=== PATIENT | male | born 1935 | race Caucasian/White ===

== ENCOUNTER → 2018-03-01 | Outpatient (CLI) | payer MEDICARE, BC ==
--- NOTE | 2018-03-01 18:02 | US ---
Exam: LOWER EXTREMITY VENOUS INSUFFICIENCY DATE: 03/01/2018. Technique: SIDE PERFORMED: Bilateral FINDINGS: 1) Color flow is present and patency is documented in the following vessels. No DVT or SVT is noted . EIV Common Femoral Vein Deep Femoral Vein Femoral Vein Popliteal Vein Proximal Calf Veins, not seen due to swelling Greater Saph Vein Upper Small Saph Vein 2) There is venous reflux noted at the following venous levels: Right: EIV,CFV, FV mid, Left: EIV, CFV, GSV IMPRESSION: 1. No evidence for DVT within the bilateral lower extremities imaged from the groin to the knees. The upper calves are not adequately visualized due to soft tissue swelling. 2. Bilateral venous reflux as outlined above.
== END | disposition home or self-care (01) ==
LOC: RADUSWWP 13:37
PROVIDERS: ATTEND Family Medicine
DX: M79.89 Other specified soft tissue disorders (principal); I87.2 Venous insufficiency (chronic) (peripheral)
CPT/HCPCS: 93970

== ENCOUNTER → 2018-07-31 | Outpatient (CLI) | payer MEDICARE, BC ==
--- NOTE | 2018-07-31 14:46 | US ---
EXAMINATION TYPE: US carotid duplex BILAT DATE OF EXAM: 07/31/2018 COMPARISON: NONE CLINICAL HISTORY: I65.29 OCCLUSION AND STENOSIS CAROTID ARTERY. Stenosis EXAM MEASUREMENTS: RIGHT: Peak Systolic Velocity (PSV) cm/sec ----- Right CCA: 124.4 ----- Right ICA: 210.7 ----- Right ECA: 417.1 ICA/CCA ratio: 1.7 RIGHT: End Diastole cm/sec ----- Right CCA: 14.0 ----- Right ICA: 21.2 ----- Right ECA: 23.8 LEFT: Peak Systolic Velocity (PSV) cm/sec ----- Left CCA: 205.2 ----- Left ICA: 253.1 ----- Left ECA: 425.9 ICA/CCA ratio: 1.2 LEFT: End Diastole cm/sec ----- Left CCA: 17.0 ----- Left ICA: 33.3 ----- Left ECA: 27.4 VERTEBRALS (direction of flow): Right Vertebral: Antegrade Left Vertebral: Antegrade Rhythm: Normal Grayscale images show moderate to severe diffuse plaque throughout carotid arteries bilaterally most prominent right carotid bulb level. Increased peak systolic velocity bilateral internal carotid arter ies is present. Increased peak systolic velocity bilateral common carotid arteries is noted. IMPRESSION: Severe atherosclerotic change bilaterally, cannot exclude hemodynamically significant st enosis . Advise CTA of the neck follow-up. Criteria for Assigning % of Stenosis / Diameter reduction (Estimation based on the indirect measurements of the internal carotid artery velocities (ICA PSV). 1. Normal (no stenosis)=ICA PSV < 125 cm/s: ratio < 2.0: ICA EDV<40 cm/s. 2. Less than 50% stenosis=ICA PSV < 125 cm/s: ratio < 2.0: ICA EDV<40 cm/s. 3. 50 to 69% stenosis=ICA PSV of 125 to 230 cm/s: ration 2.0 ? 4.0: ICA EDV 40-100 cm/s. 4. Greater than 70% stenosis to near occlusion= ICA PSV > 230 cm/s: ratio > 4.0: ICA EDV > 100 cm/s. 5. Near occlusion= ICA PSV velocities may be low or undetectable: variable ratio and ICA EDV. 6. Total occlusion=unable to detect flow.
== END | disposition home or self-care (01) ==
LOC: RADUSWWP 13:38
PROVIDERS: ATTEND Family Medicine
DX: I65.23 Occlusion and stenosis of bilateral carotid arteries (principal)
CPT/HCPCS: 93880

== ENCOUNTER 2019-03-01 19:16 | Inpatient (IN) | payer MEDICARE, BC ==
--- NOTE | 2019-03-01 20:07 | XR ---
EXAMINATION TYPE: XR chest 2V DATE OF EXAM: 03/01/2019 COMPARISON: 01/30/2015 HISTORY: Pneumonia. Chest pain TECHNIQUE: Frontal and lateral views of the chest are obtained. FINDINGS: There is no heart failure nor confluent pneumonic infiltrate. There are sternal wires. The re is stent in the ascending aorta. Costophrenic angles are clear. There is slight coarsening of inte rstitial markings. Bony thorax appears intact. IMPRESSION: No active cardiopulmonary disease. No change.
[2019-03-01 20:18] LABS: Basophils % (A) 1 %; Eosinophils # (A) 0.2 k/uL (0-0.7); Eosinophils % (A) 2 %; HCT 37.1 % (39.0-53.0); HGB 12.5 gm/dL (13.0-17.5); Lymphocytes # (A) 1.6 k/uL (1.0-4.8); Lymphocytes % (A) 22 %; MCH 30.2 pg (25.0-35.0); MCHC 33.7 g/dL (31.0-37.0); MCV 89.7 fL (80.0-100.0); Mean Platelet Volume 7.3; Monocytes # (A) 0.5 k/uL (0-1.0); Monocytes % (A) 8 %; Neutrophils # (A) 4.5 k/uL (1.3-7.7); Neutrophils % (A) 64 %; Platelet Count 130 k/uL (150-450); RBC 4.14 m/uL (4.30-5.90)
[2019-03-01 20:21] LABS: Partial Thromboplastin Time 23.5 sec (22.0-30.0); Prothrombin Time 10.9 sec (9.0-12.0)
[2019-03-01 20:26] LABS: Albumin 3.6 g/dL (3.5-5.0); Calcium 8.8 mg/dL (8.4-10.2); Magnesium 2.3 mg/dL (1.6-2.3); Potassium 4.5 mmol/L (3.5-5.1); Total Bilirubin 0.3 mg/dL (0.2-1.3); Total Protein 6.3 g/dL (6.3-8.2)
[2019-03-01] MEDS ORDERED: NALOXONE 0.4 MG/ML 1 ML VIAL IV PRN (21:25)
[2019-03-01] MEDS ORDERED: HEPARIN SODIUM,PORCINE 5,000 UNIT/ML 1 ML VIAL IV PRN (21:25)
[2019-03-01] MEDS ORDERED: HEPARIN SODIUM,PORCINE 5,000 UNIT/ML 1 ML VIAL IV ONE (21:25)
--- NOTE | 2019-03-01 21:33 | ED ---
Chest Pain HPI - General Chief Complaint: Chest Pain Stated Complaint: Chest pain Source: patient Mode of arrival: wheelchair Limitations: no limitations - History of Present Illness Initial Comments: The patient is an 83-year-old male with past medical history coronary artery disease who presents emergency Department with reported chest pain. He states it's been intermittent and associated with exertion which has been present for the past 3 days. States it is coming more frequent. States today he took his normal daily 30 minute walk. He was able to walk 2 blocks before he had a left- sided chest pressure. Denies any radiation of the pain. No ripping or tearing sensation to his back. He does have nitro at home to take for his angina. States he did take the medication with some improvement in his symptoms. He is concerned as the symptoms have become more frequent and therefore called his nephew to bring him into the emergency department for evaluation. The patient arrives and is currently states that he is pain-free. States that his last stress test was probably 3 years ago. He does normally see Dr. Malloy in office. He does admit to shortness of breath. He denies any diaphoresis, nausea or vomiting. No pain in his lower extremity. No back or flank pain. The patient denies a history of DVT or PE. He is not on any anticoagulation. No recent kenney rgeries or prolonged immobility. Does have chronic lower extremity edema which she states is at his baseline. Denies cough, fevers or chills. There are no other alleviating, precipitating or modifying factors - Related Data Home Medications Medication Instructions Recorded Confirmed ALPRAZolam [Xanax] 0.25 mg PO TID PRN 01/08/14 03/01/19 Nitroglycerin Sl Tabs [Nitrostat] 0.4 mg SL Q5M PRN 01/08/14 03/01/19 Lovastatin [Mevacor] 80 mg PO HS 12/03/14 03/01/19 Zolpidem [Ambien] 5 mg PO HS PRN 12/04/14 03/01/19 Acetaminophen Tab [Tylenol] 650 mg PO HS PRN 02/21/15 03/01/19 Allopurinol [Zyloprim] 100 mg PO BID 02/21/15 03/01/19 Carvedilol [Coreg] 6.25 mg PO AC-BID 02/21/15 03/01/19 Docusate [Colace] 100 mg PO BID PRN 02/21/15 03/01/19 Pantoprazole Sodium 40 mg PO QAM 02/21/15 03/01/19 Aspirin 81 mg PO QAM 06/16/15 03/01/19 HYDROcodone/APAP 5-325MG [[place] 1 tab PO DAILY PRN 06/16/15 03/01/19 5-325] Magnesium Citrate [Citrate of 60 ml PO DAILY PRN 06/16/15 03/01/19 Magnesia] Cholecalciferol (Vitamin D3) 2,000 unit PO QAM 03/01/19 03/01/19 [Vitamin D3] Furosemide [Lasix] 20 mg PO QAM 03/01/19 03/01/19 amLODIPine [Norvasc] 10 mg PO DAILY 03/01/19 03/01/19 cloNIDine HCL [Catapres] 0.2 mg PO BID 03/01/19 03/01/19 Previous Rx's Medication Instructions Recorded Isosorbide Mononitrate ER [Imdur] 60 mg PO DAILY #30 tab.er.24h 06/18/15 hydrALAZINE HCL [Apresoline] 75 mg PO TID #90 tab 06/18/15 Allergies Allergy/AdvReac Type Severity Reaction Status Date / Time No Known Allergies Allergy Verified 03/01/19 19:44 Review of Systems ROS Statement: Those systems with pertinent positive or pertinent negative responses have been documented in the HPI. ROS Other: All systems not noted in ROS Statement are negative. EKG Findings - EKG Comments: EKG Findings:: EKG demonstrates a sinus tachycardia with a ventricular rate of 55. MD interval 178. QRS 106. QTC of 419. No acute ST segment elevations or depressions concerning for ischemic changes. No high degree block. Past Medical History Past Medical History: Coronary Artery Disease (CAD), Heart Failure, Diabetes Mellitus, Eye Disorder, Hyperlipidemia, Hypertension, Memory Impairment, Osteoarthritis (OA) Additional Past Medical History / Comment(s): 02-21-15 ADMITTED WITH GI BLEED. OTHER HX LEGALLY BLIND. EDEMA LEGS. AORTIC STENOSIS. 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 Past Anesthesia/Blood Transfusion Reactions: No Reported Reaction Past Psychological History: Anxiety Smoking Status: Former smoker Past Alcohol Use History: None Reported Past Drug Use History: None Reported - Past Family History Mother Family Medical History: Cancer, Coronary Artery Disease (CAD), Diabetes Mellitus Father Family Medical History: Diabetes Mellitus General Exam Limitations: no limitations General appearance: alert, in no apparent distress Head exam: Present: atraumatic, normocephalic, normal inspection Eye exam: Present: normal appearance, PERRL, EOMI. Absent: scleral icterus, conjunctival injection, periorbital swelling ENT exam: Present: normal exam, mucous membranes moist Neck exam: Present: normal inspection. Absent: tenderness, meningismus, lymphadenopathy Respiratory exam: Present: normal lung sounds bilaterally. Absent: respiratory distress, wheezes, rales, rhonchi, stridor Cardiovascular Exam: Present: regular rate, normal rhythm, normal heart sounds. Absent: systolic murmur, diastolic murmur, rubs, gallop, clicks GI/Abdominal exam: Present: soft, normal bowel sounds. Absent: distended, tenderness, guarding, rebound, rigid Extremities exam: Present: normal inspection, full ROM, normal capillary refill. Absent: tenderness, pedal edema, joint swelling, calf tenderness Back exam: Present: normal inspection Neurological exam: Present: alert, oriented X3, CN II-XII intact Psychiatric exam: Present: normal affect, normal mood Skin exam: Present: warm, dry, intact, normal color. Absent: rash Course Vital Signs 03/01/19 03/01/19 03/01/19 19:16 19:32 20:00 Temperature 97.9 F Pulse Rate 55 L 55 L Pulse Rate [ Code Number Stamper ] Respiratory 18 14 Rate Blood Pressure 191/71 173/65 Blood Pressure [Right Arm] O2 Sat by Pulse 95 Oximetry 03/01/19 03/01/19 03/01/19 20:28 20:30 21:00 Temperature Pulse Rate 56 L 58 L 56 L Pulse Rate [ Code Number Stamper ] Respiratory 18 16 9 L Rate Blood Pressure 175/61 177/63 177/63 Blood Pressure [Right Arm] O2 Sat by Pulse 93 L 95 97 Oximetry 03/01/19 03/01/19 03/01/19 21:30 22:00 23:00 Temperature Pulse Rate 16 L 60 63 Pulse Rate [ Code Number Stamper ] Respiratory 59 H 9 L 29 H Rate Blood Pressure 184/65 184/65 178/60 Blood Pressure [Right Arm] O2 Sat by Pulse 95 97 98 Oximetry 03/02/19 03/02/19 03/02/19 00:00 00:01 01:00 Temperature 97.6 F 97.6 F Pulse Rate 55 L 55 L Pulse Rate [ 58 L 58 L Code Number Stamper ] Respiratory 19 18 14 Rate Blood Pressure 190/66 180/60 Blood Pressure 178/65 178/66 [Right Arm] O2 Sat by Pulse 93 L 97 96 Oximetry 03/02/19 03/02/19 03/02/19 02:00 03:00 03:10 Temperature Pulse Rate 52 L 49 L 55 L Pulse Rate [ Code Number Stamper ] Respiratory 19 14 181 H Rate Blood Pressure 183/59 180/60 181/83 Blood Pressure [Right Arm] O2 Sat by Pulse 98 88 L 97 Oximetry 03/02/19 03/02/19 03/02/19 04:00 05:01 06:00 Temperature 97.8 F Pulse Rate 50 L 48 L 49 L Pulse Rate [ 55 L Code Number Stamper ] Respiratory 17 16 17 Rate Blood Pressure 187/68 183/56 203/71 Blood Pressure 176/64 [Right Arm] O2 Sat by Pulse 97 Oximetry 03/02/19 03/02/19 03/02/19 07:00 08:00 08:49 Temperature 98.2 F Pulse Rate 48 L 53 L Pulse Rate [ 48 L 48 L Code Number Stamper ] Respiratory 12 22 18 Rate Blood Pressure 179/64 185/64 Blood Pressure 181/65 [Right Arm] O2 Sat by Pulse 98 Oximetry 03/02/19 03/02/19 03/02/19 09:00 10:00 11:00 Temperature Pulse Rate 50 L 44 L 44 L Pulse Rate [ Code Number Stamper ] Respiratory 12 15 6 L Rate Blood Pressure 181/65 154/55 152/57 Blood Pressure [Right Arm] O2 Sat by Pulse 87 L 97 Oximetry 03/02/19 03/02/19 03/02/19 11:41 11:42 12:00 Temperature 97.2 F L Pulse Rate 45 L Pulse Rate [ 42 L 42 L Code Number Stamper ] Respiratory 18 18 6 L Rate Blood Pressure 163/57 Blood Pressure 165/60 [Right Arm] O2 Sat by Pulse 92 L 97 Oximetry 03/02/19 03/02/19 03/02/19 13:00 14:00 14:59 Temperature 98.2 F Pulse Rate 48 L 44 L Pulse Rate [ 49 L Code Number Stamper ] Respiratory 16 16 20 Rate Blood Pressure 177/63 157/56 Blood Pressure 185/70 [Right Arm] O2 Sat by Pulse 97 91 L 92 L Oximetry 03/02/19 15:00 Temperature Pulse Rate 50 L Pulse Rate [ Code Number Stamper ] Respiratory 14 Rate Blood Pressure 185/70 Blood Pressure [Right Arm] O2 Sat by Pulse 93 L Oximetry Procedures - [facility]va Protocol (Time Out) Nurse: Jasmin Reddy Chest Pain MDM - MDM Upon arrival the patient was placed into room 24. He is hooked up to continuous pulse ox and cardiac monitoring. A 12-lead EKG is performed which demonstrates sinus bradycardia. No acute ST segment elevations or depressions. IV is e stablished. The patient is pain-free at this time. He is given 324 mg of chewable aspirin. Laboratory studies were conducted. The patient does have an elevated troponin which returned at 0.071. Patient's creatinine is at his baseline of 1.3. Because of patient's elevated troponin I did recommend heparinizing the patient. He denies any contraindications. The patient will be admitted to the hospital. He is admitted to Dr. Dorman with cardio consult. The patient was reevaluated upon multiple occasions remained pain-free. A chest x-ray was performed which demonstrated no acute findings. The patient is currently awaiting a bed on the floor. Disposition Clinical Impression: Chest pain, NSTEMI (non-ST elevated myocardial infarction) Disposition: ADMITTED IP TO THIS [facility] Condition: Serious Is patient prescribed a controlled substance at d/c from ED?: No Decision to Admit Reason: Admit from EC Decision Date: 03/01/19 Decision Time: 21:33
[2019-03-01] MEDS: HEPARIN SOD,PORK IN 0.45% NACL 25,000 UNIT in 0.45% NACL 1 250ML.BAG IV SCH (21:52)
[2019-03-01] MEDS ORDERED: ASPIRIN 81 MG PO STA (22:56)
[2019-03-01] MEDS: hydrALAZINE HCL 25 MG TAB PO SCH (23:04)
[2019-03-02] MEDS ORDERED: METOPROLOL TARTRATE 50 MG TAB PO STA (01:21)
[2019-03-02] MEDS: ALPRAZolam 0.25 MG TAB PO PRN ×2 (01:47→20:22)
[2019-03-02 03:39] LABS: Basophils # (A) 0.1 k/uL (0-0.2); Basophils % (A) 1 %; Eosinophils # (A) 0.2 k/uL (0-0.7); Eosinophils % (A) 2 %; HGB 13.4 gm/dL (13.0-17.5); Lymphocytes # (A) 2.1 k/uL (1.0-4.8); Lymphocytes % (A) 27 %; MCH 29.2 pg (25.0-35.0); MCHC 32.6 g/dL (31.0-37.0); MCV 89.7 fL (80.0-100.0); Mean Platelet Volume 7.3; Monocytes # (A) 0.5 k/uL (0-1.0); Monocytes % (A) 6 %; Neutrophils # (A) 4.8 k/uL (1.3-7.7); Neutrophils % (A) 61 %; Platelet Count 140 k/uL (150-450); RBC 4.57 m/uL (4.30-5.90); RDW 13.9 % (11.5-15.5); WBC 7.8 k/uL (3.8-10.6)
[2019-03-02] MEDS: NITROGLYCERIN SL TABS 0.4 MG TAB SUBLINGUAL PRN ×3 (03:41→03:56)
[2019-03-02] MEDS ORDERED: amLODIPine 5 MG TAB PO STA (03:45)
[2019-03-02] MEDS ORDERED: NITROGLYCERIN 0.1MG/HR PATCH TRANSDERM SCH (04:00)
[2019-03-02 04:13] LABS: Calcium 9.7 mg/dL (8.4-10.2); Potassium 4.1 mmol/L (3.5-5.1)
[2019-03-02] MEDS: CARVEDILOL 6.25 MG TAB PO SCH ×2 (05:26→16:46)
[2019-03-02] MEDS ORDERED: NITROGLYCERIN-D5W PMX 50 MG in DEXTROSE/WATER 1 250ML.BAG IV SCH (06:00)
[2019-03-02] MEDS: cloNIDine HCL 0.2 MG TAB PO SCH ×2 (08:59→20:22)
[2019-03-02] MEDS: hydrALAZINE HCL 25 MG TAB PO SCH ×3 (08:59→22:33)
[2019-03-02] MEDS: ASPIRIN 81 MG PO SCH (08:59)
[2019-03-02] MEDS: amLODIPine 10 MG TAB PO SCH (08:59)
[2019-03-02] MEDS: PANTOPRAZOLE 40 MG TABLET PO SCH (09:00)
[2019-03-02] MEDS ORDERED: METOPROLOL TARTRATE 50 MG TAB PO SCH ×2 (09:00)
[2019-03-02 10:12] LABS: INR 1.1 (<1.2); Prothrombin Time 11.2 sec (9.0-12.0)
[2019-03-02] MEDS: ISOSORBIDE MONONITRATE ER 60 MG TAB.ER.24H PO SCH (10:41)
--- NOTE | 2019-03-02 12:17 | ECHOF ---
Referral Reason:lv fxn MEASUREMENTS -------- HEIGHT: 167.6 cm WEIGHT: 98.9 kg BP: IVSd: 1.3 cm (0.6 - 1.1) LVIDd: 4.0 cm (3.9 - 5.3) LVPWd: 1.5 cm (0.6 - 1.1) IVSs: 1.5 cm LVIDs: 2.2 cm LVPWs: 1.6 cm Ao Diam: 3.4 cm (2.0 - 3.7) AV Cusp: 1.7 cm (1.5 - 2.6) LA Diam: 4.4 cm (2.7 - 3.8) MV EXCURSION: 27.202 mm (> 18.000) MV EF SLOPE: 129 mm/s (70 - 150) EPSS: 2.6 cm MV E Johnny: 1.03 m/s MV DecT: 228 ms MV A Johnny: 0.65 m/s MV E/A Ratio: 1.58 AV maxP.65 mmHg AV meanP.73 mmHg RAP: 5.00 mmHg RVSP: 19.39 mmHg FINDINGS -------- Resting bradycardia (HR<60bpm). This was a technically difficult study with suboptimal views. The left ventricular size is normal. There is mild concentric left ventricular hypertrophy. Overa ll left ventricular systolic function is normal with, an EF between 55 - 60 %. The right ventricle is normal in size. The left atrial size is normal. The right atrial size is normal. 5.0mg of Lumason was utilized for enhancement of images The aortic valve was not well visualized. Peak/mean gradient across the Aortic Valve is 23.65mmHg / 10.73mmHg. The mitral valve is normal. The mitral valve leaflets are mildly thickened. Mild mitral regurgita tion is present. The tricuspid valve appears structurally normal. Mild tricuspid regurgitation present. Right vent ricular systolic pressure is normal at < 35 mmHg. There is no pulmonic regurgitation present. The aortic root size is normal. IVC Not well visulized. There is no pericardial effusion. CONCLUSIONS -------- 1. Resting bradycardia (HR<60bpm). 2. This was a technically difficult study with suboptimal views. 3. The left ventricular size is normal. 4. There is mild concentric left ventricular hypertrophy. 5. Overall left ventricular systolic function is normal with, an EF between 55 - 60 %. 6. The right ventricle is normal in size. 7. The left atrial size is normal. 8. The right atrial size is normal. 9. 5.0mg of Lumason was utilized for enhancement of images 10. The aortic valve was not well visualized. 11. Peak/mean gradient across the Aortic Valve is 23.65mmHg / 10.73mmHg. 12. The mitral valve is normal. 13. The mitral valve leaflets are mildly thickened. 14. Mild mitral regurgitation is present. 15. The tricuspid valve appears structurally normal. 16. Mild tricuspid regurgitation present. 17. Right ventricular systolic pressure is normal at < 35 mmHg. 18. There is no pulmonic regurgitation present. 19. The aortic root size is normal. 20. IVC Not well visulized. 21. There is no pericardial effusion. CLAIMS REPRESENTATIVE: Melyssa Blackwood RDCS
[2019-03-02 12:26] LABS: Glucose,Whole Blood 98 mg/dL (75-99)
[2019-03-02 15:49] LABS: Glucose,Whole Blood 120 mg/dL (75-99)
[2019-03-02] MEDS: NITROGLYCERIN-D5W PMX 50 MG in DEXTROSE/WATER 1 250ML.BAG IV SCH (16:20)
[2019-03-02] MEDS: HEPARIN SOD,PORK IN 0.45% NACL 25,000 UNIT in 0.45% NACL 1 250ML.BAG IV SCH (20:10)
[2019-03-02] MEDS: ATORVASTATIN 20 MG TAB PO SCH (20:10)
--- NOTE | 2019-03-02 21:57 | P.HPIM ---
History of Present Illness H&P Date: 03/02/19 Chief Complaint: Chest pain History of presenting complaint: This is a very pleasant 83-year-old patient of Dr. magallanes. Followed by reed dipper Dr. Deep Malloy. Chronic stable medical conditions include congestive heart failure, diabetes, hypertension, hyperlipidemia, currently impairment. Patient is. Also had aortic valve replacement with a TAVR. Patient normally goes for a 7-8 block walk everyday. For last 2 days has noticed that his been getting more tired. Yesterday when he is walking after 3 blocks he started having some chest discomfort and pain and started getting worse as he walked. Decided to come home slowly. There is no shortness of breath perspiration dizziness or lightheadedness. Told to treat tired and rundown. Presented to the ER eventually. Patient had a bump in troponins. Was put on IV heparin. Has blood pressures running high. Also put on nitroglycerin drip. Admitted to the ICU. Review of systems: GEN.: Tired EYES: Giggly blind HEENT: Decreased hearing NECK: None RESPIRATORY: None CARDIOVASCULAR: As above GASTROINTESTINAL: None GENITOURINARY: None MUSCULOSKELETAL: Pain in joints LYMPHATICS: None HEMATOLOGICAL: None PSYCHIATRY: Forgetful NEUROLOGICAL: Uses a cane Social history: Does smoke in the past. No alcohol. Lives by himself. Retired. Does use a cane. Physical examination: VITAL SIGNS: 97.2, 42, 18, 1 65 x 60, 92% on 2 L GENERAL: Average built, laying in bed, tired appearing. EYES: Pupils equal. Conjunctiva normal. HEENT: External appearance of nose and ears normal, oral cavity grossly normal, decreased hearing. NECK: JVD not raised; masses not palpable. HEART: First and second heart sounds are normal; no edema. LUNGS: Respiratory rate normal; decreased breath sounds. ABDOMEN: Soft, nontender, liver spleen not palpable, no masses palpable. PSYCH: Alert and oriented x3; mood and affect normal. NEUROLOGICAL: Cranial nerves grossly intact; no facial asymmetry, power and sensation grossly intact. LYMPHATICS: No lymph nodes palpable in the axilla and neck MUSCULOSKELETAL: Evidence of OA in the hands INVESTIGATIONS, reviewed in the clinical context: White count 7.8 hemoglobin 13.4 platelets 140 potassium 4.1 124 creatinine 1.19 Troponin I 0.071, 0.080, 0.051 EKG tracing personally reviewed by me-sinus rhythm with bradycardia Chest x-ray film-personally reviewed by me shows possibly some chronic changes 2-D echocardiogram-EF 55-60% Assessment: -Possible acute non-Q-wave myocardial infarction in a person with known coronary artery disease -Chronic congestive heart failure from diastolic dysfunction EF 55-60% -Diabetes mellitus type 2 -Essential hypertension with urgency -Hyperlipidemia -History of aortic valve replacement withTAVR -Mild cognitive impairment Plan: Patient admitted to ICU. On IV heparin. IV nitroglycerin drip. Cardiology was consulted. The plan to do a cardiac catheterization tomorrow. He was discussed with the patient. Prognosis guarded. Past Medical History Past Medical History: Coronary Artery Disease (CAD), Heart Failure, Diabetes Mellitus, Eye Disorder, Hyperlipidemia, Hypertension, Memory Impairment, Osteoarthritis (OA) Additional Past Medical History / Comment(s): 02-21-15 ADMITTED WITH GI BLEED. OTHER HX LEGALLY BLIND. EDEMA LEGS. AORTIC STENOSIS. History of Any Multi-Drug Resistant Organisms: None Reported Past Surgical History: Cholecystectomy, Coronary Bypass/CABG, Heart Catheterization Additional Past Surgical History / Comment(s): 01/20 AVReplacement TAVR Core Valve, 01/26 coronary stent SVG to Cx, arthroscopic knee surgey bilat. Past Anesthesia/Blood Transfusion Reactions: No Reported Reaction Past Psychological History: Anxiety Additional Psychological History / Comment(s): PT STATES LIVES ALONE IN HIS HOME.USES A CANE TO GET AROUND AND DENIES EVER HAVING ANY FALLS. PT'S NEPHEW JESSE HELPS HIM WITH THINGS. Smoking Status: Former smoker Past Alcohol Use History: None Reported Past Drug Use History: None Reported - Past Family History Mother Family Medical History: Cancer, Coronary Artery Disease (CAD), Diabetes Mellitus Father Family Medical History: Diabetes Mellitus Medications and Allergies Home Medications Medication Instructions Recorded Confirmed Type ALPRAZolam [Xanax] 0.25 mg PO TID PRN 01/08/14 03/01/19 History Nitroglycerin Sl Tabs [Nitrostat] 0.4 mg SL Q5M PRN 01/08/14 03/01/19 History Lovastatin [Mevacor] 80 mg PO HS 12/03/14 03/01/19 History Zolpidem [Ambien] 5 mg PO HS PRN 12/04/14 03/01/19 History Acetaminophen Tab [Tylenol] 650 mg PO HS PRN 02/21/15 03/01/19 History Allopurinol [Zyloprim] 100 mg PO BID 02/21/15 03/01/19 History Carvedilol [Coreg] 6.25 mg PO AC-BID 02/21/15 03/01/19 History Docusate [Colace] 100 mg PO BID PRN 02/21/15 03/01/19 History Pantoprazole Sodium 40 mg PO QAM 02/21/15 03/01/19 History Aspirin 81 mg PO QAM 06/16/15 03/01/19 History HYDROcodone/APAP 5-325MG [[place] 1 tab PO DAILY PRN 06/16/15 03/01/19 History 5-325] Magnesium Citrate [Citrate of 60 ml PO DAILY PRN 06/16/15 03/01/19 History Magnesia] Isosorbide Mononitrate ER [Imdur] 60 mg PO DAILY #30 tab.er.24h 06/18/15 03/01/19 Rx hydrALAZINE HCL [Apresoline] 75 mg PO TID #90 tab 06/18/15 03/01/19 Rx Cholecalciferol (Vitamin D3) 2,000 unit PO QAM 03/01/19 03/01/19 History [Vitamin D3] Furosemide [Lasix] 20 mg PO QAM 03/01/19 03/01/19 History amLODIPine [Norvasc] 10 mg PO DAILY 03/01/19 03/01/19 History cloNIDine HCL [Catapres] 0.2 mg PO BID 03/01/19 03/01/19 History Allergies Allergy/AdvReac Type Severity Reaction Status Date / Time No Known Allergies Allergy Verified 03/01/19 19:44 Physical Exam Vitals: Vital Signs Temp Pulse Pulse Resp BP BP Pulse Ox 03/02/19 16:00 97.6 F 45 L 18 199/72 94 L 03/02/19 14:59 98.2 F 49 L 20 185/70 92 L 03/02/19 11:42 42 L 18 03/02/19 11:41 97.2 F L 42 L 18 165/60 92 L 03/02/19 08:49 98.2 F 48 L 18 181/65 98 03/02/19 08:00 48 L 18 03/02/19 04:00 97.8 F 55 L 18 176/64 97 03/02/19 03:10 55 L 181 H 181/83 97 03/02/19 00:01 97.6 F 58 L 18 178/66 97 03/02/19 00:00 97.6 F 58 L 18 178/65 97 03/01/19 21:30 16 L 59 H 184/65 95 03/01/19 20:30 58 L 16 177/63 95 03/01/19 20:28 56 L 18 175/61 93 L Intake and Output 03/02/19 03/02/19 03/02/19 06:59 14:59 22:59 Intake Total 62.667 581.051 118.174 Output Total 2900 1000 Balance -2837.333 -418.949 118.174 Intake: Intake, IV Titration 62.667 81.051 118.174 Amount Heparin Sod,Pork in 0.45% 62.667 81.051 95.824 NaCl 25,000 unit In 0.45 % NaCl 1 250ml.bag @ 10. 113 UNITS/KG/HR 10 mls/hr IV .Q24H JUST[facility] Rx#: [id number] Nitroglycerin-D5w Pmx 50 22.35 mg In Dextrose/Water 1 250ml.bag @ 10 MCG/MIN 3 mls/hr IV .Q24H [facility] Rx#: [id number] Oral 500 Output: Urine 2900 1000 Other: Voiding Method Urinal Urinal Urinal Diaper Diaper # Voids 2 3 Results CBC & Chem 7: 03/02/19 03:20 03/02/19 03:20 Labs: Abnormal Lab Results - Last 24 Hours (Table) 03/01/19 03/01/19 03/01/19 Range/Units 19:40 19:40 19:40 RBC 4.14 L (4.30-5.90) m/uL Hgb 12.5 L (13.0-17.5) gm/dL Hct 37.1 L (39.0-53.0) % Plt Count 130 L (150-450) k/uL APTT (22.0-30.0) sec Sodium 134 L (137-145) mmol/L Chloride 96 L (98-107) mmol/L BUN 26 H (9-20) mg/dL Creatinine 1.38 H (0.66-1.25) mg/dL Glucose 103 H (74-99) mg/dL POC Glucose (mg/dL) (75-99) mg/dL ALT 15 L (21-72) U/L Troponin I 0.071 H* (0.000-0.034) ng/mL 03/02/19 03/02/19 03/02/19 Range/Units 03:20 03:20 03:20 RBC (4.30-5.90) m/uL Hgb (13.0-17.5) gm/dL Hct (39.0-53.0) % Plt Count 140 L (150-450) k/uL APTT 43.8 H (22.0-30.0) sec Sodium (137-145) mmol/L Chloride (98-107) mmol/L BUN (9-20) mg/dL Creatinine (0.66-1.25) mg/dL Glucose (74-99) mg/dL POC Glucose (mg/dL) (75-99) mg/dL ALT (21-72) U/L Troponin I 0.080 H* (0.000-0.034) ng/mL 03/02/19 03/02/19 03/02/19 Range/Units 03:20 09:27 09:27 RBC (4.30-5.90) m/uL Hgb (13.0-17.5) gm/dL Hct (39.0-53.0) % Plt Count (150-450) k/uL APTT 40.6 H (22.0-30.0) sec Sodium (137-145) mmol/L Chloride (98-107) mmol/L BUN 24 H (9-20) mg/dL Creatinine (0.66-1.25) mg/dL Glucose 114 H (74-99) mg/dL POC Glucose (mg/dL) (75-99) mg/dL ALT (21-72) U/L Troponin I 0.051 H* (0.000-0.034) ng/mL 03/02/19 03/02/19 Range/Units 15:37 16:39 RBC (4.30-5.90) m/uL Hgb (13.0-17.5) gm/dL Hct (39.0-53.0) % Plt Count (150-450) k/uL APTT 80.3 H (22.0-30.0) sec Sodium (137-145) mmol/L Chloride (98-107) mmol/L BUN (9-20) mg/dL Creatinine (0.66-1.25) mg/dL Glucose (74-99) mg/dL POC Glucose (mg/dL) 120 H (75-99) mg/dL ALT (21-72) U/L Troponin I (0.000-0.034) ng/mL Thrombosis Risk Factor Assmnt - Choose All That Apply Any of the Below Risk Factors Present?: Yes Each Factor Represents 1 point: Obesity (BMI >25), Swollen legs (current) Other Risk Factors: Yes Each Risk Factor Represents 3 Points: Age 75 years or older Other congenital or acquired thrombophilia - If yes, enter type in comment: No Thrombosis Risk Factor Assessment Total Risk Factor Score: 5 Thrombosis Risk Factor Assessment Level: High Risk
[2019-03-02] MEDS: ALLOPURINOL 100 MG TAB PO SCH (22:33)
--- NOTE | 2019-03-03 01:33 | CONS ---
CONSULTATION Mr. Monterroso is an 83-year-old gentleman who is seen for cardiac evaluation. This patient has a known history of coronary artery disease with a prior history of coronary artery bypass surgery and percutaneous aortic valve replacement. The patient had been doing fairly well. He lives alone. His only relative is a nephew and he is unmarried. The patient usually is able to walk 30 minutes about 2-3 blocks. However, last 2 to 3 days he has been having chest pain intermittent and he had a chest pain with activities. He denies any orthopnea or PND. The pain was in the substernal area. Patient tried some nitroglycerin without any significant relief. The patient was brought to the emergency room and his troponins are mildly elevated. At present, patient is pain free. The patient has a history of hypertension and his blood pressure at remains uncontrolled. HOME MEDICATIONS: Include Xanax, Mevacor 80 mg daily, Tylenol, Coreg 6.25 mg b.i.d., pantoprazole 40 mg daily, baby aspirin once a day, Lasix 20 mg daily, amlodipine 10 mg daily, Catapres 0.2 mg b.i.d., hydralazine 75 mg daily, isosorbide 60 mg daily. PAST MEDICAL HISTORY: Includes history of coronary artery bypass surgery, history of percutaneous aortic valve replacement, history of a prior history of a stent SVG to the circumflex, arthroscopic bilateral knee surgery and cholecystectomy, prior history of a GI bleed in 2015. Patient is legally blind. PHYSICAL EXAMINATION: At present reveals an 83-year-old obesely built gentleman who does not appear to be in any acute distress at present. The patient's systolic blood pressure remains in the range of 170-180 systolic. Heart rate is 50 per minute. The respiratory rate is 18 oxygen saturation is 94%. HEENT examination is negative. Neck is supple. There is no increase in jugular venous pressure. Both the carotid pulses are felt. There is no bruit. Chest is symmetrical. Heart: The PMI is not felt. First and second heart sounds are heard. There is a grade 2/6 ejection systolic murmur noted. Lungs are clear to auscultation and percussion. Abdomen is negative. Extremities: Peripheral pulses are not felt. Both femoral pulses are felt. Electrolytes are normal. Creatinine was 1.38, repeat creatinine is 1.19. Patient initial troponin was 0.071. Repeat troponin is 0.080 and 0.051. EKG shows normal sinus rhythm with sinus bradycardia. No acute ischemic changes are noted. Patient's echocardiogram shows normal left ventricular systolic functions. Aortic valve was not very well visualized. FINAL IMPRESSION: 1. This patient is having a recurrent chest pain for last 2 to 3 days with elevated troponin suggestive of non ST-segment elevation myocardial infarction. Rule out any significant progression in the coronary artery disease, particularly vein graft involving the obtuse marginal branch. 2. Status post percutaneous the aortic valve replacement. 3. Status post coronary artery bypass surgery. 4. Uncontrolled blood pressure. RECOMMENDATIONS: The patient is currently on nitroglycerin drip. We will titrate the nitroglycerin drip to keep the blood pressure below 150 systolic. Continue the rest of the medications. We will hold off the diuretics at present and subsequently patient will be started on the diuretic after the procedure. The patient is advised further evaluation with a cardiac catheterization. I discussed with Dr. Srivastava. He is going to review the films and decide about the catheterization tomorrow. MMODL / IJN: [id number] /
[2019-03-03 04:51] LABS: Basophils # (A) 0.1 k/uL (0-0.2); Basophils % (A) 1 %; Eosinophils # (A) 0.2 k/uL (0-0.7); Eosinophils % (A) 3 %; HCT 35.8 % (39.0-53.0); HGB 12.1 gm/dL (13.0-17.5); Lymphocytes # (A) 1.6 k/uL (1.0-4.8); Lymphocytes % (A) 21 %; MCH 30.5 pg (25.0-35.0); MCHC 33.9 g/dL (31.0-37.0); MCV 89.9 fL (80.0-100.0); Mean Platelet Volume 7.3; Monocytes # (A) 0.5 k/uL (0-1.0); Monocytes % (A) 7 %; Neutrophils # (A) 4.9 k/uL (1.3-7.7); Neutrophils % (A) 66 %; Platelet Count 143 k/uL (150-450); RBC 3.99 m/uL (4.30-5.90); RDW 15.2 % (11.5-15.5); WBC 7.5 k/uL (3.8-10.6)
[2019-03-03 04:59] LABS: INR 1.1 (<1.2); Prothrombin Time 11.5 sec (9.0-12.0)
[2019-03-03] MEDS: CARVEDILOL 6.25 MG TAB PO SCH (08:23)
[2019-03-03] MEDS: ALLOPURINOL 100 MG TAB PO SCH ×2 (08:23→21:49)
[2019-03-03] MEDS: ASPIRIN 81 MG PO SCH (08:24)
[2019-03-03] MEDS: cloNIDine HCL 0.2 MG TAB PO SCH ×2 (08:24→21:48)
[2019-03-03] MEDS: amLODIPine 10 MG TAB PO SCH (08:24)
[2019-03-03] MEDS: hydrALAZINE HCL 50 MG TAB PO SCH ×3 (08:24→21:49)
[2019-03-03] MEDS: PANTOPRAZOLE 40 MG TABLET PO SCH (08:25)
[2019-03-03] MEDS: ISOSORBIDE MONONITRATE ER 60 MG TAB.ER.24H PO SCH (08:25)
[2019-03-03] MEDS ORDERED: ALPRAZolam 0.5 MG TAB PO PRN (11:36)
[2019-03-03] MEDS: NITROGLYCERIN-D5W PMX 50 MG in DEXTROSE/WATER 1 250ML.BAG IV SCH (12:25)
[2019-03-03] MEDS: HEPARIN SOD,PORK IN 0.45% NACL 25,000 UNIT in 0.45% NACL 1 250ML.BAG IV SCH (12:27)
[2019-03-03 12:51] LABS: Potassium 4.1 mmol/L (3.5-5.1)
--- NOTE | 2019-03-03 13:24 | PN ---
PROGRESS NOTE This patient was admitted with recent onset of persistent chest pain and unstable angina and non-Q-wave myocardial infarction. He is comfortable. Feeling better. Patient is still on nitroglycerin drip, but his blood pressure is much better as compared to yesterday. It is 150/53 mmHg. Heart rate is 50 per minute. First and second heart sounds are normal. Lungs are clear to auscultation and percussion. Patient's echocardiogram reveals overall normal left ventricular systolic function. The patient is going to be have a cardiac catheterization done tomorrow by Dr. Sugar Srivastava. MMODL / IJN: [id number] /
--- NOTE | 2019-03-03 14:49 | P.PN ---
Progress Note - Text Progress Note Date: 03/03/19 Chief Complaint: Chest pain Interval history: This is a very pleasant 83-year-old patient of Dr. magallanes. Followed by laundry presser Dr. Deep Malloy. Chronic stable medical conditions include congestive heart failure, diabetes, hypertension, hyperlipidemia, currently impairment. Patient is. Also had aortic valve replacement with a TAVR. Patient normally goes for a 7-8 block walk everyday. For last 2 days has noticed that his been getting more tired. Yesterday when he is walking after 3 blocks he started having some chest discomfort and pain and started getting worse as he walked. Decided to come home slowly. There is no shortness of breath perspiration dizzi ness or lightheadedness. Told to treat tired and rundown. Presented to the ER eventually. Patient had a bump in troponins. Was put on IV heparin. Has blood pressures running high. Also put on nitroglycerin drip. Admitted to the ICU. Patient was admitted with acute non-Q-wave [place] and accelerated hypertension. Today-. Remains in the ICU. Blood pressure remains on the higher side. Remains on IV heparin and IV nitroglycerin drip artery. Pending cardiac catheterization per cardiology. States has some chest pain earlier. A bit tired appearing. Review of systems: Was done for constitutional, cardiovascular, GI, pulmonary. relevant finding as above Active Medications Hydrocodone Bitart/Acetaminophen ([place] 5-325) 1 each PO DAILY PRN PRN Reason: Pain Allopurinol (Zyloprim) 100 mg PO BID [facility] Last Admin: 03/03/19 08:23 Dose: 100 mg Documented by: Alprazolam (Xanax) 0.25 mg PO Q6HR PRN PRN Reason: Mild Anxiety Alprazolam (Xanax) 0.5 mg PO Q6HR PRN PRN Reason: Moderate Anxiety Amlodipine Besylate (Norvasc) 10 mg PO DAILY [facility] Last Admin: 03/03/19 08:24 Dose: 10 mg Documented by: Aspirin (Aspirin) 81 mg PO QAM [facility] Last Admin: 03/03/19 08:24 Dose: 81 mg Documented by: Atorvastatin Calcium (Lipitor) 20 mg PO HS [facility] Last Admin: 03/02/19 20:10 Dose: 20 mg Documented by: Carvedilol (Coreg) 3.125 mg PO BID-W/MEALS [facility] Clonidine (Catapres) 0.2 mg PO BID [facility] Last Admin: 03/03/19 08:24 Dose: 0.2 mg Documented by: Docusate Sodium (Colace) 100 mg PO BID [facility] Heparin Sodium (Porcine) (Heparin) 0 unit IV PER PROTOCOL PRN; Protocol PRN Reason: Low PTT Last Admin: 03/02/19 10:55 Dose: 2,472.5 unit Documented by: Hydralazine HCl (Apresoline) 100 mg PO TID [facility] Last Admin: 03/03/19 08:24 Dose: 100 mg Documented by: Heparin Sodium/Sodium Chloride (25,000 unit/ Sodium Chloride) 250 mls @ 10 mls/hr IV .Q24H [facility]; Protocol Last Admin: 03/03/19 12:27 Dose: 12.113 units/kg/hr, 11.978 mls/hr Documented by: Nitroglycerin/Dextrose 50 mg/ (IV Solution) 250 mls @ 3 mls/hr IV .Q24H [facility]; Protocol Last Admin: 03/03/19 12:25 Dose: 50 mcg/min, 15 mls/hr Documented by: Isosorbide Mononitrate (Imdur) 60 mg PO DAILY [facility] Last Admin: 03/03/19 08:25 Dose: 60 mg Documented by: Naloxone HCl (Narcan) 0.2 mg IV Q2M PRN PRN Reason: Opioid Reversal Nitroglycerin (Nitrostat) 0.4 mg SUBLINGUAL Q5M PRN PRN Reason: Chest Pain Last Admin: 03/02/19 03:56 Dose: 0.4 mg Documented by: Pantoprazole Sodium (Protonix) 40 mg PO QAM [facility] Last Admin: 03/03/19 08:25 Dose: 40 mg Documented by: Zolpidem Tartrate (Ambien) 5 mg PO HS PRN PRN Reason: Insomnia Physical examination: VITAL SIGNS: 97.5, 51, 70, 1 53 x 68, 92% on 2 L GENERAL: laying in bed, tired appearing. EYES: Pupils equal. Conjunctiva normal. HEENT: External appearance of nose and ears normal, oral cavity grossly normal, decreased hearing. NECK: JVD not raised; masses not palpable. HEART: First and second heart sounds are normal; no edema. LUNGS: Respiratory rate normal; decreased breath sounds. ABDOMEN: Soft, nontender, liver spleen not palpable, no masses palpable. PSYCH: Alert and oriented x3; mood and affect normal. INVESTIGATIONS, reviewed in the clinical context: White count 7.5 hemoglobin 12.1 potassium 4.1 creatinine 1.2 to Previous testing: Troponin I 0.071, 0.080, 0.051 EKG tracing personally reviewed by me-sinus rhythm with bradycardia Chest x-ray film-personally reviewed by me shows possibly some chronic changes 2-D echocardiogram-EF 55-60% Assessment: -Possible acute non-Q-wave myocardial infarction in a person with known coronary artery disease -Chronic congestive heart failure from diastolic dysfunction EF 55-60% -Diabetes mellitus type 2 -Essential hypertension accelerated -Hyperlipidemia -History of aortic valve replacement withTAVR -Mild cognitive impairment -IV nitroglycerin and IV heparin drip Plan: Patient to continue on IV nitroglycerin and IV heparin drip. Other medications to continue. Care was discussed with the patient. Await cardiac catheterization per cardiology.
[2019-03-03] MEDS: CARVEDILOL 3.125 MG TAB PO SCH (17:48)
[2019-03-03] MEDS: DOCUSATE 100 MG CAP PO SCH (21:49)
[2019-03-03] MEDS: ATORVASTATIN 20 MG TAB PO SCH (21:53)
[2019-03-04 05:20] LABS: Basophils % (A) 0 %; Eosinophils # (A) 0.2 k/uL (0-0.7); Eosinophils % (A) 2 %; HCT 34.8 % (39.0-53.0); HGB 11.6 gm/dL (13.0-17.5); Lymphocytes # (A) 1.5 k/uL (1.0-4.8); Lymphocytes % (A) 24 %; MCHC 33.4 g/dL (31.0-37.0); MCV 89.7 fL (80.0-100.0); Monocytes # (A) 0.4 k/uL (0-1.0); Monocytes % (A) 7 %; Neutrophils # (A) 4.1 k/uL (1.3-7.7); Neutrophils % (A) 64 %; Platelet Count 117 k/uL (150-450); RBC 3.87 m/uL (4.30-5.90); RDW 14.2 % (11.5-15.5); WBC 6.3 k/uL (3.8-10.6)
[2019-03-04 05:34] LABS: Potassium 3.6 mmol/L (3.5-5.1)
[2019-03-04 05:47] LABS: INR 1.1 (<1.2); Prothrombin Time 11.5 sec (9.0-12.0)
[2019-03-04] MEDS: HYDROcodone/APAP 5-325MG 1 EACH TAB PO PRN ×2 (06:24→13:44)
[2019-03-04] MEDS: NITROGLYCERIN-D5W PMX 50 MG in DEXTROSE/WATER 1 250ML.BAG IV SCH (07:55)
[2019-03-04] MEDS ORDERED: POTASSIUM CHLORIDE ER 20 MEQ TAB.ER PO SCH (08:00)
[2019-03-04] MEDS: CARVEDILOL 3.125 MG TAB PO SCH ×2 (08:14→17:16)
[2019-03-04] MEDS: ALLOPURINOL 100 MG TAB PO SCH ×2 (08:15→21:14)
[2019-03-04] MEDS: hydrALAZINE HCL 50 MG TAB PO SCH ×3 (08:16→21:25)
[2019-03-04] MEDS: DOCUSATE 100 MG CAP PO SCH ×2 (08:16→21:14)
[2019-03-04] MEDS: ASPIRIN 81 MG PO SCH (08:16)
[2019-03-04] MEDS: ISOSORBIDE MONONITRATE ER 60 MG TAB.ER.24H PO SCH ×2 (08:16→21:26)
[2019-03-04] MEDS: PANTOPRAZOLE 40 MG TABLET PO SCH (08:17)
[2019-03-04] MEDS: amLODIPine 10 MG TAB PO SCH (08:17)
[2019-03-04] MEDS: cloNIDine HCL 0.2 MG TAB PO SCH ×2 (08:23→21:13)
[2019-03-04] MEDS ORDERED: IV FLUID CONTINUATION 400 ML IV ONE (11:03)
[2019-03-04] MEDS ORDERED: LIDOCAINE 1% INJ 10MG/ML (20 ML MDV) SQ ONE (11:13)
[2019-03-04] MEDS ORDERED: MIDAZOLAM (PF) 2 MG/2 ML VIAL IVP ONE (11:14)
[2019-03-04] MEDS ORDERED: HEPARIN SODIUM 1,000 UN/ML (10ML VL) IV ONE ×2 (11:44→12:03)
[2019-03-04] MEDS ORDERED: IOPAMIDOL-370 100ML BTL INJ ONE ×3 (11:52→12:45)
[2019-03-04] MEDS ORDERED: SODIUM CHLORIDE 0.9% 500 ML 500 ML IV ONE (11:52)
[2019-03-04] MEDS ORDERED: ASPIRIN 81 MG PO ONE (12:04)
[2019-03-04] MEDS ORDERED: NITROGLYCERIN 1000MCG/10ML SYRINGE INTRACORON ONE (12:13)
[2019-03-04] MEDS: niCARdipine Syringe (1,000 mcg/10 mL) INTRACORON ONE ×3 (12:14→12:43)
[2019-03-04] MEDS ORDERED: FUROSEMIDE 10 MG/ML 4 ML VIAL IV ONE (12:17)
[2019-03-04] MEDS ORDERED: HYDROmorphone 1 MG/ML 1 ML SYRINGE IVP ONE (12:28)
[2019-03-04] MEDS ORDERED: NITROGLYCERIN 1000MCG/10ML SYRINGE IV ONE (12:50)
[2019-03-04] MEDS ORDERED: CLOPIDOGREL 75 MG TAB PO ONE (12:51)
[2019-03-04] MEDS ORDERED: RX INFO: IV CONTRAST WAS GIVEN 1 EACH MISC MISCELLANE PRN (14:03)
[2019-03-04] MEDS: SODIUM CHLORIDE 0.9% 1,000 ML IV SCH (14:20)
--- NOTE | 2019-03-04 14:39 | CC ---
CARDIAC CATHETERIZATION REPORT DATE OF SERVICE: 03/04/2019. PROCEDURE PERFORMED: 1. Selective coronary angiography of alutiiq left coronary artery, vein graft to the obtuse marginal branch of circumflex and vein graft to the PDA branch of RCA. 2. PTCA and stenting of saphenous vein graft to the obtuse marginal branch of circumflex with 2 drug-eluting stents. 3. PTCA and stenting of the body of the vein graft to the PDA branch of circumflex coronary artery with a drug-eluting stent. ANESTHESIA: Moderate conscious sedation time was 1 hours and 35 minutes. The patient was administered Versed. He also received some Dilaudid. Oxygen saturation, hemodynamics and EKG were monitored closely. CLINICAL INFORMATION: Mr. Raúl Monterroso is an 83-year-old gentleman with a known history of CAD, aortocoronary bypass surgery more than 15 years ago. Sometime in 2013 he went on to have an aortic valve replacement from percutaneous approach probably [place] [facility] [place]. Dejesus. He had a CoreValve placed. In May 2015, I performed coronary angiography from the right femoral approach and noted that the OM graft was patent and the PDA graft was patent, but there was a PLV graft that was totally occluded. His WILBURN was opened. He was advised medical therapy. Did well but came into the hospital with chest pain and troponin elevation suggestive of non-ST elevation SD. After extensive discussion with the patient, his son and brother, I recommended coronary angiography. Dr. Silvia Goyal evaluated the patient and recommended coronary angiography and I came into see the patient, his brother and talked to his nephew at length and explained to them the rationale, risks, benefits, and options. The fact that this would be technically difficult and the risk would be higher was also explained. They understood all details and wished to proceed with the procedure. Apparently, there were some issues with the left axillary approach when TAVR was performed. Therefore I will proceed from the left femoral approach. PROCEDURE NOTE: Under local anesthesia and strict aseptic precautions, a 6-Citizen Of [place] introducer was placed in the left femoral artery. There was a lot of scar tissue. I had difficulty placing the sheath. I used a Beth catheter. With this, I tried to get into the WILBURN, but I had difficulty getting the WILBURN accessed because of extreme tortuosity and heavy calcification. I used an AR2 catheter. With this, I performed selective coronary angiography of the vein graft to the PDA, which was occluded. I used the same vessel, but I could not gain access to the graft to the obtuse marginal. I used a standard left Jason catheter for selective coronary angiography of the left coronary artery. Noted that the left main was occluded and the LAD was also occluded in the midportion with diffuse disease in circumflex. I used a left bypass diagnostic catheter. With this, I was able to cannulate the graft to the obtuse marginal and this graft had a 95% stenosis with thrombus. I proceeded to perform intervention. I had assumed that the vein graft to the PDA was occluded. However, when I started the PCI procedure, I used a left bypass guide catheter and with this guide catheter as I was attempting to cannulate the OM graft, I fell into a PDA graft which was found to have a 95% stenosis in the body of the graft in the midportion. I used the same guide catheter and with a run-through wire, I crossed the lesion. Without predilatation I performed stenting of the body of the vein graft to the PDA with a 4.0 caliber 8 mm Xience drug-eluting stent with excellent result. I then with great difficulty was able to cannulate the vein graft to the obtuse marginal. The same run-through wire was used to cross the lesion and I deployed a 23 mm long 4.0 caliber Xience stent at 14 atmospheres. Good result was achieved, but distal to the stent there was an area of haziness and patient continued to have some chest discomfort. I came out with a guide catheter, but then went back with the same guide catheter. With manipulation, I was able to get back into the vein graft to the obtuse marginal. Same run-through wire was used to cross the lesion and an additional 15 mm long Xience stent was telescoped distal to the previous stent. Excellent angiographic result was achieved with remarkably good flow. Patient received nicardipine intracoronary for both the grafts. Excellent angiographic result was achieved. LV pressures were not obtained. The sheath was taken out and I used an Angio-Seal device to secure hemostasis. I reviewed the previous angiograms in some detail. It appears that this patient had a total of 4 bypasses, 1 was a WILBURN to LAD. One was a vein graft to the obtuse marginal branch of circumflex. One was a vein graft to the PDA branch of circumflex and one was to the PLV branch of circumflex is a separate vein graft. However, over the years, it appears that the vein graft to the PLV branch of circumflex was totally occluded. Last time when I did the heart catheterization, I did not identify the vein graft to the PDA and I assumed it was closed, but interestingly this graft is open on this study. LEFT MAIN CORONARY ARTERY: I was able to cannulate the left main through the TAVR. There is diffuse disease in the left main. It bifurcates into LAD and circumflex both of which are also diffusely disease. RIGHT CORONARY ARTERY: This is totally occluded. Very limited antegrade flow is noted and this was also true on a previous angiogram. SAPHENOUS VEIN GRAFT TO THE PDA, PLV BRANCH OF CIRCUMFLEX: This graft is totally occluded, seen as a stump. SAPHENOUS VEIN GRAFT TO THE OBTUSE MARGINAL BRANCH OF CIRCUMFLEX: This graft is patent has about a 95% stenosis in the body of the graft proximally with haziness and thrombus. Flow, however, is somewhat sluggish. SAPHENOUS VEIN GRAFT TO THE PDA branch of RCA: This graft has a 99% stenosis within the body of the graft in the midportion. RECOMMENDATIONS: I recommended PCI of the vein graft to the PDA branch of RCA as well as a vein graft to the obtuse marginal branch of circumflex. The WILBURN was not injected and the PLV vein graft was totally occluded. PCI was performed and both vein grafts were stented. There are 2 stents in the obtuse marginal graft of 4.0 caliber, 23 mm long proximal and 15 mm long distal in the body of the vein graft to the obtuse marginal in the proximal portion. A single drug-eluting stent of 8 mm length and 4.0 caliber was deployed in the PDA graft. The patient tolerated procedure well. Sheath was taken out and he was sent to the room in a stable condition and by the time he went to the room, his chest pain was almost completely resolved. Results were discussed with the patient and family. [id number] / IJN: [id number] /
--- NOTE | 2019-03-04 16:03 | P.PN ---
Progress Note - Text Progress Note Date: 03/04/19 Chief Complaint: Chest pain Interval history: This is a very pleasant 83-year-old patient of Dr. magallanes. Followed by lehr attendant Dr. Deep Malloy. Chronic stable medical conditions include congestive heart failure, diabetes, hypertension, hyperlipidemia, currently impairment. Patient is. Also had aortic valve replacement with a TAVR. Patient normally goes for a 7-8 block walk everyday. For last 2 days has noticed that his been getting more tired. Yesterday when he is walking after 3 blocks he started having some chest discomfort and pain and started getting worse as he walked. Decided to come home slowly. There is no shortness of breath perspiration dizzi ness or lightheadedness. Told to treat tired and rundown. Presented to the ER eventually. Patient had a bump in troponins. Was put on IV heparin. Has blood pressures running high. Also put on nitroglycerin drip. Admitted to the ICU. Patient was admitted with acute non-Q-wave [place] and accelerated hypertension. Today-patient to the cardiac labor relations consultant. Coronary intervention with stent was done by Dr. JESSE Srivastava. Apparently it was a tough case. Postprocedure had some more pain. On a nitro drip. Tired laying in bed. Review of systems: Was done for constitutional, cardiovascular, GI, pulmonary. relevant finding as above Active Medications Hydrocodone Bitart/Acetaminophen (Omak 5-325) 1 each PO DAILY PRN PRN Reason: Pain Last Admin: 03/04/19 13:44 Dose: 1 each Documented by: Allopurinol (Zyloprim) 100 mg PO BID [facility] Last Admin: 03/04/19 08:15 Dose: 100 mg Documented by: Alprazolam (Xanax) 0.25 mg PO Q6HR PRN PRN Reason: Mild Anxiety Alprazolam (Xanax) 0.5 mg PO Q6HR PRN PRN Reason: Moderate Anxiety Last Admin: 03/04/19 04:06 Dose: 0.5 mg Documented by: Amlodipine Besylate (Norvasc) 10 mg PO DAILY [facility] Last Admin: 03/04/19 08:17 Dose: 10 mg Documented by: [facility]in ([facility]in) [facility] [place] Last Admin: 03/04/19 08:16 Dose: 81 mg Documented by: Atorvastatin Calcium (Lipitor) 40 mg PO [facility] Carvedilol (Coreg) 3.125 mg PO BID-W/MEALS [facility] Last Admin: 03/04/19 08:14 Dose: 3.125 mg Documented by: Clonidine (Catapres) 0.2 mg PO BID [facility] Last Admin: 03/04/19 08:23 Dose: 0.2 mg Documented by: Clopidogrel Bisulfate (Plavix) 75 mg PO DAILY [facility] Docusate Sodium (Colace) 100 mg PO BID [facility] Last Admin: 03/04/19 08:16 Dose: 100 mg Documented by: Heparin Sodium (Porcine) (Heparin) 0 unit IV PER PROTOCOL PRN; Protocol PRN Reason: Low PTT Last Admin: 03/02/19 10:55 Dose: 2,472.5 unit Documented by: Heparin Sodium (Porcine) (Heparin) 5,000 unit SQ Q8HR [facility] Hydralazine HCl (Apresoline) 100 mg PO TID [facility] Last Admin: 03/04/19 08:16 Dose: 100 mg Documented by: Heparin Sodium/Sodium Chloride (25,000 unit/ Sodium Chloride) 250 mls @ 10 mls/hr IV .Q24H [facility]; Protocol Last Titration: 03/04/19 08:30 Dose: 0 units/kg/hr, 0 mls/hr Documented by: Nitroglycerin/Dextrose 50 mg/ (IV Solution) 250 mls @ 3 mls/hr IV .Q24H [facility]; Protocol Last Titration: 03/04/19 15:18 Dose: 20 mcg/min, 6 mls/hr Documented by: Sodium Chloride (Saline 0.9%) 1,000 mls @ 100 mls/hr IV .Q10H [facility] Stop: 03/05/19 01:46 Last Admin: 03/04/19 14:20 Dose: 100 mls/hr Documented by: Sodium Chloride (Saline 0.9%) 1,000 mls @ 75 mls/hr IV .[id number] [facility] Stop: 03/05/19 14:01 Isosorbide Mononitrate (Imdur) 60 mg PO BID [facility] Miscellaneous Information (Rx Info: Iv Contrast Was Given) 1 each MISCELLANE DAILY PRN PRN Reason: Per Protocol Stop: 03/06/19 14:03 Naloxone HCl (Narcan) 0.2 mg IV Q2M PRN PRN Reason: Opioid Reversal Nitroglycerin (Nitrostat) 0.4 mg SUBLINGUAL Q5M PRN PRN Reason: Chest Pain Last Admin: 03/02/19 03:56 Dose: 0.4 mg Documented by: Pantoprazole Sodium (Protonix) 40 mg PO QAM [facility] Last Admin: 03/04/19 08:17 Dose: 40 mg Documented by: Zolpidem Tartrate (Ambien) 5 mg PO HS PRN PRN Reason: Insomnia Physical examination: VITAL SIGNS: Afebrile, 55, 15, 164/58, 95% on 4 L GENERAL: Laying in bed, rather tired EYES: Pupils equal. Conjunctiva normal. HEENT: External appearance of nose and ears normal, oral cavity grossly normal, decreased hearing. NECK: JVD not raised; masses not palpable. HEART: First and second heart sounds are normal; no edema. LUNGS: Respiratory rate normal; decreased breath sounds. ABDOMEN: Soft, nontender, liver spleen not palpable, no masses palpable. PSYCH: Tired INVESTIGATIONS, reviewed in the clinical context: White count 6.3 hemoglobin 11.6 potassium 3.6 creatinine 1.29 Previous testing: Troponin I 0.071, 0.080, 0.051 EKG tracing personally reviewed by me-sinus rhythm with bradycardia Chest x-ray film-personally reviewed by me shows possibly some chronic changes 2-D echocardiogram-EF 55-60% Assessment: -Possible acute non-Q-wave myocardial infarction in a person with known coronary artery disease -Angioplasty and stent of saphenous vein graft to the obtuse marginal branch of circumflex with 2 stents and angioplasty stent to the body of the vein graft to the PDA branch of the circumflex with a stent, done today -Chronic congestive heart failure from diastolic dysfunction EF 55-60% -Diabetes mellitus type 2 -Essential hypertension accelerated, slow to respond -Hyperlipidemia -History of aortic valve replacement withTAVR -Mild cognitive impairment -IV nitroglycerin and IV heparin drip Plan: Continue current medication due to plan. Because of high blood pressure and chest pain patient remains on nitroglycerin drip. Remains in the ICU. Rather tired. Care was discussed with the nurse. Prognosis guarded.
[2019-03-04] MEDS: HEPARIN SODIUM,PORCINE 5,000 UNIT/ML 1 ML VIAL SQ SCH (17:15)
[2019-03-04] MEDS: ATORVASTATIN 40 MG TAB PO SCH (21:14)
[2019-03-05] MEDS: SODIUM CHLORIDE 0.9% 1,000 ML IV SCH (00:49)
[2019-03-05] MEDS: HEPARIN SODIUM,PORCINE 5,000 UNIT/ML 1 ML VIAL SQ SCH ×3 (00:50→16:39)
[2019-03-05] MEDS: ALPRAZolam 0.25 MG TAB PO PRN (00:56)
[2019-03-05] MEDS ORDERED: SODIUM CHLORIDE 0.9% 1,000 ML IV SCH (02:00)
[2019-03-05] MEDS ORDERED: amLODIPine 5 MG TAB PO STA (02:16)
[2019-03-05] MEDS: hydrALAZINE HCL 20 MG/ML 1 ML VIAL IVP PRN (04:05)
[2019-03-05 04:35] LABS: Basophils % (A) 0 %; Eosinophils # (A) 0.2 k/uL (0-0.7); Eosinophils % (A) 2 %; HCT 34.1 % (39.0-53.0); HGB 11.4 gm/dL (13.0-17.5); Lymphocytes # (A) 1.1 k/uL (1.0-4.8); Lymphocytes % (A) 14 %; MCH 30.2 pg (25.0-35.0); MCHC 33.5 g/dL (31.0-37.0); MCV 90.1 fL (80.0-100.0); Mean Platelet Volume 7.8; Monocytes # (A) 0.6 k/uL (0-1.0); Monocytes % (A) 7 %; Neutrophils # (A) 5.9 k/uL (1.3-7.7); Neutrophils % (A) 74 %; Platelet Count 115 k/uL (150-450); RBC 3.78 m/uL (4.30-5.90); RDW 15.3 % (11.5-15.5)
[2019-03-05 04:56] LABS: Calcium 8.7 mg/dL (8.4-10.2)
[2019-03-05] MEDS: CARVEDILOL 3.125 MG TAB PO SCH ×2 (07:11→16:39)
[2019-03-05] MEDS: ALLOPURINOL 100 MG TAB PO SCH ×2 (08:07→19:59)
[2019-03-05] MEDS: amLODIPine 10 MG TAB PO SCH (08:07)
[2019-03-05] MEDS: CLOPIDOGREL 75 MG TAB PO SCH (08:08)
[2019-03-05] MEDS: hydrALAZINE HCL 50 MG TAB PO SCH ×3 (08:08→19:59)
[2019-03-05] MEDS: ASPIRIN 81 MG PO SCH (08:08)
[2019-03-05] MEDS: ISOSORBIDE MONONITRATE ER 60 MG TAB.ER.24H PO SCH ×2 (08:08→19:59)
[2019-03-05] MEDS: cloNIDine HCL 0.2 MG TAB PO SCH ×2 (08:08→19:59)
[2019-03-05] MEDS: PANTOPRAZOLE 40 MG TABLET PO SCH (08:08)
[2019-03-05] MEDS: DOCUSATE 100 MG CAP PO SCH ×2 (08:08→19:59)
[2019-03-05] MEDS: NITROGLYCERIN-D5W PMX 50 MG in DEXTROSE/WATER 1 250ML.BAG IV SCH (13:58)
[2019-03-05] MEDS: NITROGLYCERIN OINT 1 INCH/GM PACKET TOPICAL SCH (14:50)
--- NOTE | 2019-03-05 17:16 | P.PN ---
Progress Note - Text Progress Note Date: 03/05/19 Chief Complaint: Chest pain Interval history: This is a very pleasant 83-year-old patient of Dr. magallanes. Followed by high school business teacher Dr. Deep Malloy. Chronic stable medical conditions include congestive heart failure, diabetes, hypertension, hyperlipidemia, currently impairment. Patient is. Also had aortic valve replacement with a TAVR. Patient normally goes for a 7-8 block walk everyday. For last 2 days has noticed that his been getting more tired. Yesterday when he is walking after 3 blocks he started having some chest discomfort and pain and started getting worse as he walked. Decided to come home slowly. There is no shortness of breath perspiration dizzi ness or lightheadedness. Told to treat tired and rundown. Presented to the ER eventually. Patient had a bump in troponins. Was put on IV heparin. Has blood pressures running high. Also put on nitroglycerin drip. Admitted to the ICU. Patient was admitted with acute non-Q-wave [place] and accelerated hypertension. Was taken to the cardiac catholic priest on March 04 and coronary intervention with ang ioplasty stent was carried out. Today-resting in bed. Did tolerate some diet. No chest pain or shortness shortness of breath. A bit tired. Has been on nitroglycerin drip for blood pressure. Earlier Nitropaste was ordered by cardiology and drip is being taken off Review of systems: Was done for constitutional, cardiovascular, GI, pulmonary. relevant finding as above Active Medications Hydrocodone Bitart/Acetaminophen ([place] 5-325) 1 each PO DAILY PRN PRN Reason: Pain Last Admin: 03/04/19 13:44 Dose: 1 each Documented by: Allopurinol (Zyloprim) 100 mg PO BID [facility] Last Admin: 03/05/19 08:07 Dose: 100 mg Documented by: Alprazolam (Xanax) 0.25 mg PO Q6HR PRN PRN Reason: Mild Anxiety Last Admin: 03/05/19 00:56 Dose: 0.25 mg Documented by: Alprazolam (Xanax) 0.5 mg PO Q6HR PRN PRN Reason: Moderate Anxiety Last Admin: 03/04/19 04:06 Dose: 0.5 mg Documented by: Amlodipine Besylate (Norvasc) 10 mg PO DAILY [facility] Last Admin: 03/05/19 08:07 Dose: 10 mg Documented by: Aspirin (Aspirin) 81 mg PO QAM [facility] Last Admin: 03/05/19 08:08 Dose: 81 mg Documented by: Atorvastatin Calcium (Lipitor) 40 mg PO HS [facility] Last Admin: 03/04/19 21:14 Dose: 40 mg Documented by: Carvedilol (Coreg) 3.125 mg PO BID-W/MEALS [facility] Last Admin: 03/05/19 16:39 Dose: 3.125 mg Documented by: Clonidine (Catapres) 0.2 mg PO BID [facility] Last Admin: 03/05/19 08:08 Dose: 0.2 mg Documented by: Clopidogrel Bisulfate (Plavix) 75 mg PO DAILY [facility] Last Admin: 03/05/19 08:08 Dose: 75 mg Documented by: Docusate Sodium (Colace) 100 mg PO BID [facility] Last Admin: 03/05/19 08:08 Dose: 100 mg Documented by: Heparin Sodium (Porcine) (Heparin) 5,000 unit SQ Q8HR [facility] Last Admin: 03/05/19 16:39 Dose: 5,000 unit Documented by: Hydralazine HCl (Apresoline) 100 mg PO TID [facility] Last Admin: 03/05/19 16:39 Dose: 100 mg Documented by: Hydralazine HCl (Apresoline) 10 mg IVP Q4HR PRN PRN Reason: Blood Pressure - High Last Admin: 03/05/19 04:05 Dose: 10 mg Documented by: Isosorbide Mononitrate (Imdur) 60 mg PO BID [facility] Last Admin: 03/05/19 08:08 Dose: 60 mg Documented by: Miscellaneous Information (Rx Info: Iv Contrast Was Given) 1 each MISCELLANE DAILY PRN PRN Reason: Per Protocol Stop: 03/06/19 14:03 Naloxone HCl (Narcan) 0.2 mg IV Q2M PRN PRN Reason: Opioid Reversal Nitroglycerin (Nitrostat) 0.4 mg SUBLINGUAL Q5M PRN PRN Reason: Chest Pain Last Admin: 03/02/19 03:56 Dose: 0.4 mg Documented by: Nitroglycerin (Nitro-Bid Oint) 1 inch TOPICAL Q8HR [facility] Last Admin: 03/05/19 14:50 Dose: 1 inch Documented by: Pantoprazole Sodium (Protonix) 40 mg PO QAM [facility] Last Admin: 03/05/19 08:08 Dose: 40 mg Documented by: Zolpidem Tartrate (Ambien) 5 mg PO HS PRN PRN Reason: Insomnia Physical examination: VITAL SIGNS: 98.3, 56, 22, 149/49, 96% on 3 L GENERAL: Laying in bed, propped up will less tired today more awake EYES: Pupils equal. Conjunctiva normal. HEENT: External appearance of nose and ears normal, oral cavity grossly normal, decreased hearing. NECK: JVD not raised; masses not palpable. HEART: First and second heart sounds are normal; no edema. LUNGS: Respiratory rate normal; decreased breath sounds. ABDOMEN: Soft, nontender, liver spleen not palpable, no masses palpable. PSYCH: Answering questions. INVESTIGATIONS, reviewed in the clinical context: Hemoglobin 11.4 platelets 115 creatinine 1.1 Previous testing: Troponin I 0.071, 0.080, 0.051 EKG tracing personally reviewed by me-sinus rhythm with bradycardia Chest x-ray film-personally reviewed by me shows possibly some chronic changes 2-D echocardiogram-EF 55-60% Assessment: -Possible acute non-Q-wave myocardial infarction in a person with known coronary artery disease -Angioplasty and stent of saphenous vein graft to the obtuse marginal branch of circumflex with 2 stents and angioplasty stent to the body of the vein graft to the PDA branch of the circumflex with a stent, done today -Chronic congestive heart failure from diastolic dysfunction EF 55-60% -Diabetes mellitus type 2 -Essential hypertension accelerated, slow to respond -Hyperlipidemia -History of aortic valve replacement withTAVR -Mild cognitive impairment -IV nitroglycerin and IV heparin drip Plan: Hopefully patient can been tapered off the nitroglycerin drip. Antihypertensives to be adjusted. Patient should be able to be moved out of the ICU shortly
[2019-03-05] MEDS: ATORVASTATIN 40 MG TAB PO SCH (19:59)
--- NOTE | 2019-03-05 20:37 | PN ---
PROGRESS NOTE This patient underwent cardiac catheterization yesterday. Patient had 90% stenosis of the PDA branch as well as vein graft to the obtuse marginal branch. It was a difficult for the stent placement. The patient did undergo successful stent and the patient is feeling much better. He remains stable. Blood pressure is 132/50 mmHg. First and second heart sounds are normal. Lungs are clinically clear to auscultation and percussion. Patient's creatinine is 1.10. Hemoglobin is 11.4. We will try to wean him off of the nitroglycerin drip and continue the current medications. The patient will get hydralazine p.r.n. if the blood pressure goes up after stopping nitroglycerin. MMODL / IJN: [id number] /
[2019-03-06] MEDS: HEPARIN SODIUM,PORCINE 5,000 UNIT/ML 1 ML VIAL SQ SCH ×4 (00:04→23:33)
[2019-03-06] MEDS: NITROGLYCERIN OINT 1 INCH/GM PACKET TOPICAL SCH ×3 (00:04→15:14)
[2019-03-06] MEDS: hydrALAZINE HCL 20 MG/ML 1 ML VIAL IVP PRN (00:09)
[2019-03-06] MEDS: ZOLPIDEM 5 MG TAB PO PRN ×2 (01:05→23:32)
[2019-03-06] MEDS: ALPRAZolam 0.25 MG TAB PO PRN (01:05)
[2019-03-06 04:16] LABS: HCT 32.1 % (39.0-53.0); HGB 11.3 gm/dL (13.0-17.5); MCH 31.8 pg (25.0-35.0); MCHC 35.2 g/dL (31.0-37.0); MCV 90.3 fL (80.0-100.0); Mean Platelet Volume 7.3; RBC 3.56 m/uL (4.30-5.90); RDW 14.2 % (11.5-15.5); WBC 7.5 k/uL (3.8-10.6)
[2019-03-06 04:33] LABS: Calcium 8.8 mg/dL (8.4-10.2); Potassium 3.8 mmol/L (3.5-5.1)
[2019-03-06 05:48] LABS: Platelet Count 92 k/uL (150-450)
[2019-03-06] MEDS: CARVEDILOL 3.125 MG TAB PO SCH ×2 (06:37→17:07)
[2019-03-06] MEDS: DOCUSATE 100 MG CAP PO SCH ×2 (08:40→21:09)
[2019-03-06] MEDS: ALLOPURINOL 100 MG TAB PO SCH ×2 (08:40→21:09)
[2019-03-06] MEDS: amLODIPine 10 MG TAB PO SCH (08:40)
[2019-03-06] MEDS: hydrALAZINE HCL 50 MG TAB PO SCH ×3 (08:40→22:12)
[2019-03-06] MEDS: CLOPIDOGREL 75 MG TAB PO SCH (08:40)
[2019-03-06] MEDS: ASPIRIN 81 MG PO SCH (08:40)
[2019-03-06] MEDS: cloNIDine HCL 0.2 MG TAB PO SCH ×2 (08:41→21:10)
[2019-03-06] MEDS: ISOSORBIDE MONONITRATE ER 60 MG TAB.ER.24H PO SCH (08:41)
[2019-03-06] MEDS: PANTOPRAZOLE 40 MG TABLET PO SCH (08:41)
--- NOTE | 2019-03-06 16:45 | P.PN ---
Progress Note - Text Progress Note Date: 03/06/19 Interval history: This is a very pleasant 83-year-old patient of Dr. magallanes. Followed by cardio logist Dr. Deep Malloy. Chronic stable medical conditions include congestive heart failure, diabetes, hypertension, hyperlipidemia, currently impairment. Patient is. Also had aortic valve replacement with a TAVR. Patient normally goes for a 7-8 block walk everyday. For last 2 days has noticed that his been getting more tired. Yesterday when he is walking after 3 blocks he started having some chest discomfort and pain and started getting worse as he walked. Decided to come home slowly. There is no shortness of breath perspiration dizziness or lightheadedness. Told to treat tired and rundown. Presented to the ER eventually. Patient had a bump in troponins. Was put on IV heparin. Has blood pressures running high. Also put on nitroglycerin drip. Admitted to the ICU. Patient was admitted with acute non-Q-wave [place] and accelerated hypertension. Was taken to the cardiac dental laboratory manager on March 04 and coronary intervention with angioplasty stent was carried out. Was on nitroglycerin drip for blood pressure control. Today-in the ICU. Sitting upon a chair. Had some lunch. Nitroglycerin drip was taken off and blood pressure has been controlled. No chest pain no shortness of breath. A bit tired. 2 couple of stress to therapy. Review of systems: Was done for constitutional, cardiovascular, GI, pulmonary. relevant finding as above Active Medications Hydrocodone Bitart/Acetaminophen ([place] 5-325) 1 each PO DAILY PRN PRN Reason: Pain Last Admin: 03/04/19 13:44 Dose: 1 each Documented by: Allopurinol (Zyloprim) 100 mg PO BID [facility] Last Admin: 03/06/19 08:40 Dose: 100 mg Documented by: Alprazolam (Xanax) 0.25 mg PO Q6HR PRN PRN Reason: Mild Anxiety Last Admin: 03/06/19 01:05 Dose: 0.25 mg Documented by: Alprazolam (Xanax) 0.5 mg PO Q6HR PRN PRN Reason: Moderate Anxiety Last Admin: 03/04/19 04:06 Dose: 0.5 mg Documented by: Amlodipine Besylate (Norvasc) 10 mg PO DAILY [facility] Last Admin: 03/06/19 08:40 Dose: 10 mg Documented by: Aspirin (Aspirin) 81 mg PO QAM [facility] Last Admin: 03/06/19 08:40 Dose: 81 mg Documented by: Atorvastatin Calcium (Lipitor) 40 mg PO HS [facility] Last Admin: 03/05/19 19:59 Dose: 40 mg Documented by: Carvedilol (Coreg) 3.125 mg PO BID-W/MEALS [facility] Last Admin: 03/06/19 06:37 Dose: 3.125 mg Documented by: Clonidine (Catapres) 0.2 mg PO BID [facility] Last Admin: 03/06/19 08:41 Dose: 0.2 mg Documented by: Clopidogrel Bisulfate (Plavix) 75 mg PO DAILY [facility] Last Admin: 03/06/19 08:40 Dose: 75 mg Documented by: Docusate Sodium (Colace) 100 mg PO BID [facility] Last Admin: 03/06/19 08:40 Dose: 100 mg Documented by: Heparin Sodium (Porcine) (Heparin) 5,000 unit SQ Q8HR [facility] Last Admin: 03/06/19 15:14 Dose: 5,000 unit Documented by: Hydralazine HCl (Apresoline) 100 mg PO TID [facility] Last Admin: 03/06/19 15:14 Dose: 100 mg Documented by: Hydralazine HCl (Apresoline) 10 mg IVP Q4HR PRN PRN Reason: Blood Pressure - High Last Admin: 03/06/19 00:09 Dose: 10 mg Documented by: Isosorbide Mononitrate (Imdur) 60 mg PO BID [facility] Last Admin: 03/06/19 08:41 Dose: 60 mg Documented by: Naloxone HCl (Narcan) 0.2 mg IV Q2M PRN PRN Reason: Opioid Reversal Nitroglycerin (Nitrostat) 0.4 mg SUBLINGUAL Q5M PRN PRN Reason: Chest Pain Last Admin: 03/02/19 03:56 Dose: 0.4 mg Documented by: Nitroglycerin (Nitro-Bid Oint) 1 inch TOPICAL Q8HR [facility] Last Admin: 03/06/19 15:14 Dose: 1 inch Documented by: Pantoprazole Sodium (Protonix) 40 mg PO QAM [facility] Last Admin: 03/06/19 08:41 Dose: 40 mg Documented by: Zolpidem Tartrate (Ambien) 5 mg PO HS PRN PRN Reason: Insomnia Last Admin: 03/06/19 01:05 Dose: 5 mg Documented by: Physical examination: VITAL SIGNS: 97.9, 55, 18, 1 45 / 49, 93% on 3 L GENERAL: Sitting upon a chair, less tired appearing EYES: Pupils equal. Conjunctiva normal. HEENT: External appearance of nose and ears normal, oral cavity grossly normal, decreased hearing. NECK: JVD not raised; masses not palpable. HEART: First and second heart sounds are normal; no edema. LUNGS: Respiratory rate normal; decreased breath sounds. ABDOMEN: Soft, nontender, liver spleen not palpable, no masses palpable. PSYCH: Answering questions. INVESTIGATIONS, reviewed in the clinical context: White count 7.5 hemoglobin 11.3 potassium 3.8 crit and 1.27 Previous testing: Troponin I 0.071, 0.080, 0.051 EKG tracing personally reviewed by me-sinus rhythm with bradycardia Chest x-ray film-personally reviewed by me shows possibly some chronic changes 2-D echocardiogram-EF 55-60% Assessment: -acute non-Q-wave myocardial infarction in a person with known coronary artery disease -Angioplasty and stent of saphenous vein graft to the obtuse marginal branch of circumflex with 2 stents and angioplasty stent to the body of the vein graft to the PDA branch of the circumflex with a stent, done today -Chronic congestive heart failure from diastolic dysfunction EF 55-60% -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 Overall prognosis guarded. To speak to the nurse and technical planner. Should be able to go to the ECF tomorrow..
--- NOTE | 2019-03-06 21:07 | PN ---
PROGRESS NOTE This patient is status post stent to the RCA and SVG to the OM branch. The patient's condition remains stable. No arrhythmias are noted. Patient denies any chest pain or shortness of breath. Blood pressure is 148/53 mmHg, oxygen saturation is 94%. First and second heart sounds are normal. Lungs are clinically clear to auscultation and percussion. Patient's creatinine is 1.27, hemoglobin is 11.3. Patient will be ambulated and patient is going to go to the [facility] tomorrow. MMODL / IJN: [id number] /
[2019-03-06] MEDS: ISOSORBIDE MONONITRATE ER 30 MG TAB.ER.24H PO SCH (21:08)
[2019-03-06] MEDS: ATORVASTATIN 40 MG TAB PO SCH (21:08)
[2019-03-07] MEDS: ALPRAZolam 0.25 MG TAB PO PRN (03:39)
[2019-03-07 04:27] VITALS: TEMP 97.9
[2019-03-07] MEDS: hydrALAZINE HCL 50 MG TAB PO SCH (09:11)
[2019-03-07] MEDS: cloNIDine HCL 0.2 MG TAB PO SCH (09:11)
[2019-03-07] MEDS: ASPIRIN 81 MG PO SCH (09:12)
[2019-03-07] MEDS: amLODIPine 10 MG TAB PO SCH (09:12)
[2019-03-07] MEDS: DOCUSATE 100 MG CAP PO SCH (09:12)
[2019-03-07] MEDS: ISOSORBIDE MONONITRATE ER 30 MG TAB.ER.24H PO SCH (09:12)
[2019-03-07] MEDS: CLOPIDOGREL 75 MG TAB PO SCH (09:12)
[2019-03-07] MEDS: HEPARIN SODIUM,PORCINE 5,000 UNIT/ML 1 ML VIAL SQ SCH (09:12)
[2019-03-07] MEDS: CARVEDILOL 3.125 MG TAB PO SCH (09:12)
[2019-03-07] MEDS: ALLOPURINOL 100 MG TAB PO SCH (09:12)
[2019-03-07] MEDS: PANTOPRAZOLE 40 MG TABLET PO SCH (09:13)
[2019-03-07 11:43] VITALS: BMI 34.8
--- NOTE | 2019-03-07 11:50 | P.DS ---
Providers Date of admission: 03/01/19 21:25 Expected date of discharge: 03/07/19 Attending physician: Roly Dorman Consults: 03/01/19 21:27 Consult Physician Urgent Consulting Provider: [facility] Consult Reason/Comments: NSTEMI Do you want consulting provider notified?: Yes Primary care physician: [facility] Course: Hospital course: This is a very pleasant 83-year-old patient of Dr. constantino. Followed by oncology coordinator Dr. Deep Malloy. Chronic stable medical conditions include congestive heart failure, diabetes, hypertension, hyperlipidemia, . Also had aortic valve replacement with a TAVR. Patient normally goes for a 7-8 block walk everyday. For last 2 days has noticed that his been getting more tired. Yesterday when he is walking after 3 blocks he started having some chest discomfort and pain and started getting worse as he walked. Decided to come home slowly. There is no shortness of breath perspiration dizziness or lightheadedness. Getting tired and rundown. Presented to the ER eventually. Patient had a bump in troponins. Was put on IV heparin. Has blood pressures running high. Also put on nitroglycerin drip. Admitted to the ICU. Patient was admitted with acute non-Q-wave [place] and accelerated hypertension. Was taken to the cardiac minilab operator on March 04 and coronary intervention with angioplasty stent was carried out. Was on nitroglycerin drip for blood pressure control. Has done relatively better. No still tired. Tolerating his diet. No chest pain. Breathing stable. Spoke to Dr. VC Goyal today. Okay to [place] Consultants: Dr. VC Goyal from cardiology Dr. JESSE Srivastava from interventional cardiology Physical examination: VITAL SIGNS: 97.9, 63, 25, 159/55, 90% on nasal cannula GENERAL: Sitting upon a chair, a bit tired EYES: Pupils equal. Conjunctiva normal. HEENT: External appearance of nose and ears normal, oral cavity grossly normal, decreased hearing. NECK: JVD not raised; masses not palpable. HEART: First and second heart sounds are normal; no edema. LUNGS: Respiratory rate normal; decreased breath sounds. ABDOMEN: Soft, nontender, liver spleen not palpable, no masses palpable. PSYCH: Answering questions. INVESTIGATIONS, reviewed in the clinical context: White count 7.5 hemoglobin 11.3 potassium 3.8 crit and 1.27 Previous testing: Troponin I 0.071, 0.080, 0.051 EKG tracing personally reviewed by me-sinus rhythm with bradycardia Chest x-ray film-personally reviewed by me shows possibly some chronic changes 2-D echocardiogram-EF 55-60% Discharge diagnosis: -acute non-Q-wave myocardial infarction in a person with known coronary artery disease -Angioplasty and stent of saphenous vein graft to the obtuse marginal branch of circumflex with 2 stents and angioplasty stent to the body of the vein graft to the PDA branch of the circumflex with a stent, done today -Chronic congestive heart failure from diastolic dysfunction EF 55-60% -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 Patient Condition at Discharge: Stable Plan - Discharge Summary Discharge Rx Participant: No New Discharge Prescriptions: No Action ALPRAZolam [Xanax] 0.25 mg PO TID PRN PRN Reason: Anxiety Nitroglycerin Sl Tabs [Nitrostat] 0.4 mg SL Q5M PRN PRN Reason: Chest Pain Lovastatin [Mevacor] 80 mg PO HS Zolpidem [Ambien] 5 mg PO HS PRN PRN Reason: Insomnia Carvedilol [Coreg] 6.25 mg PO AC-BID Allopurinol [Zyloprim] 100 mg PO BID Acetaminophen Tab [Tylenol] 650 mg PO HS PRN PRN Reason: Pain Pantoprazole Sodium 40 mg PO QAM Docusate [Colace] 100 mg PO BID PRN PRN Reason: Constipation HYDROcodone/APAP 5-325MG [[place] 5-325] 1 tab PO DAILY PRN PRN Reason: Pain Magnesium Citrate [Citrate of Magnesia] 60 ml PO DAILY PRN PRN Reason: Constipation Aspirin 81 mg PO QAM Isosorbide Mononitrate ER [Imdur] 60 mg PO DAILY #30 tab.er.24h hydrALAZINE HCL [Apresoline] 75 mg PO TID #90 tab cloNIDine HCL [Catapres] 0.2 mg PO BID amLODIPine [Norvasc] 10 mg PO DAILY Furosemide [Lasix] 20 mg PO QAM Cholecalciferol (Vitamin D3) [Vitamin D3] 2,000 unit PO QAM Discharge Medication List ALPRAZolam [Xanax] 0.25 mg PO TID PRN 01/08/14 [History] Nitroglycerin Sl Tabs [Nitrostat] 0.4 mg SL Q5M PRN 01/08/14 [History] Lovastatin [Mevacor] 80 mg PO HS 12/03/14 [History] Zolpidem [Ambien] 5 mg PO HS PRN 12/04/14 [History] Acetaminophen Tab [Tylenol] 650 mg PO HS PRN 02/21/15 [History] Allopurinol [Zyloprim] 100 mg PO BID 02/21/15 [History] Carvedilol [Coreg] 6.25 mg PO AC-BID 02/21/15 [History] Docusate [Colace] 100 mg PO BID PRN 02/21/15 [History] Pantoprazole Sodium 40 mg PO QAM 02/21/15 [History] Aspirin 81 mg PO QAM 06/16/15 [History] HYDROcodone/APAP 5-325MG [[place] 5-325] 1 tab PO DAILY PRN 06/16/15 [History] Magnesium Citrate [Citrate of Magnesia] 60 ml PO DAILY PRN 06/16/15 [History] Isosorbide Mononitrate ER [Imdur] 60 mg PO DAILY #30 tab.er.24h 06/18/15 [Rx] hydrALAZINE HCL [Apresoline] 75 mg PO TID #90 tab 06/18/15 [Rx] Cholecalciferol (Vitamin D3) [Vitamin D3] 2,000 unit PO QAM 03/01/19 [History] Furosemide [Lasix] 20 mg PO QAM 03/01/19 [History] amLODIPine [Norvasc] 10 mg PO DAILY 03/01/19 [History] cloNIDine HCL [Catapres] 0.2 mg PO BID 03/01/19 [History] Follow up Appointment(s)/Referral(s): Kevyn Constantino DO [Primary Care Provider] - 1-2 days Discharge/Stand Alone Forms: Work/School Release
--- NOTE | 2019-03-07 12:19 | PN ---
PROGRESS NOTE This patient is status post stent to the PDA branch as well as saphenous vein graft to the circumflex artery. He is doing well, denies any chest pain, denies any shortness of breath. Patient is not having any arrhythmia. Blood pressure is 159/50 mmHg. Oxygen saturation is 90%. First and second heart sounds are normal. Lungs are clear to auscultation and percussion. Patient will be discharged home and followed with Dr. Malloy as an outpatient. MMODL / IJN: [id number] /
[2019-03-07 15:22] VITALS: BP 167/61; PULSE 61; RESP 22
== END 2019-03-07 16:56 | DRG 247 ==
LOC: EC 19:16 → 3SCARD 21:25 → 2SICU 03-02 12:02
PROVIDERS: ADMIT Hospitalist; ATTEND Hospitalist
PROC: 027136Z Dilation of Coronary Artery, Two Arteries with Three Drug-eluting Intraluminal Devices, Percutaneous Approach (ICD-10-PCS; principal; 2019-03-04 11:00)
PROC: B2111ZZ Fluoroscopy of Multiple Coronary Arteries using Low Osmolar Contrast (ICD-10-PCS; 2019-03-04 11:00)
PROC: B2131ZZ Fluoroscopy of Multiple Coronary Artery Bypass Grafts using Low Osmolar Contrast (ICD-10-PCS; 2019-03-04 11:00)
DX: I21.4 Non-ST elevation (NSTEMI) myocardial infarction (principal); I50.32 Chronic diastolic (congestive) heart failure; I13.0 Hypertensive heart and chronic kidney disease with heart failure and stage 1 through stage 4 chronic kidney disease, or unspecified chronic kidney disease; E11.22 Type 2 diabetes mellitus with diabetic chronic kidney disease; I25.82 Chronic total occlusion of coronary artery; I35.0 Nonrheumatic aortic (valve) stenosis; R00.1 Bradycardia, unspecified; I16.0 Hypertensive urgency; I25.110 Atherosclerotic heart disease of native coronary artery with unstable angina pectoris; I25.720 Atherosclerosis of autologous artery coronary artery bypass graft(s) with unstable angina pectoris; I25.710 Atherosclerosis of autologous vein coronary artery bypass graft(s) with unstable angina pectoris; E78.5 Hyperlipidemia, unspecified; G31.84 Mild cognitive impairment of uncertain or unknown etiology; F41.9 Anxiety disorder, unspecified; N18.2 Chronic kidney disease, stage 2 (mild); H54.8 Legal blindness, as defined in USA; M19.90 Unspecified osteoarthritis, unspecified site; Z79.82 Long term (current) use of aspirin; Z79.899 Other long term (current) drug therapy; Z90.49 Acquired absence of other specified parts of digestive tract; Z95.1 Presence of aortocoronary bypass graft; Z95.2 Presence of prosthetic heart valve; Z98.890 Other specified postprocedural states; Z87.891 Personal history of nicotine dependence; Z82.49 Family history of ischemic heart disease and other diseases of the circulatory system; Z83.3 Family history of diabetes mellitus; Z80.9 Family history of malignant neoplasm, unspecified; Z87.19 Personal history of other diseases of the digestive system
CPT/HCPCS: 36415; 71046; 80048; 80053; 83735; 83880; 84484; 85025; 85027; 85610; 85730; 93005; 93306; 93455; 96365; 96366; 96368; 96376; 99285; C1874

== ENCOUNTER 2019-06-15 07:03 | Observation (INO) | payer MEDICARE, BC ==
[2019-06-15] MEDS ORDERED: NITROGLYCERIN SL TABS 0.4 MG TAB SUBLINGUAL STA ×3 (07:18)
[2019-06-15] MEDS ORDERED: ASPIRIN 81 MG PO STA (07:18)
--- NOTE | 2019-06-15 07:22 | ED ---
General Adult HPI - General Stated complaint: Chest Pain Time Seen by Provider: 06/15/19 07:15 Source: patient, RN notes reviewed Limitations: no limitations - History of Present Illness Initial comments: Patient is a pleasant 84-year-old male presenting to the emergency Department with complaints of chest discomfort. Onset of symptoms was a couple of hours ago. Patient has discomfort in the lower chest without radiation. Patient has a difficult time describing discomfort. Discomfort is moderate. No associated dyspnea, nausea, or diaphoresis. Patient does have history of similar symptoms previously associated with history of heart problems. No leg pain or leg swelling. - Related Data Home Medications Medication Instructions Recorded Confirmed Nitroglycerin Sl Tabs [Nitrostat] 0.4 mg SL Q5M PRN 01/08/14 03/01/19 Lovastatin [Mevacor] 80 mg PO HS 12/03/14 03/01/19 Acetaminophen Tab [Tylenol] 650 mg PO HS PRN 02/21/15 03/01/19 Allopurinol [Zyloprim] 100 mg PO BID 02/21/15 03/01/19 Pantoprazole Sodium 40 mg PO QAM 02/21/15 03/01/19 Aspirin 81 mg PO QAM 06/16/15 03/01/19 Cholecalciferol (Vitamin D3) 2,000 unit PO QAM 03/01/19 03/01/19 [Vitamin D3] amLODIPine [Norvasc] 10 mg PO DAILY 03/01/19 03/01/19 cloNIDine HCL [Catapres] 0.2 mg PO BID 03/01/19 03/01/19 Previous Rx's Medication Instructions Recorded ALPRAZolam [Xanax] 0.25 mg PO TID PRN #9 tab 03/07/19 Carvedilol [Coreg] 3.125 mg PO BID-W/MEALS tab 03/07/19 Clopidogrel [Plavix] 75 mg PO DAILY tab 03/07/19 HYDROcodone/APAP 5-325MG [[place] 1 tab PO DAILY PRN #3 tab 03/07/19 5-325] Isosorbide Mononitrate ER [Imdur] 90 mg PO BID tab.er.24h 03/07/19 Melatonin 3 mg PO HS #1 tablet 03/07/19 Sennosides-Docusate Sodium 1 tab PO DAILY #1 tablet 09/11/19 [Senokot-S] hydrALAZINE HCL [Apresoline] 100 mg PO TID tab 03/07/19 Allergies Allergy/AdvReac Type Severity Reaction Status Date / Time No Known Allergies Allergy Verified 03/01/19 19:44 Review of Systems ROS Statement: Those systems with pertinent positive or pertinent negative responses have been documented in the HPI. ROS Other: All systems not noted in ROS Statement are negative. Constitutional: Denies: fever Eyes: Denies: eye pain ENT: Denies: ear pain Respiratory: Denies: cough Cardiovascular: Reports: chest pain Endocrine: Denies: fatigue Gastrointestinal: Denies: abdominal pain Genitourinary: Denies: dysuria Musculoskeletal: Denies: back pain Skin: Denies: rash Neurological: Denies: headache Past Medical History Past Medical History: Coronary Artery Disease (CAD), Heart Failure, Diabetes Mellitus, Eye Disorder, Hyperlipidemia, Hypertension, Memory Impairment, Osteoarthritis (OA) Additional Past Medical History / Comment(s): 02-21-15 ADMITTED WITH GI BLEED. OTHER HX LEGALLY BLIND. EDEMA LEGS. AORTIC STENOSIS. History of Any Multi-Drug Resistant Organisms: None Reported Past Surgical History: Cholecystectomy, Coronary Bypass/CABG, Heart Capri terization Additional Past Surgical History / Comment(s): 01/20 AVReplacement TAVR Core Valve, 01/26 coronary stent SVG to Cx, arthroscopic knee surgey bilat. Past Anesthesia/Blood Transfusion Reactions: No Reported Reaction Past Psychological History: Anxiety Smoking Status: Former smoker Past Alcohol Use History: None Reported Past Drug Use History: None Reported - Past Family History Mother Family Medical History: Cancer, Coronary Artery Disease (CAD), Diabetes Mellitus Father Family Medical History: Diabetes Mellitus General Exam Limitations: no limitations General appearance: alert, in no apparent distress Head exam: Present: normocephalic Eye exam: Present: normal appearance, PERRL ENT exam: Present: normal oropharynx Neck exam: Present: normal inspection Respiratory exam: Present: normal lung sounds bilaterally. Absent: chest wall tenderness Cardiovascular Exam: Present: irregular rhythm Expanded Peripheral pulses: 2+: Radial (R), Radial (L), Dorsalis Pedis (R), Dorsalis Pedis (L) GI/Abdominal exam: Present: soft. Absent: tenderness Extremities exam: Present: pedal edema (trace bilateral). Absent: calf tenderness Neurological exam: Present: alert Psychiatric exam: Present: normal affect, normal mood Skin exam: Present: normal color Course Vital Signs 06/15/19 06/15/19 06/15/19 07:17 07:35 08:17 Temperature 97.1 F L Pulse Rate 56 L 59 L 59 L Respiratory 18 18 18 Rate Blood Pressure 191/76 176/63 185/72 O2 Sat by Pulse 96 95 95 Oximetry EKG Findings - EKG Comments: EKG Findings:: A. fib with a rate of 54. QRS 106. QT 452. QTC 428. Normal axis. Normal QRS. No acute ST change. Medical Decision Making - Medical Decision Making patient reevaluated and updated. Dr. Dorman has been paged for admission covering for Dr. Constantino. Case discussed in detail with Dr. Dorman, who will admit. - Lab Data Result diagrams: 06/15/19 07:28 06/15/19 07:28 Lab Results 06/15/19 06/15/19 06/15/19 Range/Units 07:28 07:28 07:28 WBC 5.0 (3.8-10.6) k/uL RBC 4.09 L (4.30-5.90) m/uL Hgb 12.3 L (13.0-17.5) gm/dL Hct 37.0 L (39.0-53.0) % MCV 90.5 (80.0-100.0) fL MCH 30.1 (25.0-35.0) pg MCHC 33.2 (31.0-37.0) g/dL RDW 14.0 (11.5-15.5) % Plt Count 117 L (150-450) k/uL Neutrophils % 65 % Lymphocytes % 22 % Monocytes % 8 % Eosinophils % 3 % Basophils % 0 % Neutrophils # 3.3 (1.3-7.7) k/uL Lymphocytes # 1.1 (1.0-4.8) k/uL Monocytes # 0.4 (0-1.0) k/uL Eosinophils # 0.1 (0-0.7) k/uL Basophils # 0.0 (0-0.2) k/uL Sodium 137 (137-145) mmol/L Potassium 4.3 (3.5-5.1) mmol/L Chloride 101 (98-107) mmol/L Carbon Dioxide 27 (22-30) mmol/L Anion Gap 9 mmol/L BUN 28 H (9-20) mg/dL Creatinine 1.32 H (0.66-1.25) mg/dL Est GFR (CKD-EPI)AfAm 57 (>60 ml/min/1.73 sqM) Est GFR (CKD-EPI)NonAf 49 (>60 ml/min/1.73 sqM) Glucose 114 H (74-99) mg/dL Calcium 9.4 (8.4-10.2) mg/dL Magnesium 2.3 (1.6-2.3) mg/dL Total Bilirubin 0.6 (0.2-1.3) mg/dL AST 20 (17-59) U/L ALT 9 (4-49) U/L Alkaline Phosphatase 63 (38-126) U/L Troponin I 0.027 (0.000-0.034) ng/mL Total Protein 6.6 (6.3-8.2) g/dL Albumin 3.9 (3.5-5.0) g/dL Amylase 86 (30-110) U/L Lipase 188 (23-300) U/L - Radiology Data Radiology results: image reviewed (chest x-ray shows postoperative changes. Mild increased lung markings and cardiomegaly and prominent pulmonary vasculature.) Disposition Clinical Impression: Chest pain Disposition: ADMITTED IP TO THIS HOSP Is patient prescribed a controlled substance at d/c from ED?: No Referrals: Kevyn Constantino DO [Primary Care Provider] - 1-2 days Decision Time: 08:43
[2019-06-15 07:49] LABS: Basophils % (A) 0 %; Eosinophils # (A) 0.1 k/uL (0-0.7); Eosinophils % (A) 3 %; HGB 12.3 gm/dL (13.0-17.5); Lymphocytes # (A) 1.1 k/uL (1.0-4.8); Lymphocytes % (A) 22 %; MCH 30.1 pg (25.0-35.0); MCHC 33.2 g/dL (31.0-37.0); MCV 90.5 fL (80.0-100.0); Monocytes # (A) 0.4 k/uL (0-1.0); Monocytes % (A) 8 %; Neutrophils # (A) 3.3 k/uL (1.3-7.7); Neutrophils % (A) 65 %; Platelet Count 117 k/uL (150-450); RBC 4.09 m/uL (4.30-5.90)
[2019-06-15 08:03] LABS: Albumin 3.9 g/dL (3.5-5.0); Calcium 9.4 mg/dL (8.4-10.2); Magnesium 2.3 mg/dL (1.6-2.3); Potassium 4.3 mmol/L (3.5-5.1); Total Bilirubin 0.6 mg/dL (0.2-1.3); Total Protein 6.6 g/dL (6.3-8.2)
--- NOTE | 2019-06-15 08:11 | XR ---
EXAMINATION TYPE: XR chest 2V DATE OF EXAM: 06/15/2019 COMPARISON: 03/01/2019 INDICATION: Chest pain TECHNIQUE: Frontal and lateral views of the chest are obtained. FINDINGS: The heart size is mildly prominent. The pulmonary vasculature is prominent. There is mild diffuse increased lung markings greater in the central perihilar regions. Correlate for some mild pulmonary edema. Sternotomy wires are present from prior cardiac surgery.. IMPRESSION: 1. Mild increased lung markings, cardiomegaly and prominent pulmonary vascular markings. Correlate fo r mild congestive heart failure
[2019-06-15] MEDS ORDERED: NITROGLYCERIN SL TABS 0.4 MG TAB SUBLINGUAL PRN (08:15)
[2019-06-15] MEDS ORDERED: NITROGLYCERIN OINT 1 INCH/GM PACKET TOPICAL SCH (08:30)
[2019-06-15] MEDS ORDERED: CARVEDILOL 6.25 MG TAB PO SCH (11:00)
[2019-06-15] MEDS ORDERED: HYDROcodone/APAP 5-325MG 1 EACH TAB PO PRN (11:28)
[2019-06-15] MEDS ORDERED: ALPRAZolam 0.25 MG TAB PO PRN (11:28)
[2019-06-15] MEDS: hydrALAZINE HCL 50 MG TAB PO SCH ×3 (12:07→22:05)
[2019-06-15] MEDS: CLOPIDOGREL 75 MG TAB PO SCH (12:07)
[2019-06-15] MEDS: cloNIDine HCL 0.2 MG TAB PO SCH ×2 (12:07→22:05)
[2019-06-15] MEDS: amLODIPine 10 MG TAB PO SCH (12:07)
[2019-06-15] MEDS ORDERED: HEPARIN SODIUM,PORCINE 5,000 UNIT/ML 1 ML VIAL IV ONE (12:16)
[2019-06-15] MEDS ORDERED: HEPARIN SODIUM,PORCINE 5,000 UNIT/ML 1 ML VIAL IV PRN (12:16)
--- NOTE | 2019-06-15 12:21 | P.CRDCN ---
History of Present Illness History of present illness: HISTORY OF PRESENTING ILLNESS This is a pleasant 84-year-old male past medical history significant for coronary artery disease status post bypass grafting and subsequent stent placement in February 2019, hypertension, diabetes mellitus, chronic diastolic heart failure, valvular heart disease status post TAVR 2014 and recent NSTEMI. He follows in the office with Dr. Malloy. We have been asked to see in consultation for chest pain. He states he wakes up frequently through the night to urinate. He woke up to use the bathroom last night and felt acutely dizzy. He had to stop and sit down so he didn't fall. He sat in a chair for a few minutes and the dizziness subsided. He got up and walked back to bed. With ambulation he again became quite dizzy. He laid down in bed and called to his brother for assistance. Before his brother could come to his room he tried getting up and fell on the floor. He denies LOC. He had no associated chest pain, shortness of breath or palpitations. EKG on arrival revealed atrial fibrillation with heart rate 54. EKG was again repeated on arrival to observation revealing ongoing a- fib. He denies a prior history of a-fib. Hospital documentation and office documentation reviewed, no prior documented history of this. On arrival BP 191/76 with heart rate of 56. Orthostatic vital signs unremarkable. Chest x- ray revealed mild increased lung markings, cardiomegaly and prominent pulmonary vascular markings. Laboratory data reviewed, WBC 5, hemoglobin 12.3, platelets 117, sodium 137, potassium 4.3, creatinine 1.32 with a GFR 49, magnesium 2.3, cardiac enzymes negative 1, NT proBNP 1020. Current daily cardiac medications include aspirin 81 mg daily, amlodipine 10 mg daily, carvedilol 6.25 mg twice a day, clonidine 0.2 mg twice a day, hydralazine 75 mg 3 times a day, Lasix 40 mg daily, Imdur 60 mg daily and daily potassium supplementation. Most recent cardiac catheterization in the setting of elevated myocardial infarction 2018 revealed left main with diffuse disease, RCA totally occluded, SVG to PDA of the circumflex occluded, SVG to the OM patent with a 95% stenosis proximally, SVG to the PDA of the RCA with 90% mid lesion. He underwent successful PCI of the SVG to OM and SVG to PDA time. Echocardiogram obtained in February revealed preserved LV systolic function with ejection fraction 55- 60%., Mild aortic stenosis with a mean gradient 10 mmHg. In February the patient was discharged on dual antiplatelet therapy however per the patient and his nephew handles his medications he is currently not taking Plavix. REVIEW OF SYSTEMS At the time of my exam: CONSTITUTIONAL: Denies fever or chills. CARDIOVASCULAR: Denies chest pain, shortness of breath, orthopnea, PND or palpitations. RESPIRATORY: Denies cough. GASTROINTESTINAL: Denies abdominal pain, diarrhea, constipation, nausea or vomiting. MUSCULOSKELETAL: Denies myalgias. NEUROLOGIC: Denies numbness, tingling or weakness. ENDOCRINE: Denies fatigue, weight change, polydipsia or polyurina. GENITOURINARY: Denies burning, hematuria or urgency with micturation. HEMATOLOGIC: Denies history of anemia or bleeding. PHYSICAL EXAMINATION Blood pressure 177/61 heart rate 75 afebrile and maintaining oxygen saturation on nasal cannula. CONSTITUTIONAL: No apparent distress. HEENT: Head is normocephalic. Pupils are equal, round. Sclerae anicteric. Mucous membranes of the mouth are moist. No JVD. No carotid bruit. CHEST EXAMINATION: Lungs are clear to auscultation. No chest wall tenderness is noted on palpation or with deep breathing. HEART EXAMINATION: Irregular rate and rhythm. S1, S2 heard. Systolic ejection murmur at the base, no gallops or rub. ABDOMEN: Soft, nontender. Positive bowel sounds. EXTREMITIES: 2+ peripheral pulses, trace bilateral lower extremity non-pitting edema and no calf tenderness. NEUROLOGIC EXAMINATION: Patient is awake, alert and oriented x3. ASSESSMENT Dizziness, no LOC. Could be related to pauses noted on telemetry. New onest atrial fibrillation with controlled ventricular rate History of coronary artery disease status post bypass grafting and subsequent stent placement to 2 of his vein grafts in February 2019 Hypertension History of valvular heart disease s/p TAVR Diabetes mellitus Chronic diastolic heart failure, currently euvolemic Thrombocytopenia [facility] called and verified he has never been prescribed or filled a prescription for plavix. We will initiate today. Rates are running on the low side with frequent episodes of 2 second pauses. Hold Coreg. Initiate on heparin infusion. Continue heparin infusion along with ongoing telemetry monitoring. We will not initiate oral anticoagulation at this time until further evaluation and monitoring of pauses. Check d-dimer and TSH. Further recommendations to follow. Thank you kindly for this consultation. Nurse Practitioner note has been reviewed, I agree with a documented findings and plan of care. Patient was seen and examined. Past Medical History Past Medical History: Coronary Artery Disease (CAD), Heart Failure, Diabetes Mellitus, Eye Disorder, Hyperlipidemia, Hypertension, Memory Impairment, Osteoarthritis (OA) Additional Past Medical History / Comment(s): 02-21-15 ADMITTED WITH GI BLEED. OTHER HX LEGALLY BLIND. EDEMA LEGS. AORTIC STENOSIS. History of Any Multi-Drug Resistant Organisms: None Reported Past Surgical History: Cholecystectomy, Coronary Bypass/CABG, Heart Catheterization Additional Past Surgical History / Comment(s): 01/20 AVReplacement TAVR Core Valve, 01/26 coronary stent SVG to Cx, arthroscopic knee surgey bilat. Past Anesthesia/Blood Transfusion Reactions: No Reported Reaction Past Psychological History: Anxiety Smoking Status: Former smoker Past Alcohol Use History: None Reported Past Drug Use History: None Reported - Past Family History Mother Family Medical History: Cancer, Coronary Artery Disease (CAD), Diabetes Mellitus Father Family Medical History: Diabetes Mellitus Medications and Allergies Home Medications Medication Instructions Recorded Confirmed Type Nitroglycerin Sl Tabs [Nitrostat] 0.4 mg SL Q5M PRN 01/08/14 06/15/19 History Allopurinol [Zyloprim] 100 mg PO BID 02/21/15 06/15/19 History Pantoprazole Sodium 40 mg PO QAM 02/21/15 06/15/19 History Aspirin 81 mg PO QAM 06/16/15 06/15/19 History Cholecalciferol (Vitamin D3) 2,000 unit PO QAM 03/01/19 06/15/19 History [Vitamin D3] amLODIPine [Norvasc] 10 mg PO DAILY 03/01/19 06/15/19 History cloNIDine HCL [Catapres] 0.2 mg PO BID 03/01/19 06/15/19 History ALPRAZolam [Xanax] 0.25 mg PO TID PRN #9 tab 03/07/19 06/15/19 Rx HYDROcodone/APAP 5-325MG [[place] 1 tab PO DAILY PRN #3 tab 03/07/19 06/15/19 Rx 5-325] Carvedilol [Coreg] 6.25 mg PO BID 06/15/19 06/15/19 History Furosemide [Lasix] 40 mg PO DAILY 06/15/19 06/15/19 History Isosorbide Mononitrate ER [Imdur] 60 mg PO DAILY 06/15/19 06/15/19 History Potassium Chloride ER [K-Dur 20] 20 meq PO DAILY 06/15/19 06/15/19 History hydrALAZINE HCL [Apresoline] 25 mg PO TID 06/15/19 06/15/19 History hydrALAZINE HCL [Apresoline] 50 mg PO TID 06/15/19 06/15/19 History Allergies Allergy/AdvReac Type Severity Reaction Status Date / Time No Known Allergies Allergy Verified 06/15/19 08:45 Physical Exam Vitals: Vital Signs Temp Pulse Pulse Pulse Pulse Pulse Resp 06/15/19 11:01 97.4 F L 75 73 71 18 06/15/19 09:39 97.5 F L 67 18 06/15/19 09:07 68 18 06/15/19 09:01 65 18 06/15/19 08:17 59 L 18 06/15/19 07:35 59 L 18 06/15/19 07:17 97.1 F L 56 L 18 BP BP BP BP BP Pulse Ox 06/15/19 11:01 177/61 166/56 175/67 96 06/15/19 09:39 204/69 99 06/15/19 09:07 169/70 98 06/15/19 09:01 190/70 97 06/15/19 08:17 185/72 95 06/15/19 07:35 176/63 95 06/15/19 07:17 191/76 96 Intake and Output 06/14/19 06/15/19 06/15/19 22:59 06:59 14:59 Output Total 125 Balance -125 Output: Urine 125 Other: Voiding Method Urinal Weight 99.79 kg Results 06/15/19 07:28 06/15/19 07:28 Cardiac Enzymes 06/15/19 06/15/19 Range/Units 07:28 07:28 AST 20 (17-59) U/L Troponin I 0.027 (0.000-0.034) ng/mL Coagulation 06/15/19 Range/Units 08:13 PT 11.0 (9.0-12.0) sec APTT 20.0 L (22.0-30.0) sec CBC 06/15/19 Range/Units 07:28 WBC 5.0 (3.8-10.6) k/uL RBC 4.09 L (4.30-5.90) m/uL Hgb 12.3 L (13.0-17.5) gm/dL Hct 37.0 L (39.0-53.0) % Plt Count 117 L (150-450) k/uL Comprehensive Metabolic Panel 06/15/19 Range/Units 07:28 Sodium 137 (137-145) mmol/L Potassium 4.3 (3.5-5.1) mmol/L Chloride 101 (98-107) mmol/L Carbon Dioxide 27 (22-30) mmol/L BUN 28 H (9-20) mg/dL Creatinine 1.32 H (0.66-1.25) mg/dL Glucose 114 H (74-99) mg/dL Calcium 9.4 (8.4-10.2) mg/dL AST 20 (17-59) U/L ALT 9 (4-49) U/L Alkaline Phosphatase 63 (38-126) U/L Total Protein 6.6 (6.3-8.2) g/dL Albumin 3.9 (3.5-5.0) g/dL Current Medications Generic Name Dose Route Start Last Admin Trade Name Freq PRN Reason Stop Dose Admin Hydrocodone Bitart/Acetaminophen 1 each 06/15/19 11:28 [place] 5-325 PO DAILY PRN Pain Allopurinol 100 mg 06/15/19 11:45 Zyloprim PO BID [facility] Alprazolam 0.25 mg 06/15/19 11:28 Xanax PO TID PRN Anxiety Amlodipine Besylate 10 mg 06/15/19 11:00 Norvasc PO DAILY [facility] Aspirin 81 mg 06/16/19 09:00 Aspirin PO DAILY [facility] Carvedilol 6.25 mg 06/15/19 11:00 Coreg PO BID-W/MEALS [facility] Clonidine 0.2 mg 06/15/19 11:00 Catapres PO BID [facility] Clopidogrel Bisulfate 75 mg 06/15/19 11:00 Plavix PO DAILY [facility] Hydralazine HCl 50 mg 06/15/19 11:00 Apresoline PO TID [facility] Isosorbide Mononitrate 60 mg 06/15/19 11:45 Imdur PO DAILY [facility] Nitroglycerin 0.4 mg 06/15/19 08:15 06/15/19 08:58 Nitrostat SUBLINGUAL 0.4 mg Q5M PRN Administration Chest Pain Pantoprazole Sodium 40 mg 06/15/19 11:45 Protonix PO AC-BRKFST [facility] Sodium Chloride 10 ml 06/15/19 09:00 06/15/19 08:59 Saline Flush IV 10 ml BID JUSITN Administration Intake and Output 06/14/19 06/15/19 06/15/19 22:59 06:59 14:59 Output Total 125 Balance -125 Output: Urine 125 Other: Voiding Method Urinal Weight 99.79 kg Patient Weight 06/16/19 06:59 Weight 99.79 kg 06/15/19 07:28 06/15/19 07:28
[2019-06-15] MEDS ORDERED: HEPARIN SOD,PORK IN 0.45% NACL 25,000 UNIT in 0.45% NACL 1 250ML.BAG IV SCH (12:30)
[2019-06-15] MEDS: ISOSORBIDE MONONITRATE ER 60 MG TAB.ER.24H PO SCH (13:12)
[2019-06-15] MEDS: ALLOPURINOL 100 MG TAB PO SCH ×2 (13:12→22:05)
[2019-06-15] MEDS: PANTOPRAZOLE 40 MG TABLET PO SCH (13:13)
--- NOTE | 2019-06-15 21:56 | P.HPIM ---
History of Present Illness H&P Date: 06/15/19 Chief Complaint: Dizzy Hospital course: This is a very pleasant 84-year-old patient of Dr. magallanes. Followed by vocational counselor Dr. Deep Malloy. Chronic stable medical conditions include congestive heart failure, diabetes, hypertension, hyperlipidemia, . Patient is legally blind and decreased hearing. Also had aortic valve replacement with a TAVR. February 2019 had acute non-Q-wave CT with coronary intervention with angioplasty stent. Patient now presents when he became very dizzy this morning. And dizziness current to fall down. Was a short-lived chest discomfort. No radiation. No perspiration. No shortness of breath. Patient is found to be in atrial fibrillation and was having pauses on the telemetry. Cardiology was consulted. Patient is put on IV heparin. Review of systems: GEN.: Tired EYES: Legally blind HEENT: Decreased hearing NECK: None RESPIRATORY: None CARDIOVASCULAR: As above GASTROINTESTINAL: None GENITOURINARY: None MUSCULOSKELETAL: Pain in joints LYMPHATICS: None HEMATOLOGICAL: None PSYCHIATRY: Forgetful NEUROLOGICAL: Uses a cane, as above. No focal symptoms. No change in speech, no one-sided weakness, no seizure activity. Social history: Does smoke in the past. No alcohol. Lives with his brother. Retired. Does use a cane. Physical examination: VITAL SIGNS: 97.1, 56, 18, 176/63, 96% on room air GENERAL: Laying in bed, not in distress EYES: Pupils equal. Conjunctiva normal. HEENT: External appearance of nose and ears normal, oral cavity grossly normal, decreased hearing. NECK: JVD not raised; masses not palpable. HEART: Irregular heart sounds, no edema. LUNGS: Respiratory rate normal; decreased breath sounds. ABDOMEN: Soft, nontender, liver spleen not palpable, no masses palpable. PSYCH: AAO 3, mood and affect normal MUSCULOSKELETAL: Evidence of OA especially in the hands NEUROLOGICAL: Pupils equaland asymmetry, power and sensation grossly intact. Decreased hearing. Decreased vision. 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 Home medications resumed. Patient put on IV heparin. Care was discussed with the patient. Questions were answered. The patient's poor eyesight and decreased hearing anticoagulation has to be careful about. Follow with cardiology. Past Medical History Past Medical History: Coronary Artery Disease (CAD), Heart Failure, Diabetes Mellitus, Eye Disorder, Hyperlipidemia, Hypertension, Memory Impairment, Osteoarthritis (OA) Additional Past Medical History / Comment(s): 02-21-15 ADMITTED WITH GI BLEED. OTHER HX LEGALLY BLIND. EDEMA LEGS. AORTIC STENOSIS. History of Any Multi-Drug Resistant Organisms: None Reported Past Surgical History: Cholecystectomy, Coronary Bypass/CABG, Heart Catheterization Additional Past Surgical History / Comment(s): 01/20 AVReplacement TAVR Core Valve, 01/26 coronary stent SVG to Cx, arthroscopic knee surgey bilat. Past Anesthesia/Blood Transfusion Reactions: No Reported Reaction Past Psychological History: Anxiety Smoking Status: Former smoker Past Alcohol Use History: None Reported Past Drug Use History: None Reported - Past Family History Mother Family Medical History: Cancer, Coronary Artery Disease (CAD), Diabetes Mellitus Father Family Medical History: Diabetes Mellitus Medications and Allergies Home Medications Medication Instructions Recorded Confirmed Type Nitroglycerin Sl Tabs [Nitrostat] 0.4 mg SL Q5M PRN 01/08/14 06/15/19 History Allopurinol [Zyloprim] 100 mg PO BID 02/21/15 06/15/19 History Pantoprazole Sodium 40 mg PO QAM 02/21/15 06/15/19 History Aspirin 81 mg PO QAM 06/16/15 06/15/19 History Cholecalciferol (Vitamin D3) 2,000 unit PO QAM 03/01/19 06/15/19 History [Vitamin D3] amLODIPine [Norvasc] 10 mg PO DAILY 03/01/19 06/15/19 History cloNIDine HCL [Catapres] 0.2 mg PO BID 03/01/19 06/15/19 History ALPRAZolam [Xanax] 0.25 mg PO TID PRN #9 tab 03/07/19 06/15/19 Rx HYDROcodone/APAP 5-325MG [[place] 1 tab PO DAILY PRN #3 tab 03/07/19 06/15/19 Rx 5-325] Carvedilol [Coreg] 6.25 mg PO BID 06/15/19 06/15/19 History Furosemide [Lasix] 40 mg PO DAILY 06/15/19 06/15/19 History Isosorbide Mononitrate ER [Imdur] 60 mg PO DAILY 06/15/19 06/15/19 History Potassium Chloride ER [K-Dur 20] 20 meq PO DAILY 06/15/19 06/15/19 History hydrALAZINE HCL [Apresoline] 25 mg PO TID 06/15/19 06/15/19 History hydrALAZINE HCL [Apresoline] 50 mg PO TID 06/15/19 06/15/19 History Allergies Allergy/AdvReac Type Severity Reaction Status Date / Time No Known Allergies Allergy Verified 06/15/19 08:45 Physical Exam Vitals: Vital Signs Temp Pulse Pulse Pulse Pulse Pulse Resp 06/15/19 11:01 97.4 F L 75 73 71 18 06/15/19 09:39 97.5 F L 67 18 06/15/19 09:07 68 18 06/15/19 09:01 65 18 06/15/19 08:17 59 L 18 06/15/19 07:35 59 L 18 06/15/19 07:17 97.1 F L 56 L 18 BP BP BP BP BP Pulse Ox 06/15/19 11:01 177/61 166/56 175/67 96 06/15/19 09:39 204/69 99 06/15/19 09:07 169/70 98 06/15/19 09:01 190/70 97 06/15/19 08:17 185/72 95 06/15/19 07:35 176/63 95 06/15/19 07:17 191/76 96 Intake and Output 06/14/19 06/15/19 06/15/19 22:59 06:59 14:59 Output Total 125 Balance -125 Output: Urine 125 Other: Weight 99.79 kg Results CBC & Chem 7: 06/15/19 07:28 06/15/19 07:28 Labs: Abnormal Lab Results - Last 24 Hours (Table) 06/15/19 06/15/19 06/15/19 Range/Units 07:28 07:28 08:13 RBC 4.09 L (4.30-5.90) m/uL Hgb 12.3 L (13.0-17.5) gm/dL Hct 37.0 L (39.0-53.0) % Plt Count 117 L (150-450) k/uL APTT 20.0 L (22.0-30.0) sec BUN 28 H (9-20) mg/dL Creatinine 1.32 H (0.66-1.25) mg/dL Glucose 114 H (74-99) mg/dL
[2019-06-16 07:20] LABS: Basophils % (A) 0 %; Eosinophils # (A) 0.1 k/uL (0-0.7); Eosinophils % (A) 2 %; HCT 34.1 % (39.0-53.0); HGB 11.4 gm/dL (13.0-17.5); Lymphocytes # (A) 1.2 k/uL (1.0-4.8); Lymphocytes % (A) 22 %; MCH 30.6 pg (25.0-35.0); MCHC 33.5 g/dL (31.0-37.0); MCV 91.4 fL (80.0-100.0); Mean Platelet Volume 7.6; Monocytes # (A) 0.4 k/uL (0-1.0); Monocytes % (A) 6 %; Neutrophils # (A) 3.8 k/uL (1.3-7.7); Neutrophils % (A) 67 %; Platelet Count 130 k/uL (150-450); RBC 3.73 m/uL (4.30-5.90); RDW 14.1 % (11.5-15.5); WBC 5.7 k/uL (3.8-10.6)
[2019-06-16 07:30] LABS: Cholesterol 150 mg/dL (<200); HDL Cholesterol 41 mg/dL (40-60); LDL Cholesterol,Calculated 92 mg/dL (0-99); Triglycerides 85 mg/dL (<150)
[2019-06-16 08:09] VITALS: TEMP 97.7
[2019-06-16] MEDS ORDERED: ASPIRIN 81 MG PO SCH (09:00)
[2019-06-16] MEDS ORDERED: ASPIRIN 325 MG TAB PO SCH (09:00)
--- NOTE | 2019-06-16 11:11 | P.PN ---
Subjective Progress Note Date: 06/16/19 This is a pleasant 84-year-old male past medical history significant for coronary artery disease status post bypass grafting and subsequent stent placement in February 2019, hypertension, diabetes mellitus, chronic diastolic heart failure, valvular heart disease status post TAVR 2014 and recent NSTEMI. He follows in the office with Dr. Malloy. We have been asked to see in consultation for chest pain. He states he wakes up frequently through the night to urinate. He woke up to use the bathroom last night and felt acutely dizzy. He had to stop and sit down so he didn't fall. He sat in a chair for a few minutes and the dizziness subsided. He got up and walked back to bed. With ambulation he again became quite dizzy. He laid down in bed and called to his brother for assistance. Before his brother could come to his room he tried getting up and fell on the floor. He denies LOC. He had no associated chest pain, shortness of breath or palpitations. EKG on arrival revealed atrial fibrillation with heart rate 54. EKG was again repeated on arrival to observation revealing ongoing a- fib. He denies a prior history of a-fib. Hospital documentation and office documentation reviewed, no prior documented history of this. On arrival BP 191/76 with heart rate of 56. Orthostatic vital signs unremarkable. Chest x- ray revealed mild increased lung markings, cardiomegaly and prominent pulmonary vascular markings. Laboratory data reviewed, WBC 5, hemoglobin 12.3, platelets 117, sodium 137, potassium 4.3, creatinine 1.32 with a GFR 49, magnesium 2.3, cardiac enzymes negative 1, NT proBNP 1020. Current daily cardiac medications include aspirin 81 mg daily, amlodipine 10 mg daily, carvedilol 6.25 mg twice a day, clonidine 0.2 mg twice a day, hydralazine 75 mg 3 times a day, Lasix 40 mg daily, Imdur 60 mg daily and daily potassium supplementation. Most recent cardiac catheterization in the setting of Non ST elevated myocardial infarction February 2019 revealed left main with diffuse disease, RCA totally occluded, SVG to PDA of the circumflex occluded, SVG to the OM patent with a 95% stenosis proximally, SVG to the PDA of the RCA with 90% mid lesion. He underwent successful PCI of the SVG to OM and SVG to PDA time. Echocardiogram obtained in February revealed preserved LV systolic function with ejection fraction 55- 60%., Mild aortic stenosis with a mean gradient 10 mmHg. In February the patient was discharged on dual antiplatelet therapy however per the patient and his nephew handles his medications he was not taking Plavix. 06/16/2019 Patient was seen and examined resting comfortably in bed. Denies further complaints of dizziness or lightheadedness. Upon review with the nursing staff and looking back and clinical access no significant positive but noted. He continues on IV heparin and his beta darlene continues to be on hold. Heart rate remains low in the 50s. Pressures elevated at 150s over 60s. He is currently on amlodipine 10 mg by mouth daily, clonidine 0.2 mg by mouth twice a day, hydralazine 50 mg by mouth 3 times a day and Imdur 60 mg by mouth daily. Objective - Vital Signs Vital signs: Vital Signs Temp 97.7 F 06/16/19 08:00 Pulse 54 L 06/16/19 08:00 Resp 17 06/16/19 08:00 BP 156/61 06/16/19 08:00 Pulse Ox 94 L 06/16/19 08:00 Intake & Output 06/15/19 06/16/19 06/16/19 18:59 06:59 18:59 Intake Total 88.324 119.95 Output Total 125 Balance -125 88.324 119.95 Weight 99.79 kg Intake: Intake, IV Titration 88.324 119.95 Amount Heparin Sod,Pork in 0.45% 88.324 119.95 NaCl 25,000 unit In 0.45 % NaCl 1 250ml.bag @ 10. 02 UNITS/KG/HR 9.999 mls/ hr IV .Q24H [facility] Rx#: [id number] Output: Urine 125 Other: Voiding Method Urinal Urinal Urinal # Voids 1 - Exam PHYSICAL EXAMINATION: HEENT: Head is atraumatic, normocephalic. Pupils equal, round. Neck is supple. There is no elevated jugular venous pressure. HEART EXAMINATION: Heart sounds irregularly irregular, S1 and S2 with a systolic ejection murmur at the base. CHEST EXAMINATION: Lungs are clear to auscultation and precussion. No chest wall tenderness is noted on palpation or with deep breathing. ABDOMEN: Soft, nontender. Bowel sounds are heard. No organomegaly noted. EXTREMITIES: 2+ peripheral pulses with no evidence of peripheral edema and no calf tenderness noted. NEUROLOGIC patient is awake, alert and oriented x3. . - Labs CBC & Chem 7: 06/16/19 07:03 06/15/19 07:28 Labs: Abnormal Lab Results - Last 24 Hours (Table) 06/15/19 06/16/19 06/16/19 Range/Units 19:11 07:03 07:03 RBC 3.73 L (4.30-5.90) m/uL Hgb 11.4 L (13.0-17.5) gm/dL Hct 34.1 L (39.0-53.0) % Plt Count 130 L (150-450) k/uL APTT 46.9 H 86.4 H (22.0-30.0) sec Assessment and Plan Assessment: #1 symptoms of dizziness without loss of consciousness, could be related to bradycardia #2 new-onset atrial fibrillation with slow ventricular response #3 CAD with prior bypass grafting and subsequent stent placement to 2 pain grafts in February 2019, Plavix has been resumed #4 hypertension, poorly controlled #5 history of valvular heart disease, status post TAVR #6 diabetes mellitus #7 chronic diastolic heart failure, currently euvolemic #8 thrombocytopenia Plan: From cardiology's perspective, continue to hold on beta blockers. Increase activity. We will stop heparin and initiate oral anticoagulation. Patient will follow-up in the office with Dr. Malloy. [employer] note has been reviewed, I agree with a documented findings and plan of care. Patient was seen and examined.
[2019-06-16] MEDS: CLOPIDOGREL 75 MG TAB PO SCH (11:21)
[2019-06-16] MEDS: hydrALAZINE HCL 50 MG TAB PO SCH ×2 (11:21→16:39)
[2019-06-16] MEDS: PANTOPRAZOLE 40 MG TABLET PO SCH (11:22)
[2019-06-16] MEDS: ISOSORBIDE MONONITRATE ER 60 MG TAB.ER.24H PO SCH (11:22)
[2019-06-16] MEDS: ALLOPURINOL 100 MG TAB PO SCH (11:22)
[2019-06-16] MEDS: cloNIDine HCL 0.2 MG TAB PO SCH (11:22)
[2019-06-16] MEDS: amLODIPine 10 MG TAB PO SCH (11:22)
[2019-06-16] MEDS ORDERED: APIXABAN 2.5 MG TABLET PO SCH (11:45)
[2019-06-16 16:38] VITALS: PULSE 55; RESP 18
[2019-06-16 17:04] LABS: Glucose,Whole Blood 118 mg/dL (75-99)
[2019-06-16 17:44] VITALS: BP 160/66
--- NOTE | 2019-06-16 23:19 | P.DS ---
Providers Date of admission: 06/15/19 08:16 Expected date of discharge: 06/16/19 Attending physician: Roly Dorman Consults: 06/15/19 08:15 Consult Physician Urgent Consulting Provider: Evelio Burnett Consult Reason/Comments: cp Do you want consulting provider notified?: Yes Primary care physician: Kevyn [facility] [place] Hospital Course: Chief Complaint: Dizzy Hospital course: This is a very pleasant 84-year-old patient of Dr. constantino. Followed by transport medic Dr. Evens Malloy. Chronic stable medical conditions include congestive heart failure, diabetes, hypertension, hyperlipidemia, . Patient is legally blind and decreased hearing. Also had aortic valve replacement with a TAVR. February 2019 had acute non-Q-wave WI with coronary intervention with an gioplasty stent. Patient now presents when he became very dizzy this morning. And dizziness current to fall down. Was a short-lived chest discomfort. No radiation. No perspiration. No shortness of breath. Patient is found to be in atrial fibrillation and was having pauses on the telemetry. Cardiology was consulted. Patient is put on IV heparin.patient was put on eliquis. Coreg was discontinued. Doing much better clear - -cleared by cardiology to be discharged consultation: Dr. David from cardiogenic Physical examination: VITAL SIGNS: 97.7, 55, 18, 160/66,93% GENERAL: Laying in bed, comfortable EYES: Pupils equal. Conjunctiva normal. HEENT: External appearance of nose and ears normal, oral cavity grossly normal, decreased hearing. NECK: JVD not raised; masses not palpable. HEART: Irregular heart sounds, no edema. LUNGS: Respiratory rate normal; decreased breath sounds. ABDOMEN: Soft, nontender, liver spleen not palpable, no masses palpable. PSYCH: AAO 3, mood and affect normal MUSCULOSKELETAL: Evidence of OA especially in the hands INVESTIGATIONS, reviewed in the clinical context: White count 5.7 hemoglobin 11.4 LDL 92 Previous testing White count 5 hemoglobin 12.3 potassium 4.3 bun 28 crit 1.3 to Lab work from February 2019 showed a bun of 21 creatinine 1.47 EKG tracing personally reviewed by me-atrial fibrillation with a slow ventricular response with pauses noted on the telemetry Chest x-ray film personally reviewed by me-some pulmonary edema Assessment: -New onset of atrial fibrillation with slow ventricular response and episodes of pauses, improved after stopping beta darlene -Coronary artery disease with bypass r -Chronic congestive heart failure from diastolic dysfunction EF 55-60% -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 -Diabetes mellitus type 2 -Essential hypertension accelerated, -Hyperlipidemia -History of aortic valve replacement withTAVR -Mild cognitive impairment disposition: Home Patient Condition at Discharge: Stable Plan - Discharge Summary Discharge Rx Participant: No New Discharge Prescriptions: New Apixaban [Eliquis] 2.5 mg PO BID #60 tablet Continue Nitroglycerin Sl Tabs [Nitrostat] 0.4 mg SL Q5M PRN PRN Reason: Chest Pain Allopurinol [Zyloprim] 100 mg PO BID Pantoprazole Sodium 40 mg PO QAM Aspirin 81 mg PO QAM cloNIDine HCL [Catapres] 0.2 mg PO BID amLODIPine [Norvasc] 10 mg PO DAILY Cholecalciferol (Vitamin D3) [Vitamin D3] 2,000 unit PO QAM HYDROcodone/APAP 5-325MG [Stratton 5-325] 1 tab PO DAILY PRN #3 tab PRN Reason: Pain ALPRAZolam [Xanax] 0.25 mg PO TID PRN #9 tab PRN Reason: Anxiety Potassium Chloride ER [K-Dur 20] 20 meq PO DAILY Isosorbide Mononitrate ER [Imdur] 60 mg PO DAILY Furosemide [Lasix] 40 mg PO DAILY hydrALAZINE HCL [Apresoline] 25 mg PO TID hydrALAZINE HCL [Apresoline] 50 mg PO TID Discontinued Carvedilol [Coreg] 6.25 mg PO BID Discharge Medication List Nitroglycerin Sl Tabs [Nitrostat] 0.4 mg SL Q5M PRN 01/08/14 [History] Allopurinol [Zyloprim] 100 mg PO BID 02/21/15 [History] Pantoprazole Sodium 40 mg PO QAM 02/21/15 [History] Aspirin 81 mg PO QAM 06/16/15 [History] Cholecalciferol (Vitamin D3) [Vitamin D3] 2,000 unit PO QAM 03/01/19 [History] amLODIPine [Norvasc] 10 mg PO DAILY 03/01/19 [History] cloNIDine HCL [Catapres] 0.2 mg PO BID 03/01/19 [History] ALPRAZolam [Xanax] 0.25 mg PO TID PRN #9 tab 03/07/19 [Rx] HYDROcodone/APAP 5-325MG [Stratton 5-325] 1 tab PO DAILY PRN #3 tab 03/07/19 [Rx] Furosemide [Lasix] 40 mg PO DAILY 06/15/19 [History] Isosorbide Mononitrate ER [Imdur] 60 mg PO DAILY 06/15/19 [History] Potassium Chloride ER [K-Dur 20] 20 meq PO DAILY 06/15/19 [History] hydrALAZINE HCL [Apresoline] 25 mg PO TID 06/15/19 [History] hydrALAZINE HCL [Apresoline] 50 mg PO TID 06/15/19 [History] Apixaban [Eliquis] 2.5 mg PO BID #60 tablet 06/16/19 [Rx] Follow up Appointment(s)/Referral(s): Kevyn Constantino DO [Primary Care Provider] - 1-2 days Ezio Malloy MD [STAFF PHYSICIAN] - 1 Week Discharge Disposition: HOME SELF-CARE
== END 2019-06-16 18:00 | disposition home or self-care (01) ==
LOC: EC 07:03 → 1SOBS 08:16
PROVIDERS: ADMIT Hospitalist; ATTEND Hospitalist
DX: I48.91 Unspecified atrial fibrillation (principal); I25.10 Atherosclerotic heart disease of native coronary artery without angina pectoris; I13.0 Hypertensive heart and chronic kidney disease with heart failure and stage 1 through stage 4 chronic kidney disease, or unspecified chronic kidney disease; I50.32 Chronic diastolic (congestive) heart failure; N18.2 Chronic kidney disease, stage 2 (mild); E11.22 Type 2 diabetes mellitus with diabetic chronic kidney disease; E78.5 Hyperlipidemia, unspecified; G31.84 Mild cognitive impairment of uncertain or unknown etiology; D69.6 Thrombocytopenia, unspecified; H54.8 Legal blindness, as defined in USA; R60.0 Localized edema; F41.9 Anxiety disorder, unspecified; H91.90 Unspecified hearing loss, unspecified ear; M19.042 Primary osteoarthritis, left hand; M19.041 Primary osteoarthritis, right hand; I25.2 Old myocardial infarction; Z79.899 Other long term (current) drug therapy; Z79.82 Long term (current) use of aspirin; Z79.891 Long term (current) use of opiate analgesic; Z86.79 Personal history of other diseases of the circulatory system; Z87.19 Personal history of other diseases of the digestive system; Z90.49 Acquired absence of other specified parts of digestive tract; Z95.1 Presence of aortocoronary bypass graft; Z98.890 Other specified postprocedural states; Z95.5 Presence of coronary angioplasty implant and graft; Z95.2 Presence of prosthetic heart valve; Z87.891 Personal history of nicotine dependence; Z80.9 Family history of malignant neoplasm, unspecified; Z82.49 Family history of ischemic heart disease and other diseases of the circulatory system; Z83.3 Family history of diabetes mellitus
CPT/HCPCS: 93005 ×3; 96365; 96366 ×2; 96376; 99285; 36415; 94760; 85379; 83880; 80061; 80053; 84443; 82150; 83690; 83735; 84484; 85025 ×2; 85610; 85730 ×2; 71046; G0378 ×2; J1644 ×2

== ENCOUNTER 2019-10-12 07:06 | Inpatient (IN) | payer MEDICARE, BC ==
[2019-10-12] MEDS ORDERED: NITROGLYCERIN SL TABS 0.4 MG TAB SUBLINGUAL PRN (07:25)
[2019-10-12] MEDS ORDERED: ASPIRIN 325 MG TAB PO STA (07:25)
[2019-10-12] MEDS ORDERED: MORPHINE SULFATE 4 MG/ML SYRINGE IVP STA (07:25)
[2019-10-12] MEDS ORDERED: DILTIAZEM DRIP BOLUS FROM BAG 1 MG SOLN IV ONE ×3 (07:27→08:01)
[2019-10-12] MEDS ORDERED: DILTIAZEM 125 MG in SODIUM CHLORIDE 0.9% 100 ML IV SCH (07:30)
--- NOTE | 2019-10-12 07:35 | ED ---
General Adult HPI - General Chief complaint: Chest Pain Stated complaint: Chest Pain Time Seen by Provider: 10/12/19 07:17 Source: patient, family, RN notes reviewed, old records reviewed Mode of arrival: ambulatory Limitations: no limitations - History of Present Illness Initial comments: 84-year-old male history of atrial fibrillation, valvular heart disease, CAD status post coronary bypass presenting with sudden onset chest pain. History is very difficult secondary to patient being hard of hearing and being in extreme pain at the time of presentation. In addition to pain is in respiratory distress with oxygen saturation in the 70s. His main complaint is chest pain which is central chest and severe in nature. He denies any preceding symptoms prior to the onset of this pain. No cough or fever. Patient is currently on Eliquis with history of A. fib. - Related Data Home Medications Medication Instructions Recorded Confirmed Nitroglycerin Sl Tabs [Nitrostat] 0.4 mg SL Q5M PRN 01/08/14 06/15/19 Allopurinol [Zyloprim] 100 mg PO BID 02/21/15 06/15/19 Pantoprazole Sodium 40 mg PO QAM 02/21/15 06/15/19 Aspirin 81 mg PO QAM 06/16/15 06/15/19 Cholecalciferol (Vitamin D3) 2,000 unit PO QAM 03/01/19 06/15/19 [Vitamin D3] amLODIPine [Norvasc] 10 mg PO DAILY 03/01/19 06/15/19 cloNIDine HCL [Catapres] 0.2 mg PO BID 03/01/19 06/15/19 Furosemide [Lasix] 40 mg PO DAILY 06/15/19 06/15/19 Isosorbide Mononitrate ER [Imdur] 60 mg PO DAILY 06/15/19 06/15/19 Potassium Chloride ER [K-Dur 20] 20 meq PO DAILY 06/15/19 06/15/19 hydrALAZINE HCL [Apresoline] 25 mg PO TID 06/15/19 06/15/19 hydrALAZINE HCL [Apresoline] 50 mg PO TID 06/15/19 06/15/19 Previous Rx's Medication Instructions Recorded ALPRAZolam [Xanax] 0.25 mg PO TID PRN #9 tab 03/07/19 HYDROcodone/APAP 5-325MG [Cyclone 1 tab PO DAILY PRN #3 tab 03/07/19 5-325] Apixaban [Eliquis] 2.5 mg PO BID #60 tablet 06/16/19 Allergies Allergy/AdvReac Type Severity Reaction Status Date / Time No Known Allergies Allergy Verified 10/12/19 07:14 Review of Systems ROS Statement: Those systems with pertinent positive or pertinent negative responses have been documented in the HPI. ROS Other: All systems not noted in ROS Statement are negative. Past Medical History Past Medical History: Coronary Artery Disease (CAD), Heart Failure, Diabetes Mellitus, Eye Disorder, Hyperlipidemia, Hypertension, Memory Impairment, Osteoarthritis (OA) Additional Past Medical History / Comment(s): 02-21-15 ADMITTED WITH GI BLEED. OTHER HX LEGALLY BLIND. EDEMA LEGS. AORTIC STENOSIS. Last Myocardial Infarction Date:: 03/01/19 History of Any Multi-Drug Resistant Organisms: None Reported Past Surgical History: Cholecystectomy, Coronary Bypass/CABG, Heart Catheter ization Additional Past Surgical History / Comment(s): 01/20 AVReplacement TAVR Core Valve, 01/26 coronary stent SVG to Cx, arthroscopic knee surgey bilat. Past Anesthesia/Blood Transfusion Reactions: No Reported Reaction Date of Last Stent Placement:: 03/04/19 Past Psychological History: Anxiety Smoking Status: Former smoker Past Alcohol Use History: None Reported Past Drug Use History: None Reported - Past Family History Mother Family Medical History: Cancer, Coronary Artery Disease (CAD), Diabetes Mellitus Father Family Medical History: Diabetes Mellitus General Exam Limitations: no limitations General appearance: alert, in distress Head exam: Present: atraumatic, normocephalic Eye exam: Present: normal appearance, PERRL ENT exam: Present: mucous membranes dry Respiratory exam: Present: respiratory distress, rales, rhonchi, accessory muscle use, decreased breath sounds Cardiovascular Exam: Present: tachycardia, irregular rhythm GI/Abdominal exam: Present: soft. Absent: distended, tenderness, guarding Extremities exam: Present: pedal edema. Absent: calf tenderness Neurological exam: Present: alert Psychiatric exam: Present: anxious Skin exam: Present: warm, intact, cyanosis, diaphoretic, pallor Course Vital Signs 10/12/19 10/12/19 10/12/19 07:13 07:50 08:04 Temperature 98.3 F Pulse Rate 127 H 133 H 124 H Respiratory 20 42 H 42 H Rate Blood Pressure 173/63 195/100 166/89 O2 Sat by Pulse 91 L 97 97 Oximetry EKG Findings - EKG Comments: EKG Findings:: EKG atrial fibrillation with RVR, very poor baseline secondary to tremor artifact. There is ST segment depression throughout the precordial leads. No ST segment elevation. Rate of 125, QRS duration 96, QTC 427. Medical Decision Making - Medical Decision Making 84-year-old male presenting in severe respiratory distress with hypoxia in the 70s, A. fib with RVR. Hypertensive. Patient is immediately placed on BiPAP for respiratory support. X-ray confirming a right sided lobar pneumonia. Patient has leukocytosis 16.3. Hemoglobin is 13 which is improved for this patient. Creatinine is 1.34 which is baseline . He has a lactic acid of 3.5 which I suspect is predominantly due to hypoxia as this patient does appear fluid overloaded on exam. He is anticoagulated with history of A. fib. He has a mild troponin elevation 0.071. I suspect his troponin elevation is related to demand secondary to A. fib with RVR. We will trend these enzymes. Given the complexity of his presentation he will be admitted to the ICU. I discussed case with Dr. Galvan who will accept the patient. He will be admitted to Dr. Dorman, who is aware of this patient. COVID test pending. Diagnosis: A. fib with RVR, troponin elevation, NSTEMI, community acquired pn eumonia - Lab Data Result diagrams: 10/12/19 07:35 10/12/19 07:35 Lab Results 10/12/19 10/12/19 10/12/19 Range/Units 07:35 07:35 07:35 WBC 16.3 H (3.8-10.6) k/uL RBC 4.71 (4.30-5.90) m/uL Hgb 13.0 (13.0-17.5) gm/dL Hct 40.9 (39.0-53.0) % MCV 86.8 (80.0-100.0) fL MCH 27.6 (25.0-35.0) pg MCHC 31.8 (31.0-37.0) g/dL RDW 15.1 (11.5-15.5) % Plt Count 176 (150-450) k/uL Neutrophils % 78 % Lymphocytes % 16 % Monocytes % 3 % Eosinophils % 1 % Basophils % 0 % Neutrophils # 12.8 H (1.3-7.7) k/uL Lymphocytes # 2.7 (1.0-4.8) k/uL Monocytes # 0.5 (0-1.0) k/uL Eosinophils # 0.1 (0-0.7) k/uL Basophils # 0.0 (0-0.2) k/uL PT 10.7 (9.0-12.0) sec INR 1.0 (<1.2) APTT 22.4 (22.0-30.0) sec Sodium 138 (137-145) mmol/L Potassium 3.6 (3.5-5.1) mmol/L Chloride 102 (98-107) mmol/L Carbon Dioxide 22 (22-30) mmol/L Anion Gap 14 mmol/L BUN 26 H (9-20) mg/dL Creatinine 1.34 H (0.66-1.25) mg/dL Est GFR (CKD-EPI)AfAm 56 (>60 ml/min/1.73 sqM) Est GFR (CKD-EPI)NonAf 48 (>60 ml/min/1.73 sqM) Glucose 161 H (74-99) mg/dL Plasma Lactic Acid Momo (0.7-2.0) mmol/L Calcium 9.1 (8.4-10.2) mg/dL Magnesium 2.0 (1.6-2.3) mg/dL Total Bilirubin 0.3 (0.2-1.3) mg/dL AST 26 (17-59) U/L ALT 13 (4-49) U/L Alkaline Phosphatase 87 (38-126) U/L Troponin I (0.000-0.034) ng/mL Total Protein 7.4 (6.3-8.2) g/dL Albumin 4.3 (3.5-5.0) g/dL 10/12/19 10/12/19 Range/Units 07:35 07:35 WBC (3.8-10.6) k/uL RBC (4.30-5.90) m/uL Hgb (13.0-17.5) gm/dL Hct (39.0-53.0) % MCV (80.0-100.0) fL MCH (25.0-35.0) pg MCHC (31.0-37.0) g/dL RDW (11.5-15.5) % Plt Count (150-450) k/uL Neutrophils % % Lymphocytes % % Monocytes % % Eosinophils % % Basophils % % Neutrophils # (1.3-7.7) k/uL Lymphocytes # (1.0-4.8) k/uL Monocytes # (0-1.0) k/uL Eosinophils # (0-0.7) k/uL Basophils # (0-0.2) k/uL PT (9.0-12.0) sec INR (<1.2) APTT (22.0-30.0) sec Sodium (137-145) mmol/L Potassium (3.5-5.1) mmol/L Chloride (98-107) mmol/L Carbon Dioxide (22-30) mmol/L Anion Gap mmol/L BUN (9-20) mg/dL Creatinine (0.66-1.25) mg/dL Est GFR (CKD-EPI)AfAm (>60 ml/min/1.73 sqM) Est GFR (CKD-EPI)NonAf (>60 ml/min/1.73 sqM) Glucose (74-99) mg/dL Plasma Lactic Acid Momo 3.5 H* (0.7-2.0) mmol/L Calcium (8.4-10.2) mg/dL Magnesium (1.6-2.3) mg/dL Total Bilirubin (0.2-1.3) mg/dL AST (17-59) U/L ALT (4-49) U/L Alkaline Phosphatase (38-126) U/L Troponin I 0.071 H* (0.000-0.034) ng/mL Total Protein (6.3-8.2) g/dL Albumin (3.5-5.0) g/dL Critical Care Time Critical Care Time: Yes Total Critical Care Time: 35 Disposition Clinical Impression: NSTEMI (non-ST elevated myocardial infarction), Hx of CABG, Atrial fibrillation with RVR, CHF exacerbation, Hypoxemia, Pneumonia Disposition: ADMITTED IP TO THIS HOSP Condition: Serious Is patient prescribed a controlled substance at d/c from ED?: No Referrals: Kevyn Constantino DO [Primary Care Provider] - 1-2 days Decision to Admit Reason: Admit from EC Decision Date: 10/12/19 Decision Time: 09:01
[2019-10-12 07:59] LABS: Basophils % (A) 0 %; Eosinophils # (A) 0.1 k/uL (0-0.7); Eosinophils % (A) 1 %; HCT 40.9 % (39.0-53.0); Lymphocytes # (A) 2.7 k/uL (1.0-4.8); Lymphocytes % (A) 16 %; MCH 27.6 pg (25.0-35.0); MCHC 31.8 g/dL (31.0-37.0); MCV 86.8 fL (80.0-100.0); Mean Platelet Volume 7.8; Monocytes # (A) 0.5 k/uL (0-1.0); Monocytes % (A) 3 %; Neutrophils # (A) 12.8 k/uL (1.3-7.7); Neutrophils % (A) 78 %; Platelet Count 176 k/uL (150-450); RBC 4.71 m/uL (4.30-5.90); RDW 15.1 % (11.5-15.5); WBC 16.3 k/uL (3.8-10.6)
[2019-10-12 08:07] LABS: Partial Thromboplastin Time 22.4 sec (22.0-30.0); Prothrombin Time 10.7 sec (9.0-12.0)
[2019-10-12] MEDS ORDERED: AZITHROMYCIN 500 MG in SODIUM CHLORIDE 0.9% 250 ML IVPB STA (08:07)
[2019-10-12] MEDS ORDERED: cefTRIAXone IN SWFI 1,000 MG/10 ML SYRINGE IVP STA (08:07)
[2019-10-12 08:11] LABS: Albumin 4.3 g/dL (3.5-5.0); Calcium 9.1 mg/dL (8.4-10.2); Potassium 3.6 mmol/L (3.5-5.1); Total Bilirubin 0.3 mg/dL (0.2-1.3); Total Protein 7.4 g/dL (6.3-8.2)
--- NOTE | 2019-10-12 08:15 | XR ---
EXAMINATION TYPE: XR chest 1V portable DATE OF EXAM: 10/12/2019 COMPARISON: Prior chest x-ray 06/15/2019 HISTORY: Chest pain and shortness of breath TECHNIQUE: Single frontal view of the chest is obtained. FINDINGS: Large area of increased density is noted in the right lung. No evident pneumothorax or ple ural effusion. Heart is enlarged. Patient is post median sternotomy. Aorta is dense. There are overly ing cardiac leads. Prominence of pulmonary arteries may be indicative of underlying pulmonary artery hypertension. IMPRESSION: Correlate for pneumonia, follow-up recommended to resolution to exclude underlying mass. Additional findings above.
[2019-10-12] MEDS ORDERED: MORPHINE SULFATE 4 MG/ML SYRINGE IV PRN (08:40)
[2019-10-12] MEDS ORDERED: NALOXONE 0.4 MG/ML 1 ML VIAL IV PRN (08:40)
[2019-10-12 09:59] LABS: Glucose,Whole Blood 105 mg/dL (75-99)
[2019-10-12] MEDS ORDERED: FUROSEMIDE 10 MG/ML 4 ML VIAL IV SCH (10:45)
[2019-10-12 11:03] LABS: Appearance,Urine Clear (Clear); Bacteria,Urine Rare /hpf; Bilirubin,Urine Negative (Negative); Blood,Urine Trace (Negative); Color,Urine Yellow; Glucose,Urine (UA) Negative (Negative); Ketones,Urine Negative (Negative); Leukocyte Esterase,Urine Negative (Negative); Mucus,Urine Rare /hpf; Nitrite,Urine Negative (Negative); Protein,Urine 3+ (Negative); RBC,Urine 1 /hpf (0-5); Specific Gravity,Urine 1.017 (1.001-1.035); Squamous Epithelial Cell,Urine <1 /hpf (0-4); Urobilinogen,Urine <2.0 mg/dL (<2.0); WBC,Urine 2 /hpf (0-5)
[2019-10-12] MEDS ORDERED: FUROSEMIDE 10 MG/ML 4 ML VIAL IV STA (11:07)
--- NOTE | 2019-10-12 11:43 | P.CRDCN ---
History of Present Illness History of present illness: HISTORY OF PRESENTING ILLNESS This is a pleasant 84-year-old male past medical history significant for coronary artery disease status post bypass grafting with subsequent PCI to the vein grafts in the setting of a NSTEMI 02/2019, persistent atrial fibrillation, valvular heart disease status post TAVR 2014, diabetes mellitus, chronic diastolic heart failure, hypertension and dyslipidemia. He follows in the office with Dr. Malloy. We have been asked to see in consultation for atrial fibrillation with rapid ventricular rate and troponin elevation. He presented to the hospital with an acute onset of sharp chest pain and shortness of breath. On arrival to ED his oxygen saturation was in the 70's. He was placed on Bipap and his saturation improved as well as his dyspnea and chest pain. His EKG revealed atrial fibrillation with rapid ventricular rates and ST abnormalities in the inferior and lateral leads. Chest x-ray reveals a large density in the right lung suggestive of pneumonia. He has been started on antibiotics per the pulmonary care team. Cardizem infusion initiated in the emergency department. His rates have come down since admission. Laboratory data reviewed, WBC 16.3, hemoglobin 13, platelets 176, sodium 138, potassium 3.6, creatinine 1.34 with a GFR 48, lactic acid on admission 3.5, troponin 0.071, NT proBNP 1120. Daily home cardiac medications include Eliquis 2.5 mg twice a day, aspirin 81 mg daily, amlodipine 10 mg daily, clonidine 0.2 mg 3 times a day, hydralazine 75 mg 3 times a day, Lasix 40 mg daily, Imdur 60 mg daily and lovastatin 80 mg at bedtime. Most recent stress test performed in the office May 2019 with a Lexiscan stress test that was negative for reversible cardiac ischemia. Most recent echocardiogram obtained February 2019 reveals preserved LV systolic function with ejection fraction 55-60%, mean gradient across aortic valve is 10 mmHg, mild MR and mild TR noted. REVIEW OF SYSTEMS At the time of my exam: CONSTITUTIONAL: Denies fever or chills. CARDIOVASCULAR: Complains of shortness of breath. Denies chest pain, orthopnea, PND or palpitations. RESPIRATORY: Denies cough. GASTROINTESTINAL: Denies abdominal pain, diarrhea, constipation, nausea or vomiting. MUSCULOSKELETAL: Denies myalgias. NEUROLOGIC: Denies numbness, tingling or weakness. ENDOCRINE: Denies fatigue, weight change, polydipsia or polyurina. GENITOURINARY: Denies burning, hematuria or urgency with micturation. HEMATOLOGIC: Denies history of anemia or bleeding. PHYSICAL EXAMINATION Blood pressure 171/85 heart rate 85 100.6F and maintaining oxygen saturation on BiPAP CONSTITUTIONAL: No apparent distress. HEENT: Head is normocephalic. Pupils are equal, round. Sclerae anicteric. Mucous membranes of the mouth are moist. No JVD. No carotid bruit. CHEST EXAMINATION: Bibasilar rales, scattered rhonchi, no wheezes. No chest wall tenderness is noted on palpation or with deep breathing. HEART EXAMINATION: Irregular rate and rhythm. S1, S2 heard. Systolic ejection murmur at the base, no gallops or rub. ABDOMEN: Soft, nontender. Positive bowel sounds. EXTREMITIES: 2+ peripheral pulses, 2+ bilateral lower extremity pitting edema and no calf tenderness. NEUROLOGIC EXAMINATION: Patient is awake, alert and oriented x3. ASSESSMENT Atrial fibrillation with rapid ventricular response Acute on chronic diastolic heart failure Febrile illness Lactic acidosis Leukocytosis Troponin elevation secondary oxygen supply demand mismatch with hypoxia present on admission. Type II event. Acute on chronic renal failure Coronary artery disease s/p PCI of the vein grafts 02/2019 Valvular heart disease s/p TAVR 2014 Diabetes mellitus Hypertension Dyslipidemia PLAN Given his PCI less than 12 months ago he should be on plavix along with eliquis. Discontinue aspirin. Give one dose of IV lasix 40 mg now and start 20 IV BID from tonight. Follow electrolytes and renal function in the morning. Obtain 2D echocardiogram and doppler study to assess cardiac structure and function. Continue to trend troponins. Further recommendations to follow based on clinical course. Thank you kindly for this consultation. Nurse Practitioner note has been reviewed, I agree with a documented findings and plan of care. Patient was seen and examined. Past Medical History Past Medical History: Coronary Artery Disease (CAD), Heart Failure, Diabetes Mellitus, Eye Disorder, Hyperlipidemia, Hypertension, Memory Impairment, Osteoarthritis (OA) Additional Past Medical History / Comment(s): 02-21-15 ADMITTED WITH GI BLEED. OTHER HX LEGALLY BLIND. EDEMA LEGS. AORTIC STENOSIS. Last Myocardial Infarction Date:: 03/01/19 History of Any Multi-Drug Resistant Organisms: None Reported Past Surgical History: Cholecystectomy, Coronary Bypass/CABG, Heart Catheterization Additional Past Surgical History / Comment(s): 01/20 AVReplacement TAVR Core Valve, 01/26 coronary stent SVG to Cx, arthroscopic knee surgey bilat. Past Anesthesia/Blood Transfusion Reactions: No Reported Reaction Date of Last Stent Placement:: 03/04/19 Past Psychological History: Anxiety Smoking Status: Former smoker Past Alcohol Use History: None Reported Past Drug Use History: None Reported - Past Family History Mother Family Medical History: Cancer, Coronary Artery Disease (CAD), Diabetes Mellitus Father Family Medical History: Diabetes Mellitus Medications and Allergies Home Medications Medication Instructions Recorded Confirmed Type Nitroglycerin Sl Tabs [Nitrostat] 0.4 mg SL Q5M PRN 01/08/14 06/15/19 History Allopurinol [Zyloprim] 100 mg PO BID 02/21/15 06/15/19 History Pantoprazole Sodium 40 mg PO QAM 02/21/15 06/15/19 History Aspirin 81 mg PO QAM 06/16/15 06/15/19 History Cholecalciferol (Vitamin D3) 2,000 unit PO QAM 03/01/19 06/15/19 History [Vitamin D3] amLODIPine [Norvasc] 10 mg PO DAILY 03/01/19 06/15/19 History cloNIDine HCL [Catapres] 0.2 mg PO BID 03/01/19 06/15/19 History ALPRAZolam [Xanax] 0.25 mg PO TID PRN #9 tab 03/07/19 06/15/19 Rx HYDROcodone/APAP 5-325MG [Buford 1 tab PO DAILY PRN #3 tab 03/07/19 06/15/19 Rx 5-325] Furosemide [Lasix] 40 mg PO DAILY 06/15/19 06/15/19 History Isosorbide Mononitrate ER [Imdur] 60 mg PO DAILY 06/15/19 06/15/19 History Potassium Chloride ER [K-Dur 20] 20 meq PO DAILY 06/15/19 06/15/19 History hydrALAZINE HCL [Apresoline] 25 mg PO TID 06/15/19 06/15/19 History hydrALAZINE HCL [Apresoline] 50 mg PO TID 06/15/19 06/15/19 History Apixaban [Eliquis] 2.5 mg PO BID #60 tablet 06/16/19 Rx Allergies Allergy/AdvReac Type Severity Reaction Status Date / Time No Known Allergies Allergy Verified 10/12/19 07:14 Physical Exam Vitals: Vital Signs Temp Pulse Resp BP Pulse Ox 10/12/19 10:30 100.6 F H 85 22 171/85 93 L 10/12/19 09:00 97.5 F L 94 24 161/78 10/12/19 08:04 124 H 42 H 166/89 97 10/12/19 07:50 133 H 42 H 195/100 97 10/12/19 07:13 98.3 F 127 H 20 173/63 91 L Intake and Output 10/11/19 10/12/19 10/12/19 22:59 06:59 14:59 Other: Weight 104.326 kg Results 10/12/19 07:35 10/12/19 07:35 Cardiac Enzymes 10/12/19 10/12/19 Range/Units 07:35 07:35 AST 26 (17-59) U/L Troponin I 0.071 H* (0.000-0.034) ng/mL Coagulation 10/12/19 Range/Units 07:35 PT 10.7 (9.0-12.0) sec APTT 22.4 (22.0-30.0) sec CBC 10/12/19 Range/Units 07:35 WBC 16.3 H (3.8-10.6) k/uL RBC 4.71 (4.30-5.90) m/uL Hgb 13.0 (13.0-17.5) gm/dL Hct 40.9 (39.0-53.0) % Plt Count 176 (150-450) k/uL Comprehensive Metabolic Panel 10/12/19 Range/Units 07:35 Sodium 138 (137-145) mmol/L Potassium 3.6 (3.5-5.1) mmol/L Chloride 102 (98-107) mmol/L Carbon Dioxide 22 (22-30) mmol/L BUN 26 H (9-20) mg/dL Creatinine 1.34 H (0.66-1.25) mg/dL Glucose 161 H (74-99) mg/dL Calcium 9.1 (8.4-10.2) mg/dL AST 26 (17-59) U/L ALT 13 (4-49) U/L Alkaline Phosphatase 87 (38-126) U/L Total Protein 7.4 (6.3-8.2) g/dL Albumin 4.3 (3.5-5.0) g/dL Current Medications Generic Name Dose Route Start Last Admin Trade Name Freq PRN Reason Stop Dose Admin Apixaban 2.5 mg 10/12/19 10:45 Eliquis PO BID [facility] Clopidogrel Bisulfate 75 mg 10/12/19 11:15 Plavix PO DAILY [facility] Diltiazem HCl 125 mg/ Sodium 125 mls @ 5 mls/hr 10/12/19 07:30 10/12/19 07:44 Chloride IV 5 mg/hr .Q24H JUSTIN 5 mls/hr Administration 5 MG/HR Sodium Chloride 1,000 mls @ 50 mls/hr 10/12/19 09:00 Saline 0.9% IV .Q20H JUSTIN Azithromycin 500 mg/ Sodium 250 mls @ 250 mls/hr 10/13/19 09:00 Chloride IVPB DAILY [facility] Ceftriaxone Sodium 1 gm/ 50 mls @ 100 mls/hr 10/13/19 09:00 Sodium Chloride IVPB Q24HR [facility] Morphine Sulfate 4 mg 10/12/19 08:40 Morphine Sulfate (Inj) IV Q4HR PRN Severe Pain Naloxone HCl 0.2 mg 10/12/19 08:40 Narcan IV Q2M PRN Opioid Reversal Nitroglycerin 0.4 mg 10/12/19 07:25 10/12/19 07:46 Nitrostat SUBLINGUAL 0.4 mg Q5M PRN Administration Chest Pain Pantoprazole Sodium 40 mg 10/12/19 11:00 Protonix IV DAILY JUSTIN Intake and Output 10/11/19 10/12/19 10/12/19 22:59 06:59 14:59 Other: Weight 104.326 kg Patient Weight 10/13/19 06:59 Weight 104.326 kg 10/12/19 07:35 10/12/19 07:35
--- NOTE | 2019-10-12 11:45 | CONS ---
CONSULTATION PULMONARY/CRITICAL CARE CONSULTATION: DATE OF SERVICE: 10/12/2019 I was called by the emergency room physician about this patient. He is an 84-year-old male who has a history of atrial fibrillation, valvular heart disease, CAD with previous bypass grafting, who presents to the emergency department with complaints of increasing shortness of breath and chest pain. He was found to have atrial fibrillation with RVR. He was very short of breath. He was placed on BiPAP. The patient was to be transferred to the third floor. I thought it was more appropriate that he come to the ICU. Saturations were only in the 70s. Again, his major complaint was that of chest pain and shortness of breath. No fever or chills. Not coughing up any phlegm. Anyway, after talking to the ER physician, we decided to move him to the ICU. He is currently on BiPAP at 70% with IPAP of 12 and EPAP of 5. He is also on Cardizem at 5 mg an hour and saline at 50 mL an hour. We are going to implement the ICU admission orders. He is also on Zithromax and Rocephin IV. He himself cannot give much history because of the BiPAP mask in place, but apparently he had high fevers and chills last night. He did test negative for Covid-19 infection. His chest x-ray shows primarily a right-sided pneumonic process. HOME MEDICATIONS: Include nitroglycerin, allopurinol, Protonix, aspirin, vitamin D3, amlodipine, Catapres, Lasix, Imdur, K-Dur, Apresoline, Xanax, Anthony, and Eliquis. ALLERGIES: Denied. PAST MEDICAL HISTORY: Positive for CAD, heart failure, diabetes mellitus, hyperlipidemia, hypertension, memory impairment, and DJD. He has a previous admission to the hospital in 2015 with GI bleed. The patient is apparently legally blind. He also has a history of aortic stenosis. SURGICAL HISTORY: Includes cholecystectomy, bypass grafting, heart catheterization, aortic valve replacement via TAVR, and bilateral arthroscopic knee surgery. SOCIAL HISTORY: Positive for previous tobacco use. Denies illicit drug use or alcohol use. FAMILY HISTORY: Positive for mother with diabetes, CAD and cancer and a father with diabetes. REVIEW OF SYSTEMS: CONSTITUTIONAL: Negative. NEUROLOGIC: Negative. HEENT: Negative. CARDIOVASCULAR: Chest pain. PULMONARY: Shortness of breath. GI: Negative. : Negative. RHEUMATOLOGIC: Negative. IMMUNOLOGIC: Negative. ENDOCRINOLOGIC: Negative. DERMATOLOGIC: Negative. PHYSICAL EXAMINATION: VITAL SIGNS: Current vital signs include a temperature of 100.6, heart rate 85, respiratory rate 22, blood pressure 171/85 and saturations are 93% on BiPAP at 60% now. He has been turned down by 10. He appears tachypneic and dyspneic. He does have some conversational dyspnea. No audible wheezing. No use of accessory muscles. HEENT: Examination is grossly unremarkable. BiPAP mask in place. NECK: Supple. Full range of motion. No adenopathy. Neck veins are flat. CARDIOVASCULAR: Examination reveals irregular rhythm and rate. Heart rate about 110 beats per minute. He is in atrial fibrillation. S1, S2 normal. No distinct murmur. LUNGS: Reveal coarse inspiratory rhonchi and wheezes. There is some crackles at the bases, right greater than left. Breath sounds equal bilaterally. ABDOMEN: Soft, bowel sounds are heard. EXTREMITIES: Intact. Only minimal edema. SKIN: Without rash. NEUROLOGIC: Examination is brief but nonfocal. Microbiology is pending. LABS: Include a white count 16.3, hemoglobin 13, hematocrit 40.9, platelet count 176,000. PT, INR, PTT is normal. Sodium, potassium, chloride, CO2 all normal. BUN and creatinine were 26 and 1.34. Lactic acid 3.5. Troponin 0.071. N terminal proBNP 1120. Urine is essentially negative. COVID-19 by PCR was negative. Chest x-ray shows pneumonic changes, particularly in the right lung. No pneumothorax. No cardiomegaly. Median sternotomy is noted. Medications are reviewed. The patient is currently on Eliquis, Azithromycin, Cardizem at 5 mg an hour, ceftriaxone, Plavix, morphine, Narcan, sublingual nitroglycerin, Protonix, and saline at 50 mL an hour. ASSESSMENT: 1. Pneumonia, right lower lobe. 2. COVID-19 negative. 3. Atrial fibrillation with RVR. 4. History of coronary artery disease with previous bypass grafting. 5. History of aortic stenosis, status post transcatheter aortic valve replacement (TAVR). 6. History of congestive heart failure. 7. History of diabetes mellitus. 8. Legal blindness. 9. Hyperlipidemia. 10.Hypertension. 11.Memory impairment. 12.Degenerative joint disease. 13.Prior history of gastrointestinal bleed in 2015. PLAN: Currently, the patient is on appropriate medications. I think it was the right decision to move him to the ICU. He was quite tachypneic and hypoxemic. He will remain on the BiPAP for now. The FiO2 was dropped from 70%-60%. Will keep him n.p.o. just in case he goes the wrong way. He is on Cardizem for his atrial fibrillation. He is on Rocephin and Zithromax for his community-acquired pneumonia. Additional recommendations and suggestions are forthcoming. Prognosis is guarded. MMODL / IJN: [id number] /
[2019-10-12 12:16] LABS: Glucose,Whole Blood 91 mg/dL (75-99)
[2019-10-12] MEDS: SODIUM CHLORIDE 0.9% 1,000 ML IV SCH (12:50)
[2019-10-12] MEDS: cloNIDine HCL 0.2 MG TAB PO SCH ×3 (12:52→21:35)
[2019-10-12] MEDS: hydrALAZINE HCL 25 MG TAB PO SCH ×3 (13:34→21:35)
[2019-10-12] MEDS: CLOPIDOGREL 75 MG TAB PO SCH (13:34)
[2019-10-12] MEDS: APIXABAN 2.5 MG TABLET PO SCH ×2 (13:34→21:40)
[2019-10-12] MEDS: PANTOPRAZOLE 40 MG/10 ML VIAL IV SCH (13:35)
--- NOTE | 2019-10-12 15:17 | ECHOF ---
Referral Reason:AFIB MEASUREMENTS -------- HEIGHT: 167.6 cm WEIGHT: 100.2 kg BP: IVSd: 1.4 cm (0.6 - 1.1) LVIDd: 5.6 cm (3.9 - 5.3) LVPWd: 1.6 cm (0.6 - 1.1) IVSs: 1.8 cm LVIDs: 4.3 cm LVPWs: 1.3 cm Ao Diam: 3.0 cm (2.0 - 3.7) AV Cusp: 1.8 cm (1.5 - 2.6) LA Diam: 3.4 cm (2.7 - 3.8) AV maxP.74 mmHg AV meanP.76 mmHg RAP: 5.00 mmHg RVSP: 17.98 mmHg FINDINGS -------- Atrial fibrillation. This was a technically difficult study with suboptimal views. The left ventricular size is normal. There is moderate concentric left ventricular hypertrophy. O verall left ventricular systolic function is moderately impaired with, an EF between 35 - 40 %. Mid anterior LV wall motion is akinetic. Mid anteroseptal LV wall motion is akinetic. Apical anter ior LV wall motion is akinetic. Apical septum LV wall motion is akinetic. Septal Hypokinesis The RV was not well visualized. The left atrial size is normal. The right atrial size is normal. Lumason used The maximum pressure gradient across the aortic valve is 11.74mmHg. TAVR procedure done Moderate mitral annular calcification present. Mild mitral regurgitation is present. The tricuspid valve appears structurally normal. Mild tricuspid regurgitation present. Right vent ricular systolic pressure is normal at < 35 mmHg. The pulmonic valve was not well visualized. There is no pulmonic regurgitation present. The aortic root size is normal. IVC Not well visulized. There is no pericardial effusion. CONCLUSIONS -------- 1. There is moderate concentric left ventricular hypertrophy. 2. Overall left ventricular systolic function is moderately impaired with, an EF between 35 - 40 %. 3. Mid anterior LV wall motion is akinetic. 4. Mid anteroseptal LV wall motion is akinetic. 5. Apical anterior LV wall motion is akinetic. 6. Apical septum LV wall motion is akinetic. 7. Mid Septal Hypokinesis 8. The RV was not well visualized. 9. The left atrial size is normal. 10. Lumason used 11. The maximum pressure gradient across the aortic valve is 11.74mmHg. 12. TAVR procedure done 13. Moderate mitral annular calcification present. 14. Mild mitral regurgitation is present. 15. Mild tricuspid regurgitation present. 16. Right ventricular systolic pressure is normal at < 35 mmHg. CYTOGENETIC TECHNICIAN: Melyssa Blackwood RDCS
[2019-10-12] MEDS ORDERED: ALPRAZolam 0.25 MG TAB PO PRN (16:12)
[2019-10-12] MEDS ORDERED: ZOLPIDEM 5 MG TAB PO PRN (16:12)
[2019-10-12] MEDS ORDERED: HYDROcodone/APAP 5-325MG 1 EACH TAB PO PRN (16:12)
--- NOTE | 2019-10-12 16:16 | P.HPIM ---
History of Present Illness H&P Date: 10/12/19 Chief Complaint: Chest pain, shortness of breath Hospital course: This is a very pleasant 84-year-old patient of Dr. magallanes. 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 Chronic stable medical conditions include congestive heart failure EF 55-60%, diabetes, hypertension, hyperlipidemia, CK disease stage 2, history of aortic valve replacement with TAVR, mild cognitive impairment.egally blind and decreased hearing.. 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 Also admitted in May 2019 with paroxysmal atrial fibrillation. Started on eliquis. Patient now presents to the ER what is described as significant chest pain sharp shortness of breath. Patient is on a BiPAP currently in the ICU. Because of respiratory distress. COVID-19 was negative. Slight cough. Had a fever documented here for 100.6. Patient's history is limited because of shortness of breath. Unable to qualify the chest pain further. Found to be in atrial fibr illation with a rapid ventricular rate Review of systems: GEN.: Tired EYES: Legally blind HEENT: Decreased hearing NECK: None RESPIRATORY: As above CARDIOVASCULAR: As above GASTROINTESTINAL: None GENITOURINARY: None MUSCULOSKELETAL: Pain in joints LYMPHATICS: None HEMATOLOGICAL: None PSYCHIATRY: Forgetful NEUROLOGICAL: Uses a cane, Social history: Does smoke in the past. No alcohol. Lives with his brother. Retired. Does use a cane. Physical examination: VITAL SIGNS: 100.6, 127, 30, 158/64, 93% on BiPAP GENERAL: Laying in bed, short of breath with BiPAP EYES: Pupils equal. Conjunctiva normal. HEENT: External appearance of nose and ears normal, oral cavity grossly normal, decreased hearing. NECK: JVD unable to assess, masses not palpable. HEART: Irregular heart sounds, no edema. LUNGS: Respiratory rate increased, accessory muscles are working, unable to speak in full sentences decreased breath sounds. ABDOMEN: Soft, nontender, liver spleen not palpable, no masses palpable. PSYCH: Difficult to assess due to patient being on BiPAP MUSCULOSKELETAL: Evidence of OA especially in the hands NEUROLOGICAL: Pupils equaland asymmetry, power and sensation grossly intact. Decreased hearing. Decreased vision. INVESTIGATIONS, reviewed in the clinical context: White count 16.3 hemoglobin 13 platelets 176 percussion 3.6 bun 26 creatinine 1.34 Troponin I 0.071 Coronavirus PCR-not detected EKG tracing personally reviewed by me-atrial fibrillation rapid ventricular rate with some ST segment depression Chest x-ray film personally reviewed by me-this infiltrates on the right side Assessment: -Multilobar pneumonia suspected gram-negative organism causing sepsis, POA -Acute hypoxic respiratory failure requiring BiPAP -Persistent atrial fibrillation with rapid ventricular response, likely precipitated by sepsis -Coronary artery disease with bypass -Chronic congestive heart failure from diastolic dysfunction EF 55-60% -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 Currently on a BiPAP. Anticoagulation to continue. Patient is on IV Zithromax and ceftriaxone. Other medications are to continue. Doubt acute congestive heart failure. Keep a close eye on renal function. Prognosis guarded. Past Medical History Past Medical History: Coronary Artery Disease (CAD), Heart Failure, Diabetes Mellitus, Eye Disorder, Hyperlipidemia, Hypertension, Memory Impairment, Osteoarthritis (OA) Additional Past Medical History / Comment(s): 02-21-15 ADMITTED WITH GI BLEED. OTHER HX LEGALLY BLIND. EDEMA LEGS. AORTIC STENOSIS. Last Myocardial Infarction Date:: 03/01/19 History of Any Multi-Drug Resistant Organisms: None Reported Past Surgical History: Cholecystectomy, Coronary Bypass/CABG, Heart Catheterization Additional Past Surgical History / Comment(s): 01/20 AVReplacement TAVR Core Valve, 01/26 coronary stent SVG to Cx, arthroscopic knee surgey bilat. Past Anesthesia/Blood Transfusion Reactions: No Reported Reaction Date of Last Stent Placement:: 03/04/19 Past Psychological History: Anxiety Smoking Status: Former smoker Past Alcohol Use History: None Reported Past Drug Use History: None Reported - Past Family History Mother Family Medical History: Cancer, Coronary Artery Disease (CAD), Diabetes Mellitus Father Family Medical History: Diabetes Mellitus Medications and Allergies Home Medications Medication Instructions Recorded Confirmed Type Nitroglycerin Sl Tabs [Nitrostat] 0.4 mg SL Q5M PRN 01/08/14 10/12/19 History Allopurinol [Zyloprim] 100 mg PO BID 02/21/15 10/12/19 History Pantoprazole Sodium 40 mg PO DAILY 02/21/15 10/12/19 History Cholecalciferol (Vitamin D3) 2,000 unit PO DAILY 03/01/19 10/12/19 History [Vitamin D3] amLODIPine [Norvasc] 10 mg PO DAILY 03/01/19 10/12/19 History cloNIDine HCL [Catapres] 0.2 mg PO TID 03/01/19 10/12/19 History ALPRAZolam [Xanax] 0.25 mg PO TID PRN #9 tab 03/07/19 10/12/19 Rx Furosemide [Lasix] 40 mg PO DAILY 06/15/19 10/12/19 History Isosorbide Mononitrate ER [Imdur] 60 mg PO DAILY 06/15/19 10/12/19 History hydrALAZINE HCL [Apresoline] 25 mg PO TID 06/15/19 10/12/19 History hydrALAZINE HCL [Apresoline] 50 mg PO TID 06/15/19 10/12/19 History Apixaban [Eliquis] 2.5 mg PO BID #60 tablet 06/16/19 10/12/19 Rx Acetaminophen [Tylenol 8 Hour] 650 mg PO BID 10/12/19 10/12/19 History Clopidogrel [Plavix] 75 mg PO DAILY #90 tab 10/12/19 Rx Docusate Sodium [Dok] 100 mg PO BID PRN 10/12/19 10/12/19 History HYDROcodone/APAP 5-325MG [[place] 1 tab PO Q6HR PRN 10/12/19 10/12/19 History 5-325] Lovastatin [Mevacor] 80 mg PO HS 10/12/19 10/12/19 History Meclizine [Antivert] 25 mg PO BID PRN 10/12/19 10/12/19 History Potassium Chloride ER [K-Dur 10] 10 meq PO DAILY 10/12/19 10/12/19 History Zolpidem Tartrate [Ambien] 5 mg PO HS PRN 10/12/19 10/12/19 History Allergies Allergy/AdvReac Type Severity Reaction Status Date / Time No Known Allergies Allergy Verified 10/12/19 11:23 Physical Exam Vitals: Vital Signs Temp Pulse Resp BP Pulse Ox 10/12/19 09:00 97.5 F L 94 24 161/78 10/12/19 08:04 124 H 42 H 166/89 97 10/12/19 07:50 133 H 42 H 195/100 97 10/12/19 07:13 98.3 F 127 H 20 173/63 91 L Intake and Output 10/11/19 10/12/19 10/12/19 22:59 06:59 14:59 Other: Weight 104.326 kg Results CBC & Chem 7: 10/12/19 07:35 10/12/19 07:35 Labs: Abnormal Lab Results - Last 24 Hours (Table) 10/12/19 10/12/19 10/12/19 Range/Units 07:35 07:35 07:35 WBC 16.3 H (3.8-10.6) k/uL Neutrophils # 12.8 H (1.3-7.7) k/uL BUN 26 H (9-20) mg/dL Creatinine 1.34 H (0.66-1.25) mg/dL Glucose 161 H (74-99) mg/dL POC Glucose (mg/dL) (75-99) mg/dL Plasma Lactic Acid [place] (0.7-2.0) mmol/L Troponin I 0.071 H* (0.000-0.034) ng/mL 10/12/19 10/12/19 Range/Units 07:35 09:58 WBC (3.8-10.6) k/uL Neutrophils # (1.3-7.7) k/uL BUN (9-20) mg/dL Creatinine (0.66-1.25) mg/dL Glucose (74-99) mg/dL POC Glucose (mg/dL) 105 H (75-99) mg/dL Plasma Lactic Acid [place] 3.5 H* (0.7-2.0) mmol/L Troponin I (0.000-0.034) ng/mL
[2019-10-12] MEDS: ISOSORBIDE MONONITRATE ER 60 MG TAB.ER.24H PO SCH (17:07)
[2019-10-12] MEDS: amLODIPine 10 MG TAB PO SCH (17:10)
[2019-10-12 17:25] LABS: Glucose,Whole Blood 120 mg/dL (75-99)
[2019-10-12] MEDS ORDERED: INSULIN ASPART (NovoLOG) 100 UNIT/ML VIAL SQ SCH (20:00)
[2019-10-12] MEDS ORDERED: ISOSORBIDE MONONITRATE ER 30 MG TAB.ER.24H PO SCH (21:00)
[2019-10-12] MEDS: ATORVASTATIN 20 MG TAB PO SCH (21:35)
[2019-10-12] MEDS: ALLOPURINOL 100 MG TAB PO SCH (21:35)
[2019-10-13 00:08] LABS: Glucose,Whole Blood 112 mg/dL (75-99)
[2019-10-13] MEDS: INSULIN ASPART (NovoLOG) 100 UNIT/ML VIAL SQ SCH ×4 (00:56→18:12)
[2019-10-13 04:24] LABS: Basophils % (A) 0 %; Eosinophils % (A) 0 %; HCT 34.6 % (39.0-53.0); HGB 10.8 gm/dL (13.0-17.5); Lymphocytes # (A) 1.3 k/uL (1.0-4.8); Lymphocytes % (A) 9 %; MCH 26.9 pg (25.0-35.0); MCHC 31.2 g/dL (31.0-37.0); MCV 86.4 fL (80.0-100.0); Mean Platelet Volume 8.5; Monocytes # (A) 0.5 k/uL (0-1.0); Monocytes % (A) 4 %; Neutrophils # (A) 12.5 k/uL (1.3-7.7); Neutrophils % (A) 86 %; Platelet Count 131 k/uL (150-450); RDW 15.2 % (11.5-15.5); WBC 14.5 k/uL (3.8-10.6)
[2019-10-13 04:32] LABS: Calcium 8.3 mg/dL (8.4-10.2); Potassium 4.1 mmol/L (3.5-5.1)
[2019-10-13] MEDS: SODIUM CHLORIDE 0.9% 1,000 ML IV SCH ×2 (05:00→17:32)
[2019-10-13 06:21] LABS: Glucose,Whole Blood 104 mg/dL (75-99)
--- NOTE | 2019-10-13 07:07 | XR ---
EXAMINATION TYPE: XR chest 1V DATE OF EXAM: 10/13/2019 HISTORY: Pneumonia. REFERENCE: Previous study dated 10/12/2019. FINDINGS: There has been a midline sternotomy. The heart is enlarged. There is dense consolidation in the periphery of the right lung. The left lung is relatively clear. Right CP angle is blunted. I could not exclude a small right effusion. The hear t is enlarged. IMPRESSION: CONTINUING DENSE CONSOLIDATION IN THE PERIPHERY OF THE RIGHT LUNG WITH A SMALL ASSOCIATED EFFUSION.
[2019-10-13] MEDS: ALLOPURINOL 100 MG TAB PO SCH ×2 (08:59→21:00)
[2019-10-13] MEDS: AZITHROMYCIN 500 MG in SODIUM CHLORIDE 0.9% 250 ML IVPB SCH (09:00)
[2019-10-13] MEDS: APIXABAN 2.5 MG TABLET PO SCH ×2 (09:00→17:18)
[2019-10-13] MEDS ORDERED: ASPIRIN 81 MG PO SCH (09:00)
[2019-10-13] MEDS: amLODIPine 10 MG TAB PO SCH (09:00)
[2019-10-13] MEDS: hydrALAZINE HCL 25 MG TAB PO SCH ×3 (09:00→21:00)
[2019-10-13] MEDS: ISOSORBIDE MONONITRATE ER 60 MG TAB.ER.24H PO SCH (09:01)
[2019-10-13] MEDS: METOPROLOL TARTRATE 25 MG TAB PO SCH ×2 (09:01→21:01)
[2019-10-13] MEDS: cloNIDine HCL 0.2 MG TAB PO SCH ×3 (09:01→21:00)
[2019-10-13] MEDS: CLOPIDOGREL 75 MG TAB PO SCH (09:01)
[2019-10-13] MEDS: PANTOPRAZOLE 40 MG/10 ML VIAL IV SCH (09:02)
--- NOTE | 2019-10-13 09:35 | PN ---
PROGRESS NOTE Mr. Monterroso came in with what seems to be pneumonia and respiratory failure with hypercapnia requiring BiPAP. He has history of CAD, stenting of a vein graft of the obtuse marginal branch as well as the PDA branch of circumflex performed in February of last year. He came in with atrial fibrillation, RVR, pneumonia, respiratory failure, but the rate has decreased. His heart rate is in the 70s. He is in atrial fibrillation. I am recommending that we discontinue Cardizem, continue the combination of Plavix and Eliquis 2.5 mg b[address]i.d. I will place him on oral Lopressor 25 mg b.i.d. to hold if the heart rate is less than 60. The patient is still on a BiPAP, but compared to yesterday he seems to be somewhat better. He is not on any nitroglycerin drip at this time. Blood pressure is under fairly decent control. Yesterday his was hypertensive. I would recommend that we continue current medications including beta darlene and based on clinical course, will make further recommendations. His main issue appears to be pneumonia and hypercapnic respiratory failure. Blood pressure is 140/80, pulse rate is 70 per minute, irregular. JVD 1 cm, no carotid bruit. S1, S2, a short systolic murmur is audible. Lungs reveal bilateral scattered rhonchi and rales. Abdomen is soft, lower extremities reveal diminished pulses. Central nervous system is grossly no focal deficits. Prognosis remains guarded. MMODL / IJN: [id number] /
--- NOTE | 2019-10-13 12:11 | PN ---
PROGRESS NOTE PULMONARY/CRITICAL CARE PROGRESS NOTE: DATE OF SERVICE: 10/13/2019 This is an 84-year-old male with a history of atrial fibrillation, valvular heart disease, CAD with previous bypass grafting, who presented to the emergency department with complaints of increasing shortness of breath and chest pain. He was found to have atrial fibrillation with RVR. He was placed on BiPAP. A chest x-ray revealed evidence of a right-sided pneumonia. He did have chest pain and shortness of breath. There was no fever or chills. Currently, the patient remains on BiPAP, at 12 for an IPAP setting and 5 for an EPAP setting. His FiO2 is 50%. The patient has a saline IV at 50 mL an hour. The patient appears to be quite short of breath. I did ask for an arterial blood gas. ICU admission orders were entered. I put him on Zithromax and Rocephin. The patient was also on Cardizem at 5 mg an hour. Current vital signs include a temperature of 98.6, heart rate 60, respiratory rate 22, blood pressure 157/68 mean 97, saturations are 94% on BiPAP at 12 and 5 with 50% FiO2. He is quite tachypneic and dyspneic. HEENT: Examination is grossly unremarkable. BiPAP mask in place. He has a hard time verbalizing any history. NECK: Supple, full range of motion. No adenopathy, thyromegaly or neck vein distention. CARDIOVASCULAR: Examination reveals regular rhythm and rate. Heart rate 66 beats per minute. S1, S2 normal. Heart sounds are distant. No distinct murmur. LUNGS: Bilateral coarse crackles. Breath sounds equal. No wheezes. ABDOMEN: Obese. bowel sounds are heard. EXTREMITIES: Intact. Mild edema noted. SKIN: Without rash. NEUROLOGIC: Examination is difficult to assess but he does arouse and he does answer questions, although he has a hard time speaking with a BiPAP mask in place. All 4 extremities are moved easily. LABS: Reviewed. White count 14.5, hemoglobin 10.8, hematocrit 34.6, platelet count 131,000. Sodium 132, potassium 4.1, chloride 98, CO2 is 26, anion gap is 8. BUN and creatinine were 27 and 1.32. Troponins were elevated at 11.7 and 9.4. Microbiology is currently pending or negative. A repeat chest x-ray shows dense consolidation in the periphery of the right lung, with a small effusion. The x-ray is essentially unchanged. MEDICATIONS: Reviewed. The patient is on Zyloprim, Xanax, Norvasc, Eliquis, Lipitor, Zithromax, Rocephin, Catapres, Plavix, hydralazine, [place], insulin, Imdur, metoprolol, morphine, nitroglycerin tablets, Protonix, Ambien and saline at 50 mL an hour. ASSESSMENT: 1. Community-acquired pneumonia, right lower lobe. 2. COVID-19 status, negative. 3. Atrial fibrillation with RVR, controlled. 4. History of coronary artery disease with previous bypass grafting. 5. History of aortic stenosis, status post transcatheter aortic valve replacement. 6. History of congestive heart failure. 7. History of diabetes mellitus. 8. Legal blindness. 9. Hyperlipidemia. 10.Hypertension. 11.Memory impairment. 12.Degenerative joint disease. 13.Prior history of gastrointestinal bleed in 2015. 14.Rule out non ST-segment elevation myocardial infarction. PLAN: The patient's medications are again reviewed. Will DC unnecessary medications, especially medications which may cause a decline in his respiratory status. Additional recommendations and suggestions are forthcoming. The patient may end up requiring intubation and mechanical ventilation. Will see if we can avoid that. Labs, x- rays and medications are reviewed. Additional recommendations will be forthcoming. Critical care time more than 30 minutes. KHLOEL / JOSE F: [id number] / MTDD
[2019-10-13 13:22] LABS: Glucose,Whole Blood 98 mg/dL (75-99)
--- NOTE | 2019-10-13 16:58 | P.PN ---
Progress Note - Text Progress Note Date: 10/13/19 Chief Complaint: Chest pain, shortness of breath Hospital course: This is a very pleasant 84-year-old patient of Dr. magallanes. 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 Chronic stable medical conditions include congestive heart failure EF 55-60%, diabetes, hypertension, hyperlipidemia, CK disease stage 2, history of aortic valve replacement with TAVR, mild cognitive impairment.egally blind and decreased hearing.. February 2019 had acute non-Q-wave RI with coronary intervention with angioplasty stent. Also admitted in May 2019 with paroxysmal atrial fibrillation. Started on eliquis. Patient now presents to the ER what is described as significant chest pain sharp shortness of breath. Patient is on a BiPAP currently in the ICU. Because of respiratory distress. COVID-19 was negative. Slight cough. Had a fever documented here for 100.6. Patient's history is limited because of shortness of breath. Unable to qualify the chest pain further. Found to be in atrial fibrillation with a rapid ventricular rate Admitted with-multilobar pneumonia, acute hypoxic respiratory failure, atrial fibrillation uncontrolled. Admitted to ICU. Today-ICU: Remains on a BiPAP. More awake. Unable to take off the BiPAP to feed himself. Heart rate better controlled. Progress review of systems difficult to obtain as patient is on a BiPAP Active Medications Allopurinol (Zyloprim) 100 mg PO BID [facility] Last Admin: 10/13/19 08:59 Dose: 100 mg Documented by: Amlodipine Besylate (Norvasc) 10 mg PO DAILY [facility] Last Admin: 10/13/19 09:00 Dose: 10 mg Documented by: Apixaban (Eliquis) 2.5 mg PO BID [facility] Last Admin: 10/13/19 09:00 Dose: 2.5 mg Documented by: Atorvastatin Calcium (Lipitor) 20 mg PO HS [facility] Last Admin: 10/12/19 21:35 Dose: 20 mg Documented by: Clonidine (Catapres) 0.2 mg PO TID [facility] Last Admin: 10/13/19 09:01 Dose: 0.2 mg Documented by: Clopidogrel Bisulfate (Plavix) 75 mg PO DAILY [facility] Last Admin: 10/13/19 09:01 Dose: 75 mg Documented by: Hydralazine HCl (Apresoline) 75 mg PO TID [facility] Last Admin: 10/13/19 09:00 Dose: 75 mg Documented by: Sodium Chloride (Saline 0.9%) 1,000 mls @ 50 mls/hr IV .Q20H [facility] Last Admin: 10/13/19 05:00 Dose: 50 mls/hr Documented by: Azithromycin 500 mg/ Sodium (Chloride) 250 mls @ 250 mls/hr IVPB DAILY [facility] Last Admin: 10/13/19 09:00 Dose: 250 mls/hr Documented by: Ceftriaxone Sodium 1 gm/ (Sodium Chloride) 50 mls @ 100 mls/hr IVPB Q24HR [facility] Last Admin: 10/13/19 09:00 Dose: 100 mls/hr Documented by: Insulin Aspart (Novolog) 0 unit SQ Q6H [facility]; Protocol Last Admin: 10/13/19 13:37 Dose: Not Given Documented by: Isosorbide Mononitrate (Imdur) 60 mg PO DAILY [facility] Last Admin: 10/13/19 09:01 Dose: 60 mg Documented by: Metoprolol Tartrate (Lopressor) 25 mg PO BID [facility] Last Admin: 10/13/19 09:01 Dose: 25 mg Documented by: Naloxone HCl (Narcan) 0.2 mg IV Q2M PRN PRN Reason: Opioid Reversal Pantoprazole Sodium (Protonix) 40 mg IV DAILY [facility] Last Admin: 10/13/19 09:02 Dose: 40 mg Documented by: Physical examination: VITAL SIGNS: 99.8, 48, 25, 122/54, 77% on BiPAP GENERAL: Sitting up in bed, a bit more awake short of breath with BiPAP EYES: Pupils equal. Conjunctiva normal. HEENT: External appearance of nose and ears normal, oral cavity grossly normal, decreased hearing. NECK: JVD unable to assess, masses not palpable. HEART: Irregular heart sounds, no edema. LUNGS: Respiratory rate increased, accessory muscles are working, unable to speak in full sentences decreased breath sounds. ABDOMEN: Soft, nontender, liver spleen not palpable, no masses palpable. PSYCH: Difficult to assess due to patient being on BiPAP MUSCULOSKELETAL: Evidence of OA especially in the hands NEUROLOGICAL: Following commands INVESTIGATIONS, reviewed in the clinical context: White count 14.5 hemoglobin 10.8 platelets 131 percussion 4.1 bun 27 creatinine 1.3 to Chest x-ray film-dense consolidation of the right side Previous testing White count 16.3 hemoglobin 13 platelets 176 percussion 3.6 bun 26 creatinine 1.34 Troponin I 0.071, 6.5, 11.7 Coronavirus PCR-not detected EKG tracing personally reviewed by me-atrial fibrillation rapid ventricular rate with some ST segment depression Chest x-ray film personally reviewed by me-this infiltrates on the right side Assessment: -Multilobar pneumonia suspected gram-negative organism causing sepsis, POA -Acute hypoxic respiratory failure requiring BiPAP, slow to respond -Persistent atrial fibrillation with rapid ventricular response, likely precipitated by sepsis-better controlled today -Acute non-Q-wave myocardial infarction, POA -Coronary artery disease with bypass -Chronic congestive heart failure from diastolic dysfunction EF 55-60% -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 Medications include azithromycin, ceftriaxone, patient is on Plavix Lopressor some saline. We will increase the Lipitor to 40 mg daily. Keep a close eye on the blood pressure. Spoke to the nurse to try to give patient ensure with the straw
[2019-10-13 17:25] LABS: Glucose,Whole Blood 99 mg/dL (75-99)
[2019-10-13] MEDS: ATORVASTATIN 20 MG TAB PO SCH (21:00)
[2019-10-14 00:06] LABS: Glucose,Whole Blood 107 mg/dL (75-99)
[2019-10-14] MEDS: INSULIN ASPART (NovoLOG) 100 UNIT/ML VIAL SQ SCH ×4 (00:32→17:52)
[2019-10-14 04:55] LABS: Basophils % (A) 0 %; Eosinophils % (A) 0 %; HGB 9.7 gm/dL (13.0-17.5); Lymphocytes # (A) 0.9 k/uL (1.0-4.8); Lymphocytes % (A) 10 %; MCH 27.3 pg (25.0-35.0); MCHC 31.4 g/dL (31.0-37.0); MCV 87.1 fL (80.0-100.0); Mean Platelet Volume 8.6; Monocytes # (A) 0.5 k/uL (0-1.0); Monocytes % (A) 5 %; Neutrophils # (A) 7.8 k/uL (1.3-7.7); Neutrophils % (A) 83 %; Platelet Count 107 k/uL (150-450); RBC 3.56 m/uL (4.30-5.90); RDW 15.1 % (11.5-15.5); WBC 9.5 k/uL (3.8-10.6)
[2019-10-14 05:21] LABS: Calcium 8.4 mg/dL (8.4-10.2); Potassium 4.2 mmol/L (3.5-5.1)
[2019-10-14 06:02] LABS: Glucose,Whole Blood 104 mg/dL (75-99)
--- NOTE | 2019-10-14 06:33 | XR ---
EXAMINATION TYPE: XR chest 1V portable DATE OF EXAM: 10/14/2019 HISTORY: Pneumonia. REFERENCE: Previous study dated 10/13/2019. FINDINGS: There is been a midline sternotomy. The heart is mildly enlarged. There is slight improved aeration in the right lung. There is new atelectasis or infiltrate at the left lung base. There is bl unting of the right CP angle. I could not exclude a small effusion. IMPRESSION: 1. IMPROVED AERATION RIGHT LUNG. 2. WORSENING ATELECTASIS OR INFILTRATE, LEFT LUNG BASE.
--- NOTE | 2019-10-14 08:54 | PN ---
PROGRESS NOTE Mr. Monterroso is here with a large pneumonia hypoxia on BiPAP. He also had elevated troponin suggestive of a type [address] elevation [place]. Troponin has come down from 11.0. He has history of bypass surgery, previous stenting done as recently as in February. I am recommending that we decrease his amlodipine, increase the hydralazine to 100 mg t.i.d., and the Lopressor is being reduced to 12.5 mg t.i.d. His blood pressure is slightly higher. He does not have any chest pain, has a shortness of breath but BiPAP seems to help him. S1-S2 heard normally but distantly short systolic murmur noted. Lungs reveal improved entry. Abdomen and lower exam unchanged. Prognosis remains guarded. This patient has pneumonia, ischemic heart disease with previous bypass surgery and PCI and type [address] elevation myocardial infarction because of hypoxia and hypertension. He has chronic atrial fibrillation, rate is controlled. His creatinine is better. We will increase the Eliquis to 5 mg b.i.d. and continue Plavix at 75 mg daily. MMODL / IJN: [id number] /
[2019-10-14] MEDS ORDERED: amLODIPine 5 MG TAB PO SCH (09:00)
[2019-10-14] MEDS: AZITHROMYCIN 500 MG in SODIUM CHLORIDE 0.9% 250 ML IVPB SCH (09:02)
[2019-10-14] MEDS: SODIUM CHLORIDE 0.9% 1,000 ML IV SCH (09:02)
[2019-10-14] MEDS: PANTOPRAZOLE 40 MG/10 ML VIAL IV SCH (09:03)
[2019-10-14] MEDS: METOPROLOL TARTRATE 12.5 MG TAB PO SCH ×2 (09:03→21:39)
[2019-10-14] MEDS: ISOSORBIDE MONONITRATE ER 60 MG TAB.ER.24H PO SCH (09:04)
[2019-10-14] MEDS: APIXABAN 5 MG TAB PO SCH ×2 (09:04→21:39)
[2019-10-14] MEDS: hydrALAZINE HCL 50 MG TAB PO SCH ×3 (09:04→21:39)
[2019-10-14] MEDS: cloNIDine HCL 0.2 MG TAB PO SCH ×3 (09:04→23:11)
[2019-10-14] MEDS: ALLOPURINOL 100 MG TAB PO SCH ×2 (09:04→21:39)
[2019-10-14] MEDS: CLOPIDOGREL 75 MG TAB PO SCH (09:04)
[2019-10-14 11:25] LABS: Glucose,Whole Blood 94 mg/dL (75-99)
--- NOTE | 2019-10-14 11:30 | PN ---
PROGRESS NOTE DATE OF SERVICE: October 14, 2019 Critical care time greater than 30 minutes. An 84-year-old male with a history of chronic atrial fibrillation, valvular heart disease, CAD with previous bypass grafting, who presented to the emergency department on October 11 complaining of shortness of breath and chest pain. He was found to have atrial fibrillation with RVR and was placed on BiPAP. In addition, chest x-ray showed a dense consolidation in the right lung. I decided to bring the patient up to the ICU for closer monitoring and observation. The patient is currently still on BiPAP at 12, 5 and 50%. Getting saline IV at 50 mL an hour. The patient's respiratory status seems to be reasonably stable and I think he could trial some time off the BiPAP. Anyway, the patient was placed on Zithromax and Rocephin for community-acquired pneumonia. The patient was previously on Cardizem but that has been weaned off. The patient appears to be feeling a bit better. Difficult to get history from him while he is on the BiPAP. PHYSICAL EXAMINATION: VITAL SIGNS: Current vital signs are reviewed. His temperature is 98.9, heart rate 70, respiratory rate 18, blood pressure 163/74. Mean 135 and saturations 94-95 percent. GENERAL: Appears in no acute distress. The patient has some very mild tachypnea and dyspnea. Some mild conversational dyspnea. HEENT: Examination is grossly unremarkable. Nasal cannula is now in place. BiPAP mask is removed. NECK: Supple full range of motion. No adenopathy or thyromegaly. Neck veins are flat. CARDIOVASCULAR: Examination reveals a regular rhythm and rate. Heart rate down to 66. S1, S2 normal. No S3, S4, or clear-cut murmur. Heart sounds are distant. LUNGS: Reveal coarse bilateral rhonchi. Breath sounds are more significantly abnormal on the right side. Some crackles are appreciated on the right side. No wheezes. Breath sounds are equal. ABDOMEN: Soft. Bowel sounds are not noted. EXTREMITIES are intact. No edema. SKIN: Without rash. NEUROLOGIC: Examination is brief but nonfocal. LABS: Reviewed. White count 9.5, hemoglobin 9.7, hematocrit 31.0, platelet count 107,000. Sodium 130, potassium 4.2, chloride 99, CO2 24, anion gap is 7. BUN and creatinine were 32 and 1.34. Costello virus PCR was negative. Chest x-ray shows improved aeration in the right lung and slightly worse aeration on the left side. Microbiology is negative. CURRENT MEDICATIONS: Reviewed. She is on Zyloprim, amlodipine, Eliquis, Lipitor, Zithromax, ceftriaxone, clonidine, Plavix, hydralazine, insulin, Imdur, metoprolol, Narcan, Protonix, and saline at 50 mL an hour. ASSESSMENT: 1. Community-acquired pneumonia, right lower lobe, slightly improved radiographically. 2. Covid-19 status, currently negative. 3. Atrial fibrillation with RVR, controlled. 4. History of coronary artery disease with previous bypass grafting. 5. History of aortic stenosis, status post transcatheter aortic valve replacement. 6. History of congestive heart failure. 7. History of diabetes mellitus. 8. Legal blindness. 9. Hyperlipidemia. 10.Benign essential hypertension. 11.Memory impairment. 12.Degenerative joint disease. 13.Prior history of gastrointestinal bleed 2014. 14.Rule out non ST-segment elevation myocardial infarction versus supply/demand mismatch. PLAN: The patient's unnecessary medications were discontinued yesterday. His overall clinical status I believe has improved. We will trial him off bypass and just on some nasal prongs. The patient will have additional x-rays done. We will continue with the antibiotics. No additional recommendations are made. We will continue to follow. Prognosis is guarded. The patient should stay up in the ICU for at least another full day. Critical care time greater than 30 minutes. ASHANTI / JOSE F: [id number] /
--- NOTE | 2019-10-14 15:55 | P.PN ---
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 Chronic stable medical conditions include congestive heart failure EF 55-60%, diabetes, hypertension, hyperlipidemia, CK disease stage 2, history of aortic valve replacement with TAVR, mild cognitive impairment.egally blind and decreased hearing.. February 2019 had acute non-Q-wave [place] with coronary intervention with angioplasty stent. Also admitted in May 2019 with paroxysmal atrial fibrillation. Started on eliquis. Patient now presents to the ER what is described as significant chest pain sharp shortness of breath. Patient is on a BiPAP currently in the ICU. Because of respiratory distress. COVID-19 was negative. Slight cough. Had a fever documented here for 100.6. Patient's history is limited because of shortness of breath. Unable to qualify the chest pain further. Found to be in atrial fibrillation with a rapid ventricular rate Admitted with-multilobar pneumonia, acute hypoxic respiratory failure, atrial fibrillation uncontrolled. Admitted to ICU. Today-ICU: Came off the BiPAP this morning. 4 L of oxygen. For more communicative. Answering simple questions. A. fib-Controlled Review of systems: Attempted for constitutional, cardiovascular, GI, pulmonary. relevant finding as above Active Medications Allopurinol (Zyloprim) 100 mg PO BID [facility] Last Admin: 10/14/19 09:04 Dose: 100 mg Documented by: Amlodipine Besylate (Norvasc) 5 mg PO DAILY [facility] Last Admin: 10/14/19 09:04 Dose: 5 mg Documented by: Apixaban (Eliquis) 5 mg PO BID [facility] Last Admin: 10/14/19 09:04 Dose: 5 mg Documented by: Atorvastatin Calcium (Lipitor) 20 mg PO HS [facility] Last Admin: 10/13/19 21:00 Dose: 20 mg Documented by: Clonidine (Catapres) 0.2 mg PO TID [facility] Last Admin: 10/14/19 14:58 Dose: 0.2 mg Documented by: Clopidogrel Bisulfate (Plavix) 75 mg PO DAILY [facility] Last Admin: 10/14/19 09:04 Dose: 75 mg Documented by: Hydralazine HCl (Apresoline) 100 mg PO TID [facility] Last Admin: 10/14/19 14:58 Dose: 100 mg Documented by: Sodium Chloride (Saline 0.9%) 1,000 mls @ 50 mls/hr IV .Q20H [facility] Last Admin: 10/14/19 09:02 Dose: 50 mls/hr Documented by: Azithromycin 500 mg/ Sodium (Chloride) 250 mls @ 250 mls/hr IVPB DAILY [facility] Last Admin: 10/14/19 09:02 Dose: 250 mls/hr Documented by: Ceftriaxone Sodium 1 gm/ (Sodium Chloride) 50 mls @ 100 mls/hr IVPB Q24HR [facility] Last Admin: 10/14/19 09:02 Dose: 100 mls/hr Documented by: Insulin Aspart (Novolog) 0 unit SQ Q6H [facility]; Protocol Last Admin: 10/14/19 14:48 Dose: Not Given Documented by: Isosorbide Mononitrate (Imdur) 60 mg PO DAILY [facility] Last Admin: 10/14/19 09:04 Dose: 60 mg Documented by: Metoprolol Tartrate (Lopressor) 12.5 mg PO BID [facility] Last Admin: 10/14/19 09:03 Dose: 12.5 mg Documented by: Naloxone HCl (Narcan) 0.2 mg IV Q2M PRN PRN Reason: Opioid Reversal Nitroglycerin (Nitrostat) 0.4 mg SUBLINGUAL Q5M PRN PRN Reason: Chest Pain Pantoprazole Sodium (Protonix) 40 mg PO AC-BRKFST [facility] Physical examination: VITAL SIGNS: 99.4, 64, 19, 152/53, 95% on 4 L GENERAL: Sitting up in bed, more awake, on nasal cannula EYES: Pupils equal. Conjunctiva normal. HEENT: External appearance of nose and ears normal, oral cavity grossly normal, decreased hearing. NECK: JVD unable to assess, masses not palpable. HEART: Irregular heart sounds, no edema. LUNGS: Respiratory rate increased, accessory muscles are working, unable to speak in full sentences decreased breath sounds. ABDOMEN: Soft, nontender, liver spleen not palpable, no masses palpable. PSYCH: Difficult to assess due to patient being on BiPAP MUSCULOSKELETAL: Evidence of OA especially in the hands NEUROLOGICAL: Following commands INVESTIGATIONS, reviewed in the clinical context: White count 9.5 hemoglobin 9.7 platelets 107 progression 4.2 bun 32 creatinine 1.34 Chest x-ray film-dense consolidation of the right side Previous testing White count 16.3 hemoglobin 13 platelets 176 percussion 3.6 bun 26 creatinine 1.34 Troponin I 0.071, 6.5, 11.7 Coronavirus PCR-not detected EKG tracing personally reviewed by me-atrial fibrillation rapid ventricular rate with some ST segment depression Chest x-ray film personally reviewed by me-this infiltrates on the right side Assessment: -Multilobar pneumonia suspected gram-negative organism causing sepsis, POA -Acute hypoxic respiratory failure requiring BiPAP,-no nasal cannula 4 L -Persistent atrial fibrillation with rapid ventricular response, likely precipitated by sepsis-better controlled -Acute non-Q-wave myocardial infarction, POA -Coronary artery disease with bypass -Chronic congestive heart failure from diastolic dysfunction EF 55-60% -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 Remains on 4 L nasal cannula. Patient be moved out of the ICU. Switched to by mouth PPI. Other medications to continue. Continue with antibiotics.
[2019-10-14 17:35] LABS: Glucose,Whole Blood 99 mg/dL (75-99)
[2019-10-14] MEDS: ATORVASTATIN 20 MG TAB PO SCH (21:39)
[2019-10-14 23:33] LABS: Glucose,Whole Blood 135 mg/dL (75-99)
[2019-10-15 04:48] LABS: Basophils % (A) 0 %; Eosinophils # (A) 0.1 k/uL (0-0.7); Eosinophils % (A) 1 %; HCT 34.8 % (39.0-53.0); Lymphocytes % (A) 10 %; MCH 27.1 pg (25.0-35.0); MCHC 31.5 g/dL (31.0-37.0); MCV 86.1 fL (80.0-100.0); Mean Platelet Volume 8.5; Monocytes # (A) 0.4 k/uL (0-1.0); Monocytes % (A) 4 %; Neutrophils # (A) 7.7 k/uL (1.3-7.7); Neutrophils % (A) 83 %; Platelet Count 123 k/uL (150-450); RBC 4.05 m/uL (4.30-5.90); RDW 14.8 % (11.5-15.5); WBC 9.3 k/uL (3.8-10.6)
[2019-10-15 04:57] LABS: Calcium 8.6 mg/dL (8.4-10.2); Potassium 3.7 mmol/L (3.5-5.1)
--- NOTE | 2019-10-15 07:52 | PN ---
PROGRESS NOTE Mr. Monterroso is an 84-year-old male who presented with symptoms of progressive dyspnea and evidence of consolidation in the right lung. He has a history of coronary artery disease, status post coronary artery bypass grafting and subsequently PCI of the saphenous vein graft to circumflex, history of TAVR, history of atrial fibrillation who is followed by Dr. Malloy on a regular basis. He is off the BiPAP, on nasal cannula. His main complaint at this time is his generalized pain. He has been in the past on pain medication that has been held because of change in mental status. He underwent an echocardiogram that showed an ejection fraction of 35% to 40% with mild mitral and tricuspid regurgitation and normal appearance of his TAVR. He continues to be on amlodipine 5 mg daily, Eliquis 5 mg twice a day, Lipitor 20 mg daily, clonidine 0.2 mg 3 times a day, Plavix 75 mg daily, hydralazine 100 mg 3 times a day, isosorbide mononitrate 60 mg daily, metoprolol tartrate 12.5 mg twice a day. PHYSICAL EXAMINATION: Blood pressure running in the 170 and 180 with the heart rate in the 80s. LUNGS: With few crackles bilaterally. HEART: Irregular, irregular S1, S2, no S3 with systolic murmur ejection type heard at the base. No diastolic murmur. No rub. ABDOMEN: Soft, nontender. EXTREMITIES +1 edema noted. LAB DATA: Chest x-ray revealed a consolidation of the right lung. His BUN and creatinine of 27 and 1.08, potassium 3.7, hemoglobin of 11. IMPRESSION: 1. Pneumonia with severe dyspnea requiring BiPAP earlier. 2. Chronic pain. 3. Atrial fibrillation with controlled ventricular response at this time. 4. Status post coronary artery bypass grafting. 5. Ischemic cardiomyopathy. 6. Status post TAVR. 7. History of diabetes. 8. Hyperlipidemia. 9. Hypertension. RECOMMENDATION: From the cardiac standpoint, I will adjust his antihypertensive regimen. I will increase the dose of his beta darlene and the amlodipine. The issue of his pain medication will be addressed by the electrical instrument maker. We will continue to increase his activity gradually and depending on his progress, further recommendation will be made. MMODL / IJN: [id number] /
--- NOTE | 2019-10-15 07:53 | XR ---
EXAMINATION TYPE: XR chest 1V portable DATE OF EXAM: 10/15/2019 HISTORY: Shortness of breath. COMPARISON: 10/14/2019 TECHNIQUE: Single view of the chest is submitted. FINDINGS: Demonstrated are scattered senescent parenchymal change. Airspace consolidation throughout the right lung persists and has progressed. Left perihilar and left lower lobe infiltrate also noted. The heart is stable. Hilar and mediastinal structures are within normal limits. Degenerative changes are seen of the dorsal spine. IMPRESSION: 1. Progressive airspace disease.
[2019-10-15] MEDS ORDERED: Potassium Replacement Protocol 1 EACH MISC MISCELLANE PRN (07:54)
[2019-10-15] MEDS ORDERED: HYDROcodone/APAP 5-325MG 1 EACH TAB PO PRN (07:54)
[2019-10-15] MEDS ORDERED: ENALAPRILAT 1.25 MG/ML 1 ML VIAL IVP STA (07:58)
[2019-10-15] MEDS ORDERED: POTASSIUM CHLORIDE ER 20 MEQ TAB.ER PO SCH (08:00)
[2019-10-15] MEDS: hydrALAZINE HCL 50 MG TAB PO SCH ×3 (09:59→21:36)
[2019-10-15] MEDS: amLODIPine 10 MG TAB PO SCH ×2 (09:59→10:04)
[2019-10-15] MEDS: ALPRAZolam 0.25 MG TAB PO PRN ×2 (09:59→21:05)
[2019-10-15] MEDS: cloNIDine HCL 0.2 MG TAB PO SCH ×3 (09:59→21:40)
[2019-10-15] MEDS: ISOSORBIDE MONONITRATE ER 60 MG TAB.ER.24H PO SCH (10:00)
[2019-10-15] MEDS: PANTOPRAZOLE 40 MG TABLET PO SCH (10:00)
[2019-10-15] MEDS: APIXABAN 5 MG TAB PO SCH ×2 (10:00→21:05)
[2019-10-15] MEDS: HYDROCHLOROTHIAZIDE 25 MG TAB PO SCH (10:00)
[2019-10-15] MEDS: ALLOPURINOL 100 MG TAB PO SCH ×2 (10:01→21:04)
[2019-10-15] MEDS: METOPROLOL TARTRATE 25 MG TAB PO SCH ×2 (10:01→21:04)
[2019-10-15] MEDS: CLOPIDOGREL 75 MG TAB PO SCH (10:01)
[2019-10-15] MEDS: AZITHROMYCIN 500 MG in SODIUM CHLORIDE 0.9% 250 ML IVPB SCH (10:16)
[2019-10-15 10:21] LABS: Glucose,Whole Blood 168 mg/dL (75-99)
[2019-10-15] MEDS: INSULIN ASPART (NovoLOG) 100 UNIT/ML VIAL SQ SCH ×4 (10:21→21:36)
--- NOTE | 2019-10-15 10:44 | P.PN ---
Subjective Progress Note Date: 10/15/19 This is a 84-year-old male patient with history of coronary artery disease with previous bypass surgery, chronic atrial fibrillation and valvular heart disease who initially presented to the ED on 10/12/2019 with worsening shortness of breath and chest pain. The patient was found to be in A. fib RVR and he was also found to have a dense consolidation of the right lower lobe consistent with pneumonia. He was placed on BiPAP at a pressure of 12/5 cm of water and FiO2 of 50%. He was given IV fluids. He was started on a combination of Rocephin and Zithromax. He was placed on Cardizem drip for rate control and following that he was brought into the intensive care units. The patient tested negative for cough with 19 infection. Over the past 24 hours his atrial fibrillation is under better control. He is known to have aortic stenosis with TaVR procedure done. He is diabetic and has hyperlipidemia and hypertension and memory impairment and he is legally blind. His chest x-ray from yesterday showed improvement in the right lower lobe consolidation on the aeration of the right lung. There was some atelectatic changes in the left lung base. The patient was subsequently taken off the BiPAP. Currently is on 5 L of oxygen by nasal cannula with a pulse ox of 94%. Cultures have been negative thus far including the blood culture. The white cell count has been improving knowing that his initial white cell count is at 16. He remains on Eliquis for long-term anticoagulation. He is on metoprolol for rate control at a dose of 12.5 mg by mouth twice a day. He remains on IV Rocephin and Zithromax. On today's evaluation of 10/15/2019, the chest x-ray still showing extensive right lung consolidation. The patient has developed an acute non-ST segment elevation myocardial infarction. Troponin peaked at 11. History of any chest pain. He is complaining of diffuse body aches and the patient will be started back on his [place]. His blood pressure was noted to be elevated and appropriate changes will be done on the blood pressure medication. He is currently on metoprolol 25 mg by mouth twice a day. He is Norvasc was increased up to 10 mg an hour. He was started on clonidine 0.2 mg 3 times a day. He'll be kept on a combination of Eliquis and Plavix for now. IV fluids with normal state rate of 50 mL an hour and the patient is currently on oxygen at 5 L per minute nasal cannula. The dose being titrated to maintain a saturation above 90%. He remains on a combination of Rocephin and Zithromax for now. The echocardiogram showed a drop in the patient's ejection fraction which is down to 35-40%. There is segmental wall motion abnormalities. The patient has moderate concentric LVH. The patient also has a TAB are procedure done with moderate mitral annular calcifica tion and a maximum gradient across the aortic valve of 11 mmHg without signs of any pulmonary hypertension. He has hypertensive heart disease with concentric LVH. Objective - Vital Signs Vital signs: Vital Signs Temp 98 F 10/15/19 04:00 Pulse 77 10/15/19 06:00 Resp 26 H 10/15/19 06:00 BP 191/76 10/15/19 06:00 Pulse Ox 91 L 10/15/19 06:00 Intake & Output 10/14/19 10/14/19 10/15/19 06:59 18:59 06:59 Intake Total 550 1000 1000 Output Total 322 571 4270 Balance 130 215 -130 Weight 101.6 kg 106.3 kg Intake: IV 550 1000 550 Azithromycin 500 mg In 250 Sodium Chloride 0.9% 250 ml @ 250 mls/hr IVPB DAILY [facility] Rx#:[id number] Sodium Chloride 0.9% 1, 550 650 550 000 ml @ 50 mls/hr IV . Q20H [facility] Rx#:[id number] cefTRIAXone 1 gm In 100 Sodium Chloride 0.9% 50 ml @ 100 mls/hr IVPB Q24HR [facility] Rx#:[id number] Oral 450 Output: Urine 187 [id number] Other: Voiding Method Indwelling Catheter Indwelling Catheter - Exam CONSTITUTIONAL: No apparent distress. Head exam was generally normal. There was no scleral icterus or corneal arcus. Mucous membranes were moist. HEENT: Head is normocephalic. Pupils are equal, round. Sclerae anicteric. Mucous membranes of the mouth are moist. No JVD. No carotid bruit. CHEST EXAMINATION: Bibasilar rales, scattered rhonchi, no wheezes. No chest wall tenderness is noted on palpation or with deep breathing. HEART EXAMINATION: Irregular rate and rhythm. S1, S2 heard. Systolic ejection murmur at the base, no gallops or rub. ABDOMEN: Soft, nontender. Positive bowel sounds. EXTREMITIES: 2+ peripheral pulses, 2+ bilateral lower extremity pitting edema and no calf tenderness. Examination of the skin revealed no evidence of significant rashes, suspicious appearing nevi or other concerning lesions. NEUROLOGIC EXAMINATION: Patient is awake, alert and oriented x3. - Labs CBC & Chem 7: 10/15/19 04:07 10/15/19 04:07 Labs: Abnormal Lab Results - Last 24 Hours (Table) 10/14/19 10/15/19 10/15/19 Range/Units 23:32 04:07 04:07 RBC 4.05 L (4.30-5.90) m/uL Hgb 11.0 L (13.0-17.5) gm/dL Hct 34.8 L (39.0-53.0) % Plt Count 123 L (150-450) k/uL Sodium 133 L (137-145) mmol/L BUN 27 H (9-20) mg/dL Glucose 115 H (74-99) mg/dL POC Glucose (mg/dL) 135 H (75-99) mg/dL Microbiology - Last 24 Hours (Table) 10/12/19 08:25 Blood Culture - Preliminary Blood No Growth after 48 hours Assessment and Plan Plan: 1 Multilobar pneumonia with extensive right lung consolidation, likely bacterial with secondary sepsis and hypoxic respiratory failure requiring BiPAP at a time of admission. Chest x-ray is showing improvement in the right lung consolidation with broad-spectrum antibiotics including a combination of Marvin ephin and Zithromax. Cultures are essentially negative thus far. COVID 19 infection was ruled out. The patient remains on IV liters of oxygen by nasal cannula. Chest x-ray still showing extensive consolidation of the right lung. Cultures are still negative and the patient is being monitored closely in intensive care unit. 2 Acute hypoxic respiratory failure requiring BiPAP at a time of admission currently on 5 L of oxygen by nasal cannula 3 Persistent atrial fibrillation with rapid ventricular response, likely precipitated by sepsis, rate is controlled 4 Coronary artery disease with bypass, with an acute non-ST segment elevation myocardial infarction 5 Chronic congestive heart failure from diastolic dysfunction EF 55-60%, the patient suffered an acute non-STEMI and there has been further drop in a ejection fraction down to 35-40% along with segmental wall motion abnormalities involving the anterior septal apical goode. 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 Continue metoprolol Continue Plavix/Eliquis Cardiology is aware of the acute non-STEMI and the repeat echocardiac Sergio was noted Daily chest x-rays We'll continue to follow This is a critically care evaluation that was done and more than 30 minutes. Case was discussed with cardiology. Time with Patient: Greater than 30
[2019-10-15 12:36] LABS: Glucose,Whole Blood 151 mg/dL (75-99)
--- NOTE | 2019-10-15 16:14 | P.PN ---
Progress Note - Text Progress Note Date: 10/15/19 Chief Complaint: Chest pain, shortness of breath Hospital course: This is a very pleasant 84-year-old patient of Dr. magallanes. 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 Chronic stable medical conditions include congestive heart failure EF 55-60%, diabetes, hypertension, hyperlipidemia, CK disease stage 2, history of aortic valve replacement with TAVR, mild cognitive impairment.egally blind and decreased hearing.. February 2019 had acute non-Q-wave [place] with coronary intervention with angioplasty stent. Also admitted in May 2019 with paroxysmal atrial fibrillation. Started on eliquis. Patient now presents to the ER what is described as significant chest pain sharp shortness of breath. Patient is on a BiPAP currently in the ICU. Because of respiratory distress. COVID-19 was negative. Slight cough. Had a fever documented here for 100.6. Patient's history is limited because of shortness of breath. Unable to qualify the chest pain further. Found to be in atrial fibrillation with a rapid ventricular rate Admitted with-multilobar pneumonia, acute hypoxic respiratory failure, atrial fibrillation uncontrolled. Admitted to ICU. Patient was on BiPAP. Today-ICU: Patient requiring high flow oxygen. About 11 L. Did tolerate some diet. Tired. Answering questions. Atrial fibrillation controlled. Review of systems: Attempted for constitutional, cardiovascular, GI, pulmonary. relevant finding as above Active Medications Allopurinol (Zyloprim) 100 mg PO BID [facility] Last Admin: 10/15/19 10:01 Dose: 100 mg Documented by: Alprazolam (Xanax) 0.25 mg PO TID PRN PRN Reason: Anxiety Last Admin: 10/15/19 09:59 Dose: 0.25 mg Documented by: Amlodipine Besylate (Norvasc) 10 mg PO DAILY [facility] Last Admin: 10/15/19 10:04 Dose: Not Given Documented by: Apixaban (Eliquis) 5 mg PO BID [facility] Last Admin: 10/15/19 10:00 Dose: 5 mg Documented by: Atorvastatin Calcium (Lipitor) 40 mg PO [facility] Clonidine (Catapres) 0.2 mg PO TID [facility] Last Admin: 10/15/19 09:59 Dose: 0.2 mg Documented by: Clopidogrel Bisulfate (Plavix) 75 mg PO DAILY [facility] Last Admin: 10/15/19 10:01 Dose: 75 mg Documented by: Hydralazine HCl (Apresoline) 100 mg PO TID [facility] Last Admin: 10/15/19 09:59 Dose: 100 mg Documented by: Hydrochlorothiazide (Hydrodiuril) 25 mg PO DAILY [facility] Last Admin: 10/15/19 10:00 Dose: 25 mg Documented by: Sodium Chloride (Saline 0.9%) 1,000 mls @ 50 mls/hr IV .Q20H [facility] Last Admin: 10/14/19 09:02 Dose: 50 mls/hr Documented by: Azithromycin 500 mg/ Sodium (Chloride) 250 mls @ 250 mls/hr IVPB DAILY [facility] Last Admin: 10/15/19 10:16 Dose: 250 mls/hr Documented by: Ceftriaxone Sodium 1 gm/ (Sodium Chloride) 50 mls @ 100 mls/hr IVPB Q24HR [facility] Last Admin: 10/15/19 10:02 Dose: 100 mls/hr Documented by: Insulin Aspart (Novolog) 0 unit SQ ACHS [facility]; Protocol Last Admin: 10/15/19 13:00 Dose: 2 unit Documented by: Isosorbide Mononitrate (Imdur) 60 mg PO DAILY [facility] Last Admin: 10/15/19 10:00 Dose: 60 mg Documented by: Metoprolol Tartrate (Lopressor) 25 mg PO BID [facility] Last Admin: 10/15/19 10:01 Dose: 25 mg Documented by: Miscellaneous Information (Potassium Per Protocol) 1 each MISCELLANE DAILY PRN; Protocol PRN Reason: Per Protocol Naloxone HCl (Narcan) 0.2 mg IV Q2M PRN PRN Reason: Opioid Reversal Nitroglycerin (Nitrostat) 0.4 mg SUBLINGUAL Q5M PRN PRN Reason: Chest Pain Pantoprazole Sodium (Protonix) 40 mg PO AC-BRKFST [facility] Last Admin: 10/15/19 10:00 Dose: 40 mg Documented by: Physical examination: VITAL SIGNS: 98.4, 53, 25, 162/65, 90% on 11 L GENERAL: Propped up in bed, short of breath while talking on nasal cannula EYES: Pupils equal. Conjunctiva normal. HEENT: External appearance of nose and ears normal, oral cavity grossly normal, decreased hearing. NECK: JVD unable to assess, masses not palpable. HEART: Irregular heart sounds, no edema. LUNGS: Respiratory rate increased, , decreased breath sounds. ABDOMEN: Soft, nontender, liver spleen not palpable, no masses palpable. 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 NEUROLOGICAL: Following commands INVESTIGATIONS, reviewed in the clinical context: White count 9.3 hemoglobin 11 platelets 123 potassium 3.7 creatinine 1.08 Chest x-ray film personally reviewed by me-dense consolidations patient's right side Previous testing White count 16.3 hemoglobin 13 platelets 176 percussion 3.6 bun 26 creatinine 1.34 Troponin I 0.071, 6.5, 11.7 Coronavirus PCR-not detected EKG tracing personally reviewed by me-atrial fibrillation rapid ventricular rate with some ST segment depression Chest x-ray film personally reviewed by me-this infiltrates on the right side Assessment: -Multilobar pneumonia suspected gram-negative organism causing sepsis, POA-slow to respond -Acute hypoxic respiratory failure requiring BiPAP,-on nasal cannula up to 11 L -Persistent atrial fibrillation with rapid ventricular response, likely precipitated by sepsis-better controlled -Acute non-Q-wave myocardial infarction, POA -Coronary artery disease with bypass -Chronic congestive heart failure from diastolic dysfunction EF 55-60% -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 Up to 11 L nasal cannula. Continue with ceftriaxone and Zithromax.
[2019-10-15 17:25] LABS: Glucose,Whole Blood 129 mg/dL (75-99)
[2019-10-15] MEDS: SODIUM CHLORIDE 0.9% 1,000 ML IV SCH (17:48)
[2019-10-15] MEDS: ATORVASTATIN 40 MG TAB PO SCH (21:04)
[2019-10-15 21:12] LABS: Glucose,Whole Blood 162 mg/dL (75-99)
[2019-10-16] MEDS ORDERED: HALOPERIDOL LACTATE 5 MG/ML 1 ML VIAL IVP PRN ×2 (01:38→01:41)
[2019-10-16] MEDS: HALOPERIDOL LACTATE 5 MG/ML 1 ML VIAL IVP PRN ×2 (01:56→23:25)
[2019-10-16 05:13] LABS: Calcium 8.5 mg/dL (8.4-10.2)
[2019-10-16 05:22] LABS: Potassium 4.1 mmol/L (3.5-5.1)
[2019-10-16] MEDS: SODIUM CHLORIDE 0.9% 1,000 ML IV SCH (05:25)
[2019-10-16 05:26] LABS: Basophils % (A) 0 %; Eosinophils % (A) 0 %; HCT 35.4 % (39.0-53.0); Hypochromasia Slight; Lymphocytes # (A) 0.4 k/uL (1.0-4.8); Lymphocytes % (A) 5 %; MCH 27.7 pg (25.0-35.0); MCHC 31.1 g/dL (31.0-37.0); MCV 89.1 fL (80.0-100.0); Mean Platelet Volume 8.6; Monocytes # (A) 0.6 k/uL (0-1.0); Monocytes % (A) 6 %; Neutrophils # (A) 8.6 k/uL (1.3-7.7); Neutrophils % (A) 87 %; Platelet Count 135 k/uL (150-450); RBC 3.97 m/uL (4.30-5.90); WBC 9.9 k/uL (3.8-10.6)
[2019-10-16 07:07] LABS: Glucose,Whole Blood 143 mg/dL (75-99)
[2019-10-16] MEDS: INSULIN ASPART (NovoLOG) 100 UNIT/ML VIAL SQ SCH ×4 (08:00→20:57)
--- NOTE | 2019-10-16 08:00 | XR ---
EXAMINATION TYPE: XR chest 1V portable DATE OF EXAM: 10/16/2019 COMPARISON: 10/15/2019 INDICATION: Labeled breathing TECHNIQUE: Single frontal view of the chest is obtained. FINDINGS: The heart size is normal. The pulmonary vasculature is upper limits for normal. Patchy infiltrates are present in the perihilar regions. These are improved from comparison. IMPRESSION: 1. Patchy perihilar infiltrates, improving from comparison
[2019-10-16] MEDS ORDERED: FUROSEMIDE 10 MG/ML 2 ML VIAL IV ONE (08:10)
[2019-10-16] MEDS: ACETAMINOPHEN TAB 325 MG TAB PO PRN ×2 (08:17→23:25)
[2019-10-16] MEDS: cloNIDine HCL 0.2 MG TAB PO SCH ×3 (08:17→21:03)
[2019-10-16] MEDS: AZITHROMYCIN 500 MG in SODIUM CHLORIDE 0.9% 250 ML IVPB SCH (08:18)
[2019-10-16] MEDS: HYDROCHLOROTHIAZIDE 25 MG TAB PO SCH (08:18)
[2019-10-16] MEDS: ALLOPURINOL 100 MG TAB PO SCH ×2 (08:18→21:07)
[2019-10-16] MEDS: CEFEPIME 2 GM in SODIUM CHLORIDE 0.9% 100 ML IVPB SCH ×2 (08:18→21:02)
[2019-10-16] MEDS: ISOSORBIDE MONONITRATE ER 60 MG TAB.ER.24H PO SCH (08:18)
[2019-10-16] MEDS: hydrALAZINE HCL 50 MG TAB PO SCH ×3 (08:18→21:04)
[2019-10-16] MEDS: CLOPIDOGREL 75 MG TAB PO SCH (08:18)
[2019-10-16] MEDS: METOPROLOL TARTRATE 25 MG TAB PO SCH ×3 (08:18→21:03)
[2019-10-16] MEDS: ALPRAZolam 0.25 MG TAB PO PRN ×2 (08:19→21:03)
[2019-10-16] MEDS: APIXABAN 5 MG TAB PO SCH ×2 (08:19→21:03)
[2019-10-16] MEDS: PANTOPRAZOLE 40 MG TABLET PO SCH (08:19)
[2019-10-16] MEDS: amLODIPine 10 MG TAB PO SCH (08:19)
--- NOTE | 2019-10-16 09:29 | PN ---
PROGRESS NOTE Mr. Monterroso is an 84-year-old male status post TAVR, history of coronary artery disease who presented with respiratory failure and evidence of pneumonia. Yesterday, he became more confused and more hypoxic requiring placement on BiPAP. Hemodynamically, his blood pressure is under control at this time. It was elevated when he was agitated. His heart rate is stable. He denies any chest pain, but he continues to be dyspneic. He continues to be on amlodipine 10 mg daily, Eliquis 5 mg twice a day, Lipitor 40 mg daily, clonidine 0.2 mg 3 times a day, Plavix 75 mg daily, hydralazine 100 mg 3 times a day, hydrochlorothiazide 25 mg daily, isosorbide mononitrate 60 mg daily, metoprolol tartrate 25 mg twice a day. PHYSICAL EXAMINATION: Blood pressure running in the 130s with a heart rate in the 70s. Temperature 101.4. LUNGS: A few crackles anteriorly. HEART: Irregular, regular, S1, S2. No S3. No rub. ABDOMEN: Soft, nontender. EXTREMITIES: +1 edema. LAB DATA: Revealed BUN and creatinine 24 and 1. Sodium of 129, white blood cell of 11. Chest x-ray revealed bilateral infiltrate. IMPRESSION: 1. Respiratory failure with evidence of pneumonia. 2. Status post catheter. 3. History of coronary artery disease with non ST-segment elevation myocardial infarction during this admission with impairment of systolic function. 4. Ischemic cardiomyopathy. 5. Diabetes mellitus. 6. Hyperlipidemia. 7. Hypertension. RECOMMENDATION: From the cardiac standpoint, I will increase the dose of his beta darlene, follow his blood pressure and if he is stable, I will cut down the dose of his clonidine. Will follow his blood pressure. His antibiotics will be adjusted by Dr. Esparza and depending on his progress, further recommendation will be made. MMODL / IJN: [id number] /
--- NOTE | 2019-10-16 12:08 | P.PN ---
Subjective Progress Note Date: 10/16/19 This is a 84-year-old male patient with history of coronary artery disease with previous bypass surgery, chronic atrial fibrillation and valvular heart disease who initially presented to the ED on 10/12/2019 with worsening shortness of breath and chest pain. The patient was found to be in A. fib RVR and he was also found to have a dense consolidation of the right lower lobe consistent with pneumonia. He was placed on BiPAP at a pressure of 12/5 cm of water and FiO2 of 50%. He was given IV fluids. He was started on a combination of Rocephin and Zithromax. He was placed on Cardizem drip for rate control and following that he was brought into the intensive care units. The patient tested negative for cough with 19 infection. Over the past 24 hours his atrial fibrillation is under better control. He is known to have aortic stenosis with TaVR procedure done. He is diabetic and has hyperlipidemia and hypertension and memory impairment and he is legally blind. His chest x-ray from yesterday showed improvement in the right lower lobe consolidation on the aeration of the right lung. There was some atelectatic changes in the left lung base. The patient was subsequently taken off the BiPAP. Currently is on 5 L of oxygen by nasal cannula with a pulse ox of 94%. Cultures have been negative thus far including the blood culture. The white cell count has been improving knowing that his initial white cell count is at 16. He remains on Eliquis for long-term anticoagulation. He is on metoprolol for rate control at a dose of 12.5 mg by mouth twice a day. He remains on IV Rocephin and Zithromax. On today's evaluation of 10/15/2019, the chest x-ray still showing extensive right lung consolidation. The patient has developed an acute non-ST segment elevation myocardial infarction. Troponin peaked at 11. History of any chest pain. He is complaining of diffuse body aches and the patient will be started back on his [place]. His blood pressure was noted to be elevated and appropriate changes will be done on the blood pressure medication. He is currently on metoprolol 25 mg by mouth twice a day. He is Norvasc was increased up to 10 mg an hour. He was started on clonidine 0.2 mg 3 times a day. He'll be kept on a combination of Eliquis and Plavix for now. IV fluids with normal state rate of 50 mL an hour and the patient is currently on oxygen at 5 L per minute nasal cannula. The dose being titrated to maintain a saturation above 90%. He remains on a combination of Rocephin and Zithromax for now. The echocardiogram showed a drop in the patient's ejection fraction which is down to 35-40%. There is segmental wall motion abnormalities. The patient has moderate concentric LVH. The patient also has a TAB are procedure done with moderate mitral annular calcifica tion and a maximum gradient across the aortic valve of 11 mmHg without signs of any pulmonary hypertension. He has hypertensive heart disease with concentric LVH. On today's evaluation of 10/16/2019, the patient is still struggling with a pneumonia and acute. Overnight the patient became a bit confused and I made recommendations to give him Haldol and acid basis for delirium and agitation. He ultimately had become more tachypneic and he was placed back on the BiPAP. This morning I took him off the BiPAP and put him on high flow oxygen 10 L per minute nasal cannula. His chest x-ray showing bilateral pulmonary infiltrates. The right sided consolidation is improving and there is worsening of the infiltrates on the left side. He was also having episodic fever and he had a temperature spike of 11.4 this morning. Based on that, I discontinue the Rocephin and switch this patient to a combination of IV cefepime, and Zithromax. Cultures still negative for now. Patient was also given a dose of Lasix 20 mg IV push. The white cell count is at 9.9. Sodium level is at 129. BUN is 24 w ith a creatinine of 1.0. No angina. No palpitations. He has impaired LV function as stated in his echocardiogram. Objective - Vital Signs Vital signs: Vital Signs Temp 99.1 F 10/16/19 09:00 Pulse 56 L 10/16/19 11:00 Resp 22 10/16/19 11:00 BP 133/62 10/16/19 11:00 Pulse Ox 94 L 10/16/19 11:00 Intake & Output 10/15/19 10/16/19 10/16/19 18:59 06:59 18:59 Intake Total 1400 1450 800 Output Total 950 1585 485 Balance 450 -135 315 Weight 106.3 kg 105.8 kg Intake: IV 900 600 500 Azithromycin 500 mg In 250 250 Sodium Chloride 0.9% 250 ml @ 250 mls/hr IVPB DAILY [facility] Rx#:[id number] Sodium Chloride 0.9% 1, 600 600 200 000 ml @ 50 mls/hr IV . Q20H [facility] Rx#:[id number] cefTRIAXone 1 gm In 50 50 Sodium Chloride 0.9% 50 ml @ 100 mls/hr IVPB Q24HR [facility] Rx#:[id number] Oral 500 850 300 Output: Urine 950 1585 485 Other: Voiding Method Indwelling Catheter Indwelling Catheter Indwelling Catheter - Exam CONSTITUTIONAL: And mild degree of respiratory distress currently on high flow oxygen between 10 and 12 L per minute nasal cannula. Head exam was generally normal. There was no scleral icterus or corneal arcus. Mucous membranes were moist. HEENT: Head is normocephalic. Pupils are equal, round. Sclerae anicteric. Mucous membranes of the mouth are moist. No JVD. No carotid bruit. CHEST EXAMINATION: Bibasilar rales, scattered rhonchi, no wheezes. No chest wall tenderness is noted on palpation or with deep breathing. HEART EXAMINATION: Irregular rate and rhythm. S1, S2 heard. Systolic ejection murmur at the base, no gallops or rub. ABDOMEN: Soft, nontender. Positive bowel sounds. EXTREMITIES: 2+ peripheral pulses, 2+ bilateral lower extremity pitting edema and no calf tenderness. Examination of the skin revealed no evidence of significant rashes, suspicious appearing nevi or other concerning lesions. NEUROLOGIC EXAMINATION: Patient is awake, alert and oriented x3. - Labs CBC & Chem 7: 10/16/19 03:57 10/16/19 03:57 Labs: Abnormal Lab Results - Last 24 Hours (Table) 10/15/19 10/15/19 10/15/19 Range/Units 12:25 17:24 21:09 RBC (4.30-5.90) m/uL Hgb (13.0-17.5) gm/dL Hct (39.0-53.0) % Plt Count (150-450) k/uL Neutrophils # (1.3-7.7) k/uL Lymphocytes # (1.0-4.8) k/uL Sodium (137-145) mmol/L Carbon Dioxide (22-30) mmol/L BUN (9-20) mg/dL Glucose (74-99) mg/dL POC Glucose (mg/dL) 151 H 129 H 162 H (75-99) mg/dL 10/16/19 10/16/19 10/16/19 Range/Units 03:57 03:57 07:05 RBC 3.97 L (4.30-5.90) m/uL Hgb 11.0 L (13.0-17.5) gm/dL Hct 35.4 L (39.0-53.0) % Plt Count 135 L (150-450) k/uL Neutrophils # 8.6 H (1.3-7.7) k/uL Lymphocytes # 0.4 L (1.0-4.8) k/uL Sodium 129 L (137-145) mmol/L Carbon Dioxide 19 L (22-30) mmol/L BUN 24 H (9-20) mg/dL Glucose 121 H (74-99) mg/dL POC Glucose (mg/dL) 143 H (75-99) mg/dL Microbiology - Last 24 Hours (Table) 10/12/19 08:25 Blood Culture - Preliminary Blood No Growth after 96 hours Assessment and Plan Plan: 1 Multilobar pneumonia with extensive right lung consolidation, likely bacterial with secondary sepsis and hypoxic respiratory failure requiring BiPAP at a time of admission. Chest x-ray is showing improvement in the right lung consolidation with broad-spectrum antibiotics including a combination of Rocephin and Zithromax. Cultures are essentially negative thus far. COVID 19 infection was ruled out. The patient remains on IV liters of oxygen by nasal cannula. Chest x-ray still showing extensive consolidation of the right lung. On 10/16/2019, the patient's continues to be hypoxic requiring BiPAP on and off especially at nighttime and currently on oxygen between 10 and 12 L per minute nasal cannula. A chest x-ray showing patchy perihilar infiltrates with some improvement in the right. He did have another spike of temperature. Antibiotics were modified. 2 Acute hypoxic respiratory failure requiring BiPAP at a time of admission currently on 10-12 L of oxygen by nasal cannula 3 Persistent atrial fibrillation with rapid ventricular response, likely precipitated by sepsis, rate is controlled 4 Coronary artery disease with bypass, with an acute non-ST segment elevation myocardial infarction 5 Chronic congestive heart failure from diastolic dysfunction EF 55-60%, the patient suffered an acute non-STEMI and there has been further drop in a eje ction fraction down to 35-40% along with segmental wall motion abnormalities involving the anterior septal apical goode. 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 7 Diabetes mellitus type 2 8 Essential hypertension 9 Hyperlipidemia 10 History of aortic valve replacement with TAVR, functioning valve 11 Mild cognitive impairment 12 delirium, currently using Haldol on a when necessary basis, no agitation Plan Continue Zithromax and switch this patient on Rocephin and cefepime and obtain blood cultures 2 Monitor fever pattern Keep the patient on high flow oxygen for now utilize BiPAP accordingly Give the patient 20 mg of IV Lasix Monitor cultures Titrate oxygen flow to maintain a saturation above 90% Continue blood pressure monitoring and increase the dose of Norvasc and add Catapres for tighter blood pressure control. Continue metoprolol Continue Plavix/Eliquis Cardiology is aware of the acute non-STEMI and the repeat echo results Monitor mental status and utilizes Haldol for delirium Daily chest x-rays We'll continue to follow This is a critically care evaluation that was done and more than 30 minutes. Case was discussed with cardiology. Time with Patient: Greater than 30
[2019-10-16 13:10] LABS: Glucose,Whole Blood 138 mg/dL (75-99)
[2019-10-16 17:11] LABS: Glucose,Whole Blood 161 mg/dL (75-99)
--- NOTE | 2019-10-16 17:49 | P.PN ---
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 Chronic stable medical conditions include congestive heart failure EF 55-60%, diabetes, hypertension, hyperlipidemia, CK disease stage 2, history of aortic valve replacement with TAVR, mild cognitive impairment.egally blind and decreased hearing.. February 2019 had acute non-Q-wave PR with coronary intervention with angioplasty stent. Also admitted in May 2019 with paroxysmal atrial fibrillation. Started on eliquis. Patient now presents to the ER what is described as significant chest pain sharp shortness of breath. Patient is on a BiPAP currently in the ICU. Because of respiratory distress. COVID-19 was negative. Slight cough. Had a fever documented here for 100.6. Patient's history is limited because of shortness of breath. Unable to qualify the chest pain further. Found to be in atrial fibrillation with a rapid ventricular rate Admitted with-multilobar pneumonia, acute hypoxic respiratory failure, acute non-Q-wave myocardial infarction, atrial fibrillation uncontrolled. Admitted to ICU. Patient was on BiPAP.-Then switched over to high flow oxygen Today-ICU: Still requiring about 12 L on nasal cannula oxygen. No trouble swallowing food no choking. Her weight. Answering simple questions. Atrial fibrillation controlled. Review of systems: Attempted for constitutional, cardiovascular, GI, pulmonary. relevant finding as above Active Medications Acetaminophen (Tylenol Tab) 650 mg PO Q6HR PRN PRN Reason: Fever and/ or Pain Last Admin: 10/16/19 08:17 Dose: 650 mg Documented by: Allopurinol (Zyloprim) 100 mg PO BID [facility] Last Admin: 10/16/19 08:18 Dose: 100 mg Documented by: Alprazolam (Xanax) 0.25 mg PO TID PRN PRN Reason: Anxiety Last Admin: 10/16/19 08:19 Dose: 0.25 mg Documented by: Amlodipine Besylate (Norvasc) 10 mg PO DAILY [facility] Last Admin: 10/16/19 08:19 Dose: 10 mg Documented by: Apixaban (Eliquis) 5 mg PO BID [facility] Last Admin: 10/16/19 08:19 Dose: 5 mg Documented by: Atorvastatin Calcium (Lipitor) 40 mg PO HS [facility] Last Admin: 10/15/19 21:04 Dose: 40 mg Documented by: Clonidine (Catapres) 0.2 mg PO TID [facility] Last Admin: 10/16/19 08:17 Dose: 0.2 mg Documented by: Clopidogrel Bisulfate (Plavix) 75 mg PO DAILY [facility] Last Admin: 10/16/19 08:18 Dose: 75 mg Documented by: Haloperidol Lactate (Haldol) 1 mg IVP Q2HR PRN PRN Reason: Agitation or Acute Psychosis Last Admin: 10/16/19 01:56 Dose: 1 mg Documented by: Haloperidol Lactate (Haldol) 1 mg IVP Q4HR PRN PRN Reason: Agitation or Acute Psychosis Haloperidol Lactate (Haldol) 2 mg IVP Q2HR PRN PRN Reason: Agitation or Acute Psychosis Haloperidol Lactate (Haldol) 2 mg IVP Q4HR PRN PRN Reason: Agitation or Acute Psychosis Hydralazine HCl (Apresoline) 100 mg PO TID [facility] Last Admin: 10/16/19 17:13 Dose: 100 mg Documented by: Hydrochlorothiazide (Hydrodiuril) 25 mg PO DAILY [facility] Last Admin: 10/16/19 08:18 Dose: 25 mg Documented by: Sodium Chloride (Saline 0.9%) 1,000 mls @ 50 mls/hr IV .Q20H [facility] Last Admin: 10/16/19 05:25 Dose: 50 mls/hr Documented by: Azithromycin 500 mg/ Sodium (Chloride) 250 mls @ 250 mls/hr IVPB DAILY [facility] Last Admin: 10/16/19 08:18 Dose: 250 mls/hr Documented by: Cefepime HCl 2 gm/ Sodium (Chloride) 100 mls @ 200 mls/hr IVPB Q12HR [facility] Last Admin: 10/16/19 08:18 Dose: 200 mls/hr Documented by: Insulin Aspart (Novolog) 0 unit SQ ACHS [facility]; Protocol Last Admin: 10/16/19 17:13 Dose: 2 unit Documented by: Isosorbide Mononitrate (Imdur) 60 mg PO DAILY [facility] Last Admin: 10/16/19 08:18 Dose: 60 mg Documented by: Metoprolol Tartrate (Lopressor) 25 mg PO TID [facility] Last Admin: 10/16/19 17:13 Dose: 25 mg Documented by: Miscellaneous Information (Potassium Per Protocol) 1 each MISCELLANE DAILY PRN; Protocol PRN Reason: Per Protocol Naloxone HCl (Narcan) 0.2 mg IV Q2M PRN PRN Reason: Opioid Reversal Nitroglycerin (Nitrostat) 0.4 mg SUBLINGUAL Q5M PRN PRN Reason: Chest Pain Pantoprazole Sodium (Protonix) 40 mg PO AC-BRKFST [facility] Last Admin: 10/16/19 08:19 Dose: 40 mg Documented by: Physical examination: VITAL SIGNS: 99.9, 58, 22, 120/43, 95% on 12 L high flow cannula GENERAL: Propped up in bed, short of breath while talking on nasal cannula EYES: Pupils equal. Conjunctiva normal. HEENT: External appearance of nose and ears normal, oral cavity grossly normal, decreased hearing. NECK: JVD unable to assess, masses not palpable. HEART: Irregular heart sounds, no edema. LUNGS: Respiratory rate increased, , decreased breath sounds. ABDOMEN: Soft, nontender, liver spleen not palpable, no masses palpable. 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 NEUROLOGICAL: Following commands INVESTIGATIONS, reviewed in the clinical context: White count 9.9 hemoglobin 11 sodium 129 potassium 4.1 creatinine 1 pro calcitonin 2.94 Previous testing White count 16.3 hemoglobin 13 platelets 176 percussion 3.6 bun 26 creatinine 1.34 Troponin I 0.071, 6.5, 11.7 Coronavirus PCR-not detected EKG tracing personally reviewed by me-atrial fibrillation rapid ventricular rate with some ST segment depression Chest x-ray film personally reviewed by me-this infiltrates on the right side Assessment: -Multilobar pneumonia suspected gram-negative organism causing sepsis, POA-slow to respond -Acute hypoxic respiratory failure requiring BiPAP,-now nasal cannula up to 12 L high. 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 Antibiotics were showed to cefepime and Zithromax. Was a bit concerned about silent aspiration. Did have speech therapy assessed the patient. She cleared the patient from a aspiration standpoint. Current diet to continue..
--- NOTE | 2019-10-16 20:07 | CDI ---
Documentation Clarification Form Date: 10/16/2019 08:03:28 PM From: Lani Gifford RN, CCDS Admit Date: 10/12/2019 08:40:00 AM Patient Name: Raúl Monterroso Visit Number: [id number] ATTENTION: The Clinical Documentation Specialists (CDI) and [facility] Coding Staff appreciate your assistance in clarifying documentation. Please respond to the clarification below the line at the bottom and electronically sign. The CDI & [facility] Coding staff will review the response and follow-up if needed. Please note: Queries are made part of the Legal Health Record. If you have any questions, please contact the author of this message via ITS. Dr. Roly Dorman Confusion is documented and requires further clarification. History/Risk Factors: CAD, HF, DM, HTN, CABG, TAVR Clinical Indicators: 10/15 Cardiology Progress note: "Yesterday, he became more confused and more hypoxic requiring placement on BiPAP". 10/15 Pulmonary Progress Note: "Overnight the patient became a bit confused and I made recommendations to give him Haldol and acid basis for delirium and agitation. " 10/15 Labs: Procalcitonin 2.94 10/14 2100 V/S: temp 100.7, HR 96, RR 27, shallow, B/P 170/75, Spo2 85% 11L high Flow nasal cannula 10/15 CXR: Patchy perihilar infiltrates, improving from comparison Treatment: BiPap 50% FIO2 [place] 1 tab PO Q 6 hrs PRN, Xanax 0.25 mg PO TID, Haldol 1-2 mg IVP Q 2 Hrs PRN agitation In your professional opinion, please clarify the etiology of the Altered Mental Status, if known. Metabolic Encephalopathy (specify Underlying Medical Illness) Delirium (specify cause): Other condition (please specify) Unable to determine (Last Revision: September 2017) Metabolic encephalopathy-multifactorial MTDD
[2019-10-16 20:19] LABS: Glucose,Whole Blood 126 mg/dL (75-99)
[2019-10-16] MEDS: ATORVASTATIN 40 MG TAB PO SCH (21:03)
[2019-10-17] MEDS: HYDROcodone/APAP 5-325MG 1 EACH TAB PO PRN ×2 (02:01→21:51)
[2019-10-17 03:43] LABS: Basophils % (A) 0 %; Eosinophils % (A) 0 %; HGB 10.6 gm/dL (13.0-17.5); Hypochromasia Slight; Lymphocytes # (A) 0.3 k/uL (1.0-4.8); Lymphocytes % (A) 3 %; MCH 26.9 pg (25.0-35.0); MCHC 31.2 g/dL (31.0-37.0); MCV 86.2 fL (80.0-100.0); Monocytes # (A) 0.6 k/uL (0-1.0); Monocytes % (A) 6 %; Neutrophils # (A) 8.7 k/uL (1.3-7.7); Neutrophils % (A) 89 %; Platelet Count 158 k/uL (150-450); RBC 3.95 m/uL (4.30-5.90); RDW 14.7 % (11.5-15.5); WBC 9.8 k/uL (3.8-10.6)
[2019-10-17 03:54] LABS: Calcium 8.7 mg/dL (8.4-10.2); Potassium 3.9 mmol/L (3.5-5.1)
[2019-10-17 06:40] LABS: Glucose,Whole Blood 211 mg/dL (75-99)
[2019-10-17] MEDS: INSULIN ASPART (NovoLOG) 100 UNIT/ML VIAL SQ SCH ×4 (07:05→20:09)
[2019-10-17] MEDS ORDERED: POTASSIUM CHLORIDE ER 20 MEQ TAB.ER PO SCH (08:00)
[2019-10-17] MEDS ORDERED: FUROSEMIDE 10 MG/ML 4 ML VIAL IV STA (08:22)
--- NOTE | 2019-10-17 08:39 | XR ---
EXAMINATION TYPE: XR chest 1V portable DATE OF EXAM: 10/17/2019 COMPARISON: 10/16/2019 HISTORY: Labored breathing. TECHNIQUE: Single frontal view of the chest is obtained. FINDINGS: Worsening alveolar opacities are seen bilaterally in the midlungs. Post CABG changes are s een of the chest with cardiac stent graft. Cardiomediastinal silhouette is upper limits of normal siz e. No sizable pneumothorax or convincing pleural effusion. No acute osseous process. IMPRESSION: With complaining bilateral alveolar opacities that are currently worse than on the prior exam but noted to be improved from 10/15/2019.
--- NOTE | 2019-10-17 09:04 | PN ---
PROGRESS NOTE Mr. Monterroso is an 84-year-old male who presented with progressive dyspnea, was found to have evidence of pneumonia, has atrial fibrillation and initially rapid ventricular response as well episode of hypertension, yesterday he fell. He has a known history of TAVR and coronary artery disease and cardiomyopathy. He had evidence of non ST-segment elevation myocardial infarction during this admission. Hemodynamically, he is stable. His blood pressure is stable. He has no chest discomfort. No dizziness. No palpitation. He is on nasal cannula. He continues to be on amlodipine 10 mg daily, Eliquis 5 mg twice a day, Lipitor 40 mg daily, clonidine 0.2 mg 3 times a day, Plavix 75 mg daily, and hydralazine 100 mg 3 times a day, hydrochlorothiazide 25 mg daily, isosorbide mononitrate 60 mg daily, metoprolol tartrate 25 mg 3 times a day. PHYSICAL EXAMINATION: Blood pressure running in the 130s with a heart rate in the 60s. LUNGS: With scattered rhonchi. HEART: Irregular regular, S1, S2. No S3 with systolic murmur, no diastolic murmur. ABDOMEN: Soft, nontender. EXTREMITIES: Trace to 1+ edema. LAB DATA: Revealed BUN and creatinine 26 and 0.98, potassium 3.9. Chest x-ray revealed bilateral infiltrate consistent with his pneumonia. IMPRESSION: 1. Respiratory failure secondary to bilateral pneumonia. Oxygenation is better at this point. He is not using the BiPAP. 2. Atrial fibrillation, rate controlled. 3. Status post history of coronary artery disease with coronary bypass grafting, non ST-segment elevation myocardial infarction. 4. Ischemic cardiomyopathy. 5. Status post TAVR. 6. Diabetes. 7. Hypertension. 8. Hyperlipidemia. 9. Generalized weakness. RECOMMENDATION: I will increase the dose of his metoprolol tartrate to 50 mg twice a day, decrease the dose of his clonidine. Follow his blood pressure and depending on his progress, further recommendation will be made. MMODL / IJN: [id number] /
[2019-10-17] MEDS: AZITHROMYCIN 500 MG in SODIUM CHLORIDE 0.9% 250 ML IVPB SCH (09:31)
[2019-10-17] MEDS: CEFEPIME 2 GM in SODIUM CHLORIDE 0.9% 100 ML IVPB SCH ×2 (09:31→20:15)
[2019-10-17] MEDS: hydrALAZINE HCL 50 MG TAB PO SCH ×3 (09:32→20:14)
[2019-10-17] MEDS: ISOSORBIDE MONONITRATE ER 60 MG TAB.ER.24H PO SCH (09:32)
[2019-10-17] MEDS: APIXABAN 5 MG TAB PO SCH ×2 (09:32→20:14)
[2019-10-17] MEDS: PANTOPRAZOLE 40 MG TABLET PO SCH (09:32)
[2019-10-17] MEDS: cloNIDine HCL 0.1 MG TAB PO SCH ×3 (09:32→20:14)
[2019-10-17] MEDS: ALLOPURINOL 100 MG TAB PO SCH ×2 (09:32→20:15)
[2019-10-17] MEDS: CLOPIDOGREL 75 MG TAB PO SCH (09:33)
[2019-10-17] MEDS: METOPROLOL TARTRATE 50 MG TAB PO SCH ×2 (09:33→20:14)
[2019-10-17] MEDS: HYDROCHLOROTHIAZIDE 25 MG TAB PO SCH (09:33)
[2019-10-17] MEDS: amLODIPine 10 MG TAB PO SCH (09:33)
--- NOTE | 2019-10-17 11:54 | P.PN ---
Subjective This is a very pleasant 84-year-old patient of Dr. magallanes. 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 Chronic stable medical conditions include congestive heart failure EF 55-60%, diabetes, hypertension, hyperlipidemia, CK disease stage 2, history of aortic valve replacement with TAVR, mild cognitive impairment.egally blind and decreased hearing.. February 2019 had acute non-Q-wave NC with coronary intervention with angioplasty stent. Also admitted in May 2019 with paroxysmal atrial fibrillation. Started on eliquis. Patient now presents to the ER what is described as significant chest pain sharp shortness of breath. Patient is on a BiPAP currently in the ICU. Because of respiratory distress. COVID-19 was negative. Slight cough. Had a fever documented here for 100.6. Patient's history is limited because of shortness of breath. Unable to qualify the chest pain further. Found to be in atrial fibrillation with a rapid ventricular rate Admitted with-multilobar pneumonia, acute hypoxic respiratory failure, acute non-Q-wave myocardial infarction, atrial fibrillation uncontrolled. Admitted to ICU. Patient was on BiPAP.-Then switched over to high flow oxygen Today-ICU: Still requiring about 12 L on nasal cannula oxygen. No trouble swallowing food no choking. Her weight. Answering simple questions. Atrial fibrillation controlled. On-call hospitalist covering Dr. Dorman for first day today 10/17/2019 This is a pleasant 84 years old male who was admitted on 10/11 for dyspnea found to have A. fib with RVR and he was started on Cardizem drip and IV fluid Because of his dyspnea he was placed on BiPAP and sent to the ICU from the [facility] unit. Chest x-ray showing right-sided consolidation suspicious for pneumonia with mass cannot be excluded Patient was started on antibiotics and currently he is on Zithromax and cefepime . Patient is off BiPAP currently and he is on 12 L oxygen via high flow cannula Last night he was seen sitting on the floor suspicious for a fall. Today patient is very lethargic but arousable. He got one time of Lasix today, also patient noted to be an Eliquis We'll check CT of the brain given his fall and lethargy Review of system: N/a Active Medications Generic Name Dose Route Start Last Admin Trade Name Freq PRN Reason Stop Dose Admin Acetaminophen 650 mg 10/16/19 06:50 10/16/19 23:25 Tylenol Tab PO 650 mg Q6HR PRN Administration Fever and/ or Pain Hydrocodone Bitart/Acetaminophen 1 each 10/17/19 01:30 10/17/19 02:01 Murray 5-325 PO 1 each Q6HR PRN Administration Pain Allopurinol 100 mg 10/12/19 21:00 10/17/19 09:32 Zyloprim PO 100 mg BID [facility] Administration Alprazolam 0.25 mg 10/15/19 09:38 10/16/19 21:03 Xanax PO 0.25 mg TID PRN Administration Anxiety Amlodipine Besylate 10 mg 10/15/19 08:00 10/17/19 09:33 Norvasc PO 10 mg DAILY [facility] Administration Apixaban 5 mg 10/14/19 09:00 10/17/19 09:32 Eliquis PO 5 mg BID [facility] Administration Atorvastatin Calcium 40 mg 10/15/19 21:00 10/16/19 21:03 Lipitor PO 40 mg HS JUST[facility] Administration Clonidine 0.1 mg 10/17/19 09:00 10/17/19 09:32 Catapres PO 0.1 mg TID [facility] Administration Clopidogrel Bisulfate 75 mg 10/12/19 11:15 10/17/19 09:33 Plavix PO 75 mg DAILY [facility] Administration Haloperidol Lactate 1 mg 10/16/19 01:38 10/16/19 01:56 Haldol IVP 1 mg Q2HR PRN Administration Agitation or Acute Psychosis Haloperidol Lactate 1 mg 10/16/19 01:38 Haldol IVP Q4HR PRN Agitation or Acute Psychosis Haloperidol Lactate 2 mg 10/16/19 01:41 10/16/19 23:25 Haldol IVP 2 mg Q2HR PRN Administration Agitation or Acute Psychosis Haloperidol Lactate 2 mg 10/16/19 01:41 Haldol IVP Q4HR PRN Agitation or Acute Psychosis Hydralazine HCl 100 mg 10/14/19 09:00 10/17/19 09:32 Apresoline PO 100 mg TID [facility] Administration Hydrochlorothiazide 25 mg 10/15/19 09:00 10/17/19 09:33 Hydrodiuril PO 25 mg DAILY [facility] Administration Sodium Chloride 1,000 mls @ 50 mls/hr 10/12/19 09:00 10/16/19 05:25 Saline 0.9% IV 50 mls/hr .Q20H [facility] Administration Azithromycin 500 mg/ Sodium 250 mls @ 250 mls/hr 10/13/19 09:00 10/17/19 09:31 Chloride IVPB 250 mls/hr DAILY [facility] Administration Cefepime HCl 2 gm/ Sodium 100 mls @ 200 mls/hr 10/16/19 09:00 10/17/19 09:31 Chloride IVPB 200 mls/hr Q12HR [facility] Administration Insulin Aspart 0 unit 10/15/19 07:30 10/17/19 07:05 Novolog SQ 4 unit ACHS JUST[facility] Administration Protocol Isosorbide Mononitrate 60 mg 10/12/19 16:15 10/17/19 09:32 Imdur PO 60 mg DAILY [facility] Administration Metoprolol Tartrate 50 mg 10/17/19 09:00 10/17/19 09:33 Lopressor PO 50 mg BID [facility] Administration Miscellaneous Information 1 each 10/15/19 07:54 Potassium Per Protocol MISCELLANE DAILY PRN Per Protocol Protocol Naloxone HCl 0.2 mg 10/12/19 08:40 Narcan IV Q2M PRN Opioid Reversal Nitroglycerin 0.4 mg 10/14/19 15:48 Nitrostat SUBLINGUAL Q5M PRN Chest Pain Pantoprazole Sodium 40 mg 10/15/19 07:30 10/17/19 09:32 Protonix PO 40 mg [id number]-[id number] JUSTIN Administration Objective - Vital Signs Vital signs: Vital Signs Temp 97.5 F L 10/17/19 08:00 Pulse 62 10/17/19 10:00 Resp 19 10/17/19 10:00 BP 137/59 10/17/19 10:00 Pulse Ox 92 L 10/17/19 10:00 Intake & Output 10/16/19 10/17/19 10/17/19 18:59 06:59 18:59 Intake Total 1200 800 550 Output Total 1150 2700 315 Balance 50 -1900 235 Weight 102.2 kg Intake: IV 900 650 550 Azithromycin 500 mg In 250 250 Sodium Chloride 0.9% 250 ml @ 250 mls/hr IVPB DAILY [facility] Rx#:[id number] Cefepime 2 gm In Sodium 100 Chloride 0.9% 100 ml @ 200 mls/hr IVPB Q12HR [facility] Rx#:[id number] Sodium Chloride 0.9% 1, 600 550 200 000 ml @ 50 mls/hr IV . Q20H [facility] Rx#:[id number] cefTRIAXone 1 gm In 50 100 Sodium Chloride 0.9% 50 ml @ 100 mls/hr IVPB Q24HR [facility] Rx#:[id number] Oral 300 150 Output: Urine 1150 2700 315 Other: Voiding Method Indwelling Catheter Indwelling Catheter - Exam GENERAL: The patient is alert and oriented , but he is very weak and lethargic HEENT: Pupils are round and equally reacting to light. EOMI. No scleral icterus. No conjunctival pallor. Normocephalic, atraumatic. No pharyngeal erythema. No thyromegaly. CARDIOVASCULAR: S1 and S2 present. No murmurs, rubs, or gallops. -PULMONARY: Chest is clear to auscultation, no wheezing or crackles. Decreased breath sounds especially on the right side with some crepitation ABDOMEN: Soft, nontender, nondistended, normoactive bowel sounds. No palpable organomegaly. MUSCULOSKELETAL: No joint swelling or deformity. EXTREMITIES: No cyanosis, clubbing, or pedal edema. NEUROLOGICAL: Gross neurological examination did not reveal any focal deficits. SKIN: No rashes. no petechiae. - Labs CBC & Chem 7: 10/17/19 03:26 10/17/19 03:26 Labs: Abnormal Lab Results - Last 24 Hours (Table) 10/16/19 10/16/19 10/16/19 Range/Units 07:12 13:09 17:09 RBC (4.30-5.90) m/uL Hgb (13.0-17.5) gm/dL Hct (39.0-53.0) % Neutrophils # (1.3-7.7) k/uL Lymphocytes # (1.0-4.8) k/uL Sodium (137-145) mmol/L BUN (9-20) mg/dL Glucose (74-99) mg/dL POC Glucose (mg/dL) 138 H 161 H (75-99) mg/dL Procalcitonin 2.94 H (0.02-0.09) ng/mL 10/16/19 10/17/19 10/17/19 Range/Units 20:17 03:26 03:26 RBC 3.95 L (4.30-5.90) m/uL Hgb 10.6 L (13.0-17.5) gm/dL Hct 34.0 L (39.0-53.0) % Neutrophils # 8.7 H (1.3-7.7) k/uL Lymphocytes # 0.3 L (1.0-4.8) k/uL Sodium 132 L (137-145) mmol/L BUN 26 H (9-20) mg/dL Glucose 175 H (74-99) mg/dL POC Glucose (mg/dL) 126 H (75-99) mg/dL Procalcitonin (0.02-0.09) ng/mL 10/17/19 Range/Units 06:38 RBC (4.30-5.90) m/uL Hgb (13.0-17.5) gm/dL Hct (39.0-53.0) % Neutrophils # (1.3-7.7) k/uL Lymphocytes # (1.0-4.8) k/uL Sodium (137-145) mmol/L BUN (9-20) mg/dL Glucose (74-99) mg/dL POC Glucose (mg/dL) 211 H (75-99) mg/dL Procalcitonin (0.02-0.09) ng/mL Microbiology - Last 24 Hours (Table) 10/12/19 08:25 Blood Culture - Preliminary Blood No Growth after 120 hours 10/16/19 07:12 Blood Culture - Preliminary Blood No Growth after 24 hours 10/16/19 07:12 Blood Culture - Preliminary Blood No Growth after 24 hours Assessment and Plan Assessment: -Multilobar pneumonia suspected gram-negative organism causing sepsis, POA-slow to respond -Acute hypoxic respiratory failure requiring BiPAP,-now nasal cannula up to 12 L high. She responded -Persistent atrial fibrillation with rapid ventricular response, likely precipitated by sepsis- controlled -Acute non-Q-wave myocardial infarction, POA -Fall -Generalized weakness and lethargy, multifactorial due to his infection and hypoxia and possible medication. 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 Continue with antibiotic. Patient is followed closely by pulmonary/critical care team. Cardiology also on the case. Remains on 12 L nasal cannula. Monitor the patient closely. Patient is on Plavix and Eliquis and statin. Also continue with gentle hydration Labs and medication were reviewed.. Continue same treatment. Continue with symptomatic treatment. Resume home medication. Monitor lytes and vitals. DVT and GI prophylaxis. Further recommendations of the clinical course of the patient DVT prophylaxis: Eliquis GI Prophylaxis: Ppi Prognosis is guarded
[2019-10-17 12:19] LABS: Glucose,Whole Blood 224 mg/dL (75-99)
[2019-10-17] MEDS: SODIUM CHLORIDE 0.9% 1,000 ML IV SCH (12:27)
--- NOTE | 2019-10-17 14:08 | P.PN ---
Subjective Progress Note Date: 10/17/19 This is a 84-year-old male patient with history of coronary artery disease with previous bypass surgery, chronic atrial fibrillation and valvular heart disease who initially presented to the ED on 10/12/2019 with worsening shortness of breath and chest pain. The patient was found to be in A. fib RVR and he was also found to have a dense consolidation of the right lower lobe consistent with pneumonia. He was placed on BiPAP at a pressure of 12/5 cm of water and FiO2 of 50%. He was given IV fluids. He was started on a combination of Rocephin and Zithromax. He was placed on Cardizem drip for rate control and following that he was brought into the intensive care units. The patient tested negative for cough with 19 infection. Over the past 24 hours his atrial fibrillation is under better control. He is known to have aortic stenosis with TaVR procedure done. He is diabetic and has hyperlipidemia and hypertension and memory impairment and he is legally blind. His chest x-ray from yesterday showed improvement in the right lower lobe consolidation on the aeration of the right lung. There was some atelectatic changes in the left lung base. The patient was subsequently taken off the BiPAP. Currently is on 5 L of oxygen by nasal cannula with a pulse ox of 94%. Cultures have been negative thus far including the blood culture. The white cell count has been improving knowing that his initial white cell count is at 16. He remains on Eliquis for long-term anticoagulation. He is on metoprolol for rate control at a dose of 12.5 mg by mouth twice a day. He remains on IV Rocephin and Zithromax. On today's evaluation of 10/15/2019, the chest x-ray still showing extensive right lung consolidation. The patient has developed an acute non-ST segment elevation myocardial infarction. Troponin peaked at 11. History of any chest pain. He is complaining of diffuse body aches and the patient will be started back on his [place]. His blood pressure was noted to be elevated and appropriate changes will be done on the blood pressure medication. He is currently on metoprolol 25 mg by mouth twice a day. He is Norvasc was increased up to 10 mg an hour. He was started on clonidine 0.2 mg 3 times a day. He'll be kept on a combination of Eliquis and Plavix for now. IV fluids with normal state rate of 50 mL an hour and the patient is currently on oxygen at 5 L per minute nasal cannula. The dose being titrated to maintain a saturation above 90%. He remains on a combination of Rocephin and Zithromax for now. The echocardiogram showed a drop in the patient's ejection fraction which is down to 35-40%. There is segmental wall motion abnormalities. The patient has moderate concentric LVH. The patient also has a TAB are procedure done with moderate mitral annular calcifica tion and a maximum gradient across the aortic valve of 11 mmHg without signs of any pulmonary hypertension. He has hypertensive heart disease with concentric LVH. On today's evaluation of 10/16/2019, the patient is still struggling with a pneumonia and acute. Overnight the patient became a bit confused and I made recommendations to give him Haldol and acid basis for delirium and agitation. He ultimately had become more tachypneic and he was placed back on the BiPAP. This morning I took him off the BiPAP and put him on high flow oxygen 10 L per minute nasal cannula. His chest x-ray showing bilateral pulmonary infiltrates. The right sided consolidation is improving and there is worsening of the infiltrates on the left side. He was also having episodic fever and he had a temperature spike of 11.4 this morning. Based on that, I discontinue the Rocephin and switch this patient to a combination of IV cefepime, and Zithromax. Cultures still negative for now. Patient was also given a dose of Lasix 20 mg IV push. The white cell count is at 9.9. Sodium level is at 129. BUN is 24 w ith a creatinine of 1.0. No angina. No palpitations. He has impaired LV function as stated in his echocardiogram. On 10/17/2019, the patient is still struggling with a bilateral pneumonia. The chest x-ray from today shows extensive pulmonary infiltrates and there has been interval worsening and left-sided pulmonary infiltrates. The right-sided consolidations improved. Note that the patient was covered with a combination of cefepime and Zithromax and antibiotics which was done yesterday. He is going to be given a dose of Lasix today 40 mg IV push and his clinical response is to be monitored. Earlier today, the patient was seen in the intensive care unit. He was in atrial fibrillation. He was on high flow oxygen at 15 L per minute nasal cannula with a pulse ox of 92%. He was sleeping. I was told that he did not sleep throughout the night. He was a bit confused and this morning his sleep breathing very comfortably. No significant leukocytosis. White cell count at 9.8. Function is stable. The blood cultures of been negative for now. Note that the chest x-ray showed bilateral alveolar opacities/infiltrates slightly worse compared to yesterday chest x-ray. He is post coronary artery bypass surgery. He denies having any chest pain. His his pro-calcitonin level was at 2.9 from yesterday. Objective - Vital Signs Vital signs: Vital Signs Temp 98.8 F 10/17/19 12:00 Pulse 70 10/17/19 13:00 Resp 23 10/17/19 13:00 BP 142/62 10/17/19 13:00 Pulse Ox 98 10/17/19 13:00 Intake & Output 10/16/19 10/17/19 10/17/19 18:59 06:59 18:59 Intake Total 1200 800 650 Output Total 1150 2700 715 Balance 50 -1900 -65 Weight 102.2 kg Intake: IV 900 650 650 Azithromycin 500 mg In 250 250 Sodium Chloride 0.9% 250 ml @ 250 mls/hr IVPB DAILY [facility] Rx#:[id number] Cefepime 2 gm In Sodium 100 Chloride 0.9% 100 ml @ 200 mls/hr IVPB Q12HR [facility] Rx#:[id number] Sodium Chloride 0.9% 1, 600 550 300 000 ml @ 50 mls/hr IV . Q20H [facility] Rx#:[id number] cefTRIAXone 1 gm In 50 100 Sodium Chloride 0.9% 50 ml @ 100 mls/hr IVPB Q24HR [facility] Rx#:[id number] Oral 300 150 Output: Urine 1150 2700 715 Other: Voiding Method Indwelling Catheter Indwelling Catheter Indwelling Catheter - Exam CONSTITUTIONAL: And mild degree of respiratory distress currently on high flow oxygen between 15L per minute nasal cannula. Head exam was generally normal. There was no scleral icterus or corneal arcus. Mucous membranes were moist. generally normal. There was no scleral icterus or corneal arcus. Mucous membranes were moist. HEENT: Head is normocephalic. Pupils are equal, round. Sclerae anicteric. Mucous membranes of the mouth are moist. No JVD. No carotid bruit. CHEST EXAMINATION: Bibasilar rales, scattered rhonchi, no wheezes. No chest wall tenderness is noted on palpation or with deep breathing. HEART EXAMINATION: Irregular rate and rhythm. S1, S2 heard. Systolic ejection murmur at the base, no gallops or rub. ABDOMEN: Soft, nontender. Positive bowel sounds. EXTREMITIES: 2+ peripheral pulses, 2+ bilateral lower extremity pitting edema and no calf tenderness. Examination of the skin revealed no evidence of significant rashes, suspicious appearing nevi or other concerning lesions. NEUROLOGIC EXAMINATION: Patient is awake, alert and oriented x3. - Labs CBC & Chem 7: 10/17/19 03:26 10/17/19 03:26 Labs: Abnormal Lab Results - Last 24 Hours (Table) 10/16/19 10/16/19 10/16/19 Range/Units 07:12 17:09 20:17 RBC (4.30-5.90) m/uL Hgb (13.0-17.5) gm/dL Hct (39.0-53.0) % Neutrophils # (1.3-7.7) k/uL Lymphocytes # (1.0-4.8) k/uL Sodium (137-145) mmol/L BUN (9-20) mg/dL Glucose (74-99) mg/dL POC Glucose (mg/dL) 161 H 126 H (75-99) mg/dL Procalcitonin 2.94 H (0.02-0.09) ng/mL 10/17/19 10/17/19 10/17/19 Range/Units 03:26 03:26 06:38 RBC 3.95 L (4.30-5.90) m/uL Hgb 10.6 L (13.0-17.5) gm/dL Hct 34.0 L (39.0-53.0) % Neutrophils # 8.7 H (1.3-7.7) k/uL Lymphocytes # 0.3 L (1.0-4.8) k/uL Sodium 132 L (137-145) mmol/L BUN 26 H (9-20) mg/dL Glucose 175 H (74-99) mg/dL POC Glucose (mg/dL) 211 H (75-99) mg/dL Procalcitonin (0.02-0.09) ng/mL 10/17/19 Range/Units 12:17 RBC (4.30-5.90) m/uL Hgb (13.0-17.5) gm/dL Hct (39.0-53.0) % Neutrophils # (1.3-7.7) k/uL Lymphocytes # (1.0-4.8) k/uL Sodium (137-145) mmol/L BUN (9-20) mg/dL Glucose (74-99) mg/dL POC Glucose (mg/dL) 224 H (75-99) mg/dL Procalcitonin (0.02-0.09) ng/mL Microbiology - Last 24 Hours (Table) 10/12/19 08:25 Blood Culture - Preliminary Blood No Growth after 120 hours 10/16/19 07:12 Blood Culture - Preliminary Blood No Growth after 24 hours 10/16/19 07:12 Blood Culture - Preliminary Blood No Growth after 24 hours Assessment and Plan Plan: 1 Multilobar pneumonia with extensive right lung consolidation, likely bacterial with secondary sepsis and hypoxic respiratory failure requiring BiPAP at a time of admission. Chest x-ray is showing improvement in the right lung consolidation with broad-spectrum antibiotics including a combination of Rocephin and Zithromax. Cultures are essentially negative thus far. COVID 19 infection was ruled out. The patient remains on IV liters of oxygen by nasal cannula. Chest x-ray still showing extensive consolidation of the right lung. On 10/16/2018, the patient's oxygenation remains borderline at 15 L per minute nasal cannula. Chest x-ray still showing by troponin infiltrates with interval worsening. His current antibiotic coverage includes accommodation cefepime and Zithromax. Noted the patient had an elevated progesterone level of 2.9. The patient has negative blood cultures. White cell count has dropped down to 9.8. The patient is currently on 15 L per nasal cannula and he patient is utilizing BiPAP on and off during the day. 2 Acute hypoxic respiratory failure requiring BiPAP at a time of admission c urrently on 15 L of oxygen by nasal cannula 3 Persistent atrial fibrillation with rapid ventricular response, likely precipitated by sepsis, rate is controlled 4 Coronary artery disease with bypass, with an acute non-ST segment elevation myocardial infarction 5 Chronic congestive heart failure from diastolic dysfunction EF 55-60%, the patient suffered an acute non-STEMI and there has been further drop in a ejection fraction down to 35-40% along with segmental wall motion abnormalities involving the anterior septal apical goode. 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 7 Diabetes mellitus type 2 8 Essential hypertension 9 Hyperlipidemia 10 History of aortic valve replacement with TAVR, functioning valve 11 Mild cognitive impairment 12 delirium, currently using Haldol on a when necessary basis, no agitation Plan Continue Zithromax and cefepime and follow-up blood cultures are negative Monitor fever pattern Keep the patient on high flow oxygen for now utilize BiPAP accordingly Give the patient 40 mg of IV Lasix, 1 Monitor cultures Titrate oxygen flow to maintain a saturation above 90% Continue blood pressure monitoring and increase the dose of Norvasc and add Catapres for tighter blood pressure control. Continue metoprolol Continue Plavix/Eliquis Cardiology is aware of the acute non-STEMI and the repeat echo results Monitor mental status Daily chest x-rays We'll continue to follow This is a critically care evaluation that was done and more than 30 minutes. Case was discussed with cardiology. Time with Patient: Greater than 30
--- NOTE | 2019-10-17 14:56 | CT ---
EXAMINATION TYPE: CT brain wo con DATE OF EXAM: 10/17/2019 HISTORY: Fall on blood thinners. Lethargic. CT DLP: 1070.4 mGycm. Automated Exposure Control for Dose Reduction was Utilized. TECHNIQUE: CT scan of the head is performed without contrast. COMPARISON: None. FINDINGS: There is no acute intracranial hemorrhage or midline shift identified. There is diffuse v entricular and sulcal prominence consistent with diffuse age-related cerebral atrophy. There is low- attenuation in the periventricular white matter consistent with chronic small vessel ischemic change. Scleral calcification bilateral globes. Visualized paranasal sinuses grossly clear. The calvarium is intact. Vascular calcification distal internal carotid and vertebral arteries bilaterally. IMPRESSION: No acute intracranial hemorrhage or midline shift. There is mild to moderate diffuse ce rebral atrophy and chronic small vessel ischemic change noted.
[2019-10-17 17:43] LABS: Glucose,Whole Blood 100 mg/dL (75-99)
[2019-10-17] MEDS: ATORVASTATIN 40 MG TAB PO SCH (20:14)
[2019-10-17] MEDS: ALPRAZolam 0.25 MG TAB PO PRN (20:14)
[2019-10-17 20:17] LABS: Glucose,Whole Blood 107 mg/dL (75-99)
[2019-10-17] MEDS: ACETAMINOPHEN TAB 325 MG TAB PO PRN (21:59)
[2019-10-17] MEDS ORDERED: NITROGLYCERIN-D5W PMX 50 MG in DEXTROSE/WATER 1 250ML.BAG IV SCH (22:45)
[2019-10-17] MEDS ORDERED: LISINOPRIL 10 MG TAB PO STA (23:19)
[2019-10-17] MEDS ORDERED: cloNIDine HCL 0.2 MG TAB PO STA (23:21)
[2019-10-18] MEDS: SODIUM CHLORIDE 0.9% 1,000 ML IV SCH (03:59)
[2019-10-18] MEDS: ALPRAZolam 0.25 MG TAB PO PRN ×2 (04:18→20:52)
[2019-10-18] MEDS: ACETAMINOPHEN TAB 325 MG TAB PO PRN (04:18)
[2019-10-18 05:39] LABS: Basophils % (A) 0 %; Eosinophils % (A) 0 %; HCT 29.3 % (39.0-53.0); HGB 9.3 gm/dL (13.0-17.5); Hypochromasia Slight; Lymphocytes # (A) 0.6 k/uL (1.0-4.8); Lymphocytes % (A) 7 %; MCH 27.5 pg (25.0-35.0); MCHC 31.9 g/dL (31.0-37.0); MCV 86.3 fL (80.0-100.0); Mean Platelet Volume 8.5; Monocytes # (A) 0.6 k/uL (0-1.0); Monocytes % (A) 6 %; Neutrophils # (A) 8.4 k/uL (1.3-7.7); Neutrophils % (A) 85 %; Platelet Count 170 k/uL (150-450); RDW 14.8 % (11.5-15.5); WBC 9.9 k/uL (3.8-10.6)
[2019-10-18 05:48] LABS: Calcium 8.8 mg/dL (8.4-10.2); Potassium 3.6 mmol/L (3.5-5.1)
[2019-10-18 06:35] LABS: Glucose,Whole Blood 170 mg/dL (75-99)
[2019-10-18] MEDS: INSULIN ASPART (NovoLOG) 100 UNIT/ML VIAL SQ SCH ×4 (06:44→21:21)
[2019-10-18] MEDS: PANTOPRAZOLE 40 MG TABLET PO SCH (06:44)
--- NOTE | 2019-10-18 06:56 | XR ---
EXAMINATION TYPE: XR chest 1V portable DATE OF EXAM: 10/18/2019 CLINICAL HISTORY: Difficulty breathing progress study. TECHNIQUE: Single AP portable upright view of the chest is obtained. COMPARISON: Chest x-ray from one day earlier and older studies. FINDINGS: Persistent bilateral multifocal opacities greatest left midlung level. Overlying sternal w ires and mediastinal clips redemonstrated. Cardiac silhouette size stable and mildly enlarged with ao rtic root stent graft and atherosclerotic thoracic aorta. Osseous structures are intact. Current stud y is suboptimal as left lung base not completely imaged. IMPRESSION: Persistent multifocal infiltrates greatest in the mid to lower lungs with most dense cons olidation left hilar region. No significant change from one day earlier.
[2019-10-18] MEDS ORDERED: POTASSIUM CHLORIDE ER 20 MEQ TAB.ER PO SCH (07:00)
[2019-10-18] MEDS: LISINOPRIL 10 MG TAB PO SCH (08:40)
[2019-10-18] MEDS: ALLOPURINOL 100 MG TAB PO SCH ×2 (08:40→20:53)
[2019-10-18] MEDS: HYDROCHLOROTHIAZIDE 25 MG TAB PO SCH (08:40)
[2019-10-18] MEDS: CEFEPIME 2 GM in SODIUM CHLORIDE 0.9% 100 ML IVPB SCH ×2 (08:40→20:53)
[2019-10-18] MEDS: CLOPIDOGREL 75 MG TAB PO SCH (08:40)
[2019-10-18] MEDS: cloNIDine HCL 0.1 MG TAB PO SCH ×3 (08:41→20:53)
[2019-10-18] MEDS: amLODIPine 10 MG TAB PO SCH (08:41)
[2019-10-18] MEDS: APIXABAN 5 MG TAB PO SCH ×2 (08:41→20:53)
[2019-10-18] MEDS: hydrALAZINE HCL 50 MG TAB PO SCH ×3 (08:41→20:52)
[2019-10-18] MEDS: METOPROLOL TARTRATE 50 MG TAB PO SCH ×2 (08:41→20:53)
[2019-10-18] MEDS ORDERED: VANCOMYCIN IV PER PHARMACY 1 EACH MISC MISCELLANE PRN (09:00)
[2019-10-18] MEDS ORDERED: amLODIPine 10 MG TAB PO SCH (09:00)
[2019-10-18] MEDS ORDERED: ISOSORBIDE MONONITRATE ER 60 MG TAB.ER.24H PO SCH (09:00)
[2019-10-18] MEDS: AZITHROMYCIN 500 MG in SODIUM CHLORIDE 0.9% 250 ML IVPB SCH (09:52)
--- NOTE | 2019-10-18 10:03 | PN ---
PROGRESS NOTE Mrs. Monterroso is an 84-year-old male with a history of coronary artery disease, history of TAVR who presented with pneumonia and respiratory failure. He had evidence of non STEMI and ischemic cardiomyopathy. He has atrial fibrillation yesterday. He has been complaining of chest discomfort and he had hypertension. At that time, he was started on IV nitroglycerin. He is feeling better today. He continues to be quite weak. He denies any symptoms of chest discomfort this morning. His blood pressure is under better control. He denies any dizziness. He continues to be on IV nitroglycerin this morning. He continues, in addition to that to be on amlodipine 10 mg daily, Eliquis 5 mg twice a day, Lipitor, clonidine 0.2 mg 3 times a day, Plavix 75 mg daily, hydralazine 100 mg 3 times a day, hydrochlorothiazide 25 mg daily, Zestril 10 mg daily, isosorbide mononitrate 60 mg daily. PHYSICAL EXAMINATION: Blood pressure 143/59 with a heart rate in 60s. Temperature 100.5. LUNGS: With crackles at the bases, no wheezes. HEART: Irregular regular, S1, S2. No S3 with systolic ejection murmur, no diastolic murmur, no rub. ABDOMEN: Soft, nontender. EXTREMITIES: No significant edema. LAB DATA: Revealed BUN and creatinine 32 and 1.17, potassium 3.6, hemoglobin 9.3. Troponin 1.080 on the down slope. Chest x-ray revealed bilateral infiltrate with increasing infiltrate on the left side. A brain CT revealed mild to moderate diffuse stable atrophy. IMPRESSION: 1. Respiratory failure with pneumonia, bilateral. 2. Ischemic cardiomyopathy, status post non-STEMI. 3. Atrial fibrillation. 4. Status post coronary artery bypass grafting. 5. Status post TAVR. 6. Diabetes. 7. Hypertension. 8. Hyperlipidemia. RECOMMENDATION: I will stop his IV nitroglycerin, switch him to oral nitrate. Continue the rest of his medical regimen and depending on his progress, further recommendation will be made. MMODL / IJN: [id number] /
[2019-10-18] MEDS: VANCOMYCIN 1,750 MG in SODIUM CHLORIDE 0.9% 500 ML 500 ML IVPB SCH (10:47)
[2019-10-18 11:47] LABS: Glucose,Whole Blood 182 mg/dL (75-99)
--- NOTE | 2019-10-18 14:36 | P.PN ---
Subjective Progress Note Date: 10/18/19 This is a 84-year-old male patient with history of coronary artery disease with previous bypass surgery, chronic atrial fibrillation and valvular heart disease who initially presented to the ED on 10/12/2019 with worsening shortness of breath and chest pain. The patient was found to be in A. fib RVR and he was also found to have a dense consolidation of the right lower lobe consistent with pneumonia. He was placed on BiPAP at a pressure of 12/5 cm of water and FiO2 of 50%. He was given IV fluids. He was started on a combination of Rocephin and Zithromax. He was placed on Cardizem drip for rate control and following that he was brought into the intensive care units. The patient tested negative for cough with 19 infection. Over the past 24 hours his atrial fibrillation is under better control. He is known to have aortic stenosis with TaVR procedure done. He is diabetic and has hyperlipidemia and hypertension and memory impairment and he is legally blind. His chest x-ray from yesterday showed improvement in the right lower lobe consolidation on the aeration of the right lung. There was some atelectatic changes in the left lung base. The patient was subsequently taken off the BiPAP. Currently is on 5 L of oxygen by nasal cannula with a pulse ox of 94%. Cultures have been negative thus far including the blood culture. The white cell count has been improving knowing that his initial white cell count is at 16. He remains on Eliquis for long-term anticoagulation. He is on metoprolol for rate control at a dose of 12.5 mg by mouth twice a day. He remains on IV Rocephin and Zithromax. On today's evaluation of 10/15/2019, the chest x-ray still showing extensive right lung consolidation. The patient has developed an acute non-ST segment elevation myocardial infarction. Troponin peaked at 11. History of any chest pain. He is complaining of diffuse body aches and the patient will be started back on his [place]. His blood pressure was noted to be elevated and appropriate changes will be done on the blood pressure medication. He is currently on metoprolol 25 mg by mouth twice a day. He is Norvasc was increased up to 10 mg an hour. He was started on clonidine 0.2 mg 3 times a day. He'll be kept on a combination of Eliquis and Plavix for now. IV fluids with normal state rate of 50 mL an hour and the patient is currently on oxygen at 5 L per minute nasal cannula. The dose being titrated to maintain a saturation above 90%. He remains on a combination of Rocephin and Zithromax for now. The echocardiogram showed a drop in the patient's ejection fraction which is down to 35-40%. There is segmental wall motion abnormalities. The patient has moderate concentric LVH. The patient also has a TAB are procedure done with moderate mitral annular calcifica tion and a maximum gradient across the aortic valve of 11 mmHg without signs of any pulmonary hypertension. He has hypertensive heart disease with concentric LVH. On today's evaluation of 10/16/2019, the patient is still struggling with a pneumonia and acute. Overnight the patient became a bit confused and I made recommendations to give him Haldol and acid basis for delirium and agitation. He ultimately had become more tachypneic and he was placed back on the BiPAP. This morning I took him off the BiPAP and put him on high flow oxygen 10 L per minute nasal cannula. His chest x-ray showing bilateral pulmonary infiltrates. The right sided consolidation is improving and there is worsening of the infiltrates on the left side. He was also having episodic fever and he had a temperature spike of 11.4 this morning. Based on that, I discontinue the Rocephin and switch this patient to a combination of IV cefepime, and Zithromax. Cultures still negative for now. Patient was also given a dose of Lasix 20 mg IV push. The white cell count is at 9.9. Sodium level is at 129. BUN is 24 w ith a creatinine of 1.0. No angina. No palpitations. He has impaired LV function as stated in his echocardiogram. On 10/17/2019, the patient is still struggling with a bilateral pneumonia. The chest x-ray from today shows extensive pulmonary infiltrates and there has been interval worsening and left-sided pulmonary infiltrates. The right-sided consolidations improved. Note that the patient was covered with a combination of cefepime and Zithromax and antibiotics which was done yesterday. He is going to be given a dose of Lasix today 40 mg IV push and his clinical response is to be monitored. Earlier today, the patient was seen in the intensive care unit. He was in atrial fibrillation. He was on high flow oxygen at 15 L per minute nasal cannula with a pulse ox of 92%. He was sleeping. I was told that he did not sleep throughout the night. He was a bit confused and this morning his sleep breathing very comfortably. No significant leukocytosis. White cell count at 9.8. Function is stable. The blood cultures of been negative for now. Note that the chest x-ray showed bilateral alveolar opacities/infiltrates slightly worse compared to yesterday chest x-ray. He is post coronary artery bypass surgery. He denies having any chest pain. His his pro-calcitonin level was at 2.9 from yesterday. On 10/18/2019, the patient's condition essentially the same compared to . There is still extensive infiltration of the lungs on today's chest x- ray with worsening on the left. Noted the patient's initial pneumonia was in the right and the patient subsequently developed infiltration of the left. He was initially on examination Rocephin and Zithromax. Rocephin was stopped and the patient was started on cefepime. Zithromax was continued. On today's evaluation going to add vancomycin. The patient had a pro-calcitonin level of 1.8 from yesterday. The patient's renal function is stable revealed a 33 creatinine of 1.1. He was given a dose of Lasix yesterday the patient remains in a negative fluid balance. The patient is on 10 L of oxygen by nasal cannula and his pulse ox is around 94%. On and off he has some limited confusion. Overnight the patient had an acute hypersensitivity reaction any also developed some chest pain. Based on that, I ordered nitroglycerin drip. This morning his blood pressure is under better control of the chest and has subsided. The patient was seen by cardiology again. He was taken off the nitroglycerin drip and he was started in November. He was also placed on an increased dose of Catapres 0.2 mg 3 times a day. The patient is also on lisinopril and metoprolol dose was also adjusted by cardiology. He is afebrile for now. Is a bit lethargic. He is arousable and follows commands and answers questions appropriately. No focal neurological deficits. No nausea. No vomiting. No emesis. He is free of any chest pain as stated for now. Objective - Vital Signs Vital signs: Vital Signs Temp 97.8 F 10/18/19 08:00 Pulse 61 10/18/19 14:00 Resp 22 10/18/19 14:00 BP 136/53 10/18/19 14:00 Pulse Ox 90 L 10/18/19 14:00 Intake & Output 10/17/19 10/18/19 10/18/19 18:59 06:59 18:59 Intake Total 950 728.9 1910 Output Total 1575 1140 405 Balance -625 -411.1 1505 Weight 106.8 kg Intake: IV 950 700 550 Azithromycin 500 mg In 250 250 Sodium Chloride 0.9% 250 ml @ 250 mls/hr IVPB DAILY [facility] Rx#:[id number] Cefepime 2 gm In Sodium 100 100 100 Chloride 0.9% 100 ml @ 200 mls/hr IVPB Q12HR [facility] Rx#:[id number] Sodium Chloride 0.9% 1, 600 600 200 000 ml @ 50 mls/hr IV . Q20H [facility] Rx#:[id number] Intake, IV Titration 28.9 1000 Amount Nitroglycerin-D5w Pmx 50 28.9 mg In Dextrose/Water 1 250ml.bag @ Titrate IV . Q0M [facility] Rx#:[id number] Vancomycin 1,750 mg In 1000 Sodium Chloride 0.9% 500 ml 500 ml @ 167 mls/hr IVPB Q24H [facility] Rx#: [id number] Oral 360 Output: Urine 1575 1140 405 Other: Voiding Method Indwelling Catheter Indwelling Catheter Indwelling Catheter - Exam CONSTITUTIONAL: And mild degree of respiratory distress currently on high flow oxygen between 10L per minute nasal cannula. Head exam was generally normal. There was no scleral icterus or corneal arcus. Mucous membranes were moist. generally normal. There was no scleral icterus or corneal arcus. Mucous membranes were moist. HEENT: Head is normocephalic. Pupils are equal, round. Sclerae anicteric. Mucous membranes of the mouth are moist. No JVD. No carotid bruit. CHEST EXAMINATION: Bibasilar rales, scattered rhonchi, no wheezes. No chest wall tenderness is noted on palpation or with deep breathing. HEART EXAMINATION: Irregular rate and rhythm. S1, S2 heard. Systolic ejection murmur at the base, no gallops or rub. ABDOMEN: Soft, nontender. Positive bowel sounds. EXTREMITIES: 2+ peripheral pulses, 2+ bilateral lower extremity pitting edema and no calf tenderness. Examination of the skin revealed no evidence of significant rashes, suspicious appearing nevi or other concerning lesions. NEUROLOGIC EXAMINATION: Patient is awake, alert and oriented x3. - Labs CBC & Chem 7: 10/18/19 05:04 10/18/19 05:04 Labs: Abnormal Lab Results - Last 24 Hours (Table) 10/17/19 10/17/19 10/18/19 Range/Units 17:41 20:06 05:04 RBC (4.30-5.90) m/uL Hgb (13.0-17.5) gm/dL Hct (39.0-53.0) % Neutrophils # (1.3-7.7) k/uL Lymphocytes # (1.0-4.8) k/uL Sodium (137-145) mmol/L Chloride (98-107) mmol/L BUN (9-20) mg/dL Glucose (74-99) mg/dL POC Glucose (mg/dL) 100 H 107 H (75-99) mg/dL Troponin I (0.000-0.034) ng/mL Procalcitonin 1.87 H (0.02-0.09) ng/mL 10/18/19 10/18/19 10/18/19 Range/Units 05:04 05:04 05:04 RBC 3.40 L (4.30-5.90) m/uL Hgb 9.3 L (13.0-17.5) gm/dL Hct 29.3 L (39.0-53.0) % Neutrophils # 8.4 H (1.3-7.7) k/uL Lymphocytes # 0.6 L (1.0-4.8) k/uL Sodium 130 L (137-145) mmol/L Chloride 94 L (98-107) mmol/L BUN 32 H (9-20) mg/dL Glucose 153 H (74-99) mg/dL POC Glucose (mg/dL) (75-99) mg/dL Troponin I 1.080 H* (0.000-0.034) ng/mL Procalcitonin (0.02-0.09) ng/mL 10/18/19 10/18/19 Range/Units 06:34 11:46 RBC (4.30-5.90) m/uL Hgb (13.0-17.5) gm/dL Hct (39.0-53.0) % Neutrophils # (1.3-7.7) k/uL Lymphocytes # (1.0-4.8) k/uL Sodium (137-145) mmol/L Chloride (98-107) mmol/L BUN (9-20) mg/dL Glucose (74-99) mg/dL POC Glucose (mg/dL) 170 H 182 H (75-99) mg/dL Troponin I (0.000-0.034) ng/mL Procalcitonin (0.02-0.09) ng/mL Microbiology - Last 24 Hours (Table) 10/12/19 08:25 Blood Culture - Final Blood No Growth after 144 hours 10/16/19 07:12 Blood Culture - Preliminary Blood No Growth after 48 hours 10/16/19 07:12 Blood Culture - Preliminary Blood No Growth after 48 hours Assessment and Plan Plan: 1 Multilobar pneumonia with extensive right lung consolidation, likely bacterial with secondary sepsis and hypoxic respiratory failure requiring BiPAP at a time of admission. Chest x-ray is showing improvement in the right lung consolidation with broad-spectrum antibiotics including a combination of Rocephin and Zithromax. Cultures are essentially negative thus far. COVID 19 infection was ruled out. The patient remains on IV liters of oxygen by nasal cannula. Chest x-ray still showing extensive consolidation of the right lung. On 10/14/2018, the patient is still having active infiltration of the lungs based on today's chest x-ray and there is interval worsening of the left lung pneumonia. As stated, the urge antibiotic coverage with Rocephin and Zithromax. Rocephin was switched to cefepime and today vancomycin will be added. A follow-up chest x-ray will be ordered for tomorrow. Chest x-ray findings are noted. White cell count is still stable at 9.9. A patient is afebrile. The cultures were all negative. The patient is currently off the BiPAP. 2 Acute hypoxic respiratory failure requiring BiPAP at a time of admission currently on 10 L of oxygen by nasal cannula 3 Persistent atrial fibrillation with rapid ventricular response, likely precipitated by sepsis, rate is controlled 4 Coronary artery disease with bypass, with an acute non-ST segment elevation myocardial infarction 5 Chronic congestive heart failure from diastolic dysfunction EF 55-60%, the patient suffered an acute non-STEMI and there has been further drop in a ejection fraction down to 35-40% along with segmental wall motion abnormalities involving the anterior septal apical goode. 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, and the creatinine is improved and normalized 7 Diabetes mellitus type 2 8 Essential hypertension 9 Hyperlipidemia 10 History of aortic valve replacement with TAVR, functioning valve 11 Mild cognitive impairment 12 delirium, currently using Haldol on a when necessary basis, no agitation Plan Continue Zithromax and cefepime and add vancomycin as an empiric antibiotic coverage Monitor fever pattern Keep the patient on high flow oxygen and the patient is currently on 10 L of oxygen by nasal cannula Titrate oxygen flow to maintain a saturation above 90% Discontinue nitroglycerin drip and put the patient oral nitroglycerin in the form of imdur Adjust the antihypertensive medication dose including Catapres, and metoprolol and the patient is also on Norvasc Continue Plavix/Eliquis Cardiology is aware of the acute non-STEMI and the repeat echo results Monitor mental status Daily chest x-rays We'll continue to follow This is a critically care evaluation that was done and more than 30 minutes. Case was discussed with cardiology. Time with Patient: Greater than 30
[2019-10-18 17:57] LABS: Glucose,Whole Blood 133 mg/dL (75-99)
[2019-10-18] MEDS: ATORVASTATIN 40 MG TAB PO SCH (20:53)
--- NOTE | 2019-10-18 20:54 | P.PN ---
Subjective This is a very pleasant 84-year-old patient of Dr. 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 Chronic stable medical conditions include congestive heart failure EF 55-60%, diabetes, hypertension, hyperlipidemia, CK disease stage 2, history of aortic valve replacement with TAVR, mild cognitive impairment.egally blind and decreased hearing.. February 2019 had acute non-Q-wave IL with coronary intervention with angioplasty stent. Also admitted in May 2019 with paroxysmal atrial fibrillation. Started on eliquis. Patient now presents to the ER what is described as significant chest pain sharp shortness of breath. Patient is on a BiPAP currently in the ICU. Because of respiratory distress. COVID-19 was negative. Slight cough. Had a fever documented here for 100.6. Patient's history is limited because of shortness of breath. Unable to qualify the chest pain further. Found to be in atrial fibrillation with a rapid ventricular rate Admitted with-multilobar pneumonia, acute hypoxic respiratory failure, acute non-Q-wave myocardial infarction, atrial fibrillation uncontrolled. Admitted to ICU. Patient was on BiPAP.-Then switched over to high flow oxygen Today-ICU: Still requiring about 12 L on nasal cannula oxygen. No trouble swallowing food no choking. Her weight. Answering simple questions. Atrial fibrillation controlled. On-call hospitalist covering Dr. Dorman for first day today 10/17/2019 This is a pleasant 84 years old male who was admitted on 10/11 for dyspnea found to have A. fib with RVR and he was started on Cardizem drip and IV fluid Because of his dyspnea he was placed on BiPAP and sent to the ICU from the [facility] unit. Chest x-ray showing right-sided consolidation suspicious for pneumonia with mass cannot be excluded Patient was started on antibiotics and currently he is on Zithromax and cefepime . Patient is off BiPAP currently and he is on 12 L oxygen via high flow cannula Last night he was seen sitting on the floor suspicious for a fall. Today patient is very lethargic but arousable. He got one time of Lasix today, also patient noted to be an Eliquis We'll check CT of the brain given his fall and lethargy 10/18/2019 Patient remains lethargic however he is awake and follow commands. Brain CT of the head from yesterday is negative. Today his chest x-ray was showing worsening especially on the left side and antibiotic was adjusted with Rocephin has been discontinued and patient was started on cefepime and IV vancomycin. Patient is saturating in the 90s while he is on telemetry to oxygen via nasal cannula. Her calcitonin is elevated as well at 1.8 Clonidine, Imdur and lisinopril 10 mg daily was added for better blood pressure control, cardiology R following the case closely. We will monitor his renal function Labs are reviewed, sodium 130, slightly dropped from yesterday. Rest of labs are stable Review of system: N/a Active Medications Generic Name Dose Route Start Last Admin Trade Name Freq PRN Reason Stop Dose Admin Acetaminophen 650 mg 10/16/19 06:50 10/18/19 04:18 Tylenol Tab PO 650 mg Q6HR PRN Administration Fever and/ or Pain Hydrocodone Bitart/Acetaminophen 1 each 10/17/19 01:30 10/17/19 21:51 [place] 5-325 PO 1 each Q6HR PRN Administration Pain Allopurinol 100 mg 10/12/19 21:00 10/18/19 08:40 Zyloprim PO 100 mg BID [facility] Administration Alprazolam 0.25 mg 10/15/19 09:38 10/18/19 04:18 Xanax PO 0.25 mg TID PRN Administration Anxiety Amlodipine Besylate 10 mg 10/15/19 08:00 10/18/19 08:41 Norvasc PO 10 mg DAILY [facility] Administration Apixaban 5 mg 10/14/19 09:00 10/18/19 08:41 Eliquis PO 5 mg BID [facility] Administration Atorvastatin Calcium 40 mg 10/15/19 21:00 10/17/19 20:14 Lipitor PO 40 mg HS [facility] Administration Clonidine 0.2 mg 10/18/19 09:00 10/18/19 15:54 Catapres PO 0.2 mg TID [facility] Administration Clopidogrel Bisulfate 75 mg 10/12/19 11:15 10/18/19 08:40 Plavix PO 75 mg DAILY [facility] Administration Haloperidol Lactate 1 mg 10/16/19 01:38 10/16/19 01:56 Haldol IVP 1 mg Q2HR PRN Administration Agitation or Acute Psychosis Haloperidol Lactate 1 mg 10/16/19 01:38 Haldol IVP Q4HR PRN Agitation or Acute Psychosis Haloperidol Lactate 2 mg 10/16/19 01:41 10/16/19 23:25 Haldol IVP 2 mg Q2HR PRN Administration Agitation or Acute Psychosis Haloperidol Lactate 2 mg 10/16/19 01:41 Haldol IVP Q4HR PRN Agitation or Acute Psychosis Hydralazine HCl 100 mg 10/14/19 09:00 10/18/19 15:54 Apresoline PO 100 mg TID [facility] Administration Hydrochlorothiazide 25 mg 10/15/19 09:00 10/18/19 08:40 Hydrodiuril PO 25 mg DAILY [facility] Administration Sodium Chloride 1,000 mls @ 50 mls/hr 10/12/19 09:00 10/18/19 03:59 Saline 0.9% IV 50 mls/hr .Q20H [facility] Administration Azithromycin 500 mg/ Sodium 250 mls @ 250 mls/hr 10/13/19 09:00 10/18/19 09:52 Chloride IVPB 250 mls/hr DAILY [facility] Administration Cefepime HCl 2 gm/ Sodium 100 mls @ 200 mls/hr 10/16/19 09:00 10/18/19 08:40 Chloride IVPB 200 mls/hr Q12HR [facility] Administration Vancomycin HCl 1,750 mg/ 500 mls @ 167 mls/hr 10/18/19 10:00 10/18/19 10:47 Sodium Chloride IVPB 167 mls/hr Q24H [facility] Administration Insulin Aspart 0 unit 10/15/19 07:30 10/18/19 17:59 Novolog SQ Not Given ACHS [facility] Protocol Isosorbide Mononitrate 120 mg 10/18/19 09:00 10/18/19 08:41 Imdur PO 120 mg DAILY [facility] Administration Lisinopril 10 mg 10/18/19 09:00 10/18/19 08:40 Zestril PO 10 mg DAILY [facility] Administration Metoprolol Tartrate 50 mg 10/17/19 09:00 10/18/19 08:41 Lopressor PO 50 mg BID [facility] Administration Miscellaneous Information 1 each 10/15/19 07:54 Potassium Per Protocol MISCELLANE DAILY PRN Per Protocol Protocol Naloxone HCl 0.2 mg 10/12/19 08:40 Narcan IV Q2M PRN Opioid Reversal Nitroglycerin 0.4 mg 10/14/19 15:48 Nitrostat SUBLINGUAL Q5M PRN Chest Pain Pantoprazole Sodium 40 mg 10/15/19 07:30 10/18/19 06:44 Protonix PO 40 mg AC-BRKFST [facility] Administration Objective - Vital Signs Vital signs: Vital Signs Temp 97.8 F 10/18/19 08:00 Pulse 53 L 10/18/19 15:00 Resp 20 10/18/19 15:00 BP 122/61 10/18/19 15:00 Pulse Ox 90 L 10/18/19 15:00 Intake & Output 10/17/19 10/18/19 10/18/19 18:59 06:59 18:59 Intake Total 950 728.9 1960 Output Total 1575 1140 455 Balance -625 -411.1 1505 Weight 106.8 kg Intake: IV 950 700 600 Azithromycin 500 mg In 250 250 Sodium Chloride 0.9% 250 ml @ 250 mls/hr IVPB DAILY [facility] Rx#:[id number] Cefepime 2 gm In Sodium 100 100 100 Chloride 0.9% 100 ml @ 200 mls/hr IVPB Q12HR [facility] Rx#:[id number] Sodium Chloride 0.9% 1, 600 600 250 000 ml @ 50 mls/hr IV . Q20H [facility] Rx#:[id number] Intake, IV Titration 28.9 1000 Amount Nitroglycerin-D5w Pmx 50 28.9 mg In Dextrose/Water 1 250ml.bag @ Titrate IV . Q0M [facility] Rx#:[id number] Vancomycin 1,750 mg In 1000 Sodium Chloride 0.9% 500 ml 500 ml @ 167 mls/hr IVPB Q24H [facility] Rx#: [id number] Oral 360 Output: Urine 1575 1140 455 Other: Voiding Method Indwelling Catheter Indwelling Catheter Indwelling Catheter - Exam -GENERAL: The patient is alert and oriented , but he is very weak and lethargic HEENT: Pupils are round and equally reacting to light. EOMI. No scleral icterus. No conjunctival pallor. Normocephalic, atraumatic. No pharyngeal erythema. No thyromegaly. CARDIOVASCULAR: S1 and S2 present. No murmurs, rubs, or gallops. -PULMONARY: Chest is clear to auscultation, no wheezing or crackles. Decreased breath sounds on both sides especially basal ABDOMEN: Soft, nontender, nondistended, normoactive bowel sounds. No palpable organomegaly. MUSCULOSKELETAL: No joint swelling or deformity. EXTREMITIES: No cyanosis, clubbing, or pedal edema. NEUROLOGICAL: Gross neurological examination did not reveal any focal deficits. SKIN: No rashes. no petechiae. - Labs CBC & Chem 7: 10/18/19 05:04 10/18/19 05:04 Labs: Abnormal Lab Results - Last 24 Hours (Table) 10/17/19 10/17/19 10/18/19 Range/Units 17:41 20:06 05:04 RBC (4.30-5.90) m/uL Hgb (13.0-17.5) gm/dL Hct (39.0-53.0) % Neutrophils # (1.3-7.7) k/uL Lymphocytes # (1.0-4.8) k/uL Sodium (137-145) mmol/L Chloride (98-107) mmol/L BUN (9-20) mg/dL Glucose (74-99) mg/dL POC Glucose (mg/dL) 100 H 107 H (75-99) mg/dL Troponin I (0.000-0.034) ng/mL Procalcitonin 1.87 H (0.02-0.09) ng/mL 10/18/19 10/18/19 10/18/19 Range/Units 05:04 05:04 05:04 RBC 3.40 L (4.30-5.90) m/uL Hgb 9.3 L (13.0-17.5) gm/dL Hct 29.3 L (39.0-53.0) % Neutrophils # 8.4 H (1.3-7.7) k/uL Lymphocytes # 0.6 L (1.0-4.8) k/uL Sodium 130 L (137-145) mmol/L Chloride 94 L (98-107) mmol/L BUN 32 H (9-20) mg/dL Glucose 153 H (74-99) mg/dL POC Glucose (mg/dL) (75-99) mg/dL Troponin I 1.080 H* (0.000-0.034) ng/mL Procalcitonin (0.02-0.09) ng/mL 10/18/19 10/18/19 Range/Units 06:34 11:46 RBC (4.30-5.90) m/uL Hgb (13.0-17.5) gm/dL Hct (39.0-53.0) % Neutrophils # (1.3-7.7) k/uL Lymphocytes # (1.0-4.8) k/uL Sodium (137-145) mmol/L Chloride (98-107) mmol/L BUN (9-20) mg/dL Glucose (74-99) mg/dL POC Glucose (mg/dL) 170 H 182 H (75-99) mg/dL Troponin I (0.000-0.034) ng/mL Procalcitonin (0.02-0.09) ng/mL Microbiology - Last 24 Hours (Table) 10/12/19 08:25 Blood Culture - Final Blood No Growth after 144 hours 10/16/19 07:12 Blood Culture - Preliminary Blood No Growth after 48 hours 10/16/19 07:12 Blood Culture - Preliminary Blood No Growth after 48 hours Assessment and Plan Assessment: -Bilateral pneumonia -Acute hypoxic respiratory failure requiring BiPAP -Persistent atrial fibrillation with rapid ventricular response, likely precipitated by sepsis -Significantly elevated troponin up to 11. Acute non-Q-wave myocardial infarction, POA -Fall -Generalized weakness and lethargy, multifactorial due to his infection and h ypoxia and possible medication. 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 Continue with Protonix antibiotic. Follow-up chest x-ray. Patient is followed closely by pulmonary/critical care team. Cardiology also on the case. Monitor blood pressure. Remains on 12 L nasal cannula. Monitor the patient closely. Patient is on Plavix and Eliquis and statin. Also continue with gentle hydration Labs and medication were reviewed.. Continue same treatment. Continue with symptomatic treatment. Resume home medication. Monitor lytes and vitals. DVT and GI prophylaxis. Further recommendations of the clinical course of the patient DVT prophylaxis: Eliquis GI Prophylaxis: Ppi Prognosis is guarded
[2019-10-18 21:06] LABS: Glucose,Whole Blood 122 mg/dL (75-99)
[2019-10-19] MEDS: ALPRAZolam 0.25 MG TAB PO PRN ×2 (05:49→21:36)
[2019-10-19] MEDS: SODIUM CHLORIDE 0.9% 1,000 ML IV SCH ×2 (05:49→21:30)
[2019-10-19 06:22] LABS: Glucose,Whole Blood 122 mg/dL (75-99)
[2019-10-19] MEDS: INSULIN ASPART (NovoLOG) 100 UNIT/ML VIAL SQ SCH ×4 (06:29→21:20)
[2019-10-19] MEDS: PANTOPRAZOLE 40 MG TABLET PO SCH (06:34)
[2019-10-19] MEDS ORDERED: FUROSEMIDE 10 MG/ML 4 ML VIAL ONE (07:00)
--- NOTE | 2019-10-19 07:24 | XR ---
EXAMINATION TYPE: XR chest 1V portable DATE OF EXAM: 10/19/2019 Comparison: 10/18/2019 Clinical History: 84-year-old male difficulty breathing chest pain Findings: Median sternotomy wires with postsurgical clips in the mediastinum. Heart borderline enlarged. Patchy and confluent bilateral airspace opacities are relatively similar. No sizable effusion. Impression: Patchy and confluent bilateral airspace disease relatively unchanged.
[2019-10-19 08:46] LABS: Calcium 9.3 mg/dL (8.4-10.2); Potassium 3.6 mmol/L (3.5-5.1)
[2019-10-19] MEDS: NITROGLYCERIN-D5W PMX 50 MG in DEXTROSE/WATER 1 250ML.BAG IV SCH (09:09)
[2019-10-19] MEDS: ALLOPURINOL 100 MG TAB PO SCH ×2 (09:10→21:29)
[2019-10-19] MEDS: HYDROCHLOROTHIAZIDE 25 MG TAB PO SCH (09:10)
[2019-10-19] MEDS: amLODIPine 10 MG TAB PO SCH (09:10)
[2019-10-19] MEDS: CLOPIDOGREL 75 MG TAB PO SCH (09:11)
[2019-10-19] MEDS: cloNIDine HCL 0.1 MG TAB PO SCH ×3 (09:11→21:30)
[2019-10-19] MEDS: APIXABAN 5 MG TAB PO SCH ×2 (09:11→21:29)
[2019-10-19] MEDS: hydrALAZINE HCL 50 MG TAB PO SCH ×3 (09:11→21:28)
[2019-10-19] MEDS: LISINOPRIL 10 MG TAB PO SCH (09:11)
[2019-10-19] MEDS: METOPROLOL TARTRATE 50 MG TAB PO SCH ×2 (09:11→21:29)
[2019-10-19] MEDS: CEFEPIME 2 GM in SODIUM CHLORIDE 0.9% 100 ML IVPB SCH (09:11)
--- NOTE | 2019-10-19 10:31 | P.PN ---
Subjective Progress Note Date: 10/19/19 This is a pleasant 84-year-old male past medical history significant for coronary artery disease status post bypass grafting with subsequent PCI to the vein grafts in the setting of a NSTEMI 02/2019, persistent atrial fibrillation, valvular heart disease status post TAVR 2014, diabetes mellitus, chronic diastolic heart failure, hypertension and dyslipidemia. He follows in the office with Dr. Malloy. We were following the patient because of atrial fibrillation with a rapid ventricular response, patient also incurred a non- STEMI. He has been receiving treatment for multilobular pneumonia. This morning patient had an episode of severe chest pain, he was also quite hypoxic with an O2 saturation less than 80. Patient was given some IV diuretics as well as a breathing treatment. At the time of my examination he had already diuresed 800 to the thousand cc of urine. His creatinine today is 1.5 and at the time of my examination he is currently chest pain-free. Blood pressure 160/80 with a heart rate in the 80s, he is 91% on BiPAP currently. Sodium 134, potassium 3.6, BUN 43, creatinine 1.4. Objective - Vital Signs Vital signs: Vital Signs Temp 98.2 F 10/19/19 04:00 Pulse 94 10/19/19 07:20 Resp 32 H 10/19/19 06:55 BP 164/80 10/19/19 06:55 Pulse Ox 95 10/19/19 07:20 Intake & Output 10/18/19 10/19/19 10/19/19 18:59 06:59 18:59 Intake Total 2170 270 Output Total 545 465 Balance 1625 -195 Weight 107.5 kg Intake: IV 750 150 Azithromycin 500 mg In 250 Sodium Chloride 0.9% 250 ml @ 250 mls/hr IVPB DAILY [facility] Rx#:[id number] Cefepime 2 gm In Sodium 100 Chloride 0.9% 100 ml @ 200 mls/hr IVPB Q12HR [facility] Rx#:[id number] Sodium Chloride 0.9% 1, 400 150 000 ml @ 50 mls/hr IV . Q20H [facility] Rx#:[id number] Intake, IV Titration 1000 Amount Vancomycin 1,750 mg In 1000 Sodium Chloride 0.9% 500 ml 500 ml @ 167 mls/hr IVPB Q24H [facility] Rx#: [id number] Oral 420 120 Output: Urine 545 465 Other: Voiding Method Indwelling Catheter Indwelling Catheter - Exam CONSTITUTIONAL: 84-year-old gentleman in no acute distress at the time of my examination, he is currently on BiPAP Head exam was generally normal. There was no scleral icterus or corneal arcus. Mucous membranes were moist. generally normal. There was no scleral icterus or corneal arcus. Mucous membranes were moist. HEENT: Head is normocephalic. Pupils are equal, round. Sclerae anicteric. Mucous membranes of the mouth are moist. No JVD. No carotid bruit. CHEST EXAMINATION: Bibasilar rales, scattered rhonchi, no wheezes. No chest wall tenderness is noted on palpation or with deep breathing. HEART EXAMINATION: Irregular rate and rhythm. S1, S2 heard. Systolic ejection murmur at the base, no gallops or rub. ABDOMEN: Soft, nontender. Positive bowel sounds. EXTREMITIES: 2+ peripheral pulses, 2+ bilateral lower extremity pitting edema and no calf tenderness. Examination of the skin revealed no evidence of significant rashes, suspicious appearing nevi or other concerning lesions. NEUROLOGIC EXAMINATION: Patient is awake, alert and oriented x3. - Labs CBC & Chem 7: 10/18/19 05:04 10/19/19 07:29 Labs: Abnormal Lab Results - Last 24 Hours (Table) 10/18/19 10/18/19 10/18/19 Range/Units 05:04 11:46 17:56 Sodium (137-145) mmol/L BUN (9-20) mg/dL Creatinine (0.66-1.25) mg/dL Glucose (74-99) mg/dL POC Glucose (mg/dL) 182 H 133 H (75-99) mg/dL Procalcitonin 1.87 H (0.02-0.09) ng/mL 10/18/19 10/19/19 10/19/19 Range/Units 21:03 06:20 07:29 Sodium 134 L (137-145) mmol/L BUN 43 H (9-20) mg/dL Creatinine 1.48 H (0.66-1.25) mg/dL Glucose 119 H (74-99) mg/dL POC Glucose (mg/dL) 122 H 122 H (75-99) mg/dL Procalcitonin (0.02-0.09) ng/mL Microbiology - Last 24 Hours (Table) 10/16/19 07:12 Blood Culture - Preliminary Blood No Growth after 72 hours 10/16/19 07:12 Blood Culture - Preliminary Blood No Growth after 72 hours 10/12/19 08:25 Blood Culture - Final Blood No Growth after 144 hours Assessment and Plan Plan: Assessment and Plan: #1 Multilobar pneumonia with extensive right lung consolidation, likely derrell terial with secondary sepsis and hypoxic respiratory failure requiring BiPAP #2 Acute hypoxic respiratory failure requiring BiPAP #3 Persistent atrial fibrillation with rapid ventricular response, rate is controlled #4 Coronary artery disease with bypass, with an acute non-ST segment elevation myocardial infarction #5 acute on Chronic congestive heart failure from diastolic dysfunction EF 55- 60%, #6 Chronic kidney disease stage II #7 Diabetes mellitus type 2 #8 Essential hypertension #9 Hyperlipidemia #10 History of aortic valve replacement with TAVR #11 Mild cognitive impairment Plan Patient was given IV Lasix earlier this morning and is diuresing well from that. We will continue the Imdur he is on as well as the rest of his medications. DNP note has been reviewed, I agree with a documented findings and plan of care. Patient was seen and examined.
[2019-10-19] MEDS ORDERED: VANCOMYCIN IV PER PHARMACY 1 EACH MISC MISCELLANE PRN (11:17)
--- NOTE | 2019-10-19 11:21 | P.PN ---
Subjective This is a very pleasant 84-year-old patient of Dr. magallanes. 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 Chronic stable medical conditions include congestive heart failure EF 55-60%, diabetes, hypertension, hyperlipidemia, CK disease stage 2, history of aortic valve replacement with TAVR, mild cognitive impairment.egally blind and decreased hearing.. February 2019 had acute non-Q-wave TX with coronary intervention with angioplasty stent. Also admitted in May 2019 with paroxysmal atrial fibrillation. Started on eliquis. Patient now presents to the ER what is described as significant chest pain sharp shortness of breath. Patient is on a BiPAP currently in the ICU. Because of respiratory distress. COVID-19 was negative. Slight cough. Had a fever documented here for 100.6. Patient's history is limited because of shortness of breath. Unable to qualify the chest pain further. Found to be in atrial fibrillation with a rapid ventricular rate Admitted with-multilobar pneumonia, acute hypoxic respiratory failure, acute non-Q-wave myocardial infarction, atrial fibrillation uncontrolled. Admitted to ICU. Patient was on BiPAP.-Then switched over to high flow oxygen Today-ICU: Still requiring about 12 L on nasal cannula oxygen. No trouble swallowing food no choking. Her weight. Answering simple questions. Atrial fibrillation controlled. On-call hospitalist covering Dr. Dormna for first day today 10/17/2019 This is a pleasant 84 years old male who was admitted on 10/11 for dyspnea found to have A. fib with RVR and he was started on Cardizem drip and IV fluid Because of his dyspnea he was placed on BiPAP and sent to the ICU from the select unit. Chest x-ray showing right-sided consolidation suspicious for pneumonia with mass cannot be excluded Patient was started on antibiotics and currently he is on Zithromax and cefepime . Patient is off BiPAP currently and he is on 12 L oxygen via high flow cannula Last night he was seen sitting on the floor suspicious for a fall. Today patient is very lethargic but arousable. He got one time of Lasix today, also patient noted to be an Eliquis We'll check CT of the brain given his fall and lethargy 10/18/2019 Patient remains lethargic however he is awake and follow commands. Brain CT of the head from yesterday is negative. Today his chest x-ray was showing worsening especially on the left side and antibiotic was adjusted with Rocephin has been discontinued and patient was started on cefepime and IV vancomycin. Patient is saturating in the 90s while he is on telemetry to oxygen via nasal cannula. Her calcitonin is elevated as well at 1.8 Clonidine, Imdur and lisinopril 10 mg daily was added for better blood pressure control, cardiology R following the case closely. We will monitor his renal function Labs are reviewed, sodium 130, slightly dropped from yesterday. Rest of labs are stable 10/19/2019 Patient seen and select unit. He looks more awake and alert however he still lethargic. He was on BiPAP machine and could not provide much information. Either during the day he was saturating 86-93 on 50 L oxygen via nasal cannula. Is slightly tachypneic high 20s to low 30s. Creatinine is slightly worse at 1.4. However his baseline and it looks like around 1-1.38, sodium is improving to 134, Chest x-ray showing unchanged bilateral infiltrates Patient got 1 dose of Lasix 40 mg a morning which was held now. He remains on normal saline at 50 mL per hour. There is also an Eliquis 5 mg, is on several antibiotics and Zithromax, cefepime and vancomycin , pharmacy dosing is ordered Patient is followed closely by cardiology and pulmonary service. We'll keep monitoring the patient including his creatinine. Review of system: N/a Active Medications Generic Name Dose Route Start Last Admin Trade Name Freq PRN Reason Stop Dose Admin Acetaminophen 650 mg 10/16/19 06:50 10/18/19 04:18 Tylenol Tab PO 650 mg Q6HR PRN Administration Fever and/ or Pain Hydrocodone Bitart/Acetaminophen 1 each 10/17/19 01:30 10/17/19 21:51 [place] 5-325 PO 1 each Q6HR PRN Administration Pain Allopurinol 100 mg 10/12/19 21:00 10/19/19 09:10 Zyloprim PO 100 mg BID JUSTIN Administration Alprazolam 0.25 mg 10/15/19 09:38 10/19/19 05:49 Xanax PO 0.25 mg TID PRN Administration Anxiety Amlodipine Besylate 10 mg 10/15/19 08:00 10/19/19 09:10 Norvasc PO 10 mg DAILY JUSTIN Administration Apixaban 5 mg 10/14/19 09:00 10/19/19 09:11 Eliquis PO 5 mg BID JUSTIN Administration Atorvastatin Calcium 40 mg 10/15/19 21:00 10/18/19 20:53 Lipitor PO 40 mg HS JUSTIN Administration Clonidine 0.2 mg 10/18/19 09:00 10/19/19 09:11 Catapres PO 0.2 mg TID JUSTIN Administration Clopidogrel Bisulfate 75 mg 10/12/19 11:15 10/19/19 09:11 Plavix PO 75 mg DAILY JUSTIN Administration Haloperidol Lactate 1 mg 10/16/19 01:38 10/16/19 01:56 Haldol IVP 1 mg Q2HR PRN Administration Agitation or Acute Psychosis Haloperidol Lactate 1 mg 10/16/19 01:38 Haldol IVP Q4HR PRN Agitation or Acute Psychosis Haloperidol Lactate 2 mg 10/16/19 01:41 10/16/19 23:25 Haldol IVP 2 mg Q2HR PRN Administration Agitation or Acute Psychosis Haloperidol Lactate 2 mg 10/16/19 01:41 Haldol IVP Q4HR PRN Agitation or Acute Psychosis Hydralazine HCl 100 mg 10/14/19 09:00 10/19/19 09:11 Apresoline PO 100 mg TID JUSTIN Administration Hydrochlorothiazide 25 mg 10/15/19 09:00 10/19/19 09:10 Hydrodiuril PO 25 mg DAILY JUSTIN Administration Sodium Chloride 1,000 mls @ 50 mls/hr 10/12/19 09:00 10/19/19 05:49 Saline 0.9% IV 50 mls/hr .Q20H JUSTIN Administration Azithromycin 500 mg/ Sodium 250 mls @ 250 mls/hr 10/13/19 09:00 10/18/19 09:52 Chloride IVPB 250 mls/hr DAILY JUSTIN Administration Cefepime HCl 2 gm/ Sodium 100 mls @ 200 mls/hr 10/16/19 09:00 10/19/19 09:11 Chloride IVPB 200 mls/hr Q12HR JUSTIN Administration Vancomycin HCl 1,750 mg/ 500 mls @ 167 mls/hr 10/18/19 10:00 10/18/19 10:47 Sodium Chloride IVPB 167 mls/hr Q24H JUSTIN Administration Nitroglycerin/Dextrose 50 mg/ 250 mls @ 1.5 mls/hr 10/19/19 08:00 10/19/19 09:09 IV Solution IV Not Given .Q24H [facility] Protocol 5 MCG/MIN Insulin Aspart 0 unit 10/15/19 07:30 10/19/19 06:29 Novolog SQ Not Given ACHS [facility] Protocol Lisinopril 10 mg 10/18/19 09:00 10/19/19 09:11 Zestril PO 10 mg DAILY JUSTIN Administration Metoprolol Tartrate 50 mg 10/17/19 09:00 10/19/19 09:11 Lopressor PO 50 mg BID JUSTIN Administration Miscellaneous Information 1 each 10/15/19 07:54 Potassium Per Protocol MISCELLANE DAILY PRN Per Protocol Protocol Naloxone HCl 0.2 mg 10/12/19 08:40 Narcan IV Q2M PRN Opioid Reversal Nitroglycerin 0.4 mg 10/14/19 15:48 Nitrostat SUBLINGUAL Q5M PRN Chest Pain Pantoprazole Sodium 40 mg 10/15/19 07:30 10/19/19 06:34 Protonix PO 40 mg [id number] JUSTIN Administration Objective - Vital Signs Vital signs: Vital Signs Temp 98.2 F 10/19/19 04:00 Pulse 94 10/19/19 07:20 Resp 32 H 10/19/19 06:55 BP 164/80 10/19/19 06:55 Pulse Ox 95 10/19/19 07:20 Intake & Output 10/18/19 10/19/19 10/19/19 18:59 06:59 18:59 Intake Total 2170 270 Output Total 545 465 Balance 1625 -195 Weight 107.5 kg Intake: IV 750 150 Azithromycin 500 mg In 250 Sodium Chloride 0.9% 250 ml @ 250 mls/hr IVPB DAILY [facility] Rx#:[id number] Cefepime 2 gm In Sodium 100 Chloride 0.9% 100 ml @ 200 mls/hr IVPB Q12HR [facility] Rx#:[id number] Sodium Chloride 0.9% 1, 400 150 000 ml @ 50 mls/hr IV . Q20H [facility] Rx#:[id number] Intake, IV Titration 1000 Amount Vancomycin 1,750 mg In 1000 Sodium Chloride 0.9% 500 ml 500 ml @ 167 mls/hr IVPB Q24H [facility] Rx#: [id number] Oral 420 120 Output: Urine 545 465 Other: Voiding Method Indwelling Catheter Indwelling Catheter - Exam -GENERAL: The patient is alert and oriented , but he is very weak and lethargic HEENT: Pupils are round and equally reacting to light. EOMI. No scleral icterus. No conjunctival pallor. Normocephalic, atraumatic. No pharyngeal erythema. No thyromegaly. CARDIOVASCULAR: S1 and S2 present. No murmurs, rubs, or gallops. -PULMONARY: Chest is clear to auscultation, no wheezing or crackles. Decreased breath sounds on both sides especially basal ABDOMEN: Soft, nontender, nondistended, normoactive bowel sounds. No palpable organomegaly. MUSCULOSKELETAL: No joint swelling or deformity. EXTREMITIES: No cyanosis, clubbing, or pedal edema. NEUROLOGICAL: Gross neurological examination did not reveal any focal deficits. SKIN: No rashes. no petechiae. - Labs CBC & Chem 7: 10/18/19 05:04 10/19/19 07:29 Labs: Abnormal Lab Results - Last 24 Hours (Table) 10/18/19 10/18/19 10/18/19 Range/Units 05:04 11:46 17:56 Sodium (137-145) mmol/L BUN (9-20) mg/dL Creatinine (0.66-1.25) mg/dL Glucose (74-99) mg/dL POC Glucose (mg/dL) 182 H 133 H (75-99) mg/dL Procalcitonin 1.87 H (0.02-0.09) ng/mL 10/18/19 10/19/19 10/19/19 Range/Units 21:03 06:20 07:29 Sodium 134 L (137-145) mmol/L BUN 43 H (9-20) mg/dL Creatinine 1.48 H (0.66-1.25) mg/dL Glucose 119 H (74-99) mg/dL POC Glucose (mg/dL) 122 H 122 H (75-99) mg/dL Procalcitonin (0.02-0.09) ng/mL Microbiology - Last 24 Hours (Table) 10/16/19 07:12 Blood Culture - Preliminary Blood No Growth after 72 hours 10/16/19 07:12 Blood Culture - Preliminary Blood No Growth after 72 hours 10/12/19 08:25 Blood Culture - Final Blood No Growth after 144 hours Assessment and Plan Assessment: -Bilateral pneumonia -Acute hypoxic respiratory failure requiring BiPAP -Persistent atrial fibrillation with rapid ventricular response, likely precipitated by sepsis -Significantly elevated troponin up to 11. Acute non-Q-wave myocardial infarction, POA -Fall -Generalized weakness and lethargy, multifactorial due to his infection and hypoxia and possible medication. 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 Continue with Protonix antibiotic. Follow-up chest x-ray. Patient is followed closely by pulmonary/critical care team. Cardiology also on the case. Monitor blood pressure. Remains on 12 L nasal cannula. Monitor the patient closely. Patient is on Plav ix and Eliquis and statin. Also continue with gentle hydration Labs and medication were reviewed.. Continue same treatment. Continue with symptomatic treatment. Resume home medication. Monitor lytes and vitals. DVT and GI prophylaxis. Further recommendations of the clinical course of the jassi ent DVT prophylaxis: Eliquis GI Prophylaxis: Ppi Prognosis is guarded
[2019-10-19 11:32] LABS: Glucose,Whole Blood 140 mg/dL (75-99)
[2019-10-19] MEDS: AZITHROMYCIN 500 MG in SODIUM CHLORIDE 0.9% 250 ML IVPB SCH (12:29)
[2019-10-19] MEDS: VANCOMYCIN 1,750 MG in SODIUM CHLORIDE 0.9% 500 ML 500 ML IVPB SCH (12:52)
--- NOTE | 2019-10-19 14:27 | P.PN ---
Subjective Progress Note Date: 10/19/19 This is a 84-year-old male patient with history of coronary artery disease with previous bypass surgery, chronic atrial fibrillation and valvular heart disease who initially presented to the ED on 10/12/2019 with worsening shortness of breath and chest pain. The patient was found to be in A. fib RVR and he was also found to have a dense consolidation of the right lower lobe consistent with pneumonia. He was placed on BiPAP at a pressure of 12/5 cm of water and FiO2 of 50%. He was given IV fluids. He was started on a combination of Rocephin and Zithromax. He was placed on Cardizem drip for rate control and following that he was brought into the intensive care units. The patient tested negative for cough with 19 infection. Over the past 24 hours his atrial fibrillation is under better control. He is known to have aortic stenosis with TaVR procedure done. He is diabetic and has hyperlipidemia and hypertension and memory impairment and he is legally blind. His chest x-ray from yesterday showed improvement in the right lower lobe consolidation on the aeration of the right lung. There was some atelectatic changes in the left lung base. The patient was subsequently taken off the BiPAP. Currently is on 5 L of oxygen by nasal cannula with a pulse ox of 94%. Cultures have been negative thus far including the blood culture. The white cell count has been improving knowing that his initial white cell count is at 16. He remains on Eliquis for long-term anticoagulation. He is on metoprolol for rate control at a dose of 12.5 mg by mouth twice a day. He remains on IV Rocephin and Zithromax. On today's evaluation of 10/15/2019, the chest x-ray still showing extensive right lung consolidation. The patient has developed an acute non-ST segment elevation myocardial infarction. Troponin peaked at 11. History of any chest pain. He is complaining of diffuse body aches and the patient will be started back on his [place]. His blood pressure was noted to be elevated and appropriate changes will be done on the blood pressure medication. He is currently on metoprolol 25 mg by mouth twice a day. He is Norvasc was increased up to 10 mg an hour. He was started on clonidine 0.2 mg 3 times a day. He'll be kept on a combination of Eliquis and Plavix for now. IV fluids with normal state rate of 50 mL an hour and the patient is currently on oxygen at 5 L per minute nasal cannula. The dose being titrated to maintain a saturation above 90%. He remains on a combination of Rocephin and Zithromax for now. The echocardiogram showed a drop in the patient's ejection fraction which is down to 35-40%. There is segmental wall motion abnormalities. The patient has moderate concentric LVH. The patient also has a TAB are procedure done with moderate mitral annular calcification and a maximum gradient across the aortic valve of 11 mmHg without signs of any pulmonary hypertension. He has hypertensive heart disease with concentric LVH. On today's evaluation of 10/16/2019, the patient is still struggling with a pneumonia and acute. Overnight the patient became a bit confused and I made recommendations to give him Haldol and acid basis for delirium and agitation. He ultimately had become more tachypneic and he was placed back on the BiPAP. This morning I took him off the BiPAP and put him on high flow oxygen 10 L per minute nasal cannula. His chest x-ray showing bilateral pulmonary infiltrates. The right sided consolidation is improving and there is worsening of the infiltrates on the left side. He was also having episodic fever and he had a temperature spike of 11.4 this morning. Based on that, I discontinue the Rocephin and switch this patient to a combination of IV cefepime, and Zithromax. Cultures still negative for now. Patient was also given a dose of Lasix 20 mg IV push. The white cell count is at 9.9. Sodium level is at 129. BUN is 24 wi th a creatinine of 1.0. No angina. No palpitations. He has impaired LV function as stated in his echocardiogram. On 10/17/2019, the patient is still struggling with a bilateral pneumonia. The chest x-ray from today shows extensive pulmonary infiltrates and there has been interval worsening and left-sided pulmonary infiltrates. The right-sided consolidations improved. Note that the patient was covered with a combination of cefepime and Zithromax and antibiotics which was done yesterday. He is going to be given a dose of Lasix today 40 mg IV push and his clinical response is to be monitored. Earlier today, the patient was seen in the intensive care unit. He was in atrial fibrillation. He was on high flow oxygen at 15 L per minute nasal cannula with a pulse ox of 92%. He was sleeping. I was told that he did not sleep throughout the night. He was a bit confused and this morning his sleep breathing very comfortably. No significant leukocytosis. White cell count at 9.8. Function is stable. The blood cultures of been negative for now. Note that the chest x-ray showed bilateral alveolar opacities/infiltrates slightly worse compared to yesterday chest x-ray. He is post coronary artery bypass surgery. He denies having any chest pain. His his pro-calcitonin level was at 2.9 from yesterday. On 10/18/2019, the patient's condition essentially the same compared to yes terday. There is still extensive infiltration of the lungs on today's chest x- ray with worsening on the left. Noted the patient's initial pneumonia was in the right and the patient subsequently developed infiltration of the left. He was initially on examination Rocephin and Zithromax. Rocephin was stopped and the patient was started on cefepime. Zithromax was continued. On today's evaluation going to add vancomycin. The patient had a pro-calcitonin level of 1.8 from yesterday. The patient's renal function is stable revealed a 33 creatinine of 1.1. He was given a dose of Lasix yesterday the patient remains in a negative fluid balance. The patient is on 10 L of oxygen by nasal cannula and his pulse ox is around 94%. On and off he has some limited confusion. Overnight the patient had an acute hypersensitivity reaction any also developed some chest pain. Based on that, I ordered nitroglycerin drip. This morning his blood pressure is under better control of the chest and has subsided. The patient was seen by cardiology again. He was taken off the nitroglycerin drip and he was started in November. He was also placed on an increased dose of Catapres 0.2 mg 3 times a day. The patient is also on lisinopril and metoprolol dose was also adjusted by cardiology. He is afebrile for now. Is a bit lethargic. He is arousable and follows commands and answers questions appropriately. No focal neurological deficits. No nausea. No vomiting. No emesis. He is free of any chest pain as stated for now. On 10/19/2019 patient seen in follow-up on selective care unit, patient was transferred out of the intensive care unit last night, and overnight he has developed difficulty breathing, and worsening hypoxemia, and chest pain, he was placed on BiPAP support. He was given a dose of IV Lasix, and he has diuresed about 800 mL of urine. His renal function is worsening on today's labs, with BUN of up to 43, creatinine is 1.48, serum sodium is 134, follow-up troponin yesterday is trending down, and is down to 1.080, pro calcitonin is improving and is down to 1.87 on yesterday's labs, patient remains on antibiotics for pneumonia, including cefepime and vancomycin. Not been able to produce a sputum specimen, blood cultures have been negative thus far. Objective - Vital Signs Vital signs: Vital Signs Temp 98.2 F 10/19/19 04:00 Pulse 94 10/19/19 07:20 Resp 32 H 10/19/19 06:55 BP 164/80 10/19/19 06:55 Pulse Ox 95 10/19/19 07:20 Intake & Output 10/18/19 10/19/19 10/19/19 18:59 06:59 18:59 Intake Total 2170 270 Output Total 545 465 Balance 1625 -195 Weight 107.5 kg 107.5 kg Intake: IV 750 150 Azithromycin 500 mg In 250 Sodium Chloride 0.9% 250 ml @ 250 mls/hr IVPB DAILY [facility] Rx#:[id number] Cefepime 2 gm In Sodium 100 Chloride 0.9% 100 ml @ 200 mls/hr IVPB Q12HR [facility] Rx#:[id number] Sodium Chloride 0.9% 1, 400 150 000 ml @ 50 mls/hr IV . Q20H [facility] Rx#:[id number] Intake, IV Titration 1000 Amount Vancomycin 1,750 mg In 1000 Sodium Chloride 0.9% 500 ml 500 ml @ 167 mls/hr IVPB Q24H [facility] Rx#: [id number] Oral 420 120 Output: Urine 545 465 Other: Voiding Method Indwelling Catheter Indwelling Catheter - Exam GENERAL EXAM: Lethargic but arousable, 84-year-old male, on BiPAP support, calm and comfortable, with a water safety teacher at the bedside comfortable in no apparent distress. HEAD: Normocephalic/atraumatic. EYES: Normal reaction of pupils, equal size. Conjunctiva pink, sclera white. NOSE: Clear with pink turbinates. THROAT: No erythema or exudates. NECK: No masses, no JVD, no thyroid enlargement, no adenopathy. CHEST: No chest wall deformity. Symmetrical expansion. LUNGS: Equal air entry with no crackles, wheeze, rhonchi or dullness. CVS: Regular rate and rhythm, normal S1 and S2, no gallops, no murmurs, no rubs ABDOMEN: Soft, nontender. No hepatosplenomegaly, normal bowel sounds, no guarding or rigidity. EXTREMITIES: No clubbing, no edema, no cyanosis, 2+ pulses and upper and lower extremities. MUSCULOSKELETAL: Muscle strength and tone normal. SPINE: No scoliosis or deformity SKIN: No rashes CENTRAL NERVOUS SYSTEM: Lethargic but arousable. No focal deficits, tone is normal in all 4 extremities. - Labs CBC & Chem 7: 10/18/19 05:04 10/19/19 07:29 Labs: Abnormal Lab Results - Last 24 Hours (Table) 10/18/19 10/18/19 10/19/19 Range/Units 17:56 21:03 06:20 Sodium (137-145) mmol/L BUN (9-20) mg/dL Creatinine (0.66-1.25) mg/dL Glucose (74-99) mg/dL POC Glucose (mg/dL) 133 H 122 H 122 H (75-99) mg/dL 10/19/19 10/19/19 Range/Units 07:29 11:30 Sodium 134 L (137-145) mmol/L BUN 43 H (9-20) mg/dL Creatinine 1.48 H (0.66-1.25) mg/dL Glucose 119 H (74-99) mg/dL POC Glucose (mg/dL) 140 H (75-99) mg/dL Microbiology - Last 24 Hours (Table) 10/16/19 07:12 Blood Culture - Preliminary Blood No Growth after 72 hours 10/16/19 07:12 Blood Culture - Preliminary Blood No Growth after 72 hours 10/12/19 08:25 Blood Culture - Final Blood No Growth after 144 hours Assessment and Plan Plan: 1 Multilobar pneumonia with extensive right lung consolidation, likely bacterial with secondary sepsis and hypoxic respiratory failure requiring BiPAP at a time of admission. Chest x-ray is showing improvement in the right lung consolidation with broad-spectrum antibiotics including a combination of Rocephin and Zithromax. Cultures are essentially negative thus far. COVID 19 infection was ruled out. The patient remains on IV liters of oxygen by nasal cannula. Chest x-ray still showing extensive consolidation of the right lung. On 10/14/2018, the patient is still having active infiltration of the lungs based on today's chest x-ray and there is interval worsening of the left lung pneumonia. As stated, the urge antibiotic coverage with Rocephin and Zithromax. Rocephin was switched to cefepime and today vancomycin will be added. A follow-up chest x-ray will be ordered for tomorrow. Chest x-ray findings are noted. White cell count is still stable at 9.9. A patient is afebrile. The cultures were all negative. The patient is currently off the BiPAP. On 10/19/2019 patient is seen in follow-up on selective care unit, overnight he was transferred out of the ICU, in the morning on 10/19/2019 rapid response team was called in regards to worsening hypoxemia, shortness of breath, and chest pain. Patient was given additional dose of IV Lasix, he is improved with diuresis 2 Acute hypoxic respiratory failure requiring BiPAP at a time of admission currently on 10 L of oxygen by nasal cannula 3 Persistent atrial fibrillation with rapid ventricular response, likely precipitated by sepsis, rate is controlled 4 Coronary artery disease with bypass, with an acute non-ST segment elevation myocardial infarction 5 Chronic congestive heart failure from diastolic dysfunction EF 55-60%, the patient suffered an acute non-STEMI and there has been further drop in a ejection fraction down to 35-40% along with segmental wall motion abnormalities involving the anterior septal apical goode. 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 We'll give him a break off the BiPAP support, place him on high flow oxygen, maintaining safety precautions, aspiration, water safety teacher is at the bedside, to prevent the patient from removing his oxygen and IV lines. Haldol for episodes of agitation and acute delirium. Weaning FiO2, continue same antibiotics, blood cultures are negative thus far, pro calcitonin is trending down, patient has been afebrile, follow-up chest x-ray in the morning I performed a history & physical examination of the patient and discussed their management with my nurse practitioner, Fernanda Hill. I reviewed the nurse practitioner's note and agree with the documented findings and plan of care. Lung sounds are positive for crackles The findings and the impression was discussed with the patient. I attest to the documentation by the nurse practitioner. Time with Patient: Less than 30
[2019-10-19 16:56] LABS: Glucose,Whole Blood 205 mg/dL (75-99)
[2019-10-19 20:28] LABS: Glucose,Whole Blood 126 mg/dL (75-99)
[2019-10-19] MEDS: ATORVASTATIN 40 MG TAB PO SCH (21:29)
[2019-10-20] MEDS: HYDROcodone/APAP 5-325MG 1 EACH TAB PO PRN ×4 (04:18→21:29)
[2019-10-20 06:22] LABS: Glucose,Whole Blood 120 mg/dL (75-99)
[2019-10-20] MEDS: INSULIN ASPART (NovoLOG) 100 UNIT/ML VIAL SQ SCH ×4 (06:32→21:30)
[2019-10-20] MEDS: PANTOPRAZOLE 40 MG TABLET PO SCH (06:43)
[2019-10-20 06:48] LABS: Calcium 9.1 mg/dL (8.4-10.2); Potassium 3.5 mmol/L (3.5-5.1)
--- NOTE | 2019-10-20 07:45 | XR ---
EXAMINATION TYPE: XR chest 1V portable DATE OF EXAM: 10/20/2019 HISTORY: shortness of breath. REFERENCE: Previous study dated 10/19/2019. FINDINGS: Airspace disease in the right is relatively stable. That on the left has worsened. The hear t is enlarged. I could not exclude a small, right effusion. Note is made of a midline sternotomy. IMPRESSION: STABLE RIGHT AND WORSENING LEFT-SIDED INFILTRATE.
[2019-10-20] MEDS: NITROGLYCERIN-D5W PMX 50 MG in DEXTROSE/WATER 1 250ML.BAG IV SCH (08:33)
[2019-10-20] MEDS: ALLOPURINOL 100 MG TAB PO SCH ×2 (08:34→21:29)
[2019-10-20] MEDS: APIXABAN 5 MG TAB PO SCH ×2 (08:34→21:29)
[2019-10-20] MEDS: ALPRAZolam 0.25 MG TAB PO PRN ×3 (08:34→21:29)
[2019-10-20] MEDS: cloNIDine HCL 0.1 MG TAB PO SCH ×3 (08:34→21:29)
[2019-10-20] MEDS: amLODIPine 10 MG TAB PO SCH (08:34)
[2019-10-20] MEDS: hydrALAZINE HCL 50 MG TAB PO SCH ×3 (08:34→21:29)
[2019-10-20] MEDS: CLOPIDOGREL 75 MG TAB PO SCH (08:34)
[2019-10-20] MEDS: METOPROLOL TARTRATE 50 MG TAB PO SCH (08:34)
[2019-10-20] MEDS: HYDROCHLOROTHIAZIDE 25 MG TAB PO SCH (08:34)
[2019-10-20] MEDS: CEFEPIME 2 GM in SODIUM CHLORIDE 0.9% 100 ML IVPB SCH (08:35)
[2019-10-20] MEDS: AZITHROMYCIN 500 MG in SODIUM CHLORIDE 0.9% 250 ML IVPB SCH (08:35)
[2019-10-20] MEDS: VANCOMYCIN 1,750 MG in SODIUM CHLORIDE 0.9% 500 ML 500 ML IVPB SCH (08:37)
[2019-10-20] MEDS ORDERED: FUROSEMIDE 10 MG/ML 4 ML VIAL IV STA (09:00)
[2019-10-20 11:27] LABS: Glucose,Whole Blood 218 mg/dL (75-99)
[2019-10-20] MEDS: methylPREDNISolone SOD SUCCI 40 MG/ML 1 ML VIAL IV SCH ×3 (11:50→21:28)
--- NOTE | 2019-10-20 12:47 | P.PN ---
Subjective This is a very pleasant 84-year-old patient of Dr. magallanes. demurrage clerk Dr. Deep Malloy. Chronic stable medical conditions include congestive heart failure EF 55-60%, diabetes, hypertension, hyperlipidemia, CK disease stage 2, history of aortic valve replacement with TAVR, mild cognitive impairment.egally blind and decreased hearing.. February 2019 had acute non-Q-wave VT with coronary intervention with angioplasty stent. Also admitted in May 2019 with paroxysmal atrial fibrillation. Started on eliquis. Patient now presents to the ER what is described as significant chest pain sharp shortness of breath. Patient is on a BiPAP currently in the ICU. Because of respiratory distress. COVID-19 was negative. Slight cough. Had a fever documented here for 100.6. Patient's history is limited because of shortness of breath. Unable to qualify the chest pain further. Found to be in atrial fibrillation with a rapid ventricular rate Admitted with-multilobar pneumonia, acute hypoxic respiratory failure, acute non-Q-wave myocardial infarction, atrial fibrillation uncontrolled. Admitted to ICU. Patient was on BiPAP.-Then switched over to high flow oxygen Today-ICU: Still requiring about 12 L on nasal cannula oxygen. No trouble swallowing food no choking. Her weight. Answering simple questions. Atrial fibrillation controlled. On-call hospitalist covering Dr. Dorman for first day today 10/17/2019 This is a pleasant 84 years old male who was admitted on 10/11 for dyspnea found to have A. fib with RVR and he was started on Cardizem drip and IV fluid Because of his dyspnea he was placed on BiPAP and sent to the ICU from the select unit. Chest x-ray showing right-sided consolidation suspicious for pneumonia with mass cannot be excluded Patient was started on antibiotics and currently he is on Zithromax and cefepime . Patient is off BiPAP currently and he is on 12 L oxygen via high flow cannula Last night he was seen sitting on the floor suspicious for a fall. Today patient is very lethargic but arousable. He got one time of Lasix today, also patient noted to be an Eliquis We'll check CT of the brain given his fall and lethargy 10/18/2019 Patient remains lethargic however he is awake and follow commands. Brain CT of the head from yesterday is negative. Today his chest x-ray was showing worsening especially on the left side and antibiotic was adjusted with Rocephin has been discontinued and patient was started on cefepime and IV vancomycin. Patient is saturating in the 90s while he is on telemetry to oxygen via nasal cannula. Her calcitonin is elevated as well at 1.8 Clonidine, Imdur and lisinopril 10 mg daily was added for better blood pressure control, cardiology R following the case closely. We will monitor his renal function Labs are reviewed, sodium 130, slightly dropped from yesterday. Rest of labs are stable 10/19/2019 Patient seen and select unit. He looks more awake and alert however he still lethargic. He was on BiPAP machine and could not provide much information. Either during the day he was saturating 86-93 on 50 L oxygen via nasal cannula. Is slightly tachypneic high 20s to low 30s. Creatinine is slightly worse at 1.4. However his baseline and it looks like around 1-1.38, sodium is improving to 134, Chest x-ray showing unchanged bilateral infiltrates Patient got 1 dose of Lasix 40 mg a morning which was held now. He remains on normal saline at 50 mL per hour. There is also an Eliquis 5 mg, is on several antibiotics and Zithromax, cefepime and vancomycin , pharmacy dosing is ordered Patient is followed closely by cardiology and pulmonary service. We'll keep monitoring the patient including his creatinine. 10/20/2019 Patient still feel dyspneic and had difficulty breathingAnd difficulty talking due to his dyspnea. His chest x-ray showing some bilateral infiltrates with possible worsening from fluid and he got 1 dose of Lasix, also. His normoc ephalic and 50 mL/h, patient was placed on nitroglycerin drip by demurrage clerk team. He is still on 50 L oxygen via nasal cannula, high flow and the saturating 91-95%. There is some rectus looks stable and is afebrile For more than 48 hours His creatinine is stable at 1.4. Patient is followed closely by cardiology and pulmonary service. Humerus and Zithromax, cefepime and vancomycin. He remains on Eliquis Prognosis guarded Review of system: N/a, Because of dyspnea Active Medications Generic Name Dose Route Start Last Admin Trade Name Freq PRN Reason Stop Dose Admin Acetaminophen 650 mg 10/16/19 06:50 10/18/19 04:18 Tylenol Tab PO 650 mg Q6HR PRN Administration Fever and/ or Pain Hydrocodone Bitart/Acetaminophen 1 each 10/17/19 01:30 10/20/19 08:38 [place] 5-325 PO 1 each Q6HR PRN Administration Pain Allopurinol 100 mg 10/12/19 21:00 10/20/19 08:34 Zyloprim PO 100 mg BID UJSTIN Administration Alprazolam 0.25 mg 10/15/19 09:38 10/20/19 08:34 Xanax PO 0.25 mg TID PRN Administration Anxiety Amlodipine Besylate 10 mg 10/15/19 08:00 10/20/19 08:34 Norvasc PO 10 mg DAILY JUSTIN Administration Apixaban 5 mg 10/14/19 09:00 10/20/19 08:34 Eliquis PO 5 mg BID JUSTIN Administration Atorvastatin Calcium 40 mg 10/15/19 21:00 10/19/19 21:29 Lipitor PO 40 mg HS JUSTIN Administration Clonidine 0.2 mg 10/18/19 09:00 10/20/19 08:34 Catapres PO 0.2 mg TID JUSTIN Administration Clopidogrel Bisulfate 75 mg 10/12/19 11:15 10/20/19 08:34 Plavix PO 75 mg DAILY JUSTIN Administration Haloperidol Lactate 1 mg 10/16/19 01:38 10/16/19 01:56 Haldol IVP 1 mg Q2HR PRN Administration Agitation or Acute Psychosis Haloperidol Lactate 1 mg 10/16/19 01:38 Haldol IVP Q4HR PRN Agitation or Acute Psychosis Haloperidol Lactate 2 mg 10/16/19 01:41 10/16/19 23:25 Haldol IVP 2 mg Q2HR PRN Administration Agitation or Acute Psychosis Haloperidol Lactate 2 mg 10/16/19 01:41 Haldol IVP Q4HR PRN Agitation or Acute Psychosis Hydralazine HCl 100 mg 10/14/19 09:00 10/20/19 08:34 Apresoline PO 100 mg TID JUSTIN Administration Hydrochlorothiazide 25 mg 10/15/19 09:00 10/20/19 08:34 Hydrodiuril PO 25 mg DAILY JUSTIN Administration Vancomycin HCl 1,750 mg/ 500 mls @ 167 mls/hr 10/18/19 10:00 10/20/19 08:37 Sodium Chloride IVPB 167 mls/hr Q24H JUSTIN Administration Nitroglycerin/Dextrose 50 mg/ 250 mls @ 1.5 mls/hr 10/19/19 08:00 10/20/19 08:33 IV Solution IV Not Given .Q24H JUSTIN Protocol 5 MCG/MIN Cefepime HCl 2 gm/ Sodium 100 mls @ 200 mls/hr 10/20/19 09:00 10/20/19 08:35 Chloride IVPB 200 mls/hr Q24HR JUSTIN Administration Insulin Aspart 0 unit 10/15/19 07:30 10/20/19 11:49 Novolog SQ 4 unit ACHS JUSTIN Administration Protocol Methylprednisolone Sodium Succinate 40 mg 10/20/19 10:30 10/20/19 11:50 Solu-Medrol IV 40 mg Q8HR JUSTIN Administration Metoprolol Tartrate 50 mg 10/17/19 09:00 10/20/19 08:34 Lopressor PO 50 mg BID JUSTIN Administration Miscellaneous Information 1 each 10/15/19 07:54 Potassium Per Protocol MISCELLANE DAILY PRN Per Protocol Protocol Naloxone HCl 0.2 mg 10/12/19 08:40 Narcan IV Q2M PRN Opioid Reversal Nitroglycerin 0.4 mg 10/14/19 15:48 Nitrostat SUBLINGUAL Q5M PRN Chest Pain Pantoprazole Sodium 40 mg 10/15/19 07:30 10/20/19 06:43 Protonix PO 40 mg [id number] JUSTIN Administration Objective - Vital Signs Vital signs: Vital Signs Temp 98.1 F 10/20/19 11:57 Pulse 74 10/20/19 12:00 Resp 20 10/20/19 12:00 BP 164/75 10/20/19 11:57 Pulse Ox 91 L 10/20/19 11:57 Intake & Output 10/19/19 10/20/19 10/20/19 18:59 06:59 18:59 Intake Total 360 Output Total 1300 1025 Balance -1300 -665 Weight 107.5 kg 109 kg Intake: IV 120 Sodium Chloride 0.9% 1, 120 000 ml @ 50 mls/hr IV . Q20H JUSTIN Rx#:[id number] Oral 240 Output: Urine 1300 1025 Other: Voiding Method Indwelling Catheter Indwelling Catheter Indwelling Catheter - Exam -GENERAL: The patient is alert and oriented , but he is very weak and lethargic HEENT: Pupils are round and equally reacting to light. EOMI. No scleral icterus. No conjunctival pallor. Normocephalic, atraumatic. No pharyngeal erythema. No thyromegaly. CARDIOVASCULAR: S1 and S2 present. No murmurs, rubs, or gallops. -PULMONARY: Chest is clear to auscultation, no wheezing or crackles. Decreased breath sounds on both sides especially basal ABDOMEN: Soft, nontender, nondistended, normoactive bowel sounds. No palpable organomegaly. MUSCULOSKELETAL: No joint swelling or deformity. EXTREMITIES: No cyanosis, clubbing, or pedal edema. NEUROLOGICAL: Gross neurological examination did not reveal any focal deficits. SKIN: No rashes. no petechiae. - Labs CBC & Chem 7: 10/18/19 05:04 10/20/19 06:08 Labs: Abnormal Lab Results - Last 24 Hours (Table) 10/19/19 10/19/19 10/19/19 Range/Units 07:29 16:55 20:27 Sodium (137-145) mmol/L BUN (9-20) mg/dL Creatinine (0.66-1.25) mg/dL Glucose (74-99) mg/dL POC Glucose (mg/dL) 205 H 126 H (75-99) mg/dL Procalcitonin 1.74 H (0.02-0.09) ng/mL 10/20/19 10/20/19 10/20/19 Range/Units 06:08 06:20 11:26 Sodium 133 L (137-145) mmol/L BUN 43 H (9-20) mg/dL Creatinine 1.42 H (0.66-1.25) mg/dL Glucose 119 H (74-99) mg/dL POC Glucose (mg/dL) 120 H 218 H (75-99) mg/dL Procalcitonin (0.02-0.09) ng/mL Microbiology - Last 24 Hours (Table) 10/16/19 07:12 Blood Culture - Preliminary Blood No Growth after 96 hours 10/16/19 07:12 Blood Culture - Preliminary Blood No Growth after 96 hours Assessment and Plan Assessment: -Bilateral pneumonia -Acute hypoxic respiratory failure requiring BiPAP -Persistent atrial fibrillation with rapid ventricular response, likely p recipitated by sepsis -Significantly elevated troponin up to 11. Acute non-Q-wave myocardial infarc tion, POA -Fall -Generalized weakness and lethargy, multifactorial due to his infection and hypoxia and possible medication. 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 Continue with Protonix antibiotic. Follow-up chest x-ray. Patient is followed closely by pulmonary/critical care team. Cardiology also on the case. Monitor blood pressure. Remains on 12 L nasal cannula. Monitor the patient closely. Patient is on Plavix and Eliquis and statin. Also continue with gentle hydration Labs and medication were reviewed.. Continue same treatment. Continue with symptomatic treatment. Resume home medication. Monitor lytes and vitals. DVT and GI prophylaxis. Further recommendations of the clinical course of the patient DVT prophylaxis: Eliquis GI Prophylaxis: Ppi Prognosis is guarded
--- NOTE | 2019-10-20 13:01 | P.PN ---
Subjective Progress Note Date: 10/20/19 Principal diagnosis: Multilobar pneumonia with extensive right lung consolidation, CoVID 19 screening negative This is a 84-year-old male patient with history of coronary artery disease with previous bypass surgery, chronic atrial fibrillation and valvular heart disease who initially presented to the ED on 10/12/2019 with worsening shortness of breath and chest pain. The patient was found to be in A. fib RVR and he was also found to have a dense consolidation of the right lower lobe consistent with pneumonia. He was placed on BiPAP at a pressure of 12/5 cm of water and FiO2 of 50%. He was given IV fluids. He was started on a combination of Rocephin and Zithromax. He was placed on Cardizem drip for rate control and following that he was brought into the intensive care units. The patient tested negative for cough with 19 infection. Over the past 24 hours his atrial fibrillation is under better control. He is known to have aortic stenosis with TaVR procedure d one. He is diabetic and has hyperlipidemia and hypertension and memory impairment and he is legally blind. His chest x-ray from yesterday showed improvement in the right lower lobe consolidation on the aeration of the right lung. There was some atelectatic changes in the left lung base. The patient was subsequently taken off the BiPAP. Currently is on 5 L of oxygen by nasal cannula with a pulse ox of 94%. Cultures have been negative thus far including the blood culture. The white cell count has been improving knowing that his initial white cell count is at 16. He remains on Eliquis for long-term anticoagulation. He is on metoprolol for rate control at a dose of 12.5 mg by mouth twice a day. He remains on IV Rocephin and Zithromax. On today's evaluation of 10/15/2019, the chest x-ray still showing extensive right lung consolidation. The patient has developed an acute non-ST segment elevation myocardial infarction. Troponin peaked at 11. History of any chest pain. He is complaining of diffuse body aches and the patient will be started back on his [place]. His blood pressure was noted to be elevated and appropriate changes will be done on the blood pressure medication. He is currently on metoprolol 25 mg by mouth twice a day. He is Norvasc was increased up to 10 mg an hour. He was started on clonidine 0.2 mg 3 times a day. He'll be kept on a combination of Eliquis and Plavix for now. IV fluids with normal state rate of 50 mL an hour and the patient is currently on oxygen at 5 L per minute nasal cannula. The dose being titrated to maintain a saturation above 90%. He remains on a combination of Rocephin and Zithromax for now. The echocardiogram showed a drop in the patient's ejection fraction which is down to 35-40%. There is segmental wall motion abnormalities. The patient has moderate concentric LVH. The patient also has a TAB are procedure done with moderate mitral annular calcification and a maximum gradient across the aortic valve of 11 mmHg without signs of any pulmonary hypertension. He has hypertensive heart disease with concentric LVH. On today's evaluation of 10/16/2019, the patient is still struggling with a pneumonia and acute. Overnight the patient became a bit confused and I made recommendations to give him Haldol and acid basis for delirium and agitation. He ultimately had become more tachypneic and he was placed back on the BiPAP. This morning I took him off the BiPAP and put him on high flow oxygen 10 L per minute nasal cannula. His chest x-ray showing bilateral pulmonary infiltrates. The right sided consolidation is improving and there is worsening of the infiltrates on the left side. He was also having episodic fever and he had a temperature spike of 11.4 this morning. Based on that, I discontinue the R ocephin and switch this patient to a combination of IV cefepime, and Zithromax. Cultures still negative for now. Patient was also given a dose of Lasix 20 mg IV push. The white cell count is at 9.9. Sodium level is at 129. BUN is 24 with a creatinine of 1.0. No angina. No palpitations. He has impaired LV function as stated in his echocardiogram. On 10/17/2019, the patient is still struggling with a bilateral pneumonia. The chest x-ray from today shows extensive pulmonary infiltrates and there has been interval worsening and left-sided pulmonary infiltrates. The right-sided consolidations improved. Note that the patient was covered with a combination of cefepime and Zithromax and antibiotics which was done yesterday. He is going to be given a dose of Lasix today 40 mg IV push and his clinical response is to be monitored. Earlier today, the patient was seen in the intensive care unit. He was in atrial fibrillation. He was on high flow oxygen at 15 L per minute nasal cannula with a pulse ox of 92%. He was sleeping. I was told that he did not sleep throughout the night. He was a bit confused and this morning his sleep breathing very comfortably. No significant leukocytosis. White cell count at 9.8. Function is stable. The blood cultures of been negative for now. Note that the chest x-ray showed bilateral alveolar opacities/infiltrates slightly worse compared to yesterday chest x-ray. He is post coronary artery bypass surgery. He denies having any chest pain. His his pro-calcitonin level was at 2.9 from yesterday. On 10/18/2019, the patient's condition essentially the same compared to yesterday. There is still extensive infiltration of the lungs on today's chest x-ray with worsening on the left. Noted the patient's initial pneumonia was in the right and the patient subsequently developed infiltration of the left. He was initially on examination Rocephin and Zithromax. Rocephin was stopped and the patient was started on cefepime. Zithromax was continued. On today's evaluation going to add vancomycin. The patient had a pro-calcitonin level of 1.8 from yesterday. The patient's renal function is stable revealed a 33 creatinine of 1.1. He was given a dose of Lasix yesterday the patient remains in a negative fluid balance. The patient is on 10 L of oxygen by nasal cannula and his pulse ox is around 94%. On and off he has some limited confusion. Overnight the patient had an acute hypersensitivity reaction any also developed some chest pain. Based on that, I ordered nitroglycerin drip. This morning his blood pressure is under better control of the chest and has subsided. The patient was seen by cardiology again. He was taken off the nitroglycerin drip and he was started in November. He was also placed on an increased dose of Catapres 0.2 mg 3 times a day. The patient is also on lisinopril and metoprolol dose was also adjusted by cardiology. He is afebrile for now. Is a bit lethargic. He is arousable and follows commands and answers questions appropriately. No focal neurological deficits. No nausea. No vomiting. No emesis. He is free of any chest pain as stated for now. On 10/19/2019 patient seen in follow-up on selective care unit, patient was transferred out of the intensive care unit last night, and overnight he has developed difficulty breathing, and worsening hypoxemia, and chest pain, he was placed on BiPAP support. He was given a dose of IV Lasix, and he has diuresed about 800 mL of urine. His renal function is worsening on today's labs, with BUN of up to 43, creatinine is 1.48, serum sodium is 134, follow-up troponin yesterday is trending down, and is down to 1.080, pro calcitonin is improving and is down to 1.87 on yesterday's labs, patient remains on antibiotics for pneumonia, including cefepime and vancomycin. Not been able to produce a sputum specimen, blood cultures have been negative thus far. The patient is seen today 10/20/2019 in follow-up on the selective care unit. He is currently sitting up in bed. Awake and alert. He is on BiPAP 12/7 and 60% FiO2. He's been alternating with 15 L high flow nasal cannula. Today's chest x-ray shows stable right sided airspace disease. Left-sided slightly worse with infiltrate. Blood culture reveals no growth. Sodium 133. Potassium 3.5. Creatinine 1.42. He remains on vancomycin and cefepime. Currently on IV Solu-Medrol. Anticoagulated with Eliquis. Objective - Vital Signs Vital signs: Vital Signs Temp 98.1 F 10/20/19 11:57 Pulse 74 10/20/19 12:00 Resp 20 10/20/19 12:00 BP 164/75 10/20/19 11:57 Pulse Ox 91 L 10/20/19 11:57 Intake & Output 10/19/19 10/20/19 10/20/19 18:59 06:59 18:59 Intake Total 360 240 Output Total 1300 1025 Balance -1300 -665 240 Weight 107.5 kg 109 kg Intake: IV 120 Sodium Chloride 0.9% 1, 120 000 ml @ 50 mls/hr IV . Q20H JUSTIN Rx#:[id number] Oral 240 240 Output: Urine 1300 1025 Other: Voiding Method Indwelling Catheter Indwelling Catheter Indwelling Catheter - Exam GENERAL EXAM: Awake, alert, 84-year-old male, on BiPAP support, calm and comfortable, with a patient safety attendant at the bedside comfortable in no apparent distress. HEAD: Normocephalic/atraumatic. EYES: Normal reaction of pupils, equal size. Conjunctiva pink, sclera white. NOSE: Clear with pink turbinates. THROAT: No erythema or exudates. NECK: No masses, no JVD, no thyroid enlargement, no adenopathy. CHEST: No chest wall deformity. Symmetrical expansion. LUNGS: Equal air entry with bilateral scattered rhonchi CVS: Regular rate and rhythm, normal S1 and S2, no gallops, no murmurs, no rubs ABDOMEN: Soft, nontender. No hepatosplenomegaly, normal bowel sounds, no guarding or rigidity. EXTREMITIES: No clubbing, no edema, no cyanosis, 2+ pulses and upper and lower extremities. MUSCULOSKELETAL: Muscle strength and tone normal. SPINE: No scoliosis or deformity SKIN: No rashes CENTRAL NERVOUS SYSTEM: Awake, alert. No focal deficits, tone is normal in all 4 extremities. - Labs CBC & Chem 7: 10/18/19 05:04 10/20/19 06:08 Labs: Abnormal Lab Results - Last 24 Hours (Table) 10/19/19 10/19/19 10/19/19 Range/Units 07:29 16:55 20:27 Sodium (137-145) mmol/L BUN (9-20) mg/dL Creatinine (0.66-1.25) mg/dL Glucose (74-99) mg/dL POC Glucose (mg/dL) 205 H 126 H (75-99) mg/dL Procalcitonin 1.74 H (0.02-0.09) ng/mL 10/20/19 10/20/19 10/20/19 Range/Units 06:08 06:20 11:26 Sodium 133 L (137-145) mmol/L BUN 43 H (9-20) mg/dL Creatinine 1.42 H (0.66-1.25) mg/dL Glucose 119 H (74-99) mg/dL POC Glucose (mg/dL) 120 H 218 H (75-99) mg/dL Procalcitonin (0.02-0.09) ng/mL Microbiology - Last 24 Hours (Table) 10/16/19 07:12 Blood Culture - Preliminary Blood No Growth after 96 hours 10/16/19 07:12 Blood Culture - Preliminary Blood No Growth after 96 hours Assessment and Plan Assessment: 1 Multilobar pneumonia with extensive right lung consolidation, likely bacterial with secondary sepsis and hypoxic respiratory failure requiring BiPAP at a time of admission. Chest x-ray is showing improvement in the right lung consolidation with broad-spectrum antibiotics including a combination of Rocephin and Zithromax. Cultures are essentially negative thus far. COVID 19 infection was ruled out. The patient remains on IV liters of oxygen by nasal cannula. Chest x-ray still showing extensive consolidation of the right lung. 2 Acute hypoxic respiratory failure requiring BiPAP at a time of admission currently on 10 L of oxygen by nasal cannula 3 Persistent atrial fibrillation with rapid ventricular response, likely precipitated by sepsis, rate is controlled 4 Coronary artery disease with bypass, with an acute non-ST segment elevation myocardial infarction 5 Chronic congestive heart failure from diastolic dysfunction EF 55-60%, the patient suffered an acute non-STEMI and there has been further drop in a ejection fraction down to 35-40% along with segmental wall motion abnormalities involving the anterior septal apical goode. 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 Esparza Chest x-ray reviewed Remains on vancomycin and cefepime Initiated on IV Solu-Medrol Was given IV Lasix earlier Continue BiPAP support alternating with high flow nasal cannula Prognosis is guarded We'll continue to follow I, the cosigning physician, performed a history & physical examination of the patient. Lungs sounds bilateral scattered rhonchi. Maintaining good O2 saturations in the 90s on 60% FiO2 via the BiPAP. I discussed the assessment and plan of care with my nurse practitioner, Nahomy Carbales. I attest to the above note as dictated by her.
[2019-10-20 16:45] LABS: Glucose,Whole Blood 220 mg/dL (75-99)
--- NOTE | 2019-10-20 18:49 | P.PN ---
Subjective Patient is mildly short of breath at rest and is on a CPAP mask However he denied any chest discomfort or dizziness On examination afebrile 98.1F Pulse rate in the 70s and 80s Respirations 20 Blood pressure 164/75 mmHg and 182/70 mmHg Heart sounds. Soft S1-S2 Breath Sounds are reduced bilaterally Impression acute myocardial infarction Covid positive with a globulin pneumonitis Medical management CAD and myocardial infarction His blood pressure is elevated now switch from metoprolol to carvedilol and maximize this He is on multiple other antihypertensive medications and hopefully using carvedilol but to stop clonidine and IV nitroglycerin Objective - Vital Signs Vital signs: Vital Signs Temp 98.1 F 10/20/19 15:54 Pulse 88 10/20/19 15:54 Resp 18 10/20/19 15:54 BP 182/70 10/20/19 15:54 Pulse Ox 97 10/20/19 15:54 Intake & Output 10/19/19 10/20/19 10/20/19 18:59 06:59 18:59 Intake Total 360 1200 Output Total 1300 1025 Balance -1300 -665 1200 Weight 107.5 kg 109 kg Intake: IV 120 Sodium Chloride 0.9% 1, 120 000 ml @ 50 mls/hr IV . Q20H [facility] Rx#:[id number] Oral 240 1200 Output: Urine 1300 1025 Other: Voiding Method Indwelling Catheter Indwelling Catheter Indwelling Catheter - Labs CBC & Chem 7: 10/18/19 05:04 10/20/19 06:08 Labs: Abnormal Lab Results - Last 24 Hours (Table) 10/19/19 10/20/19 10/20/19 Range/Units 20:27 06:08 06:20 Sodium 133 L (137-145) mmol/L BUN 43 H (9-20) mg/dL Creatinine 1.42 H (0.66-1.25) mg/dL Glucose 119 H (74-99) mg/dL POC Glucose (mg/dL) 126 H 120 H (75-99) mg/dL 10/20/19 10/20/19 Range/Units 11:26 16:43 Sodium (137-145) mmol/L BUN (9-20) mg/dL Creatinine (0.66-1.25) mg/dL Glucose (74-99) mg/dL POC Glucose (mg/dL) 218 H 220 H (75-99) mg/dL Microbiology - Last 24 Hours (Table) 10/16/19 07:12 Blood Culture - Preliminary Blood No Growth after 96 hours 10/16/19 07:12 Blood Culture - Preliminary Blood No Growth after 96 hours
[2019-10-20 21:02] LABS: Glucose,Whole Blood 240 mg/dL (75-99)
[2019-10-20] MEDS: ATORVASTATIN 40 MG TAB PO SCH (21:29)
[2019-10-21] MEDS: HALOPERIDOL LACTATE 5 MG/ML 1 ML VIAL IVP PRN ×2 (01:26→03:25)
[2019-10-21] MEDS: NITROGLYCERIN SL TABS 0.4 MG TAB SUBLINGUAL PRN (02:45)
[2019-10-21 06:40] LABS: Glucose,Whole Blood 197 mg/dL (75-99)
[2019-10-21] MEDS: INSULIN ASPART (NovoLOG) 100 UNIT/ML VIAL SQ SCH ×4 (06:47→23:10)
[2019-10-21 07:21] LABS: Calcium 9.7 mg/dL (8.4-10.2); Potassium 3.8 mmol/L (3.5-5.1)
--- NOTE | 2019-10-21 08:05 | XR ---
EXAMINATION TYPE: XR chest 1V DATE OF EXAM: 10/21/2019 HISTORY: pneumonia FU. REFERENCE: Previous study dated 10/20/2019. FINDINGS: The study is rotated. There has been a midline sternotomy. The heart is mildly enlarged. There continue to be bilateral infiltrates. These have improved. I susp ect tiny, bilateral effusions. IMPRESSION: IMPROVED AERATION, BOTH LUNGS.
[2019-10-21] MEDS: NITROGLYCERIN-D5W PMX 50 MG in DEXTROSE/WATER 1 250ML.BAG IV SCH (09:06)
[2019-10-21] MEDS: HYDROcodone/APAP 5-325MG 1 EACH TAB PO PRN (09:15)
[2019-10-21] MEDS: CARVEDILOL 12.5 MG TAB PO SCH ×2 (09:15→18:22)
[2019-10-21] MEDS: amLODIPine 10 MG TAB PO SCH (09:16)
[2019-10-21] MEDS: methylPREDNISolone SOD SUCCI 40 MG/ML 1 ML VIAL IV SCH ×3 (09:16→23:11)
[2019-10-21] MEDS: PANTOPRAZOLE 40 MG TABLET PO SCH (09:16)
[2019-10-21] MEDS: ALLOPURINOL 100 MG TAB PO SCH ×2 (09:16→23:10)
[2019-10-21] MEDS: cloNIDine HCL 0.1 MG TAB PO SCH ×3 (09:16→23:11)
[2019-10-21] MEDS: CEFEPIME 2 GM in SODIUM CHLORIDE 0.9% 100 ML IVPB SCH (09:16)
[2019-10-21] MEDS: APIXABAN 5 MG TAB PO SCH ×2 (09:16→23:09)
[2019-10-21] MEDS: HYDROCHLOROTHIAZIDE 25 MG TAB PO SCH (09:16)
[2019-10-21] MEDS: ALPRAZolam 0.25 MG TAB PO PRN (09:16)
[2019-10-21] MEDS: hydrALAZINE HCL 50 MG TAB PO SCH ×3 (09:16→23:11)
[2019-10-21] MEDS: CLOPIDOGREL 75 MG TAB PO SCH (09:16)
[2019-10-21] MEDS: VANCOMYCIN 1,750 MG in SODIUM CHLORIDE 0.9% 500 ML 500 ML IVPB SCH ×2 (09:17→09:25)
[2019-10-21 11:44] LABS: Glucose,Whole Blood 213 mg/dL (75-99)
[2019-10-21] MEDS: FUROSEMIDE 10 MG/ML 4 ML VIAL IV SCH ×2 (11:52→23:09)
--- NOTE | 2019-10-21 12:01 | P.PN ---
Subjective This is a very pleasant 84-year-old patient of Dr. magallanes. 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 Chronic stable medical conditions include congestive heart failure EF 55-60%, diabetes, hypertension, hyperlipidemia, CK disease stage 2, history of aortic valve replacement with TAVR, mild cognitive impairment.egally blind and decreased hearing.. February 2019 had acute non-Q-wave SC with coronary intervention with angioplasty stent. Also admitted in May 2019 with paroxysmal atrial fibrillation. Started on eliquis. Patient now presents to the ER what is described as significant chest pain sharp shortness of breath. Patient is on a BiPAP currently in the ICU. Because of respiratory distress. COVID-19 was negative. Slight cough. Had a fever documented here for 100.6. Patient's history is limited because of shortness of breath. Unable to qualify the chest pain further. Found to be in atrial fibrillation with a rapid ventricular rate Admitted with-multilobar pneumonia, acute hypoxic respiratory failure, acute non-Q-wave myocardial infarction, atrial fibrillation uncontrolled. Admitted to ICU. Patient was on BiPAP.-Then switched over to high flow oxygen Today-ICU: Still requiring about 12 L on nasal cannula oxygen. No trouble swallowing food no choking. Her weight. Answering simple questions. Atrial fibrillation controlled. On-call hospitalist covering Dr. Dorman for first day today 10/17/2019 This is a pleasant 84 years old male who was admitted on 10/11 for dyspnea found to have A. fib with RVR and he was started on Cardizem drip and IV fluid Because of his dyspnea he was placed on BiPAP and sent to the ICU from the select unit. Chest x-ray showing right-sided consolidation suspicious for pneumonia with mass cannot be excluded Patient was started on antibiotics and currently he is on Zithromax and cefepime . Patient is off BiPAP currently and he is on 12 L oxygen via high flow cannula Last night he was seen sitting on the floor suspicious for a fall. Today patient is very lethargic but arousable. He got one time of Lasix today, also patient noted to be an Eliquis We'll check CT of the brain given his fall and lethargy 10/18/2019 Patient remains lethargic however he is awake and follow commands. Brain CT of the head from yesterday is negative. Today his chest x-ray was showing worsening especially on the left side and antibiotic was adjusted with Rocephin has been discontinued and patient was started on cefepime and IV vancomycin. Patient is saturating in the 90s while he is on telemetry to oxygen via nasal cannula. Her calcitonin is elevated as well at 1.8 Clonidine, Imdur and lisinopril 10 mg daily was added for better blood pressure control, cardiology R following the case closely. We will monitor his renal function Labs are reviewed, sodium 130, slightly dropped from yesterday. Rest of labs are stable 10/19/2019 Patient seen and select unit. He looks more awake and alert however he still lethargic. He was on BiPAP machine and could not provide much information. Either during the day he was saturating 86-93 on 50 L oxygen via nasal cannula. Is slightly tachypneic high 20s to low 30s. Creatinine is slightly worse at 1.4. However his baseline and it looks like around 1-1.38, sodium is improving to 134, Chest x-ray showing unchanged bilateral infiltrates Patient got 1 dose of Lasix 40 mg a morning which was held now. He remains on normal saline at 50 mL per hour. There is also an Eliquis 5 mg, is on several antibiotics and Zithromax, cefepime and vancomycin , pharmacy dosing is ordered Patient is followed closely by cardiology and pulmonary service. We'll keep monitoring the patient including his creatinine. 10/20/2019 Patient still feel dyspneic and had difficulty breathingAnd difficulty talking due to his dyspnea. His chest x-ray showing some bilateral infiltrates with possible worsening from fluid and he got 1 dose of Lasix, also. 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 He is still on 50 L oxygen via nasal cannula, high flow and the saturating 91-95%. There is some rectus looks stable and is afebrile For more than 48 hours His creatinine is stable at 1.4. Patient is followed closely by cardiology and pulmonary service. Humerus and Zithromax, cefepime and vancomycin. He remains on Eliquis 10/21/2019 Patient remains sleepy and could not provide information, he was agitated o vernight, he received 1 dose of Haldol and he could not sleep total 5 to 6:00 o'clock in the morning. Patient received another dose of Lasix today and his oxygen requirement went down to 12 L via high flow nasal cannula. Blood pressure 170/71, repeat chest x-ray this motion showing improved aeration Creatinine is improving at 1.38,sodium improvement 136. Prognosis guarded Review of system: N/a, Because of dyspnea Active Medications Generic Name Dose Route Start Last Admin Trade Name Freq PRN Reason Stop Dose Admin Acetaminophen 650 mg 10/16/19 06:50 10/18/19 04:18 Tylenol Tab PO 650 mg Q6HR PRN Administration Fever and/ or Pain Hydrocodone Bitart/Acetaminophen 1 each 10/17/19 01:30 10/21/19 09:15 [place] 5-325 PO 1 each Q6HR PRN Administration Pain Allopurinol 100 mg 10/12/19 21:00 10/21/19 09:16 Zyloprim PO 100 mg BID JUSTIN Administration Alprazolam 0.25 mg 10/15/19 09:38 10/21/19 09:16 Xanax PO 0.25 mg TID PRN Administration Anxiety Amlodipine Besylate 10 mg 10/15/19 08:00 10/21/19 09:16 Norvasc PO 10 mg DAILY JUSTIN Administration Apixaban 5 mg 10/14/19 09:00 10/21/19 09:16 Eliquis PO 5 mg BID JUSTIN Administration Atorvastatin Calcium 40 mg 10/15/19 21:00 10/20/19 21:29 Lipitor PO 40 mg HS JUSTIN Administration Carvedilol 12.5 mg 10/21/19 07:30 10/21/19 09:15 Coreg PO 12.5 mg BID-W/MEALS JUSTIN Administration Clonidine 0.2 mg 10/18/19 09:00 10/21/19 09:16 Catapres PO 0.2 mg TID JUSTIN Administration Clopidogrel Bisulfate 75 mg 10/12/19 11:15 10/21/19 09:16 Plavix PO 75 mg DAILY JUSTIN Administration Furosemide 40 mg 10/21/19 10:45 10/21/19 11:52 Lasix IV 10/21/19 21:01 40 mg Q12HR JUSTIN Administration Haloperidol Lactate 1 mg 10/16/19 01:38 10/21/19 01:26 Haldol IVP 1 mg Q2HR PRN Administration Agitation or Acute Psychosis Haloperidol Lactate 1 mg 10/16/19 01:38 Haldol IVP Q4HR PRN Agitation or Acute Psychosis Haloperidol Lactate 2 mg 10/16/19 01:41 10/21/19 03:25 Haldol IVP 2 mg Q2HR PRN Administration Agitation or Acute Psychosis Haloperidol Lactate 2 mg 10/16/19 01:41 Haldol IVP Q4HR PRN Agitation or Acute Psychosis Hydralazine HCl 100 mg 10/14/19 09:00 10/21/19 09:16 Apresoline PO 100 mg TID JUSTIN Administration Hydrochlorothiazide 25 mg 10/15/19 09:00 10/21/19 09:16 Hydrodiuril PO 25 mg DAILY JUSTIN Administration Vancomycin HCl 1,750 mg/ 500 mls @ 167 mls/hr 10/18/19 10:00 10/21/19 09:25 Sodium Chloride IVPB 167 mls/hr Q24H JUSTIN Administration Nitroglycerin/Dextrose 50 mg/ 250 mls @ 1.5 mls/hr 10/19/19 08:00 10/21/19 09:06 IV Solution IV Not Given .Q24H JUSTIN Protocol 5 MCG/MIN Cefepime HCl 2 gm/ Sodium 100 mls @ 200 mls/hr 10/20/19 09:00 10/21/19 09:16 Chloride IVPB 200 mls/hr Q24HR JUSTIN Administration Insulin Aspart 0 unit 10/15/19 07:30 10/21/19 11:52 Novolog SQ 4 unit ACHS JUSTIN Administration Protocol Methylprednisolone Sodium Succinate 40 mg 10/20/19 10:30 10/21/19 09:16 Solu-Medrol IV 40 mg Q8HR JUSTIN Administration Miscellaneous Information 1 each 10/15/19 07:54 Potassium Per Protocol MISCELLANE DAILY PRN Per Protocol Protocol Miscellaneous Information 0 each 10/22/19 09:00 Vancomycin Trough Due MISCELLANE 10/22/19 09:01 DIRECTED ONE Naloxone HCl 0.2 mg 10/12/19 08:40 Narcan IV Q2M PRN Opioid Reversal Nitroglycerin 0.4 mg 10/14/19 15:48 10/21/19 02:45 Nitrostat SUBLINGUAL 0.4 mg Q5M PRN Administration Chest Pain Pantoprazole Sodium 40 mg 10/15/19 07:30 10/21/19 09:16 Protonix PO 40 mg [id number] JUSTIN Administration Objective - Vital Signs Vital signs: Vital Signs Temp 98.5 F 10/21/19 08:00 Pulse 88 10/21/19 08:00 Resp 18 10/21/19 08:00 BP 170/71 10/21/19 08:00 Pulse Ox 96 10/21/19 08:00 Intake & Output 10/20/19 10/21/19 10/21/19 18:59 06:59 18:59 Intake Total 1200 640 Output Total 1350 Balance 1200 -710 Weight 109 kg Intake: IV 400 Sodium Chloride 0.9% 1, 400 000 ml @ 50 mls/hr IV . Q20H [facility] Rx#:[id number] Oral 1200 240 Output: Urine 1350 Other: Voiding Method Indwelling Catheter Indwelling Catheter Indwelling Catheter - Exam -GENERAL: The patient is alert and oriented , but he is very weak and lethargic HEENT: Pupils are round and equally reacting to light. EOMI. No scleral icterus. No conjunctival pallor. Normocephalic, atraumatic. No pharyngeal erythema. No thyromegaly. CARDIOVASCULAR: S1 and S2 present. No murmurs, rubs, or gallops. -PULMONARY: Chest is clear to auscultation, no wheezing or crackles. Decreased breath sounds on both sides especially basal ABDOMEN: Soft, nontender, nondistended, normoactive bowel sounds. No palpable organomegaly. MUSCULOSKELETAL: No joint swelling or deformity. EXTREMITIES: No cyanosis, clubbing, or pedal edema. NEUROLOGICAL: Gross neurological examination did not reveal any focal deficits. SKIN: No rashes. no petechiae. - Labs CBC & Chem 7: 10/18/19 05:04 10/21/19 06:34 Labs: Abnormal Lab Results - Last 24 Hours (Table) 10/20/19 10/20/19 10/21/19 Range/Units 16:43 21:00 06:34 Sodium 136 L (137-145) mmol/L BUN 45 H (9-20) mg/dL Creatinine 1.38 H (0.66-1.25) mg/dL Glucose 192 H (74-99) mg/dL POC Glucose (mg/dL) 220 H 240 H (75-99) mg/dL 10/21/19 10/21/19 Range/Units 06:34 11:43 Sodium (137-145) mmol/L BUN (9-20) mg/dL Creatinine (0.66-1.25) mg/dL Glucose (74-99) mg/dL POC Glucose (mg/dL) 197 H 213 H (75-99) mg/dL Microbiology - Last 24 Hours (Table) 10/16/19 07:12 Blood Culture - Preliminary Blood No Growth after 120 hours 10/16/19 07:12 Blood Culture - Preliminary Blood No Growth after 120 hours Assessment and Plan Assessment: -Bilateral pneumonia -Acute hypoxic respiratory failure requiring BiPAP -Persistent atrial fibrillation with rapid ventricular response, likely precipitated by sepsis -Significantly elevated troponin up to 11. Acute non-Q-wave myocardial infarction, POA -Pulmonary congestion with possible acute on chronic diastolic CHF -Fall -Generalized weakness and lethargy, multifactorial due to his infection and hypoxia and possible medication. 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 Continue with Protonix antibiotic. Follow-up chest x-ray. Patient is followed closely by pulmonary/critical care team. Cardiology also on the case. Monitor blood pressure. Continue with Lasix and monitor oxygen level. Continue with steroids. Continue with antibiotics currently on cefepime and IV Vanco Remains on 12 L nasal cannula. Monitor the patient closely. Patient is on Plavix and Eliquis and statin. Also continue with gentle hydration Labs and medication were reviewed.. Continue same treatment. Continue with symptomatic treatment. Resume home medication. Monitor lytes and vitals. DVT and GI prophylaxis. Further recommendations of the clinical course of the patient DVT prophylaxis: Eliquis GI Prophylaxis: Ppi Prognosis is guarded Dr. Dorman resume the care of the patient tomorrow
--- NOTE | 2019-10-21 12:12 | P.PN ---
Subjective Progress Note Date: 10/21/19 Principal diagnosis: Multilobar pneumonia with extensive right lung consolidation, CoVID 19 screening negative This is a 84-year-old male patient with history of coronary artery disease with previous bypass surgery, chronic atrial fibrillation and valvular heart disease who initially presented to the ED on 10/12/2019 with worsening shortness of breath and chest pain. The patient was found to be in A. fib RVR and he was also found to have a dense consolidation of the right lower lobe consistent with pneumonia. He was placed on BiPAP at a pressure of 12/5 cm of water and FiO2 of 50%. He was given IV fluids. He was started on a combination of Rocephin and Zithromax. He was placed on Cardizem drip for rate control and following that he was brought into the intensive care units. The patient tested negative for cough with 19 infection. Over the past 24 hours his atrial fibrillation is under better control. He is known to have aortic stenosis with TaVR procedure d one. He is diabetic and has hyperlipidemia and hypertension and memory impairment and he is legally blind. His chest x-ray from yesterday showed improvement in the right lower lobe consolidation on the aeration of the right lung. There was some atelectatic changes in the left lung base. The patient was subsequently taken off the BiPAP. Currently is on 5 L of oxygen by nasal cannula with a pulse ox of 94%. Cultures have been negative thus far including the blood culture. The white cell count has been improving knowing that his initial white cell count is at 16. He remains on Eliquis for long-term anticoagulation. He is on metoprolol for rate control at a dose of 12.5 mg by mouth twice a day. He remains on IV Rocephin and Zithromax. On today's evaluation of 10/15/2019, the chest x-ray still showing extensive right lung consolidation. The patient has developed an acute non-ST segment elevation myocardial infarction. Troponin peaked at 11. History of any chest pain. He is complaining of diffuse body aches and the patient will be started back on his [place]. His blood pressure was noted to be elevated and appropriate changes will be done on the blood pressure medication. He is currently on metoprolol 25 mg by mouth twice a day. He is Norvasc was increased up to 10 mg an hour. He was started on clonidine 0.2 mg 3 times a day. He'll be kept on a combination of Eliquis and Plavix for now. IV fluids with normal state rate of 50 mL an hour and the patient is currently on oxygen at 5 L per minute nasal cannula. The dose being titrated to maintain a saturation above 90%. He remains on a combination of Rocephin and Zithromax for now. The echocardiogram showed a drop in the patient's ejection fraction which is down to 35-40%. There is segmental wall motion abnormalities. The patient has moderate concentric LVH. The patient also has a TAB are procedure done with moderate mitral annular calcification and a maximum gradient across the aortic valve of 11 mmHg without signs of any pulmonary hypertension. He has hypertensive heart disease with concentric LVH. On today's evaluation of 10/16/2019, the patient is still struggling with a pneumonia and acute. Overnight the patient became a bit confused and I made recommendations to give him Haldol and acid basis for delirium and agitation. He ultimately had become more tachypneic and he was placed back on the BiPAP. This morning I took him off the BiPAP and put him on high flow oxygen 10 L per minute nasal cannula. His chest x-ray showing bilateral pulmonary infiltrates. The right sided consolidation is improving and there is worsening of the infiltrates on the left side. He was also having episodic fever and he had a temperature spike of 11.4 this morning. Based on that, I discontinue the R ocephin and switch this patient to a combination of IV cefepime, and Zithromax. Cultures still negative for now. Patient was also given a dose of Lasix 20 mg IV push. The white cell count is at 9.9. Sodium level is at 129. BUN is 24 with a creatinine of 1.0. No angina. No palpitations. He has impaired LV function as stated in his echocardiogram. On 10/17/2019, the patient is still struggling with a bilateral pneumonia. The chest x-ray from today shows extensive pulmonary infiltrates and there has been interval worsening and left-sided pulmonary infiltrates. The right-sided consolidations improved. Note that the patient was covered with a combination of cefepime and Zithromax and antibiotics which was done yesterday. He is going to be given a dose of Lasix today 40 mg IV push and his clinical response is to be monitored. Earlier today, the patient was seen in the intensive care unit. He was in atrial fibrillation. He was on high flow oxygen at 15 L per minute nasal cannula with a pulse ox of 92%. He was sleeping. I was told that he did not sleep throughout the night. He was a bit confused and this morning his sleep breathing very comfortably. No significant leukocytosis. White cell count at 9.8. Function is stable. The blood cultures of been negative for now. Note that the chest x-ray showed bilateral alveolar opacities/infiltrates slightly worse compared to yesterday chest x-ray. He is post coronary artery bypass surgery. He denies having any chest pain. His his pro-calcitonin level was at 2.9 from yesterday. On 10/18/2019, the patient's condition essentially the same compared to yesterday. There is still extensive infiltration of the lungs on today's chest x-ray with worsening on the left. Noted the patient's initial pneumonia was in the right and the patient subsequently developed infiltration of the left. He was initially on examination Rocephin and Zithromax. Rocephin was stopped and the patient was started on cefepime. Zithromax was continued. On today's evaluation going to add vancomycin. The patient had a pro-calcitonin level of 1.8 from yesterday. The patient's renal function is stable revealed a 33 creatinine of 1.1. He was given a dose of Lasix yesterday the patient remains in a negative fluid balance. The patient is on 10 L of oxygen by nasal cannula and his pulse ox is around 94%. On and off he has some limited confusion. Overnight the patient had an acute hypersensitivity reaction any also developed some chest pain. Based on that, I ordered nitroglycerin drip. This morning his blood pressure is under better control of the chest and has subsided. The patient was seen by cardiology again. He was taken off the nitroglycerin drip and he was started in November. He was also placed on an increased dose of Catapres 0.2 mg 3 times a day. The patient is also on lisinopril and metoprolol dose was also adjusted by cardiology. He is afebrile for now. Is a bit lethargic. He is arousable and follows commands and answers questions appropriately. No focal neurological deficits. No nausea. No vomiting. No emesis. He is free of any chest pain as stated for now. On 10/19/2019 patient seen in follow-up on selective care unit, patient was transferred out of the intensive care unit last night, and overnight he has developed difficulty breathing, and worsening hypoxemia, and chest pain, he was placed on BiPAP support. He was given a dose of IV Lasix, and he has diuresed about 800 mL of urine. His renal function is worsening on today's labs, with BUN of up to 43, creatinine is 1.48, serum sodium is 134, follow-up troponin yesterday is trending down, and is down to 1.080, pro calcitonin is improving and is down to 1.87 on yesterday's labs, patient remains on antibiotics for pneumonia, including cefepime and vancomycin. Not been able to produce a sputum specimen, blood cultures have been negative thus far. The patient is seen today 10/20/2019 in follow-up on the selective care unit. He is currently sitting up in bed. Awake and alert. He is on BiPAP 12/7 and 60% FiO2. He's been alternating with 15 L high flow nasal cannula. Today's chest x-ray shows stable right sided airspace disease. Left-sided slightly worse with infiltrate. Blood culture reveals no growth. Sodium 133. Potassium 3.5. Creatinine 1.42. He remains on vancomycin and cefepime. Currently on IV Solu-Medrol. Anticoagulated with Eliquis. The patient is seen today 10/21/2019 in follow-up on the selective care unit. He is currently resting comfortably in bed. Awake and alert in no acute distress. He is still requiring 15 L high flow nasal cannula to maintain O2 saturations in the 90s. He is afebrile. Chest x-ray does show improved aeration bilaterally. Repeat blood cultures revealed no growth. Sodium 136. Potassium 3.8. Creatinine 1.3. Currently in a negative balance. Weight 109 kg. We'll add Lasix 40 mg IV every 12 hours. He remains on vancomycin and cefepime. Anticoagulated with Eliquis. Objective - Vital Signs Vital signs: Vital Signs Temp 98.1 F 10/21/19 11:52 Pulse 68 10/21/19 12:00 Resp 18 10/21/19 12:00 BP 149/66 10/21/19 11:52 Pulse Ox 93 L 10/21/19 11:52 Intake & Output 10/20/19 10/21/19 10/21/19 18:59 06:59 18:59 Intake Total 1200 640 240 Output Total 1350 Balance 1200 -710 240 Weight 109 kg Intake: IV 400 Sodium Chloride 0.9% 1, 400 000 ml @ 50 mls/hr IV . Q20H [facility] Rx#:[id number] Oral 1200 240 240 Output: Urine 1350 Other: Voiding Method Indwelling Catheter Indwelling Catheter Indwelling Catheter - Exam GENERAL EXAM: Awake, alert, 84-year-old male, on 15 L high flow nasal cannula, calm and comfortable, with a project safety manager at the bedside comfortable in no apparent distress. HEAD: Normocephalic/atraumatic. EYES: Normal reaction of pupils, equal size. Conjunctiva pink, sclera white. NOSE: Clear with pink turbinates. THROAT: No erythema or exudates. NECK: No masses, no JVD, no thyroid enlargement, no adenopathy. CHEST: No chest wall deformity. Symmetrical expansion. LUNGS: Equal air entry with bilateral scattered rhonchi, crackles in the bilate ral posterior bases CVS: Regular rate and rhythm, normal S1 and S2, no gallops, no murmurs, no rubs ABDOMEN: Soft, nontender. No hepatosplenomegaly, normal bowel sounds, no guarding or rigidity. EXTREMITIES: No clubbing, no edema, no cyanosis, 2+ pulses and upper and lower extremities. MUSCULOSKELETAL: Muscle strength and tone normal. SPINE: No scoliosis or deformity SKIN: No rashes CENTRAL NERVOUS SYSTEM: Awake, alert. No focal deficits, tone is normal in all 4 extremities. - Labs CBC & Chem 7: 10/18/19 05:04 10/21/19 06:34 Labs: Abnormal Lab Results - Last 24 Hours (Table) 10/20/19 10/20/19 10/21/19 Range/Units 16:43 21:00 06:34 Sodium 136 L (137-145) mmol/L BUN 45 H (9-20) mg/dL Creatinine 1.38 H (0.66-1.25) mg/dL Glucose 192 H (74-99) mg/dL POC Glucose (mg/dL) 220 H 240 H (75-99) mg/dL 10/21/19 10/21/19 Range/Units 06:34 11:43 Sodium (137-145) mmol/L BUN (9-20) mg/dL Creatinine (0.66-1.25) mg/dL Glucose (74-99) mg/dL POC Glucose (mg/dL) 197 H 213 H (75-99) mg/dL Microbiology - Last 24 Hours (Table) 10/16/19 07:12 Blood Culture - Preliminary Blood No Growth after 120 hours 10/16/19 07:12 Blood Culture - Preliminary Blood No Growth after 120 hours Assessment and Plan Assessment: 1 Multilobar pneumonia with extensive right lung consolidation, likely bacterial with secondary sepsis and hypoxic respiratory failure requiring BiPAP at a time of admission. Currently on vancomycin and cefepime Cultures are essentially negative thus far. COVID 19 infection was ruled out. The patient remains on 15 liters of high flow oxygen by nasal cannula. Chest x-ray continues to show improved aeration. Still some pulmonary venous congestion. Lasix 40 IV every 12 hours. 2 Acute hypoxic respiratory failure requiring BiPAP at a time of admission currently on 15 L of oxygen by nasal cannula 3 Persistent atrial fibrillation with rapid ventricular response, likely precipitated by sepsis, rate is controlled 4 Coronary artery disease with bypass, with an acute non-ST segment elevation myocardial infarction 5 Chronic congestive heart failure from diastolic dysfunction EF 55-60%, the patient suffered an acute non-STEMI and there has been further drop in a ejection fraction down to 35-40% along with segmental wall motion abnormalities involving the anterior septal apical goode. 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 Esparza Chest x-ray reviewed Continue vancomycin and cefepime Continue IV Solu-Medrol Added Lasix 40 mg IV every 12 hours Continue BiPAP support alternating with high flow nasal cannula Prognosis is guarded We'll continue to follow I, the cosigning physician, performed a history & physical examination of the patient. Lungs sounds bilateral scattered rhonchi, crackles in the posterior bases. Maintaining good O2 saturations in the 90s on 15 L high flow nasal cannula. I discussed the assessment and plan of care with my nurse pract Nahomy larson. I attest to the above note as dictated by her.
[2019-10-21 16:50] LABS: Glucose,Whole Blood 207 mg/dL (75-99)
[2019-10-21 20:28] LABS: Glucose,Whole Blood 197 mg/dL (75-99)
[2019-10-21] MEDS: ATORVASTATIN 40 MG TAB PO SCH (23:09)
[2019-10-22 06:08] LABS: Glucose,Whole Blood 195 mg/dL (75-99)
[2019-10-22] MEDS ORDERED: VANCOMYCIN TROUGH DUE 1 EACH MISC MISCELLANE ONE (09:00)
[2019-10-22 09:30] LABS: Calcium 9.7 mg/dL (8.4-10.2)
[2019-10-22] MEDS: NITROGLYCERIN-D5W PMX 50 MG in DEXTROSE/WATER 1 250ML.BAG IV SCH (10:26)
[2019-10-22] MEDS: INSULIN ASPART (NovoLOG) 100 UNIT/ML VIAL SQ SCH ×4 (10:26→21:37)
[2019-10-22] MEDS: amLODIPine 10 MG TAB PO SCH (10:48)
[2019-10-22] MEDS: cloNIDine HCL 0.1 MG TAB PO SCH ×3 (10:48→21:36)
[2019-10-22] MEDS: PANTOPRAZOLE 40 MG TABLET PO SCH (10:48)
[2019-10-22] MEDS: hydrALAZINE HCL 50 MG TAB PO SCH ×3 (10:48→21:37)
[2019-10-22] MEDS: CEFEPIME 2 GM in SODIUM CHLORIDE 0.9% 100 ML IVPB SCH (10:49)
[2019-10-22] MEDS: APIXABAN 5 MG TAB PO SCH ×2 (10:49→21:36)
[2019-10-22] MEDS: CLOPIDOGREL 75 MG TAB PO SCH (10:49)
[2019-10-22] MEDS: CARVEDILOL 12.5 MG TAB PO SCH ×2 (10:49→16:49)
[2019-10-22] MEDS: ALLOPURINOL 100 MG TAB PO SCH ×2 (10:49→21:36)
[2019-10-22] MEDS: methylPREDNISolone SOD SUCCI 40 MG/ML 1 ML VIAL IV SCH ×2 (10:49→16:49)
[2019-10-22 11:47] LABS: Glucose,Whole Blood 212 mg/dL (75-99)
--- NOTE | 2019-10-22 12:32 | P.PN ---
Subjective Progress Note Date: 10/22/19 Principal diagnosis: Multilobar pneumonia with extensive right lung consolidation, CoVID 19 screening negative This is a 84-year-old male patient with history of coronary artery disease with previous bypass surgery, chronic atrial fibrillation and valvular heart disease who initially presented to the ED on 10/12/2019 with worsening shortness of breath and chest pain. The patient was found to be in A. fib RVR and he was also found to have a dense consolidation of the right lower lobe consistent with pneumonia. He was placed on BiPAP at a pressure of 12/5 cm of water and FiO2 of 50%. He was given IV fluids. He was started on a combination of Rocephin and Zithromax. He was placed on Cardizem drip for rate control and following that he was brought into the intensive care units. The patient tested negative for cough with 19 infection. Over the past 24 hours his atrial fibrillation is under better control. He is known to have aortic stenosis with TaVR procedure d one. He is diabetic and has hyperlipidemia and hypertension and memory impairment and he is legally blind. His chest x-ray from yesterday showed improvement in the right lower lobe consolidation on the aeration of the right lung. There was some atelectatic changes in the left lung base. The patient was subsequently taken off the BiPAP. Currently is on 5 L of oxygen by nasal cannula with a pulse ox of 94%. Cultures have been negative thus far including the blood culture. The white cell count has been improving knowing that his initial white cell count is at 16. He remains on Eliquis for long-term anticoagulation. He is on metoprolol for rate control at a dose of 12.5 mg by mouth twice a day. He remains on IV Rocephin and Zithromax. On today's evaluation of 10/15/2019, the chest x-ray still showing extensive right lung consolidation. The patient has developed an acute non-ST segment elevation myocardial infarction. Troponin peaked at 11. History of any chest pain. He is complaining of diffuse body aches and the patient will be started back on his [place]. His blood pressure was noted to be elevated and appropriate changes will be done on the blood pressure medication. He is currently on metoprolol 25 mg by mouth twice a day. He is Norvasc was increased up to 10 mg an hour. He was started on clonidine 0.2 mg 3 times a day. He'll be kept on a combination of Eliquis and Plavix for now. IV fluids with normal state rate of 50 mL an hour and the patient is currently on oxygen at 5 L per minute nasal cannula. The dose being titrated to maintain a saturation above 90%. He remains on a combination of Rocephin and Zithromax for now. The echocardiogram showed a drop in the patient's ejection fraction which is down to 35-40%. There is segmental wall motion abnormalities. The patient has moderate concentric LVH. The patient also has a TAB are procedure done with moderate mitral annular calcification and a maximum gradient across the aortic valve of 11 mmHg without signs of any pulmonary hypertension. He has hypertensive heart disease with concentric LVH. On today's evaluation of 10/16/2019, the patient is still struggling with a pneumonia and acute. Overnight the patient became a bit confused and I made recommendations to give him Haldol and acid basis for delirium and agitation. He ultimately had become more tachypneic and he was placed back on the BiPAP. This morning I took him off the BiPAP and put him on high flow oxygen 10 L per minute nasal cannula. His chest x-ray showing bilateral pulmonary infiltrates. The right sided consolidation is improving and there is worsening of the infiltrates on the left side. He was also having episodic fever and he had a temperature spike of 11.4 this morning. Based on that, I discontinue the R ocephin and switch this patient to a combination of IV cefepime, and Zithromax. Cultures still negative for now. Patient was also given a dose of Lasix 20 mg IV push. The white cell count is at 9.9. Sodium level is at 129. BUN is 24 with a creatinine of 1.0. No angina. No palpitations. He has impaired LV function as stated in his echocardiogram. On 10/17/2019, the patient is still struggling with a bilateral pneumonia. The chest x-ray from today shows extensive pulmonary infiltrates and there has been interval worsening and left-sided pulmonary infiltrates. The right-sided consolidations improved. Note that the patient was covered with a combination of cefepime and Zithromax and antibiotics which was done yesterday. He is going to be given a dose of Lasix today 40 mg IV push and his clinical response is to be monitored. Earlier today, the patient was seen in the intensive care unit. He was in atrial fibrillation. He was on high flow oxygen at 15 L per minute nasal cannula with a pulse ox of 92%. He was sleeping. I was told that he did not sleep throughout the night. He was a bit confused and this morning his sleep breathing very comfortably. No significant leukocytosis. White cell count at 9.8. Function is stable. The blood cultures of been negative for now. Note that the chest x-ray showed bilateral alveolar opacities/infiltrates slightly worse compared to yesterday chest x-ray. He is post coronary artery bypass surgery. He denies having any chest pain. His his pro-calcitonin level was at 2.9 from yesterday. On 10/18/2019, the patient's condition essentially the same compared to yesterday. There is still extensive infiltration of the lungs on today's chest x-ray with worsening on the left. Noted the patient's initial pneumonia was in the right and the patient subsequently developed infiltration of the left. He was initially on examination Rocephin and Zithromax. Rocephin was stopped and the patient was started on cefepime. Zithromax was continued. On today's evaluation going to add vancomycin. The patient had a pro-calcitonin level of 1.8 from yesterday. The patient's renal function is stable revealed a 33 creatinine of 1.1. He was given a dose of Lasix yesterday the patient remains in a negative fluid balance. The patient is on 10 L of oxygen by nasal cannula and his pulse ox is around 94%. On and off he has some limited confusion. Overnight the patient had an acute hypersensitivity reaction any also developed some chest pain. Based on that, I ordered nitroglycerin drip. This morning his blood pressure is under better control of the chest and has subsided. The patient was seen by cardiology again. He was taken off the nitroglycerin drip and he was started in November. He was also placed on an increased dose of Catapres 0.2 mg 3 times a day. The patient is also on lisinopril and metoprolol dose was also adjusted by cardiology. He is afebrile for now. Is a bit lethargic. He is arousable and follows commands and answers questions appropriately. No focal neurological deficits. No nausea. No vomiting. No emesis. He is free of any chest pain as stated for now. On 10/19/2019 patient seen in follow-up on selective care unit, patient was transferred out of the intensive care unit last night, and overnight he has developed difficulty breathing, and worsening hypoxemia, and chest pain, he was placed on BiPAP support. He was given a dose of IV Lasix, and he has diuresed about 800 mL of urine. His renal function is worsening on today's labs, with BUN of up to 43, creatinine is 1.48, serum sodium is 134, follow-up troponin yesterday is trending down, and is down to 1.080, pro calcitonin is improving and is down to 1.87 on yesterday's labs, patient remains on antibiotics for pneumonia, including cefepime and vancomycin. Not been able to produce a sputum specimen, blood cultures have been negative thus far. The patient is seen today 10/20/2019 in follow-up on the selective care unit. He is currently sitting up in bed. Awake and alert. He is on BiPAP 12/7 and 60% FiO2. He's been alternating with 15 L high flow nasal cannula. Today's chest x-ray shows stable right sided airspace disease. Left-sided slightly worse with infiltrate. Blood culture reveals no growth. Sodium 133. Potassium 3.5. Creatinine 1.42. He remains on vancomycin and cefepime. Currently on IV Solu-Medrol. Anticoagulated with Eliquis. The patient is seen today 10/21/2019 in follow-up on the selective care unit. He is currently resting comfortably in bed. Awake and alert in no acute distress. He is still requiring 15 L high flow nasal cannula to maintain O2 saturations in the 90s. He is afebrile. Chest x-ray does show improved aeration bilaterally. Repeat blood cultures revealed no growth. Sodium 136. Potassium 3.8. Creatinine 1.3. Currently in a negative balance. Weight 109 kg. We'll add Lasix 40 mg IV every 12 hours. He remains on vancomycin and cefepime. Anticoagulated with Eliquis. The patient is seen today 10/22/2019 in follow-up on the selective care unit. He is currently resting comfortably in bed. A bit more awake and alert today compared to yesterday. He is maintaining O2 saturations on 15 L high flow nasal cannula. He is afebrile. Hemodynamically stable. Blood cultures reveal no growth. Sodium 136. Potassium 4.0. Creatinine 1.80. He remains on vancomycin and cefepime. Objective - Vital Signs Vital signs: Vital Signs Temp 97.4 F L 10/22/19 04:00 Pulse 87 10/22/19 04:00 Resp 18 10/22/19 04:00 BP 129/52 10/22/19 04:00 Pulse Ox 91 L 10/22/19 08:00 Intake & Output 10/21/19 10/22/19 10/22/19 18:59 06:59 18:59 Intake Total 240 Output Total 210 Balance 240 -210 Weight 109 kg 107 kg Intake: Oral 240 Output: Urine 210 Other: Voiding Method Indwelling Catheter Indwelling Catheter - Exam GENERAL EXAM: Awake, alert, 84-year-old male, on 15 L high flow nasal cannula, calm and comfortable, comfortable in no apparent distress. HEAD: Normocephalic/atraumatic. EYES: Normal reaction of pupils, equal size. Conjunctiva pink, sclera white. NOSE: Clear with pink turbinates. THROAT: No erythema or exudates. NECK: No masses, no JVD, no thyroid enlargement, no adenopathy. CHEST: No chest wall deformity. Symmetrical expansion. LUNGS: Equal air entry with bilateral scattered rhonchi, crackles in the bilateral posterior bases CVS: Regular rate and rhythm, normal S1 and S2, no gallops, no murmurs, no rubs ABDOMEN: Soft, nontender. No hepatosplenomegaly, normal bowel sounds, no guarding or rigidity. EXTREMITIES: No clubbing, no edema, no cyanosis, 2+ pulses and upper and lower extremities. MUSCULOSKELETAL: Muscle strength and tone normal. SPINE: No scoliosis or deformity SKIN: No rashes CENTRAL NERVOUS SYSTEM: Awake, alert. No focal deficits, tone is normal in all 4 extremities. - Labs CBC & Chem 7: 10/18/19 05:04 10/22/19 08:56 Labs: Abnormal Lab Results - Last 24 Hours (Table) 10/21/19 10/21/19 10/22/19 Range/Units 16:49 20:27 06:07 Sodium (137-145) mmol/L BUN (9-20) mg/dL Creatinine (0.66-1.25) mg/dL Glucose (74-99) mg/dL POC Glucose (mg/dL) 207 H 197 H 195 H (75-99) mg/dL 10/22/19 10/22/19 Range/Units 08:56 11:45 Sodium 136 L (137-145) mmol/L BUN 64 H (9-20) mg/dL Creatinine 1.80 H (0.66-1.25) mg/dL Glucose 188 H (74-99) mg/dL POC Glucose (mg/dL) 212 H (75-99) mg/dL Microbiology - Last 24 Hours (Table) 10/16/19 07:12 Blood Culture - Final Blood No Growth after 144 hours 10/16/19 07:12 Blood Culture - Final Blood No Growth after 144 hours Assessment and Plan Assessment: 1 Multilobar pneumonia with extensive right lung consolidation, likely bacterial with secondary sepsis and hypoxic respiratory failure requiring BiPAP at a time of admission. Currently on vancomycin and cefepime Cultures are essentially negative thus far. COVID 19 infection was ruled out. The patient remains on 15 liters of high flow oxygen by nasal cannula. Chest x-ray continues to show improved aeration. Still some pulmonary venous congestion. Lasix 40 IV every 12 hours. 2 Acute hypoxic respiratory failure requiring BiPAP at a time of admission currently on 15 L of oxygen by nasal cannula 3 Persistent atrial fibrillation with rapid ventricular response, likely precipitated by sepsis, rate is controlled 4 Coronary artery disease with bypass, with an acute non-ST segment elevation myocardial infarction 5 Chronic congestive heart failure from diastolic dysfunction EF 55-60%, the patient suffered an acute non-STEMI and there has been further drop in a ejection fraction down to 35-40% along with segmental wall motion abnormalities involving the anterior septal apical goode. 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 Cash Continue vancomycin and cefepime Continue IV Solu-Medrol Continue Lasix 40 mg IV every 12 hours Titrate down the FiO2 as tolerated Repeat a chest x-ray in the a.m. Prognosis is guarded We'll continue to follow I, the cosigning physician, performed a history & physical examination of the patient. Lungs sounds bilateral scattered rhonchi, crackles in the posterior bases. Maintaining good O2 saturations in the 90s on 15 L high flow nasal cannula. I discussed the assessment and plan of care with my nurse pr actitioner, Nahomy Cabrales. I attest to the above note as dictated by her.
[2019-10-22] MEDS ORDERED: VANCOMYCIN 1,500 MG in SODIUM CHLORIDE 0.9% 250 ML IVPB SCH (13:00)
[2019-10-22 16:44] LABS: Glucose,Whole Blood 213 mg/dL (75-99)
--- NOTE | 2019-10-22 18:03 | P.PN ---
Progress Note - Text Progress Note Date: 10/22/19 Chief Complaint: Chest pain, shortness of breath Hospital course: This is a very pleasant 84-year-old patient of Dr. magallanes. 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 Chronic stable medical conditions include congestive heart failure EF 55-60%, diabetes, hypertension, hyperlipidemia, CK disease stage 2, history of aortic valve replacement with TAVR, mild cognitive impairment.egally blind and decreased hearing.. February 2019 had acute non-Q-wave NM with coronary intervention with angioplasty stent. Also admitted in May 2019 with paroxysmal atrial fibrillation. Started on eliquis. Patient now presents to the ER what is described as significant chest pain sharp shortness of breath. Patient is on a BiPAP currently in the ICU. Because of respiratory distress. COVID-19 was negative. Slight cough. Had a fever documented here for 100.6. Patient's history is limited because of shortness of breath. Unable to qualify the chest pain further. Found to be in atrial fibrillation with a rapid ventricular rate Admitted with-multilobar pneumonia, acute hypoxic respiratory failure, acute non-Q-wave myocardial infarction, atrial fibrillation uncontrolled. Admitted to ICU. Patient was on BiPAP.-Then switched over to high flow oxygen Today-medical floor: There is some concern about choking with food intermittently. Called by speech therapist. Decided to proceed with swallow evaluation. Patient does feel tired. Patient's of shortness of breath. Propped up in bed. Review of systems: Attempted for constitutional, cardiovascular, GI, pulmonary. relevant finding as above Active Medications Acetaminophen (Tylenol Tab) 650 mg PO Q6HR PRN PRN Reason: Fever and/ or Pain Last Admin: 10/18/19 04:18 Dose: 650 mg Documented by: Hydrocodone Bitart/Acetaminophen ([place] 5-325) 1 each PO Q6HR PRN PRN Reason: Pain Last Admin: 10/21/19 09:15 Dose: 1 each Documented by: Allopurinol (Zyloprim) 100 mg PO BID [facility] Last Admin: 10/22/19 10:49 Dose: 100 mg Documented by: Alprazolam (Xanax) 0.25 mg PO TID PRN PRN Reason: Anxiety Last Admin: 10/21/19 09:16 Dose: 0.25 mg Documented by: Amlodipine Besylate (Norvasc) 10 mg PO DAILY [facility] Last Admin: 10/22/19 10:48 Dose: 10 mg Documented by: Apixaban (Eliquis) 5 mg PO BID [facility] Last Admin: 10/22/19 10:49 Dose: 5 mg Documented by: Atorvastatin Calcium (Lipitor) 40 mg PO HS [facility] Last Admin: 10/21/19 23:09 Dose: 40 mg Documented by: Carvedilol (Coreg) 12.5 mg PO BID-W/MEALS [facility] Last Admin: 10/22/19 16:49 Dose: 12.5 mg Documented by: Clonidine (Catapres) 0.2 mg PO TID [facility] Last Admin: 10/22/19 16:49 Dose: 0.2 mg Documented by: Clopidogrel Bisulfate (Plavix) 75 mg PO DAILY [facility] Last Admin: 10/22/19 10:49 Dose: 75 mg Documented by: Haloperidol Lactate (Haldol) 1 mg IVP Q2HR PRN PRN Reason: Agitation or Acute Psychosis Last Admin: 10/21/19 01:26 Dose: 1 mg Documented by: Haloperidol Lactate (Haldol) 1 mg IVP Q4HR PRN PRN Reason: Agitation or Acute Psychosis Haloperidol Lactate (Haldol) 2 mg IVP Q2HR PRN PRN Reason: Agitation or Acute Psychosis Last Admin: 10/21/19 03:25 Dose: 2 mg Documented by: Haloperidol Lactate (Haldol) 2 mg IVP Q4HR PRN PRN Reason: Agitation or Acute Psychosis Hydralazine HCl (Apresoline) 100 mg PO TID [facility] Last Admin: 10/22/19 16:49 Dose: 100 mg Documented by: Nitroglycerin/Dextrose 50 mg/ (IV Solution) 250 mls @ 1.5 mls/hr IV .Q24H [facility]; Protocol Last Admin: 10/22/19 10:26 Dose: Not Given Documented by: Cefepime HCl 2 gm/ Sodium (Chloride) 100 mls @ 200 mls/hr IVPB Q24HR [facility] Last Admin: 10/22/19 10:49 Dose: 200 mls/hr Documented by: Vancomycin HCl 1,500 mg/ (Sodium Chloride) 250 mls @ 125 mls/hr IVPB Q24H [facility] Last Admin: 10/22/19 14:37 Dose: 125 mls/hr Documented by: Insulin Aspart (Novolog) 0 unit SQ ACHS [facility]; Protocol Last Admin: 10/22/19 13:27 Dose: 4 unit Documented by: Methylprednisolone Sodium Succinate (Solu-Medrol) 40 mg IV Q8HR [facility] Last Admin: 10/22/19 16:49 Dose: 40 mg Documented by: Miscellaneous Information (Potassium Per Protocol) 1 each MISCELLANE DAILY PRN; Protocol PRN Reason: Per Protocol Naloxone HCl (Narcan) 0.2 mg IV Q2M PRN PRN Reason: Opioid Reversal Nitroglycerin (Nitrostat) 0.4 mg SUBLINGUAL Q5M PRN PRN Reason: Chest Pain Last Admin: 10/21/19 02:45 Dose: 0.4 mg Documented by: Pantoprazole Sodium (Protonix) 40 mg PO AC-BRKFST [facility] Last Admin: 10/22/19 10:48 Dose: 40 mg Documented by: Physical examination: VITAL SIGNS: 97.3, 78, 18, 113/47, 98% on 15 L high flow GENERAL: Propped up in bed, tired, some short of breath -on nasal cannula EYES: Pupils equal. Conjunctiva normal. HEENT: External appearance of nose and ears normal, oral cavity grossly normal, decreased hearing. NECK: JVD unable to assess, masses not palpable. HEART: Irregular heart sounds, no edema. LUNGS: Respiratory rate increased, , decreased breath sounds. ABDOMEN: Soft, nontender, liver spleen not palpable, no masses palpable. 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 NEUROLOGICAL: Following commands INVESTIGATIONS, reviewed in the clinical context: Potassium 4 bun 64 creatinine 1.80 Previous testing White count 16.3 hemoglobin 13 platelets 176 percussion 3.6 bun 26 creatinine 1.34 Troponin I 0.071, 6.5, 11.7 Coronavirus PCR-not detected EKG tracing personally reviewed by me-atrial fibrillation rapid ventricular rate with some ST segment depression Chest x-ray film personally reviewed by me-this infiltrates on the right side Blood cultures-negative Assessment: -Multilobar pneumonia suspected gram-negative organism causing sepsis, POA-slow to respond -Acute hypoxic respiratory failure requiring BiPAP,-now nasal cannula up to 12 L high.-Slow to respond -Persistent atrial fibrillation with rapid ventricular response, likely precipitated by sepsis- controlled -Acute non-Q-wave myocardial infarction, POA -Coronary artery disease with history of bypass -Chronic congestive heart failure from diastolic dysfunction EF 55-60% from ischemic heart disease -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 Creatinine has gone up from 0.98 up to 1.80. Started on vancomycin yesterday. Plan: Remains on 12 L nasal cannula. Patient remains on IV cefepime. Given the acute kidney injury DC the vancomycin. Follow labs closely. Decrease Solu-Medrol to every 12. Patient is on eliquis.
[2019-10-22] MEDS: HYDROCHLOROTHIAZIDE 25 MG TAB PO SCH (18:13)
[2019-10-22 21:32] LABS: Glucose,Whole Blood 283 mg/dL (75-99)
[2019-10-22] MEDS: ATORVASTATIN 40 MG TAB PO SCH (21:36)
[2019-10-23] MEDS: methylPREDNISolone SOD SUCCI 40 MG/ML 1 ML VIAL IV SCH ×2 (00:30→12:11)
[2019-10-23] MEDS: HYDROcodone/APAP 5-325MG 1 EACH TAB PO PRN ×2 (02:14→21:54)
[2019-10-23] MEDS: NITROGLYCERIN SL TABS 0.4 MG TAB SUBLINGUAL PRN ×2 (02:47→03:00)
[2019-10-23] MEDS: ALPRAZolam 0.25 MG TAB PO PRN ×2 (02:47→21:54)
[2019-10-23 06:17] LABS: Glucose,Whole Blood 184 mg/dL (75-99)
[2019-10-23] MEDS: PANTOPRAZOLE 40 MG TABLET PO SCH (06:33)
[2019-10-23] MEDS: INSULIN ASPART (NovoLOG) 100 UNIT/ML VIAL SQ SCH ×4 (06:33→21:53)
[2019-10-23] MEDS: CARVEDILOL 12.5 MG TAB PO SCH ×2 (06:33→17:55)
--- NOTE | 2019-10-23 08:22 | XR ---
EXAMINATION TYPE: XR chest 1V portable DATE OF EXAM: 10/23/2019 Comparison: 10/21/2019 Clinical History: 84-year-old male CHF/pneumonia Findings: Median sternotomy wires are present. Endovascular aortic valve replacement. Heart mildly enlarged. Pa tchy and confluent perihilar and midlung opacities persist, slightly worse now on the right. No sizab le effusion. Impression: Cardiomegaly and persistent perihilar and mid lung infiltrates. Slightly worsened on the right.
[2019-10-23] MEDS ORDERED: SODIUM CHLORIDE 0.9% 1,000 ML IV SCH (09:45)
--- NOTE | 2019-10-23 10:30 | FL ---
EXAMINATION TYPE: FL barium swallow w video DATE OF EXAM: 10/23/2019 MODIFIED SWALLOW / DEGLUTITION STUDY CLINICAL HISTORY: Dysphagia. TECHNIQUE: Deglutition study is performed utilizing thin liquid barium, nectar thick liquid barium, barium thick pudding, and barium coated cracker. 1 minute and 36 seconds of fluoroscopy time was util ized with 0 fluoroscopic images saved as the examination was video recorded. COMPARISON: None. FINDINGS: The oral and pharyngeal phases show slightly delayed initiation and propagation with all mo dalities tested. Normal mastication is seen with solid modalities tested. Laryngeal aspiration is s een with the thin barium consistency only. There is no evidence of aspiration with any modality teste d. No significant pharyngeal residue was appreciated. IMPRESSION: Residual aspiration with thin barium only. No evidence of aspiration. Please refer to spe ech therapist notes for further details if necessary.
[2019-10-23] MEDS: NITROGLYCERIN-D5W PMX 50 MG in DEXTROSE/WATER 1 250ML.BAG IV SCH (10:39)
[2019-10-23] MEDS: hydrALAZINE HCL 50 MG TAB PO SCH ×3 (10:52→21:54)
[2019-10-23] MEDS: CEFEPIME 2 GM in SODIUM CHLORIDE 0.9% 100 ML IVPB SCH (10:52)
[2019-10-23] MEDS: cloNIDine HCL 0.1 MG TAB PO SCH ×3 (10:52→21:54)
[2019-10-23] MEDS: CLOPIDOGREL 75 MG TAB PO SCH (10:52)
[2019-10-23] MEDS: APIXABAN 5 MG TAB PO SCH ×2 (10:53→21:53)
[2019-10-23] MEDS: amLODIPine 10 MG TAB PO SCH (10:53)
[2019-10-23] MEDS: ALLOPURINOL 100 MG TAB PO SCH ×2 (10:53→21:53)
[2019-10-23 11:34] LABS: Glucose,Whole Blood 255 mg/dL (75-99)
--- NOTE | 2019-10-23 12:07 | P.PN ---
Subjective Progress Note Date: 10/23/19 This is a 84-year-old male patient with history of coronary artery disease with previous bypass surgery, chronic atrial fibrillation and valvular heart disease who initially presented to the ED on 10/12/2019 with worsening shortness of breath and chest pain. The patient was found to be in A. fib RVR and he was also found to have a dense consolidation of the right lower lobe consistent with pneumonia. He was placed on BiPAP at a pressure of 12/5 cm of water and FiO2 of 50%. He was given IV fluids. He was started on a combination of Rocephin and Zithromax. He was placed on Cardizem drip for rate control and following that he was brought into the intensive care units. The patient tested negative for cough with 19 infection. Over the past 24 hours his atrial fibrillation is under better control. He is known to have aortic stenosis with TaVR procedure done. He is diabetic and has hyperlipidemia and hypertension and memory impairment and he is legally blind. His chest x-ray from yesterday showed improvement in the right lower lobe consolidation on the aeration of the right lung. There was some atelectatic changes in the left lung base. The patient was subsequently taken off the BiPAP. Currently is on 5 L of oxygen by nasal cannula with a pulse ox of 94%. Cultures have been negative thus far including the blood culture. The white cell count has been improving knowing that his initial white cell count is at 16. He remains on Eliquis for long-term anticoagulation. He is on metoprolol for rate control at a dose of 12.5 mg by mouth twice a day. He remains on IV Rocephin and Zithromax. On today's evaluation of 10/15/2019, the chest x-ray still showing extensive right lung consolidation. The patient has developed an acute non-ST segment elevation myocardial infarction. Troponin peaked at 11. History of any chest pain. He is complaining of diffuse body aches and the patient will be started back on his [place]. His blood pressure was noted to be elevated and appropriate changes will be done on the blood pressure medication. He is currently on metoprolol 25 mg by mouth twice a day. He is Norvasc was increased up to 10 mg an hour. He was started on clonidine 0.2 mg 3 times a day. He'll be kept on a combination of Eliquis and Plavix for now. IV fluids with normal state rate of 50 mL an hour and the patient is currently on oxygen at 5 L per minute nasal cannula. The dose being titrated to maintain a saturation above 90%. He remains on a combination of Rocephin and Zithromax for now. The echocardiogram showed a drop in the patient's ejection fraction which is down to 35-40%. There is segmental wall motion abnormalities. The patient has moderate concentric LVH. The patient also has a TAB are procedure done with moderate mitral annular calcification and a maximum gradient across the aortic valve of 11 mmHg without signs of any pulmonary hypertension. He has hypertensive heart disease with concentric LVH. On today's evaluation of 10/16/2019, the patient is still struggling with a pneumonia and acute. Overnight the patient became a bit confused and I made recommendations to give him Haldol and acid basis for delirium and agitation. He ultimately had become more tachypneic and he was placed back on the BiPAP. This morning I took him off the BiPAP and put him on high flow oxygen 10 L per minute nasal cannula. His chest x-ray showing bilateral pulmonary infiltrates. The right sided consolidation is improving and there is worsening of the infiltrates on the left side. He was also having episodic fever and he had a temperature spike of 11.4 this morning. Based on that, I discontinue the Rocephin and switch this patient to a combination of IV cefepime, and Zithromax. Cultures still negative for now. Patient was also given a dose of Lasix 20 mg IV push. The white cell count is at 9.9. Sodium level is at 129. BUN is 24 wi th a creatinine of 1.0. No angina. No palpitations. He has impaired LV function as stated in his echocardiogram. On 10/17/2019, the patient is still struggling with a bilateral pneumonia. The chest x-ray from today shows extensive pulmonary infiltrates and there has been interval worsening and left-sided pulmonary infiltrates. The right-sided consolidations improved. Note that the patient was covered with a combination of cefepime and Zithromax and antibiotics which was done yesterday. He is going to be given a dose of Lasix today 40 mg IV push and his clinical response is to be monitored. Earlier today, the patient was seen in the intensive care unit. He was in atrial fibrillation. He was on high flow oxygen at 15 L per minute nasal cannula with a pulse ox of 92%. He was sleeping. I was told that he did not sleep throughout the night. He was a bit confused and this morning his sleep breathing very comfortably. No significant leukocytosis. White cell count at 9.8. Function is stable. The blood cultures of been negative for now. Note that the chest x-ray showed bilateral alveolar opacities/infiltrates slightly worse compared to yesterday chest x-ray. He is post coronary artery bypass surgery. He denies having any chest pain. His his pro-calcitonin level was at 2.9 from yesterday. On 10/18/2019, the patient's condition essentially the same compared to yes terday. There is still extensive infiltration of the lungs on today's chest x- ray with worsening on the left. Noted the patient's initial pneumonia was in the right and the patient subsequently developed infiltration of the left. He was initially on examination Rocephin and Zithromax. Rocephin was stopped and the patient was started on cefepime. Zithromax was continued. On today's evaluation going to add vancomycin. The patient had a pro-calcitonin level of 1.8 from yesterday. The patient's renal function is stable revealed a 33 creatinine of 1.1. He was given a dose of Lasix yesterday the patient remains in a negative fluid balance. The patient is on 10 L of oxygen by nasal cannula and his pulse ox is around 94%. On and off he has some limited confusion. Overnight the patient had an acute hypersensitivity reaction any also developed some chest pain. Based on that, I ordered nitroglycerin drip. This morning his blood pressure is under better control of the chest and has subsided. The patient was seen by cardiology again. He was taken off the nitroglycerin drip and he was started in November. He was also placed on an increased dose of Catapres 0.2 mg 3 times a day. The patient is also on lisinopril and metoprolol dose was also adjusted by cardiology. He is afebrile for now. Is a bit lethargic. He is arousable and follows commands and answers questions appropriately. No focal neurological deficits. No nausea. No vomiting. No emesis. He is free of any chest pain as stated for now. On 10/19/2019 patient seen in follow-up on selective care unit, patient was transferred out of the intensive care unit last night, and overnight he has developed difficulty breathing, and worsening hypoxemia, and chest pain, he was placed on BiPAP support. He was given a dose of IV Lasix, and he has diuresed about 800 mL of urine. His renal function is worsening on today's labs, with BUN of up to 43, creatinine is 1.48, serum sodium is 134, follow-up troponin yesterday is trending down, and is down to 1.080, pro calcitonin is improving and is down to 1.87 on yesterday's labs, patient remains on antibiotics for pneumonia, including cefepime and vancomycin. Not been able to produce a sputum specimen, blood cultures have been negative thus far. On 10/23/2019 patient seen in follow-up on selective care unit, he is confused, still requiring high flow oxygen at 11 L, his pulse ox is 91-94%. Afebrile, he is uncommon emanation of cefepime and vancomycin for multilobar pneumonia, and today's chest x-ray still showing persistent perihilar and mid lung infiltrates bilaterally. Patient is going for out of 5 barium swallow to rule out possibility of silent aspiration. No new labs today, yesterday's labs showed worsening in renal profile, we'll obtain follow-up labs today, we'll start gentle IV hydration. Objective - Vital Signs Vital signs: Vital Signs Temp 97.3 F L 10/23/19 04:00 Pulse 90 10/23/19 04:00 Resp 18 10/23/19 04:00 BP 134/62 10/23/19 04:00 Pulse Ox 91 L 10/23/19 04:00 Intake & Output 10/22/19 10/23/19 10/23/19 18:59 06:59 18:59 Output Total 200 500 Balance -200 -500 Weight 113.5 kg Output: Urine 200 500 Other: Voiding Method Indwelling Catheter Indwelling Catheter - Exam GENERAL EXAM: Lethargic but arousable, 84-year-old male, 11 L high flow, with a pulse ox of 91%, calm and comfortable, with a industrial safety and health specialist at the bedside comfortable in no apparent distress. HEAD: Normocephalic/atraumatic. EYES: Normal reaction of pupils, equal size. Conjunctiva pink, sclera white. NOSE: Clear with pink turbinates. THROAT: No erythema or exudates. NECK: No masses, no JVD, no thyroid enlargement, no adenopathy. CHEST: No chest wall deformity. Symmetrical expansion. LUNGS: Equal air entry with no crackles, wheeze, rhonchi or dullness. CVS: Regular rate and rhythm, normal S1 and S2, no gallops, no murmurs, no rubs ABDOMEN: Soft, nontender. No hepatosplenomegaly, normal bowel sounds, no guarding or rigidity. EXTREMITIES: No clubbing, no edema, no cyanosis, 2+ pulses and upper and lower extremities. MUSCULOSKELETAL: Muscle strength and tone normal. SPINE: No scoliosis or deformity SKIN: No rashes CENTRAL NERVOUS SYSTEM: Lethargic but arousable. No focal deficits, tone is normal in all 4 extremities. - Labs CBC & Chem 7: 10/18/19 05:04 10/22/19 08:56 Labs: Abnormal Lab Results - Last 24 Hours (Table) 10/22/19 10/22/19 10/23/19 Range/Units 16:43 21:31 06:17 POC Glucose (mg/dL) 213 H 283 H 184 H (75-99) mg/dL 10/23/19 Range/Units 11:25 POC Glucose (mg/dL) 255 H (75-99) mg/dL Microbiology - Last 24 Hours (Table) 10/23/19 06:34 Nasal Screen MRSA/MSSA - Preliminary Nasal Swab 10/16/19 07:12 Blood Culture - Final Blood No Growth after 144 hours 10/16/19 07:12 Blood Culture - Final Blood No Growth after 144 hours Assessment and Plan Plan: 1 Multilobar pneumonia with extensive right lung consolidation, likely bacterial with secondary sepsis and hypoxic respiratory failure requiring BiPAP at a time of admission. Chest x-ray is showing improvement in the right lung consolidation with broad-spectrum antibiotics including a combination of Rocephin and Zithromax. Cultures are essentially negative thus far. COVID 19 infection was ruled out. The patient remains on IV liters of oxygen by nasal cannula. Chest x-ray still showing extensive consolidation of the right lung. On 10/14/2018, the patient is still having active infiltration of the lungs based on today's chest x-ray and there is interval worsening of the left lung pneumonia. As stated, the urge antibiotic coverage with Rocephin and Zithromax. Rocephin was switched to cefepime and today vancomycin will be added. A follow-up chest x-ray will be ordered for tomorrow. Chest x-ray findings are n oted. White cell count is still stable at 9.9. A patient is afebrile. The cultures were all negative. The patient is currently off the BiPAP. On 10/19/2019 patient is seen in follow-up on selective care unit, overnight he was transferred out of the ICU, in the morning on 10/19/2019 rapid response team was called in regards to worsening hypoxemia, shortness of breath, and chest pain. Patient was given additional dose of IV Lasix, he is improved with diuresis 2 Acute hypoxic respiratory failure requiring BiPAP at a time of admission currently on 11 L of oxygen by nasal cannula 3 Persistent atrial fibrillation with rapid ventricular response, likely precipitated by sepsis, rate is controlled 4 Coronary artery disease with bypass, with an acute non-ST segment elevation myocardial infarction 5 Chronic congestive heart failure from diastolic dysfunction EF 55-60%, the patient suffered an acute non-STEMI and there has been further drop in a ejection fraction down to 35-40% along with segmental wall motion abnormalities involving the anterior septal apical goode. 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 Continue current a ntibiotic coverage with cefepime and vancomycin, patient is going for a modified barium swallow today. Maintain aspiration precautions, continue monitoring mental status, we will decrease the dose of PRN Haldol, we'll switch the IV steroids to oral prednisone. Follow-up chest x-ray in the morning with an FiO2 I performed a history & physical examination of the patient and discussed their management with my nurse practitioner, Fernanda Hill. I reviewed the nurse practitioner's note and agree with the documented findings and plan of care. Lung sounds are positive for crackles The findings and the impression was discussed with the patient. I attest to the documentation by the nurse carlos fierro. Time with Patient: Less than 30
[2019-10-23 16:43] LABS: Glucose,Whole Blood 200 mg/dL (75-99)
--- NOTE | 2019-10-23 17:48 | P.PN ---
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 Chronic stable medical conditions include congestive heart failure EF 55-60%, diabetes, hypertension, hyperlipidemia, CK disease stage 2, history of aortic valve replacement with TAVR, mild cognitive impairment.egally blind and decreased hearing.. February 2019 had acute non-Q-wave MD with coronary intervention with angioplasty stent. Also admitted in May 2019 with paroxysmal atrial fibrillation. Started on eliquis. Patient now presents to the ER what is described as significant chest pain sharp shortness of breath. Patient is on a BiPAP currently in the ICU. Because of respiratory distress. COVID-19 was negative. Slight cough. Had a fever documented here for 100.6. Patient's history is limited because of shortness of breath. Unable to qualify the chest pain further. Found to be in atrial fibrillation with a rapid ventricular rate Admitted with-multilobar pneumonia, acute hypoxic respiratory failure, acute non-Q-wave myocardial infarction, atrial fibrillation uncontrolled. Admitted to ICU. Patient was on BiPAP.-Then switched over to high flow oxygen Today-medical floor: Patient did okay with swallow exam-except for thin barium. Upon a chair. Tired. Edema still present. Shortness of breath present. Review of systems: Attempted for constitutional, cardiovascular, GI, pulmonary. relevant finding as above Active Medications Acetaminophen (Tylenol Tab) 650 mg PO Q6HR PRN PRN Reason: Fever and/ or Pain Last Admin: 10/18/19 04:18 Dose: 650 mg Documented by: Hydrocodone Bitart/Acetaminophen (Morris 5-325) 1 each PO Q6HR PRN PRN Reason: Pain Last Admin: 10/23/19 02:14 Dose: 1 each Documented by: Allopurinol (Zyloprim) 100 mg PO BID [facility] Last Admin: 10/23/19 10:53 Dose: 100 mg Documented by: Alprazolam (Xanax) 0.25 mg PO TID PRN PRN Reason: Anxiety Last Admin: 10/23/19 02:47 Dose: 0.25 mg Documented by: Amlodipine Besylate (Norvasc) 10 mg PO DAILY [facility] Last Admin: 10/23/19 10:53 Dose: 10 mg Documented by: Apixaban (Eliquis) 5 mg PO BID [facility] Last Admin: 10/23/19 10:53 Dose: 5 mg Documented by: Atorvastatin Calcium (Lipitor) 40 mg PO HS [facility] Last Admin: 10/22/19 21:36 Dose: 40 mg Documented by: Carvedilol (Coreg) 12.5 mg PO BID-W/MEALS [facility] Last Admin: 10/23/19 06:33 Dose: 12.5 mg Documented by: Clonidine (Catapres) 0.2 mg PO TID [facility] Last Admin: 10/23/19 10:52 Dose: 0.2 mg Documented by: Clopidogrel Bisulfate (Plavix) 75 mg PO DAILY [facility] Last Admin: 10/23/19 10:52 Dose: 75 mg Documented by: Haloperidol Lactate (Haldol) 1 mg IVP Q4HR PRN PRN Reason: Agitation or Acute Psychosis Hydralazine HCl (Apresoline) 100 mg PO TID [facility] Last Admin: 10/23/19 10:52 Dose: 100 mg Documented by: Nitroglycerin/Dextrose 50 mg/ (IV Solution) 250 mls @ 1.5 mls/hr IV .Q24H [facility]; Protocol Last Admin: 10/23/19 10:39 Dose: Not Given Documented by: Cefepime HCl 2 gm/ Sodium (Chloride) 100 mls @ 200 mls/hr IVPB Q24HR [facility] Last Admin: 10/23/19 10:52 Dose: 200 mls/hr Documented by: Sodium Chloride (Saline 0.9%) 1,000 mls @ 75 mls/hr IV .[id number] [facility] Last Admin: 10/23/19 10:53 Dose: 75 mls/hr Documented by: Insulin Aspart (Novolog) 0 unit SQ ACHS [facility]; Protocol Last Admin: 10/23/19 12:36 Dose: 6 unit Documented by: Miscellaneous Information (Potassium Per Protocol) 1 each MISCELLANE DAILY PRN; Protocol PRN Reason: Per Protocol Naloxone HCl (Narcan) 0.2 mg IV Q2M PRN PRN Reason: Opioid Reversal Nitroglycerin (Nitrostat) 0.4 mg SUBLINGUAL Q5M PRN PRN Reason: Chest Pain Last Admin: 10/23/19 03:00 Dose: 0.4 mg Documented by: Pantoprazole Sodium (Protonix) 40 mg PO AC-[id number] [facility] Last Admin: 10/23/19 06:33 Dose: 40 mg Documented by: Prednisone () 20 mg PO DAILY [facility] Physical examination: VITAL SIGNS: 97.7, 51, 18, 132/61, 99% on 11 L GENERAL: Propped up in a chair, tired, some short of breath -on nasal cannula EYES: Pupils equal. Conjunctiva normal. HEENT: External appearance of nose and ears normal, oral cavity grossly normal, decreased hearing. NECK: JVD unable to assess, masses not palpable. HEART: Irregular heart sounds, edema present. LUNGS: Respiratory rate increased, , decreased breath sounds. ABDOMEN: Soft, nontender, liver spleen not palpable, no masses palpable. 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 NEUROLOGICAL: Following commands INVESTIGATIONS, reviewed in the clinical context: Potassium 4 bun 64 creatinine 1.80 Previous testing White count 16.3 hemoglobin 13 platelets 176 percussion 3.6 bun 26 creatinine 1.34 Troponin I 0.071, 6.5, 11.7 Coronavirus PCR-not detected EKG tracing personally reviewed by me-atrial fibrillation rapid ventricular rate with some ST segment depression Chest x-ray film personally reviewed by me-this infiltrates on the right side Blood cultures-negative Assessment: -Multilobar pneumonia suspected gram-negative organism causing sepsis, POA -Acute hypoxic respiratory failure requiring BiPAP,-now nasal cannula up to 11 L high.-Slow to respond -Persistent atrial fibrillation with rapid ventricular response, likely precipitated by sepsis- controlled -Acute non-Q-wave myocardial infarction, POA -Coronary artery disease with history of bypass -Acute on Chronic congestive heart failure from diastolic dysfunction EF 55-60% from ischemic heart disease -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 Creatinine has gone up from 0.98 up to 1.80. Plan: Patient remains on IV cefepime. Switched over to oral prednisone 20 mg a pulmonary. Back on IV fluids to 50 mL an hour. Follow labs.
[2019-10-23] MEDS: SODIUM CHLORIDE 0.9% 1,000 ML IV SCH (17:57)
[2019-10-23 20:09] LABS: Glucose,Whole Blood 227 mg/dL (75-99)
[2019-10-23] MEDS: ATORVASTATIN 40 MG TAB PO SCH (21:53)
[2019-10-24 06:08] LABS: Glucose,Whole Blood 128 mg/dL (75-99)
[2019-10-24] MEDS: INSULIN ASPART (NovoLOG) 100 UNIT/ML VIAL SQ SCH ×4 (06:32→21:21)
[2019-10-24] MEDS: HYDROcodone/APAP 5-325MG 1 EACH TAB PO PRN (06:52)
[2019-10-24] MEDS: PANTOPRAZOLE 40 MG TABLET PO SCH (06:52)
[2019-10-24] MEDS: CARVEDILOL 12.5 MG TAB PO SCH ×2 (06:52→16:45)
[2019-10-24 06:53] LABS: Basophils % (A) 0 %; Eosinophils # (A) 0.1 k/uL (0-0.7); Eosinophils % (A) 1 %; HCT 33.5 % (39.0-53.0); HGB 10.5 gm/dL (13.0-17.5); Hypochromasia Marked; Lymphocytes # (A) 1.2 k/uL (1.0-4.8); Lymphocytes % (A) 10 %; MCH 28.1 pg (25.0-35.0); MCHC 31.2 g/dL (31.0-37.0); MCV 89.9 fL (80.0-100.0); Mean Platelet Volume 7.5; Monocytes % (A) 9 %; Neutrophils # (A) 8.8 k/uL (1.3-7.7); Neutrophils % (A) 78 %; Platelet Count 273 k/uL (150-450); RBC 3.73 m/uL (4.30-5.90); RDW 14.9 % (11.5-15.5); WBC 11.4 k/uL (3.8-10.6)
[2019-10-24 07:09] LABS: Calcium 9.4 mg/dL (8.4-10.2); Potassium 3.9 mmol/L (3.5-5.1)
[2019-10-24] MEDS: NITROGLYCERIN-D5W PMX 50 MG in DEXTROSE/WATER 1 250ML.BAG IV SCH (09:16)
[2019-10-24] MEDS: amLODIPine 10 MG TAB PO SCH (09:16)
[2019-10-24] MEDS: ALLOPURINOL 100 MG TAB PO SCH ×2 (09:16→20:11)
[2019-10-24] MEDS: CLOPIDOGREL 75 MG TAB PO SCH (09:16)
[2019-10-24] MEDS: hydrALAZINE HCL 50 MG TAB PO SCH ×3 (09:17→21:21)
[2019-10-24] MEDS: cloNIDine HCL 0.1 MG TAB PO SCH ×3 (09:17→21:21)
[2019-10-24] MEDS: predniSONE 20 MG TAB PO SCH (09:17)
[2019-10-24] MEDS: APIXABAN 5 MG TAB PO SCH (09:17)
[2019-10-24] MEDS: CEFEPIME 2 GM in SODIUM CHLORIDE 0.9% 100 ML IVPB SCH (09:17)
[2019-10-24 11:19] LABS: Glucose,Whole Blood 179 mg/dL (75-99)
--- NOTE | 2019-10-24 13:30 | P.PN ---
Subjective Progress Note Date: 10/24/19 This is a 84-year-old male patient with history of coronary artery disease with previous bypass surgery, chronic atrial fibrillation and valvular heart disease who initially presented to the ED on 10/12/2019 with worsening shortness of breath and chest pain. The patient was found to be in A. fib RVR and he was also found to have a dense consolidation of the right lower lobe consistent with pneumonia. He was placed on BiPAP at a pressure of 12/5 cm of water and FiO2 of 50%. He was given IV fluids. He was started on a combination of Rocephin and Zithromax. He was placed on Cardizem drip for rate control and following that he was brought into the intensive care units. The patient tested negative for cough with 19 infection. Over the past 24 hours his atrial fibrillation is under better control. He is known to have aortic stenosis with TaVR procedure done. He is diabetic and has hyperlipidemia and hypertension and memory impairment and he is legally blind. His chest x-ray from yesterday showed improvement in the right lower lobe consolidation on the aeration of the right lung. There was some atelectatic changes in the left lung base. The patient was subsequently taken off the BiPAP. Currently is on 5 L of oxygen by nasal cannula with a pulse ox of 94%. Cultures have been negative thus far including the blood culture. The white cell count has been improving knowing that his initial white cell count is at 16. He remains on Eliquis for long-term anticoagulation. He is on metoprolol for rate control at a dose of 12.5 mg by mouth twice a day. He remains on IV Rocephin and Zithromax. On today's evaluation of 10/15/2019, the chest x-ray still showing extensive right lung consolidation. The patient has developed an acute non-ST segment elevation myocardial infarction. Troponin peaked at 11. History of any chest pain. He is complaining of diffuse body aches and the patient will be started back on his [place]. His blood pressure was noted to be elevated and appropriate changes will be done on the blood pressure medication. He is currently on metoprolol 25 mg by mouth twice a day. He is Norvasc was increased up to 10 mg an hour. He was started on clonidine 0.2 mg 3 times a day. He'll be kept on a combination of Eliquis and Plavix for now. IV fluids with normal state rate of 50 mL an hour and the patient is currently on oxygen at 5 L per minute nasal cannula. The dose being titrated to maintain a saturation above 90%. He remains on a combination of Rocephin and Zithromax for now. The echocardiogram showed a drop in the patient's ejection fraction which is down to 35-40%. There is segmental wall motion abnormalities. The patient has moderate concentric LVH. The patient also has a TAB are procedure done with moderate mitral annular calcification and a maximum gradient across the aortic valve of 11 mmHg without signs of any pulmonary hypertension. He has hypertensive heart disease with concentric LVH. On today's evaluation of 10/16/2019, the patient is still struggling with a pneumonia and acute. Overnight the patient became a bit confused and I made recommendations to give him Haldol and acid basis for delirium and agitation. He ultimately had become more tachypneic and he was placed back on the BiPAP. This morning I took him off the BiPAP and put him on high flow oxygen 10 L per minute nasal cannula. His chest x-ray showing bilateral pulmonary infiltrates. The right sided consolidation is improving and there is worsening of the infiltrates on the left side. He was also having episodic fever and he had a temperature spike of 11.4 this morning. Based on that, I discontinue the Rocephin and switch this patient to a combination of IV cefepime, and Zithromax. Cultures still negative for now. Patient was also given a dose of Lasix 20 mg IV push. The white cell count is at 9.9. Sodium level is at 129. BUN is 24 wi th a creatinine of 1.0. No angina. No palpitations. He has impaired LV function as stated in his echocardiogram. On 10/17/2019, the patient is still struggling with a bilateral pneumonia. The chest x-ray from today shows extensive pulmonary infiltrates and there has been interval worsening and left-sided pulmonary infiltrates. The right-sided consolidations improved. Note that the patient was covered with a combination of cefepime and Zithromax and antibiotics which was done yesterday. He is going to be given a dose of Lasix today 40 mg IV push and his clinical response is to be monitored. Earlier today, the patient was seen in the intensive care unit. He was in atrial fibrillation. He was on high flow oxygen at 15 L per minute nasal cannula with a pulse ox of 92%. He was sleeping. I was told that he did not sleep throughout the night. He was a bit confused and this morning his sleep breathing very comfortably. No significant leukocytosis. White cell count at 9.8. Function is stable. The blood cultures of been negative for now. Note that the chest x-ray showed bilateral alveolar opacities/infiltrates slightly worse compared to yesterday chest x-ray. He is post coronary artery bypass surgery. He denies having any chest pain. His his pro-calcitonin level was at 2.9 from yesterday. On 10/18/2019, the patient's condition essentially the same compared to yes terday. There is still extensive infiltration of the lungs on today's chest x- ray with worsening on the left. Noted the patient's initial pneumonia was in the right and the patient subsequently developed infiltration of the left. He was initially on examination Rocephin and Zithromax. Rocephin was stopped and the patient was started on cefepime. Zithromax was continued. On today's evaluation going to add vancomycin. The patient had a pro-calcitonin level of 1.8 from yesterday. The patient's renal function is stable revealed a 33 creatinine of 1.1. He was given a dose of Lasix yesterday the patient remains in a negative fluid balance. The patient is on 10 L of oxygen by nasal cannula and his pulse ox is around 94%. On and off he has some limited confusion. Overnight the patient had an acute hypersensitivity reaction any also developed some chest pain. Based on that, I ordered nitroglycerin drip. This morning his blood pressure is under better control of the chest and has subsided. The patient was seen by cardiology again. He was taken off the nitroglycerin drip and he was started in November. He was also placed on an increased dose of Catapres 0.2 mg 3 times a day. The patient is also on lisinopril and metoprolol dose was also adjusted by cardiology. He is afebrile for now. Is a bit lethargic. He is arousable and follows commands and answers questions appropriately. No focal neurological deficits. No nausea. No vomiting. No emesis. He is free of any chest pain as stated for now. On 10/19/2019 patient seen in follow-up on selective care unit, patient was transferred out of the intensive care unit last night, and overnight he has developed difficulty breathing, and worsening hypoxemia, and chest pain, he was placed on BiPAP support. He was given a dose of IV Lasix, and he has diuresed about 800 mL of urine. His renal function is worsening on today's labs, with BUN of up to 43, creatinine is 1.48, serum sodium is 134, follow-up troponin yesterday is trending down, and is down to 1.080, pro calcitonin is improving and is down to 1.87 on yesterday's labs, patient remains on antibiotics for pneumonia, including cefepime and vancomycin. Not been able to produce a sputum specimen, blood cultures have been negative thus far. On 10/23/2019 patient seen in follow-up on selective care unit, he is confused, still requiring high flow oxygen at 11 L, his pulse ox is 91-94%. Afebrile, he is uncommon emanation of cefepime and vancomycin for multilobar pneumonia, and today's chest x-ray still showing persistent perihilar and mid lung infiltrates bilaterally. Patient is going for out of 5 barium swallow to rule out possibility of silent aspiration. No new labs today, yesterday's labs showed worsening in renal profile, we'll obtain follow-up labs today, we'll start gentle IV hydration. On 10/24/2019 patient seen in follow-up on selective care unit, he is lethargic, but does open his eyes and follows command, he is currently on 12 L of oxygen with a pulse ox of 96%, FiO2 was dropped down to 10 L, his pulse ox is 90%, his been afebrile, hemodynamically stable, he had MBS study yesterday which showed residual aspiration with thin barium only, no evidence of aspiration. Patient however was holding boluses and his oral cavity related to his confusional state. Based therapy recommended mechanical soft diet with thin liquids with no straw and sitting upright at 90. Patient has a safety representative at the bedside related to his confusion and delirium, and a sitter states that patient did take and some food and oral fluids without any obvious difficulty or episodes of coughing. No new chest x-ray today. Patient remains on cefepime, vancomycin has been discontinued, he is on oral prednisone, his blood cultures have been negative, patient has not been able to produce a sputum specimen, lung sounds reveal diminished breath sounds bilaterally Objective - Vital Signs Vital signs: Vital Signs Temp 97.1 F L 10/24/19 12:00 Pulse 60 10/24/19 12:00 Resp 20 10/24/19 12:00 BP 133/63 10/24/19 12:00 Pulse Ox 90 L 10/24/19 12:00 Intake & Output 10/23/19 10/24/19 10/24/19 18:59 06:59 18:59 Intake Total 120 Output Total 600 780 Balance -480 -780 Weight 113.5 kg 110 kg Intake: Oral 120 Output: Urine 600 780 Other: Voiding Method Indwelling Catheter Indwelling Catheter Indwelling Catheter - Exam GENERAL EXAM: Lethargic but arousable, 84-year-old male, 12 L high flow, with a pulse ox of 96%, calm and comfortable, with a safety representative at the bedside comfortable in no apparent distress. HEAD: Normocephalic/atraumatic. EYES: Normal reaction of pupils, equal size. Conjunctiva pink, sclera white. NOSE: Clear with pink turbinates. THROAT: No erythema or exudates. NECK: No masses, no JVD, no thyroid enlargement, no adenopathy. CHEST: No chest wall deformity. Symmetrical expansion. LUNGS: Equal air entry with no crackles, wheeze, rhonchi or dullness. CVS: Regular rate and rhythm, normal S1 and S2, no gallops, no murmurs, no rubs ABDOMEN: Soft, nontender. No hepatosplenomegaly, normal bowel sounds, no guarding or rigidity. EXTREMITIES: No clubbing, no edema, no cyanosis, 2+ pulses and upper and lower extremities. MUSCULOSKELETAL: Muscle strength and tone normal. SPINE: No scoliosis or deformity SKIN: No rashes CENTRAL NERVOUS SYSTEM: Lethargic but arousable. No focal deficits, tone is normal in all 4 extremities. - Labs CBC & Chem 7: 10/24/19 06:20 10/24/19 06:20 Labs: Abnormal Lab Results - Last 24 Hours (Table) 10/23/19 10/23/19 10/24/19 Range/Units 16:33 20:07 06:06 WBC (3.8-10.6) k/uL RBC (4.30-5.90) m/uL Hgb (13.0-17.5) gm/dL Hct (39.0-53.0) % Neutrophils # (1.3-7.7) k/uL Sodium (137-145) mmol/L BUN (9-20) mg/dL Creatinine (0.66-1.25) mg/dL Glucose (74-99) mg/dL POC Glucose (mg/dL) 200 H 227 H 128 H (75-99) mg/dL Procalcitonin (0.02-0.09) ng/mL 10/24/19 10/24/19 10/24/19 Range/Units 06:20 06:20 06:20 WBC 11.4 H (3.8-10.6) k/uL RBC 3.73 L (4.30-5.90) m/uL Hgb 10.5 L (13.0-17.5) gm/dL Hct 33.5 L (39.0-53.0) % Neutrophils # 8.8 H (1.3-7.7) k/uL Sodium 133 L (137-145) mmol/L BUN 82 H (9-20) mg/dL Creatinine 1.78 H (0.66-1.25) mg/dL Glucose 119 H (74-99) mg/dL POC Glucose (mg/dL) (75-99) mg/dL Procalcitonin 0.48 H (0.02-0.09) ng/mL 10/24/19 Range/Units 11:18 WBC (3.8-10.6) k/uL RBC (4.30-5.90) m/uL Hgb (13.0-17.5) gm/dL Hct (39.0-53.0) % Neutrophils # (1.3-7.7) k/uL Sodium (137-145) mmol/L BUN (9-20) mg/dL Creatinine (0.66-1.25) mg/dL Glucose (74-99) mg/dL POC Glucose (mg/dL) 179 H (75-99) mg/dL Procalcitonin (0.02-0.09) ng/mL Microbiology - Last 24 Hours (Table) 10/23/19 06:34 Nasal Screen MRSA/MSSA - Final Nasal Swab Assessment and Plan Plan: 1 Multilobar pneumonia with extensive right lung consolidation, likely bacterial with secondary sepsis and hypoxic respiratory failure requiring BiPAP at a time of admission. Chest x-ray is showing improvement in the right lung consolidation with broad-spectrum antibiotics including a combination of Rocephin and Zithromax. Cultures are essentially negative thus far. COVID 19 infection was ruled out. The patient remains on IV liters of oxygen by nasal cannula. Chest x-ray still showing extensive consolidation of the right lung. On 10/14/2018, the patient is still having active infiltration of the lungs based on today's chest x-ray and there is interval worsening of the left lung pneumonia. As stated, the urge antibiotic coverage with Rocephin and Zithromax. Rocephin was switched to cefepime and today vancomycin will be added. A follow-up chest x-ray will be ordered for tomorrow. Chest x-ray findings are noted. White cell count is still stable at 9.9. A patient is afebrile. The cultures were all negative. The patient is currently off the BiPAP. On 10/19/2019 patient is seen in follow-up on selective care unit, overnight he was transferred out of the ICU, in the morning on 10/19/2019 rapid response team was called in regards to worsening hypoxemia, shortness of breath, and chest pain. Patient was given additional dose of IV Lasix, he is improved with diuresis 2 Acute hypoxic respiratory failure requiring BiPAP at a time of admission currently on 11 L of oxygen by nasal cannula 3 Persistent atrial fibrillation with rapid ventricular response, likely precipitated by sepsis, rate is controlled 4 Coronary artery disease with bypass, with an acute non-ST segment elevation myocardial infarction 5 Chronic congestive heart failure from diastolic dysfunction EF 55-60%, the patient suffered an acute non-STEMI and there has been further drop in a ejection fraction down to 35-40% along with segmental wall motion abnormalities involving the anterior septal apical goode. 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 He remains on cefepime only, vancomycin has been discontinued, continue with safety representative, maintaining safety precautions, patient still quite confused and lethargic. Decrease the dose of Haldol to every 8 hours as needed, we'll stop the Xanax and [place], patient seems to be oversedated. Maintain aspiration precaution. Will continue to closely follow. I performed a history & physical examination of the patient and discussed their management with my nurse practitioner, Fernanda Hill. I reviewed the nurse practitioner's note and agree with the documented findings and plan of care. Lung sounds are positive for crackles The findings and the impression was discussed with the patient. I attest to the documentation by the nurse practitioner. Time with Patient: Less than 30
--- NOTE | 2019-10-24 16:07 | P.PN ---
Progress Note - Text Progress Note Date: 10/24/19 Chief Complaint: Chest pain, shortness of breath Hospital course: This is a very pleasant 84-year-old patient of Dr. magallanes. 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 Chronic stable medical conditions include congestive heart failure EF 55-60%, diabetes, hypertension, hyperlipidemia, CK disease stage 2, history of aortic valve replacement with TAVR, mild cognitive impairment.egally blind and decreased hearing.. February 2019 had acute non-Q-wave AK with coronary intervention with angioplasty stent. Also admitted in May 2019 with paroxysmal atrial fibrillation. Started on eliquis. Patient now presents to the ER what is described as significant chest pain sharp shortness of breath. Patient is on a BiPAP currently in the ICU. Because of respiratory distress. COVID-19 was negative. Slight cough. Had a fever documented here for 100.6. Patient's history is limited because of shortness of breath. Unable to qualify the chest pain further. Found to be in atrial fibrillation with a rapid ventricular rate Admitted with-multilobar pneumonia, acute hypoxic respiratory failure, acute non-Q-wave myocardial infarction, atrial fibrillation uncontrolled. Admitted to ICU. Patient was on BiPAP.-Then switched over to high flow oxygen. Did okay with a modified barium swallow study. Today-medical floor: Tolerating his diet. Tired. Shortness of breath. Has a sitter Review of systems: Attempted for constitutional, cardiovascular, GI, pulmonary. relevant finding as above Active Medications Acetaminophen (Tylenol Tab) 650 mg PO Q6HR PRN PRN Reason: Fever and/ or Pain Last Admin: 10/18/19 04:18 Dose: 650 mg Documented by: Allopurinol (Zyloprim) 100 mg PO BID [facility] Last Admin: 10/24/19 09:16 Dose: 100 mg Documented by: Amlodipine Besylate (Norvasc) 10 mg PO DAILY [facility] Last Admin: 10/24/19 09:16 Dose: 10 mg Documented by: Apixaban (Eliquis) 2.5 mg PO BID [facility] Atorvastatin Calcium (Lipitor) 40 mg PO HS [facility] Last Admin: 10/23/19 21:53 Dose: 40 mg Documented by: Carvedilol (Coreg) 12.5 mg PO BID-W/MEALS [facility] Last Admin: 10/24/19 06:52 Dose: 12.5 mg Documented by: Clonidine (Catapres) 0.2 mg PO TID [facility] Last Admin: 10/24/19 09:17 Dose: 0.2 mg Documented by: Clopidogrel Bisulfate (Plavix) 75 mg PO DAILY [facility] Last Admin: 10/24/19 09:16 Dose: 75 mg Documented by: Haloperidol Lactate (Haldol) 1 mg IVP Q8HR PRN PRN Reason: Agitation or Acute Psychosis Hydralazine HCl (Apresoline) 100 mg PO TID [facility] Last Admin: 10/24/19 09:17 Dose: 100 mg Documented by: Cefepime HCl 2 gm/ Sodium (Chloride) 100 mls @ 200 mls/hr IVPB Q24HR [facility] Last Admin: 10/24/19 09:17 Dose: 200 mls/hr Documented by: Sodium Chloride (Saline 0.9%) 1,000 mls @ 50 mls/hr IV .Q20H [facility] Last Admin: 10/23/19 17:57 Dose: 50 mls/hr Documented by: Insulin Aspart (Novolog) 0 unit SQ ACHS [facility]; Protocol Last Admin: 10/24/19 12:15 Dose: 3 unit Documented by: Miscellaneous Information (Potassium Per Protocol) 1 each MISCELLANE DAILY PRN; Protocol PRN Reason: Per Protocol Naloxone HCl (Narcan) 0.2 mg IV Q2M PRN PRN Reason: Opioid Reversal Nitroglycerin (Nitrostat) 0.4 mg SUBLINGUAL Q5M PRN PRN Reason: Chest Pain Last Admin: 10/23/19 03:00 Dose: 0.4 mg Documented by: Pantoprazole Sodium (Protonix) 40 mg PO AC-BRKFST [facility] Last Admin: 10/24/19 06:52 Dose: 40 mg Documented by: Prednisone () 20 mg PO DAILY [facility] Last Admin: 10/24/19 09:17 Dose: 20 mg Documented by: Physical examination: VITAL SIGNS: 97.1, 60, 20, 133/63, 90% on 10 L GENERAL: Propped up, tired, but lethargic, on nasal cannula-10 L EYES: Pupils equal. Conjunctiva normal. HEENT: External appearance of nose and ears normal, oral cavity grossly normal, decreased hearing. NECK: JVD unable to assess, masses not palpable. HEART: Irregular heart sounds, edema present. LUNGS: Respiratory rate increased, , decreased breath sounds. ABDOMEN: Soft, nontender, liver spleen not palpable, no masses palpable. 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 NEUROLOGICAL: Following commands INVESTIGATIONS, reviewed in the clinical context: White count 11.4 hemoglobin 10.5 potassium 3.9 bun 82 creatinine 1.78 Progress calcitonin 0.48 Previous testing White count 16.3 hemoglobin 13 platelets 176 percussion 3.6 bun 26 creatinine 1.34 Troponin I 0.071, 6.5, 11.7 Coronavirus PCR-not detected EKG tracing personally reviewed by me-atrial fibrillation rapid ventricular rate with some ST segment depression Chest x-ray film personally reviewed by me-this infiltrates on the right side Blood cultures-negative Assessment: -Multilobar pneumonia suspected gram-negative organism causing sepsis, POA -Acute hypoxic respiratory failure requiring BiPAP,-now nasal cannula up to 10 L high.-Slow to respond -Persistent atrial fibrillation with rapid ventricular response, likely p recipitated by sepsis- controlled -Acute non-Q-wave myocardial infarction, POA -Coronary artery disease with history of bypass -Acute on Chronic congestive heart failure from diastolic dysfunction EF 55-60% from ischemic heart disease -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 Creatinine has gone up from 0.98 up to 1.80. Plan: Patient did tolerate some diet. Remains on IV cefepime. On IV fluids 50 mL an hour. Overall prognosis guarded. We'll only give thickened liquids. Avoid thin liquids
[2019-10-24 16:26] LABS: Glucose,Whole Blood 137 mg/dL (75-99)
[2019-10-24] MEDS: SODIUM CHLORIDE 0.9% 1,000 ML IV SCH ×2 (17:45→23:47)
[2019-10-24] MEDS: ATORVASTATIN 40 MG TAB PO SCH (20:11)
[2019-10-24] MEDS: HALOPERIDOL LACTATE 5 MG/ML 1 ML VIAL IVP PRN (20:11)
[2019-10-24] MEDS: APIXABAN 2.5 MG TABLET PO SCH (20:11)
[2019-10-24 20:52] LABS: Glucose,Whole Blood 153 mg/dL (75-99)
[2019-10-25] MEDS: ACETAMINOPHEN TAB 325 MG TAB PO PRN (02:53)
[2019-10-25] MEDS: HALOPERIDOL LACTATE 5 MG/ML 1 ML VIAL IVP PRN ×2 (02:59→11:12)
[2019-10-25 06:55] LABS: Glucose,Whole Blood 139 mg/dL (75-99)
[2019-10-25] MEDS: INSULIN ASPART (NovoLOG) 100 UNIT/ML VIAL SQ SCH ×4 (06:55→20:59)
[2019-10-25] MEDS: CARVEDILOL 12.5 MG TAB PO SCH ×2 (07:06→17:14)
[2019-10-25] MEDS: PANTOPRAZOLE 40 MG TABLET PO SCH (07:06)
--- NOTE | 2019-10-25 07:11 | XR ---
EXAMINATION TYPE: XR chest 1V portable DATE OF EXAM: 10/25/2019 CLINICAL HISTORY: Difficulty breathing and bilateral pneumonia progress study. TECHNIQUE: Single AP portable upright view of the chest is obtained. COMPARISON: Chest x-ray from 2 days earlier and older studies FINDINGS: Lateral right midlung opacity and diffuse central left hilar opacities remain present on b ackground low lung volumes and cardiomegaly with atherosclerotic thoracic aorta. Overlying sternal wi res and mediastinal clips redemonstrated. Osseous structures are intact. IMPRESSION: Persistent central left lung acute infiltrate and/or edema and lateral right mid lung acu te infiltrate and/or atelectasis on background low lung volumes and cardiomegaly. No significant wills ge from most recent x-ray.
[2019-10-25] MEDS: cloNIDine HCL 0.1 MG TAB PO SCH ×3 (08:35→21:00)
[2019-10-25] MEDS: HYDROcodone/APAP 5-325MG 1 EACH TAB PO PRN ×3 (08:35→21:00)
[2019-10-25] MEDS: predniSONE 20 MG TAB PO SCH (08:36)
[2019-10-25] MEDS: amLODIPine 10 MG TAB PO SCH (08:36)
[2019-10-25] MEDS: CEFEPIME 2 GM in SODIUM CHLORIDE 0.9% 100 ML IVPB SCH (08:36)
[2019-10-25] MEDS: ALLOPURINOL 100 MG TAB PO SCH ×2 (08:36→21:00)
[2019-10-25] MEDS: APIXABAN 2.5 MG TABLET PO SCH ×2 (08:36→20:59)
[2019-10-25] MEDS: CLOPIDOGREL 75 MG TAB PO SCH (08:36)
[2019-10-25] MEDS: hydrALAZINE HCL 50 MG TAB PO SCH ×3 (08:36→21:00)
[2019-10-25 11:54] LABS: Glucose,Whole Blood 131 mg/dL (75-99)
--- NOTE | 2019-10-25 12:50 | P.PN ---
Subjective Progress Note Date: 10/25/19 This is a 84-year-old male patient with history of coronary artery disease with previous bypass surgery, chronic atrial fibrillation and valvular heart disease who initially presented to the ED on 10/12/2019 with worsening shortness of breath and chest pain. The patient was found to be in A. fib RVR and he was also found to have a dense consolidation of the right lower lobe consistent with pneumonia. He was placed on BiPAP at a pressure of 12/5 cm of water and FiO2 of 50%. He was given IV fluids. He was started on a combination of Rocephin and Zithromax. He was placed on Cardizem drip for rate control and following that he was brought into the intensive care units. The patient tested negative for cough with 19 infection. Over the past 24 hours his atrial fibrillation is under better control. He is known to have aortic stenosis with TaVR procedure done. He is diabetic and has hyperlipidemia and hypertension and memory impairment and he is legally blind. His chest x-ray from yesterday showed improvement in the right lower lobe consolidation on the aeration of the right lung. There was some atelectatic changes in the left lung base. The patient was subsequently taken off the BiPAP. Currently is on 5 L of oxygen by nasal cannula with a pulse ox of 94%. Cultures have been negative thus far including the blood culture. The white cell count has been improving knowing that his initial white cell count is at 16. He remains on Eliquis for long-term anticoagulation. He is on metoprolol for rate control at a dose of 12.5 mg by mouth twice a day. He remains on IV Rocephin and Zithromax. On today's evaluation of 10/15/2019, the chest x-ray still showing extensive right lung consolidation. The patient has developed an acute non-ST segment elevation myocardial infarction. Troponin peaked at 11. History of any chest pain. He is complaining of diffuse body aches and the patient will be started back on his [place]. His blood pressure was noted to be elevated and appropriate changes will be done on the blood pressure medication. He is currently on metoprolol 25 mg by mouth twice a day. He is Norvasc was increased up to 10 mg an hour. He was started on clonidine 0.2 mg 3 times a day. He'll be kept on a combination of Eliquis and Plavix for now. IV fluids with normal state rate of 50 mL an hour and the patient is currently on oxygen at 5 L per minute nasal cannula. The dose being titrated to maintain a saturation above 90%. He remains on a combination of Rocephin and Zithromax for now. The echocardiogram showed a drop in the patient's ejection fraction which is down to 35-40%. There is segmental wall motion abnormalities. The patient has moderate concentric LVH. The patient also has a TAB are procedure done with moderate mitral annular calcification and a maximum gradient across the aortic valve of 11 mmHg without signs of any pulmonary hypertension. He has hypertensive heart disease with concentric LVH. On today's evaluation of 10/16/2019, the patient is still struggling with a pneumonia and acute. Overnight the patient became a bit confused and I made recommendations to give him Haldol and acid basis for delirium and agitation. He ultimately had become more tachypneic and he was placed back on the BiPAP. This morning I took him off the BiPAP and put him on high flow oxygen 10 L per minute nasal cannula. His chest x-ray showing bilateral pulmonary infiltrates. The right sided consolidation is improving and there is worsening of the infiltrates on the left side. He was also having episodic fever and he had a temperature spike of 11.4 this morning. Based on that, I discontinue the Rocephin and switch this patient to a combination of IV cefepime, and Zithromax. Cultures still negative for now. Patient was also given a dose of Lasix 20 mg IV push. The white cell count is at 9.9. Sodium level is at 129. BUN is 24 wi th a creatinine of 1.0. No angina. No palpitations. He has impaired LV function as stated in his echocardiogram. On 10/17/2019, the patient is still struggling with a bilateral pneumonia. The chest x-ray from today shows extensive pulmonary infiltrates and there has been interval worsening and left-sided pulmonary infiltrates. The right-sided consolidations improved. Note that the patient was covered with a combination of cefepime and Zithromax and antibiotics which was done yesterday. He is going to be given a dose of Lasix today 40 mg IV push and his clinical response is to be monitored. Earlier today, the patient was seen in the intensive care unit. He was in atrial fibrillation. He was on high flow oxygen at 15 L per minute nasal cannula with a pulse ox of 92%. He was sleeping. I was told that he did not sleep throughout the night. He was a bit confused and this morning his sleep breathing very comfortably. No significant leukocytosis. White cell count at 9.8. Function is stable. The blood cultures of been negative for now. Note that the chest x-ray showed bilateral alveolar opacities/infiltrates slightly worse compared to yesterday chest x-ray. He is post coronary artery bypass surgery. He denies having any chest pain. His his pro-calcitonin level was at 2.9 from yesterday. On 10/18/2019, the patient's condition essentially the same compared to yes terday. There is still extensive infiltration of the lungs on today's chest x- ray with worsening on the left. Noted the patient's initial pneumonia was in the right and the patient subsequently developed infiltration of the left. He was initially on examination Rocephin and Zithromax. Rocephin was stopped and the patient was started on cefepime. Zithromax was continued. On today's evaluation going to add vancomycin. The patient had a pro-calcitonin level of 1.8 from yesterday. The patient's renal function is stable revealed a 33 creatinine of 1.1. He was given a dose of Lasix yesterday the patient remains in a negative fluid balance. The patient is on 10 L of oxygen by nasal cannula and his pulse ox is around 94%. On and off he has some limited confusion. Overnight the patient had an acute hypersensitivity reaction any also developed some chest pain. Based on that, I ordered nitroglycerin drip. This morning his blood pressure is under better control of the chest and has subsided. The patient was seen by cardiology again. He was taken off the nitroglycerin drip and he was started in November. He was also placed on an increased dose of Catapres 0.2 mg 3 times a day. The patient is also on lisinopril and metoprolol dose was also adjusted by cardiology. He is afebrile for now. Is a bit lethargic. He is arousable and follows commands and answers questions appropriately. No focal neurological deficits. No nausea. No vomiting. No emesis. He is free of any chest pain as stated for now. On 10/19/2019 patient seen in follow-up on selective care unit, patient was transferred out of the intensive care unit last night, and overnight he has developed difficulty breathing, and worsening hypoxemia, and chest pain, he was placed on BiPAP support. He was given a dose of IV Lasix, and he has diuresed about 800 mL of urine. His renal function is worsening on today's labs, with BUN of up to 43, creatinine is 1.48, serum sodium is 134, follow-up troponin yesterday is trending down, and is down to 1.080, pro calcitonin is improving and is down to 1.87 on yesterday's labs, patient remains on antibiotics for pneumonia, including cefepime and vancomycin. Not been able to produce a sputum specimen, blood cultures have been negative thus far. On 10/23/2019 patient seen in follow-up on selective care unit, he is confused, still requiring high flow oxygen at 11 L, his pulse ox is 91-94%. Afebrile, he is uncommon emanation of cefepime and vancomycin for multilobar pneumonia, and today's chest x-ray still showing persistent perihilar and mid lung infiltrates bilaterally. Patient is going for out of 5 barium swallow to rule out possibility of silent aspiration. No new labs today, yesterday's labs showed worsening in renal profile, we'll obtain follow-up labs today, we'll start gentle IV hydration. On 10/24/2019 patient seen in follow-up on selective care unit, he is lethargic, but does open his eyes and follows command, he is currently on 12 L of oxygen with a pulse ox of 96%, FiO2 was dropped down to 10 L, his pulse ox is 90%, his been afebrile, hemodynamically stable, he had MBS study yesterday which showed residual aspiration with thin barium only, no evidence of aspiration. Patient however was holding boluses and his oral cavity related to his confusional state. Based therapy recommended mechanical soft diet with thin liquids with no straw and sitting upright at 90. Patient has a consumer safety inspector at the bedside related to his confusion and delirium, and a sitter states that patient did take and some food and oral fluids without any obvious difficulty or episodes of coughing. No new chest x-ray today. Patient remains on cefepime, vancomycin has been discontinued, he is on oral prednisone, his blood cultures have been negative, patient has not been able to produce a sputum specimen, lung sounds reveal diminished breath sounds bilaterally On 10/25/2019 patient seen in follow-up on selective care unit, he is somnolent, but he is answering questions appropriately although his responses are slow. he knew she was in [facility], he knew the exact month and the year, seems to be slightly more awake state, we stopped his Xanax and his pain medications. Looks like his on [place] has been resumed as the patient has been complaining of some chest discomfort with deep breathing and coughing, his chest x-ray today sh ows persistent central left lung acute infiltrates and edema and lateral right midlung acute infiltrates, skin change from yesterday. he remains on combination of cefepime, oral steroids. He remains on gentle IV hydration, no new labs today. Objective - Vital Signs Vital signs: Vital Signs Temp 97.8 F 10/25/19 11:47 Pulse 73 10/25/19 11:47 Resp 18 10/25/19 11:47 BP 112/69 10/25/19 11:47 Pulse Ox 93 L 10/25/19 11:47 Intake & Output 10/24/19 10/25/19 10/25/19 18:59 06:59 18:59 Intake Total 200 900 400 Output Total 663 685 [id number] Balance -100 600 -900 Weight 118 kg Intake: Oral 200 900 400 Output: Urine 235 [id number] Other: Voiding Method Indwelling Catheter Indwelling Catheter Indwelling Catheter - Exam GENERAL EXAM: Lethargic but arousable, 84-year-old male, 12 L high flow, with a pulse ox of 93%, calm and comfortable HEAD: Normocephalic/atraumatic. EYES: Normal reaction of pupils, equal size. Conjunctiva pink, sclera white. NOSE: Clear with pink turbinates. THROAT: No erythema or exudates. NECK: No masses, no JVD, no thyroid enlargement, no adenopathy. CHEST: No chest wall deformity. Symmetrical expansion. LUNGS: Equal air entry with no crackles, wheeze, rhonchi or dullness. CVS: Regular rate and rhythm, normal S1 and S2, no gallops, no murmurs, no rubs ABDOMEN: Soft, nontender. No hepatosplenomegaly, normal bowel sounds, no guarding or rigidity. EXTREMITIES: No clubbing, no edema, no cyanosis, 2+ pulses and upper and lower extremities. MUSCULOSKELETAL: Muscle strength and tone normal. SPINE: No scoliosis or deformity SKIN: No rashes CENTRAL NERVOUS SYSTEM: Lethargic but arousable. No focal deficits, tone is normal in all 4 extremities. - Labs CBC & Chem 7: 10/24/19 06:20 10/24/19 06:20 Labs: Abnormal Lab Results - Last 24 Hours (Table) 10/24/19 10/24/19 10/25/19 Range/Units 16:23 20:52 06:54 POC Glucose (mg/dL) 137 H 153 H 139 H (75-99) mg/dL 10/25/19 Range/Units 11:53 POC Glucose (mg/dL) 131 H (75-99) mg/dL Assessment and Plan Plan: 1 Multilobar pneumonia with extensive right lung consolidation, likely bacterial with secondary sepsis and hypoxic respiratory failure requiring BiPAP at a time of admission. Chest x-ray is showing improvement in the right lung consolidation with broad-spectrum antibiotics including a combination of Roce phin and Zithromax. Cultures are essentially negative thus far. COVID 19 infection was ruled out. The patient remains on IV liters of oxygen by nasal cannula. Chest x-ray still showing extensive consolidation of the right lung. On 10/14/2018, the patient is still having active infiltration of the lungs based on today's chest x-ray and there is interval worsening of the left lung pneumonia. As stated, the urge antibiotic coverage with Rocephin and Zithromax. Rocephin was switched to cefepime and today vancomycin will be added. A follow-up chest x-ray will be ordered for tomorrow. Chest x-ray findings are noted. White cell count is still stable at 9.9. A patient is afebrile. The cultures were all negative. The patient is currently off the BiPAP. On 10/19/2019 patient is seen in follow-up on selective care unit, overnight he was transferred out of the ICU, in the morning on 10/19/2019 rapid response team was called in regards to worsening hypoxemia, shortness of breath, and chest pain. Patient was given additional dose of IV Lasix, he is improved with diuresis 2 Acute hypoxic respiratory failure requiring BiPAP at a time of admission currently on 11 L of oxygen by nasal cannula 3 Persistent atrial fibrillation with rapid ventricular response, likely precipitated by sepsis, rate is controlled 4 Coronary artery disease with bypass, with an acute non-ST segment elevation myocardial infarction 5 Chronic congestive heart failure from diastolic dysfunction EF 55-60%, the patient suffered an acute non-STEMI and there has been further drop in a ejection fraction down to 35-40% along with segmental wall motion abnormalities involving the anterior septal apical goode. 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 Afebrile. Hemodynamically stable, requiring high FiO2 at 12 L, is complaining of chest discomfort for which his pain medication has been resu med. Chest x-ray has been reviewed showing stable findings of multilobar pneumonia with possibly slight improvement in left upper lobe density. Follow blood work in the morning, maintain aspiration precautions, follow-up chest x- ray. Overall prognosis is extremely guarded in view of multiple health issues. I performed a history & physical examination of the patient and discussed their management with my nurse practitioner, Fernanda Hill. I reviewed the nurse practitioner's note and agree with the documented findings and plan of care. Lung sounds are positive for crackles The findings and the impression was discussed with the patient. I attest to the documentation by the nurse [email or web address]. Time with Patient: Less than 30
[2019-10-25 13:29] LABS: Calcium 9.4 mg/dL (8.4-10.2); Potassium 4.4 mmol/L (3.5-5.1)
[2019-10-25 15:06] VITALS: BMI 42.0
--- NOTE | 2019-10-25 20:28 | P.PN ---
Progress Note - Text Progress Note Date: 10/25/19 Chief Complaint: Chest pain, shortness of breath Hospital course: This is a very pleasant 84-year-old patient of Dr. magallanes. 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 Chronic stable medical conditions include congestive heart failure EF 55-60%, diabetes, hypertension, hyperlipidemia, CK disease stage 2, history of aortic valve replacement with TAVR, mild cognitive impairment.egally blind and decreased hearing.. February 2019 had acute non-Q-wave [place] with coronary intervention with angioplasty stent. Also admitted in May 2019 with paroxysmal atrial fibrillation. Started on eliquis. Patient now presents to the ER what is described as significant chest pain sharp shortness of breath. Patient is on a BiPAP currently in the ICU. Because of respiratory distress. COVID-19 was negative. Slight cough. Had a fever documented here for 100.6. Patient's history is limited because of shortness of breath. Unable to qualify the chest pain further. Found to be in atrial fibrillation with a rapid ventricular rate Admitted with-multilobar pneumonia, acute hypoxic respiratory failure, acute non-Q-wave myocardial infarction, atrial fibrillation uncontrolled. Admitted to ICU. Patient was on BiPAP.-Then switched over to high flow oxygen. Did okay with a modified barium swallow study. Today-medical floor: Bit more awake today. Eating better. Tired. Review of systems: Attempted for constitutional, cardiovascular, GI, pulmonary. relevant finding as above Active Medications Acetaminophen (Tylenol Tab) 650 mg PO Q6HR PRN PRN Reason: Fever and/ or MILD Pain Last Admin: 10/25/19 02:53 Dose: 650 mg Documented by: Hydrocodone Bitart/Acetaminophen ([place] 5-325) 1 each PO Q6HR PRN PRN Reason: MODERATE Pain Last Admin: 10/25/19 14:50 Dose: 1 each Documented by: Allopurinol (Zyloprim) 100 mg PO BID [facility] Last Admin: 10/25/19 08:36 Dose: 100 mg Documented by: Amlodipine Besylate (Norvasc) 10 mg PO DAILY [facility] Last Admin: 10/25/19 08:36 Dose: 10 mg Documented by: Apixaban (Eliquis) 2.5 mg PO BID [facility] Last Admin: 10/25/19 08:36 Dose: 2.5 mg Documented by: Atorvastatin Calcium (Lipitor) 40 mg PO HS [facility] Last Admin: 10/24/19 20:11 Dose: 40 mg Documented by: Carvedilol (Coreg) 12.5 mg PO BID-W/MEALS [facility] Last Admin: 10/25/19 17:14 Dose: 12.5 mg Documented by: Clonidine (Catapres) 0.2 mg PO TID [facility] Last Admin: 10/25/19 14:50 Dose: 0.2 mg Documented by: Clopidogrel Bisulfate (Plavix) 75 mg PO DAILY [facility] Last Admin: 10/25/19 08:36 Dose: 75 mg Documented by: Hydralazine HCl (Apresoline) 100 mg PO TID [facility] Last Admin: 10/25/19 14:50 Dose: 100 mg Documented by: Cefepime HCl 2 gm/ Sodium (Chloride) 100 mls @ 200 mls/hr IVPB Q24HR [facility] Last Admin: 10/25/19 08:36 Dose: 200 mls/hr Documented by: Sodium Chloride (Saline 0.9%) 1,000 mls @ 50 mls/hr IV .Q20H [facility] Last Admin: 10/24/19 23:47 Dose: 50 mls/hr Documented by: Insulin Aspart (Novolog) 0 unit SQ ACHS [facility]; Protocol Last Admin: 10/25/19 17:13 Dose: 3 unit Documented by: Miscellaneous Information (Potassium Per Protocol) 1 each MISCELLANE DAILY PRN; Protocol PRN Reason: Per Protocol Naloxone HCl (Narcan) 0.2 mg IV Q2M PRN PRN Reason: Opioid Reversal Nitroglycerin (Nitrostat) 0.4 mg SUBLINGUAL Q5M PRN PRN Reason: Chest Pain Last Admin: 10/23/19 03:00 Dose: 0.4 mg Documented by: Pantoprazole Sodium (Protonix) 40 mg PO AC-BRKFST [facility] Last Admin: 10/25/19 07:06 Dose: 40 mg Documented by: Prednisone () 20 mg PO DAILY [facility] Last Admin: 10/25/19 08:36 Dose: 20 mg Documented by: Physical examination: VITAL SIGNS: 97.8, 63, 16, 112/69, 93% on 12 L GENERAL: Propped up, a bit more awake today, on nasal cannula-12 L EYES: Pupils equal. Conjunctiva normal. HEENT: External appearance of nose and ears normal, oral cavity grossly normal, decreased hearing. NECK: JVD unable to assess, masses not palpable. HEART: Irregular heart sounds, edema present. LUNGS: Respiratory rate increased, , decreased breath sounds. ABDOMEN: Soft, nontender, liver spleen not palpable, no masses palpable. 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 NEUROLOGICAL: Following commands INVESTIGATIONS, reviewed in the clinical context: Potassium 4.4 bun 73 creatinine 1.63 Chest x-ray film personally reviewed by me shows-patchy infiltrates Previous testing White count 16.3 hemoglobin 13 platelets 176 percussion 3.6 bun 26 creatinine 1.34 Troponin I 0.071, 6.5, 11.7 Coronavirus PCR-not detected EKG tracing personally reviewed by me-atrial fibrillation rapid ventricular rate with some ST segment depression Chest x-ray film personally reviewed by me-this infiltrates on the right side Blood cultures-negative Assessment: -Multilobar pneumonia suspected gram-negative organism causing sepsis, POA -Acute hypoxic respiratory failure requiring BiPAP,-now nasal cannula up to 12 L high.-Slow to respond -Persistent atrial fibrillation with rapid ventricular response, likely precipitated by sepsis- controlled -Acute non-Q-wave myocardial infarction, POA -Coronary artery disease with history of bypass -Acute on Chronic congestive heart failure from diastolic dysfunction EF 55-60% from ischemic heart disease -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 Creatinine has gone up from 0.98 up to 1.80. Plan: Continue current medication treatment plan. Including IV cefepime. Prognosis is guarded. We'll add incentive spirometry.
[2019-10-25] MEDS: ATORVASTATIN 40 MG TAB PO SCH (21:00)
[2019-10-25] MEDS: SODIUM CHLORIDE 0.9% 1,000 ML IV SCH (21:10)
[2019-10-26] MEDS: HYDROcodone/APAP 5-325MG 1 EACH TAB PO PRN ×4 (02:11→21:38)
[2019-10-26] MEDS: INSULIN ASPART (NovoLOG) 100 UNIT/ML VIAL SQ SCH ×4 (06:20→20:30)
[2019-10-26] MEDS: PANTOPRAZOLE 40 MG TABLET PO SCH (06:35)
[2019-10-26] MEDS: CARVEDILOL 12.5 MG TAB PO SCH ×2 (06:35→15:36)
[2019-10-26 07:50] LABS: Glucose,Whole Blood 116 mg/dL (75-99)
[2019-10-26 07:50] LABS: Glucose,Whole Blood 162 mg/dL (75-99)
[2019-10-26 07:50] LABS: Glucose,Whole Blood 181 mg/dL (75-99)
[2019-10-26] MEDS: CEFEPIME 2 GM in SODIUM CHLORIDE 0.9% 100 ML IVPB SCH (08:54)
[2019-10-26] MEDS: ALLOPURINOL 100 MG TAB PO SCH ×2 (08:54→20:30)
[2019-10-26] MEDS: hydrALAZINE HCL 50 MG TAB PO SCH ×3 (08:54→20:30)
[2019-10-26] MEDS: cloNIDine HCL 0.1 MG TAB PO SCH ×3 (08:54→20:30)
[2019-10-26] MEDS: APIXABAN 2.5 MG TABLET PO SCH ×2 (08:54→20:29)
[2019-10-26] MEDS: predniSONE 20 MG TAB PO SCH (08:54)
[2019-10-26] MEDS: CLOPIDOGREL 75 MG TAB PO SCH (08:54)
[2019-10-26] MEDS: amLODIPine 10 MG TAB PO SCH (08:55)
--- NOTE | 2019-10-26 11:05 | XR ---
EXAMINATION TYPE: XR chest 1V portable DATE OF EXAM: 10/26/2019 COMPARISON: 10/25/2019 HISTORY: Follow-up for pneumonia. TECHNIQUE: Single frontal view of the chest is obtained. FINDINGS: Upper lobe predominant interstitial opacities with central pulmonary vascular congestion a nd low lung volumes are more pronounced on today's examination than the prior. No new sizable pleural effusions or pneumothorax. Diffuse osseous demineralization. Post CABG changes the chest with enlarg ed cardiac mediastinal silhouette. IMPRESSION: Upper lobe and central predominant bilateral airspace disease is more pronounced than on the prior of 10/25/2019 and may relate to fluid overload or multifocal pneumonia.
[2019-10-26 11:37] LABS: Glucose,Whole Blood 148 mg/dL (75-99)
--- NOTE | 2019-10-26 12:58 | P.PN ---
Subjective Progress Note Date: 10/26/19 This is a 84-year-old male patient with history of coronary artery disease with previous bypass surgery, chronic atrial fibrillation and valvular heart disease who initially presented to the ED on 10/12/2019 with worsening shortness of breath and chest pain. The patient was found to be in A. fib RVR and he was also found to have a dense consolidation of the right lower lobe consistent with pneumonia. He was placed on BiPAP at a pressure of 12/5 cm of water and FiO2 of 50%. He was given IV fluids. He was started on a combination of Rocephin and Zithromax. He was placed on Cardizem drip for rate control and following that he was brought into the intensive care units. The patient tested negative for cough with 19 infection. Over the past 24 hours his atrial fibrillation is under better control. He is known to have aortic stenosis with TaVR procedure done. He is diabetic and has hyperlipidemia and hypertension and memory impairment and he is legally blind. His chest x-ray from yesterday showed improvement in the right lower lobe consolidation on the aeration of the right lung. There was some atelectatic changes in the left lung base. The patient was subsequently taken off the BiPAP. Currently is on 5 L of oxygen by nasal cannula with a pulse ox of 94%. Cultures have been negative thus far including the blood culture. The white cell count has been improving knowing that his initial white cell count is at 16. He remains on Eliquis for long-term anticoagulation. He is on metoprolol for rate control at a dose of 12.5 mg by mouth twice a day. He remains on IV Rocephin and Zithromax. On today's evaluation of 10/15/2019, the chest x-ray still showing extensive right lung consolidation. The patient has developed an acute non-ST segment elevation myocardial infarction. Troponin peaked at 11. History of any chest pain. He is complaining of diffuse body aches and the patient will be started back on his [place]. His blood pressure was noted to be elevated and appropriate changes will be done on the blood pressure medication. He is currently on metoprolol 25 mg by mouth twice a day. He is Norvasc was increased up to 10 mg an hour. He was started on clonidine 0.2 mg 3 times a day. He'll be kept on a combination of Eliquis and Plavix for now. IV fluids with normal state rate of 50 mL an hour and the patient is currently on oxygen at 5 L per minute nasal cannula. The dose being titrated to maintain a saturation above 90%. He remains on a combination of Rocephin and Zithromax for now. The echocardiogram showed a drop in the patient's ejection fraction which is down to 35-40%. There is segmental wall motion abnormalities. The patient has moderate concentric LVH. The patient also has a TAB are procedure done with moderate mitral annular calcification and a maximum gradient across the aortic valve of 11 mmHg without signs of any pulmonary hypertension. He has hypertensive heart disease with concentric LVH. On today's evaluation of 10/16/2019, the patient is still struggling with a pneumonia and acute. Overnight the patient became a bit confused and I made recommendations to give him Haldol and acid basis for delirium and agitation. He ultimately had become more tachypneic and he was placed back on the BiPAP. This morning I took him off the BiPAP and put him on high flow oxygen 10 L per minute nasal cannula. His chest x-ray showing bilateral pulmonary infiltrates. The right sided consolidation is improving and there is worsening of the infiltrates on the left side. He was also having episodic fever and he had a temperature spike of 11.4 this morning. Based on that, I discontinue the Rocephin and switch this patient to a combination of IV cefepime, and Zithromax. Cultures still negative for now. Patient was also given a dose of Lasix 20 mg IV push. The white cell count is at 9.9. Sodium level is at 129. BUN is 24 wi th a creatinine of 1.0. No angina. No palpitations. He has impaired LV function as stated in his echocardiogram. On 10/17/2019, the patient is still struggling with a bilateral pneumonia. The chest x-ray from today shows extensive pulmonary infiltrates and there has been interval worsening and left-sided pulmonary infiltrates. The right-sided consolidations improved. Note that the patient was covered with a combination of cefepime and Zithromax and antibiotics which was done yesterday. He is going to be given a dose of Lasix today 40 mg IV push and his clinical response is to be monitored. Earlier today, the patient was seen in the intensive care unit. He was in atrial fibrillation. He was on high flow oxygen at 15 L per minute nasal cannula with a pulse ox of 92%. He was sleeping. I was told that he did not sleep throughout the night. He was a bit confused and this morning his sleep breathing very comfortably. No significant leukocytosis. White cell count at 9.8. Function is stable. The blood cultures of been negative for now. Note that the chest x-ray showed bilateral alveolar opacities/infiltrates slightly worse compared to yesterday chest x-ray. He is post coronary artery bypass surgery. He denies having any chest pain. His his pro-calcitonin level was at 2.9 from yesterday. On 10/18/2019, the patient's condition essentially the same compared to yes terday. There is still extensive infiltration of the lungs on today's chest x- ray with worsening on the left. Noted the patient's initial pneumonia was in the right and the patient subsequently developed infiltration of the left. He was initially on examination Rocephin and Zithromax. Rocephin was stopped and the patient was started on cefepime. Zithromax was continued. On today's evaluation going to add vancomycin. The patient had a pro-calcitonin level of 1.8 from yesterday. The patient's renal function is stable revealed a 33 creatinine of 1.1. He was given a dose of Lasix yesterday the patient remains in a negative fluid balance. The patient is on 10 L of oxygen by nasal cannula and his pulse ox is around 94%. On and off he has some limited confusion. Overnight the patient had an acute hypersensitivity reaction any also developed some chest pain. Based on that, I ordered nitroglycerin drip. This morning his blood pressure is under better control of the chest and has subsided. The patient was seen by cardiology again. He was taken off the nitroglycerin drip and he was started in November. He was also placed on an increased dose of Catapres 0.2 mg 3 times a day. The patient is also on lisinopril and metoprolol dose was also adjusted by cardiology. He is afebrile for now. Is a bit lethargic. He is arousable and follows commands and answers questions appropriately. No focal neurological deficits. No nausea. No vomiting. No emesis. He is free of any chest pain as stated for now. On 10/19/2019 patient seen in follow-up on selective care unit, patient was transferred out of the intensive care unit last night, and overnight he has developed difficulty breathing, and worsening hypoxemia, and chest pain, he was placed on BiPAP support. He was given a dose of IV Lasix, and he has diuresed about 800 mL of urine. His renal function is worsening on today's labs, with BUN of up to 43, creatinine is 1.48, serum sodium is 134, follow-up troponin yesterday is trending down, and is down to 1.080, pro calcitonin is improving and is down to 1.87 on yesterday's labs, patient remains on antibiotics for pneumonia, including cefepime and vancomycin. Not been able to produce a sputum specimen, blood cultures have been negative thus far. On 10/23/2019 patient seen in follow-up on selective care unit, he is confused, still requiring high flow oxygen at 11 L, his pulse ox is 91-94%. Afebrile, he is uncommon emanation of cefepime and vancomycin for multilobar pneumonia, and today's chest x-ray still showing persistent perihilar and mid lung infiltrates bilaterally. Patient is going for out of 5 barium swallow to rule out possibility of silent aspiration. No new labs today, yesterday's labs showed worsening in renal profile, we'll obtain follow-up labs today, we'll start gentle IV hydration. On 10/24/2019 patient seen in follow-up on selective care unit, he is lethargic, but does open his eyes and follows command, he is currently on 12 L of oxygen with a pulse ox of 96%, FiO2 was dropped down to 10 L, his pulse ox is 90%, his been afebrile, hemodynamically stable, he had MBS study yesterday which showed residual aspiration with thin barium only, no evidence of aspiration. Patient however was holding boluses and his oral cavity related to his confusional state. Based therapy recommended mechanical soft diet with thin liquids with no straw and sitting upright at 90. Patient has a safety companion at the bedside related to his confusion and delirium, and a sitter states that patient did take and some food and oral fluids without any obvious difficulty or episodes of coughing. No new chest x-ray today. Patient remains on cefepime, vancomycin has been discontinued, he is on oral prednisone, his blood cultures have been negative, patient has not been able to produce a sputum specimen, lung sounds reveal diminished breath sounds bilaterally On 10/25/2019 patient seen in follow-up on selective care unit, he is somnolent, but he is answering questions appropriately although his responses are slow. he knew she was in [facility], he knew the exact month and the year, seems to be slightly more awake state, we stopped his Xanax and his pain medications. Looks like his on [place] has been resumed as the patient has been complaining of some chest discomfort with deep breathing and coughing, his chest x-ray today sh ows persistent central left lung acute infiltrates and edema and lateral right midlung acute infiltrates, skin change from yesterday. he remains on combination of cefepime, oral steroids. He remains on gentle IV hydration, no new labs today. On 10/26/2019 patient seen in follow-up on selective care unit. More awake today, he sitting up on the edge of the bed, he is working with physical therap y, he is currently on 10 L per high flow nasal cannula with a pulse ox of 91%. He is afebrile, hemodynamically she remains stable, he denies any chest pain today, he is short of breath with exertion, but appears to be in no acute distress. He is on combination of cefepime, his pro-calcitonin continues to trend down, and is down to 0.27 on today's labs, repeat troponin is trending down as well, at 0.124. Patient remains on oral prednisone. Lung sounds are diminished. Patient is suspected to be chronically aspirating, he is on a special diet with honey thickened liquids. Speech therapy services are following. Overall looking somewhat better on today's exam, however chest x-ray today shows worsening bilateral airspace disease related to possibility of pneumonia and fluid overload. We'll give him some diuretics Objective - Vital Signs Vital signs: Vital Signs Temp 98 F 10/26/19 04:00 Pulse 62 10/26/19 04:00 Resp 20 10/26/19 04:00 BP 133/58 10/26/19 04:00 Pulse Ox 91 L 10/26/19 04:00 Intake & Output 10/25/19 10/26/19 10/26/19 18:59 06:59 18:59 Intake Total 400 450 120 Output Total 1750 800 Balance -1350 -350 120 Weight 118 kg 113.5 kg Intake: Oral 400 450 120 Output: Urine 1750 800 Other: Voiding Method Indwelling Catheter Indwelling Catheter # Voids 0 - Exam GENERAL EXAM: Awake and alert, oriented 3, 84-year-old male, 10 L high flow, with a pulse ox of 91%, calm and comfortable HEAD: Normocephalic/atraumatic. EYES: Normal reaction of pupils, equal size. Conjunctiva pink, sclera white. NOSE: Clear with pink turbinates. THROAT: No erythema or exudates. NECK: No masses, no JVD, no thyroid enlargement, no adenopathy. CHEST: No chest wall deformity. Symmetrical expansion. LUNGS: Equal air entry with no crackles, wheeze, rhonchi or dullness. CVS: Regular rate and rhythm, normal S1 and S2, no gallops, no murmurs, no rubs ABDOMEN: Soft, nontender. No hepatosplenomegaly, normal bowel sounds, no guarding or rigidity. EXTREMITIES: No clubbing, no edema, no cyanosis, 2+ pulses and upper and lower extremities. MUSCULOSKELETAL: Muscle strength and tone normal. SPINE: No scoliosis or deformity SKIN: No rashes CENTRAL NERVOUS SYSTEM: Awake and alert and oriented 3. No focal deficits, to ne is normal in all 4 extremities. - Labs CBC & Chem 7: 10/24/19 06:20 10/25/19 13:06 Labs: Abnormal Lab Results - Last 24 Hours (Table) 10/25/19 10/25/19 10/25/19 Range/Units 13:05 13:06 16:34 Sodium 132 L (137-145) mmol/L Chloride 97 L (98-107) mmol/L Carbon Dioxide 32 H (22-30) mmol/L BUN 73 H (9-20) mg/dL Creatinine 1.63 H (0.66-1.25) mg/dL Glucose 133 H (74-99) mg/dL POC Glucose (mg/dL) 181 H (75-99) mg/dL Troponin I 0.124 H* (0.000-0.034) ng/mL Procalcitonin (0.02-0.09) ng/mL 10/25/19 10/26/19 10/26/19 Range/Units 20:07 05:25 06:17 Sodium (137-145) mmol/L Chloride (98-107) mmol/L Carbon Dioxide (22-30) mmol/L BUN (9-20) mg/dL Creatinine (0.66-1.25) mg/dL Glucose (74-99) mg/dL POC Glucose (mg/dL) 162 H 116 H (75-99) mg/dL Troponin I (0.000-0.034) ng/mL Procalcitonin 0.27 H (0.02-0.09) ng/mL 10/26/19 Range/Units 11:29 Sodium (137-145) mmol/L Chloride (98-107) mmol/L Carbon Dioxide (22-30) mmol/L BUN (9-20) mg/dL Creatinine (0.66-1.25) mg/dL Glucose (74-99) mg/dL POC Glucose (mg/dL) 148 H (75-99) mg/dL Troponin I (0.000-0.034) ng/mL Procalcitonin (0.02-0.09) ng/mL Assessment and Plan Plan: 1 Multilobar pneumonia with extensive right lung consolidation, likely bacterial with secondary sepsis and hypoxic respiratory failure requiring BiPAP at a time of admission. Chest x-ray is showing improvement in the right lung consolidation with broad-spectrum antibiotics including a combination of Rocephin and Zithromax. Cultures are essentially negative thus far. COVID 19 infection was ruled out. The patient remains on IV liters of oxygen by nasal cannula. Chest x-ray still showing extensive consolidation of the right lung. On 10/14/2018, the patient is still having active infiltration of the lungs based on today's chest x-ray and there is interval worsening of the left lung pneumonia. As stated, the urge antibiotic coverage with Rocephin and Zithromax. Rocephin was switched to cefepime and today vancomycin will be added. A follow-up chest x-ray will be ordered for tomorrow. Chest x-ray findings are noted. White cell count is still stable at 9.9. A patient is afebrile. The cultures were all negative. The patient is currently off the BiPAP. On 10/19/2019 patient is seen in follow-up on selective care unit, overnight he was transferred out of the ICU, in the morning on 10/19/2019 rapid response team was called in regards to worsening hypoxemia, shortness of breath, and chest pain. Patient was given additional dose of IV Lasix, he is improved with diuresis 2 Acute hypoxic respiratory failure requiring BiPAP at a time of admission currently on 11 L of oxygen by nasal cannula 3 Persistent atrial fibrillation with rapid ventricular response, likely precipitated by sepsis, rate is controlled 4 Coronary artery disease with bypass, with an acute non-ST segment elevation myocardial infarction 5 Chronic congestive heart failure from diastolic dysfunction EF 55-60%, the patient suffered an acute non-STEMI and there has been further drop in a ejection fraction down to 35-40% along with segmental wall motion abnormalities involving the anterior septal apical goode. 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 We'll start the patient on a daily dose of IV Lasix of 40 mg, continue current antibiotics, Procalcitonin level is trending down, patient is more awake today, he is participating with therapy, repeat chest x-ray in the morning, repeat labs. Overall prognosis is extremely guarded, will defer to primary care services to discuss CODE STATUS and possibility of palliative care I performed a history & physical examination of the patient and discussed their management with my nurse practitioner, Fernanda Hill. I reviewed the nurse practitioner's note and agree with the documented findings and plan of care. Lung sounds are positive for crackles The findings and the impression was discussed with the patient. I attest to the documentation by the nurse practitioner. Time with Patient: Less than 30
[2019-10-26] MEDS: FUROSEMIDE 10 MG/ML 4 ML VIAL IV SCH (15:36)
[2019-10-26 16:27] LABS: Glucose,Whole Blood 200 mg/dL (75-99)
--- NOTE | 2019-10-26 17:38 | P.PN ---
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 Chronic stable medical conditions include congestive heart failure EF 55-60%, diabetes, hypertension, hyperlipidemia, CK disease stage 2, history of aortic valve replacement with TAVR, mild cognitive impairment.egally blind and decreased hearing.. February 2019 had acute non-Q-wave LA with coronary intervention with angioplasty stent. Also admitted in May 2019 with paroxysmal atrial fibrillation. Started on eliquis. Patient now presents to the ER what is described as significant chest pain sharp shortness of breath. Patient is on a BiPAP currently in the ICU. Because of respiratory distress. COVID-19 was negative. Slight cough. Had a fever documented here for 100.6. Patient's history is limited because of shortness of breath. Unable to qualify the chest pain further. Found to be in atrial fibrillation with a rapid ventricular rate Admitted with-multilobar pneumonia, acute hypoxic respiratory failure, acute non-Q-wave myocardial infarction, atrial fibrillation uncontrolled. Admitted to ICU. Patient was on BiPAP.-Then switched over to high flow oxygen. Did okay with a modified barium swallow study. Today-awake. Oral intake reasonable. On 9 L of oxygen. Saturating about 95%. Patient is mouth breathing a lot. Review of systems: Attempted for constitutional, cardiovascular, GI, pulmonary. relevant finding as above Active Medications Acetaminophen (Tylenol Tab) 650 mg PO Q6HR PRN PRN Reason: Fever and/ or MILD Pain Last Admin: 10/25/19 02:53 Dose: 650 mg Documented by: Hydrocodone Bitart/Acetaminophen ([place] 5-325) 1 each PO Q6HR PRN PRN Reason: MODERATE Pain Last Admin: 10/26/19 15:35 Dose: 1 each Documented by: Allopurinol (Zyloprim) 100 mg PO BID [facility] Last Admin: 10/26/19 08:54 Dose: 100 mg Documented by: Amlodipine Besylate (Norvasc) 10 mg PO DAILY [facility] Last Admin: 10/26/19 08:55 Dose: 10 mg Documented by: Apixaban (Eliquis) 2.5 mg PO BID [facility] Last Admin: 10/26/19 08:54 Dose: 2.5 mg Documented by: Atorvastatin Calcium (Lipitor) 40 mg PO HS [facility] Last Admin: 10/25/19 21:00 Dose: 40 mg Documented by: Carvedilol (Coreg) 12.5 mg PO BID-W/MEALS [facility] Last Admin: 10/26/19 15:36 Dose: 12.5 mg Documented by: Clonidine (Catapres) 0.2 mg PO TID [facility] Last Admin: 10/26/19 15:36 Dose: 0.2 mg Documented by: Clopidogrel Bisulfate (Plavix) 75 mg PO DAILY [facility] Last Admin: 10/26/19 08:54 Dose: 75 mg Documented by: Furosemide (Lasix) 40 mg IV DAILY [facility] Last Admin: 10/26/19 15:36 Dose: 40 mg Documented by: Hydralazine HCl (Apresoline) 100 mg PO TID [facility] Last Admin: 10/26/19 15:36 Dose: 100 mg Documented by: Cefepime HCl 2 gm/ Sodium (Chloride) 100 mls @ 200 mls/hr IVPB Q24HR [facility] Last Admin: 10/26/19 08:54 Dose: 200 mls/hr Documented by: Sodium Chloride (Saline 0.9%) 1,000 mls @ 50 mls/hr IV .Q20H [facility] Last Admin: 10/25/19 21:10 Dose: 50 mls/hr Documented by: Insulin Aspart (Novolog) 0 unit SQ ACHS [facility]; Protocol Last Admin: 10/26/19 17:22 Dose: 3 unit Documented by: Miscellaneous Information (Potassium Per Protocol) 1 each MISCELLANE DAILY PRN; Protocol PRN Reason: Per Protocol Naloxone HCl (Narcan) 0.2 mg IV Q2M PRN PRN Reason: Opioid Reversal Nitroglycerin (Nitrostat) 0.4 mg SUBLINGUAL Q5M PRN PRN Reason: Chest Pain Last Admin: 10/23/19 03:00 Dose: 0.4 mg Documented by: Pantoprazole Sodium (Protonix) 40 mg PO AC-BRKFST [facility] Last Admin: 10/26/19 06:35 Dose: 40 mg Documented by: Prednisone () 20 mg PO DAILY [facility] Last Admin: 10/26/19 08:54 Dose: 20 mg Documented by: Physical examination: VITAL SIGNS: 97.4, 68, 16, 165/80, 95% on 9 L GENERAL: Resting in bed, awake, mouth breathing, or nasal cannula-9 L EYES: Pupils equal. Conjunctiva normal. HEENT: External appearance of nose and ears normal, oral cavity grossly normal, decreased hearing. NECK: JVD unable to assess, masses not palpable. HEART: Irregular heart sounds, edema present. LUNGS: Respiratory rate increased, , decreased breath sounds. ABDOMEN: Soft, nontender, liver spleen not palpable, no masses palpable. PSYCH: Able to answer questions MUSCULOSKELETAL: Evidence of OA especially in the hands NEUROLOGICAL: Following commands INVESTIGATIONS, reviewed in the clinical context: Pro-calcitonin 0.27 Previous testing White count 16.3 hemoglobin 13 platelets 176 percussion 3.6 bun 26 creatinine 1.34 Troponin I 0.071, 6.5, 11.7 Coronavirus PCR-not detected EKG tracing personally reviewed by me-atrial fibrillation rapid ventricular rate with some ST segment depression Chest x-ray film personally reviewed by me-this infiltrates on the right side Blood cultures-negative Assessment: -Multilobar pneumonia suspected gram-negative organism causing sepsis, POA, slow ly improving -Acute hypoxic respiratory failure requiring BiPAP,-now nasal cannula 9 L high.- Slow to respond-today be noted that patient is mouth breathing. 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 Creatinine has gone up from 0.98 up to 1.80. Plan: Continue to encourage incentive spirometry. We'll drop down the FiO2 to keep the pulse ox above 85%. Overall prognosis guarded. Repeat labs.
[2019-10-26 19:47] LABS: Glucose,Whole Blood 204 mg/dL (75-99)
[2019-10-26] MEDS: ATORVASTATIN 40 MG TAB PO SCH (20:30)
[2019-10-27 06:29] LABS: Glucose,Whole Blood 134 mg/dL (75-99)
[2019-10-27] MEDS: INSULIN ASPART (NovoLOG) 100 UNIT/ML VIAL SQ SCH ×4 (06:40→20:49)
[2019-10-27 06:42] LABS: HCT 32.7 % (39.0-53.0); HGB 9.7 gm/dL (13.0-17.5); Hypochromasia Marked; MCH 26.7 pg (25.0-35.0); MCHC 29.8 g/dL (31.0-37.0); MCV 89.7 fL (80.0-100.0); Mean Platelet Volume 8.2; Platelet Count 236 k/uL (150-450); RBC 3.64 m/uL (4.30-5.90); RDW 15.4 % (11.5-15.5); WBC 9.7 k/uL (3.8-10.6)
[2019-10-27 06:54] LABS: Potassium 4.3 mmol/L (3.5-5.1)
[2019-10-27] MEDS: CARVEDILOL 12.5 MG TAB PO SCH ×2 (07:03→17:37)
[2019-10-27] MEDS: HYDROcodone/APAP 5-325MG 1 EACH TAB PO PRN ×2 (07:03→19:57)
[2019-10-27] MEDS: PANTOPRAZOLE 40 MG TABLET PO SCH (07:03)
--- NOTE | 2019-10-27 07:22 | XR ---
EXAMINATION TYPE: XR chest 1V portable DATE OF EXAM: 10/27/2019 HISTORY: shortness of breath. REFERENCE: Previous study dated 10/26/2019. FINDINGS: There are midline sternotomy. The heart is enlarged. There is bilateral airspace disease, upper lobe predominant, worse on the left than the right. This is essentially unchanged from previous. No definite pleural fluid is seen. IMPRESSION: 1. CARDIOMEGALY. 2. CONTINUING UPPER LOBE AIRSPACE DISEASE BILATERALLY WHICH MAY REPRESENT ATYPICAL EDEMA OR PNEUMONIA .
[2019-10-27] MEDS: CEFEPIME 2 GM in SODIUM CHLORIDE 0.9% 100 ML IVPB SCH (08:21)
[2019-10-27] MEDS: FUROSEMIDE 10 MG/ML 4 ML VIAL IV SCH (08:21)
[2019-10-27] MEDS: amLODIPine 10 MG TAB PO SCH (08:22)
[2019-10-27] MEDS: cloNIDine HCL 0.1 MG TAB PO SCH ×3 (08:22→20:49)
[2019-10-27] MEDS: ALLOPURINOL 100 MG TAB PO SCH ×2 (08:22→20:49)
[2019-10-27] MEDS: CLOPIDOGREL 75 MG TAB PO SCH (08:22)
[2019-10-27] MEDS: predniSONE 20 MG TAB PO SCH (08:22)
[2019-10-27] MEDS: hydrALAZINE HCL 50 MG TAB PO SCH ×3 (08:22→20:49)
[2019-10-27] MEDS: APIXABAN 2.5 MG TABLET PO SCH ×2 (08:22→20:49)
[2019-10-27 12:29] LABS: Glucose,Whole Blood 143 mg/dL (75-99)
--- NOTE | 2019-10-27 16:24 | P.PN ---
Progress Note - Text Progress Note Date: 10/27/19 Chief Complaint: Chest pain, shortness of breath Hospital course: This is a very pleasant 84-year-old patient of Dr. magallanes. 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 Chronic stable medical conditions include congestive heart failure EF 55-60%, diabetes, hypertension, hyperlipidemia, CK disease stage 2, history of aortic valve replacement with TAVR, mild cognitive impairment.egally blind and decreased hearing.. February 2019 had acute non-Q-wave DC with coronary intervention with angioplasty stent. Also admitted in May 2019 with paroxysmal atrial fibrillation. Started on eliquis. Patient now presents to the ER what is described as significant chest pain sharp shortness of breath. Patient is on a BiPAP currently in the ICU. Because of respiratory distress. COVID-19 was negative. Slight cough. Had a fever documented here for 100.6. Patient's history is limited because of shortness of breath. Unable to qualify the chest pain further. Found to be in atrial fibrillation with a rapid ventricular rate Admitted with-multilobar pneumonia, acute hypoxic respiratory failure, acute non-Q-wave myocardial infarction, atrial fibrillation uncontrolled. Admitted to ICU. Patient was on BiPAP.-Then switched over to high flow oxygen. Did okay with a modified barium swallow study. Today-oral intake improving. A bit more awake. Oxygen being brought down. Review of systems: Attempted for constitutional, cardiovascular, GI, pulmonary. relevant finding as above Active Medications Acetaminophen (Tylenol Tab) 650 mg PO Q6HR PRN PRN Reason: Fever and/ or MILD Pain Last Admin: 10/25/19 02:53 Dose: 650 mg Documented by: Hydrocodone Bitart/Acetaminophen ([place] 5-325) 1 each PO Q6HR PRN PRN Reason: MODERATE Pain Last Admin: 10/27/19 07:03 Dose: 1 each Documented by: Allopurinol (Zyloprim) 100 mg PO BID [facility] Last Admin: 10/27/19 08:22 Dose: 100 mg Documented by: Amlodipine Besylate (Norvasc) 10 mg PO DAILY [facility] Last Admin: 10/27/19 08:22 Dose: 10 mg Documented by: Apixaban (Eliquis) 2.5 mg PO BID [facility] Last Admin: 10/27/19 08:22 Dose: 2.5 mg Documented by: Atorvastatin Calcium (Lipitor) 40 mg PO HS [facility] Last Admin: 10/26/19 20:30 Dose: 40 mg Documented by: Carvedilol (Coreg) 12.5 mg PO BID-W/MEALS [facility] Last Admin: 10/27/19 07:03 Dose: 12.5 mg Documented by: Clonidine (Catapres) 0.2 mg PO TID [facility] Last Admin: 10/27/19 08:22 Dose: 0.2 mg Documented by: Clopidogrel Bisulfate (Plavix) 75 mg PO DAILY [facility] Last Admin: 10/27/19 08:22 Dose: 75 mg Documented by: Furosemide (Lasix) 40 mg IV DAILY [facility] Last Admin: 10/27/19 08:21 Dose: 40 mg Documented by: Hydralazine HCl (Apresoline) 100 mg PO TID [facility] Last Admin: 10/27/19 08:22 Dose: 100 mg Documented by: Sodium Chloride (Saline 0.9%) 1,000 mls @ 50 mls/hr IV .Q20H [facility] Last Admin: 10/25/19 21:10 Dose: 50 mls/hr Documented by: Insulin Aspart (Novolog) 0 unit SQ ACHS [facility]; Protocol Last Admin: 10/27/19 13:19 Dose: 1 unit Documented by: Miscellaneous Information (Potassium Per Protocol) 1 each MISCELLANE DAILY PRN; Protocol PRN Reason: Per Protocol Naloxone HCl (Narcan) 0.2 mg IV Q2M PRN PRN Reason: Opioid Reversal Nitroglycerin (Nitrostat) 0.4 mg SUBLINGUAL Q5M PRN PRN Reason: Chest Pain Last Admin: 10/23/19 03:00 Dose: 0.4 mg Documented by: Pantoprazole Sodium (Protonix) 40 mg PO AC-BRKFST [facility] Last Admin: 10/27/19 07:03 Dose: 40 mg Documented by: Prednisone () 20 mg PO DAILY [facility] Last Admin: 10/27/19 08:22 Dose: 20 mg Documented by: Physical examination: VITAL SIGNS: 98.2, 67, 18, 146/64, 95% on 6 L GENERAL: Resting in bed, awake, mouth breathing, or nasal cannula-9 L EYES: Pupils equal. Conjunctiva normal. HEENT: External appearance of nose and ears normal, oral cavity grossly normal, decreased hearing. NECK: JVD unable to assess, masses not palpable. HEART: Irregular heart sounds, edema present. LUNGS: Respiratory rate increased, , decreased breath sounds. ABDOMEN: Soft, nontender, liver spleen not palpable, no masses palpable. PSYCH: Answering questions MUSCULOSKELETAL: Evidence of OA especially in the hands NEUROLOGICAL: Following commands INVESTIGATIONS, reviewed in the clinical context: White count 9.7 hemoglobin 9.7 percussion 4.3 bun 70 creatinine 1.54 Previous testing White count 16.3 hemoglobin 13 platelets 176 percussion 3.6 bun 26 creatinine 1.34 Troponin I 0.071, 6.5, 11.7 Coronavirus PCR-not detected EKG tracing personally reviewed by me-atrial fibrillation rapid ventricular rate with some ST segment depression Chest x-ray film personally reviewed by me-this infiltrates on the right side Blood cultures-negative Assessment: -Multilobar pneumonia suspected gram-negative organism causing sepsis, POA, slowly improving -Acute hypoxic respiratory failure requiring BiPAP,-now nasal cannula 9 L high.- Slow to respond-today be noted that patient is mouth breathing. We'll try to keep the pulse ox around 88-90% to bring the FiO2 down. 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 Creatinine has gone up from 0.98 up to 1.80. Plan: We'll try to keep the FiO2 bringing it down. Other medication treatment plan is to continue. Prognosis guarded.
[2019-10-27 17:04] LABS: Glucose,Whole Blood 227 mg/dL (75-99)
[2019-10-27] MEDS: SODIUM CHLORIDE 0.9% 1,000 ML IV SCH ×2 (17:39→23:21)
[2019-10-27 19:58] LABS: Glucose,Whole Blood 176 mg/dL (75-99)
[2019-10-27] MEDS: ATORVASTATIN 40 MG TAB PO SCH (20:49)
[2019-10-28] MEDS: HYDROcodone/APAP 5-325MG 1 EACH TAB PO PRN ×3 (01:36→20:46)
[2019-10-28 06:12] LABS: Glucose,Whole Blood 134 mg/dL (75-99)
[2019-10-28] MEDS: INSULIN ASPART (NovoLOG) 100 UNIT/ML VIAL SQ SCH ×4 (06:14→20:48)
[2019-10-28] MEDS: PANTOPRAZOLE 40 MG TABLET PO SCH (06:19)
[2019-10-28] MEDS: CARVEDILOL 12.5 MG TAB PO SCH ×2 (06:19→18:38)
--- NOTE | 2019-10-28 08:28 | XR ---
EXAMINATION TYPE: XR chest 1V portable DATE OF EXAM: 10/28/2019 HISTORY: shortness of breath. REFERENCE: Previous study dated 10/27/2019. FINDINGS: There has been a midline sternotomy. The heart is enlarged. There is patchy, bilateral airspace disease which may have worsened from the p revious study. Pleural spaces appear clear. IMPRESSION: 1. CARDIOMEGALY. 2. WORSENING, BILATERAL PNEUMONIAS.
[2019-10-28] MEDS: ALLOPURINOL 100 MG TAB PO SCH ×2 (08:54→20:46)
[2019-10-28] MEDS: APIXABAN 2.5 MG TABLET PO SCH ×2 (08:54→20:46)
[2019-10-28] MEDS: amLODIPine 10 MG TAB PO SCH (08:54)
[2019-10-28] MEDS: CLOPIDOGREL 75 MG TAB PO SCH (08:54)
[2019-10-28] MEDS: hydrALAZINE HCL 50 MG TAB PO SCH ×3 (08:54→20:46)
[2019-10-28] MEDS: cloNIDine HCL 0.1 MG TAB PO SCH ×3 (08:54→20:46)
[2019-10-28] MEDS: predniSONE 20 MG TAB PO SCH (08:54)
[2019-10-28] MEDS: FUROSEMIDE 10 MG/ML 4 ML VIAL IV SCH (08:55)
[2019-10-28 11:53] LABS: Glucose,Whole Blood 173 mg/dL (75-99)
--- NOTE | 2019-10-28 17:03 | P.PN ---
Progress Note - Text Progress Note Date: 10/28/19 Chief Complaint: Chest pain, shortness of breath Hospital course: This is a very pleasant 84-year-old patient of Dr. magallanes. 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 Chronic stable medical conditions include congestive heart failure EF 55-60%, diabetes, hypertension, hyperlipidemia, CK disease stage 2, history of aortic valve replacement with TAVR, mild cognitive impairment.egally blind and decreased hearing.. February 2019 had acute non-Q-wave CT with coronary intervention with angioplasty stent. Also admitted in May 2019 with paroxysmal atrial fibrillation. Started on eliquis. Patient now presents to the ER what is described as significant chest pain sharp shortness of breath. Patient is on a BiPAP currently in the ICU. Because of respiratory distress. COVID-19 was negative. Slight cough. Had a fever documented here for 100.6. Patient's history is limited because of shortness of breath. Unable to qualify the chest pain further. Found to be in atrial fibrillation with a rapid ventricular rate Admitted with-multilobar pneumonia, acute hypoxic respiratory failure, acute non-Q-wave myocardial infarction, atrial fibrillation uncontrolled. Admitted to ICU. Patient was on BiPAP.-Then switched over to high flow oxygen. Did okay with a modified barium swallow study. Today-oxygen down to 4 L. Eating anywhere from 50-75%. Awake. Tired. Slight cough Review of systems: Attempted for constitutional, cardiovascular, GI, pulmonary. relevant finding as above Active Medications Acetaminophen (Tylenol Tab) 650 mg PO Q6HR PRN PRN Reason: Fever and/ or MILD Pain Last Admin: 10/25/19 02:53 Dose: 650 mg Documented by: Hydrocodone Bitart/Acetaminophen ([place] 5-325) 1 each PO Q6HR PRN PRN Reason: MODERATE Pain Last Admin: 10/28/19 12:47 Dose: 1 each Documented by: Allopurinol (Zyloprim) 100 mg PO BID [facility] Last Admin: 10/28/19 08:54 Dose: 100 mg Documented by: Amlodipine Besylate (Norvasc) 10 mg PO DAILY [facility] Last Admin: 10/28/19 08:54 Dose: 10 mg Documented by: Apixaban (Eliquis) 2.5 mg PO BID [facility] Last Admin: 10/28/19 08:54 Dose: 2.5 mg Documented by: Atorvastatin Calcium (Lipitor) 40 mg PO HS [facility] Last Admin: 10/27/19 20:49 Dose: 40 mg Documented by: Carvedilol (Coreg) 12.5 mg PO BID-W/MEALS [facility] Last Admin: 10/28/19 06:19 Dose: 12.5 mg Documented by: Clonidine (Catapres) 0.2 mg PO TID [facility] Last Admin: 10/28/19 08:54 Dose: 0.2 mg Documented by: Clopidogrel Bisulfate (Plavix) 75 mg PO DAILY [facility] Last Admin: 10/28/19 08:54 Dose: 75 mg Documented by: Furosemide (Lasix) 40 mg PO DAILY [facility] Hydralazine HCl (Apresoline) 100 mg PO TID [facility] Last Admin: 10/28/19 08:54 Dose: 100 mg Documented by: Insulin Aspart (Novolog) 0 unit SQ ACHS [facility]; Protocol Last Admin: 10/28/19 12:48 Dose: 2 unit Documented by: Miscellaneous Information (Potassium Per Protocol) 1 each MISCELLANE DAILY PRN; Protocol PRN Reason: Per Protocol Naloxone HCl (Narcan) 0.2 mg IV Q2M PRN PRN Reason: Opioid Reversal Nitroglycerin (Nitrostat) 0.4 mg SUBLINGUAL Q5M PRN PRN Reason: Chest Pain Last Admin: 10/23/19 03:00 Dose: 0.4 mg Documented by: Pantoprazole Sodium (Protonix) 40 mg PO AC-BRKFST [facility] Last Admin: 10/28/19 06:19 Dose: 40 mg Documented by: Prednisone () 20 mg PO DAILY [facility] Last Admin: 10/28/19 08:54 Dose: 20 mg Documented by: Physical examination: VITAL SIGNS: 97.6, 52, 20, 159/71, 95% on 4 L GENERAL: Sitting on bed, awake, nasal cannula-4 L EYES: Pupils equal. Conjunctiva normal. HEENT: External appearance of nose and ears normal, oral cavity grossly normal, decreased hearing. NECK: JVD unable to assess, masses not palpable. HEART: Irregular heart sounds, edema present. LUNGS: Respiratory rate increased, , decreased breath sounds. ABDOMEN: Soft, nontender, liver spleen not palpable, no masses palpable. PSYCH: Answering questions MUSCULOSKELETAL: Evidence of OA especially in the hands NEUROLOGICAL: Following commands INVESTIGATIONS, reviewed in the clinical context: White count 9.7 hemoglobin 9.7 percussion 4.3 bun 70 creatinine 1.54 Previous testing White count 16.3 hemoglobin 13 platelets 176 percussion 3.6 bun 26 creatinine 1.34 Troponin I 0.071, 6.5, 11.7 Coronavirus PCR-not detected EKG tracing personally reviewed by me-atrial fibrillation rapid ventricular rate with some ST segment depression Chest x-ray film personally reviewed by me-this infiltrates on the right side Blood cultures-negative Assessment: -Multilobar pneumonia suspected gram-negative organism causing sepsis, POA, much improved -Acute hypoxic respiratory failure requiring BiPAP,-now nasal cannula 4 L -Persistent atrial fibrillation with rapid ventricular response, likely precipitated by sepsis- controlled -Acute non-Q-wave myocardial infarction, POA -Coronary artery disease with history of bypass -Acute on Chronic congestive heart failure from diastolic dysfunction EF 55-60% from ischemic heart disease -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 Creatinine has gone up from 0.98 up to 1.80. -No code Plan: Patient's FiO2 down to 4 L. Tolerating diet. Antibiotics were discontinued. We will DC normal saline and IV Lasix. Switched to by mouth Lasix. Prognosis guarded. Spoke to patient's nephew Hussain. Updated him on the patient's overall status. He'll be prudent to see patient will qualify for rehab with eventually looking at patient going into then hospice. Oral patient's prognosis is guarded. He understands the same. public health outreach worker and oil field caser to coordinate that tomorrow. Patient should be ready to be discharged tomorrow. Total time spent today about 40 minutes with over 25 minutes of discussion.
[2019-10-28 17:38] LABS: Glucose,Whole Blood 185 mg/dL (75-99)
[2019-10-28 20:41] LABS: Glucose,Whole Blood 178 mg/dL (75-99)
[2019-10-28] MEDS: ATORVASTATIN 40 MG TAB PO SCH (20:46)
[2019-10-29] MEDS: ACETAMINOPHEN TAB 325 MG TAB PO PRN (00:48)
[2019-10-29] MEDS: CARVEDILOL 12.5 MG TAB PO SCH ×2 (04:58→16:53)
[2019-10-29] MEDS: HYDROcodone/APAP 5-325MG 1 EACH TAB PO PRN (04:58)
[2019-10-29] MEDS: PANTOPRAZOLE 40 MG TABLET PO SCH (04:58)
[2019-10-29 06:15] LABS: Glucose,Whole Blood 137 mg/dL (75-99)
[2019-10-29] MEDS: INSULIN ASPART (NovoLOG) 100 UNIT/ML VIAL SQ SCH ×3 (06:40→16:53)
[2019-10-29 07:38] LABS: Potassium 4.5 mmol/L (3.5-5.1)
[2019-10-29] MEDS ORDERED: FUROSEMIDE 40 MG TAB PO SCH (09:00)
[2019-10-29] MEDS: hydrALAZINE HCL 50 MG TAB PO SCH ×2 (09:08→16:52)
[2019-10-29] MEDS: APIXABAN 2.5 MG TABLET PO SCH (09:08)
[2019-10-29] MEDS: amLODIPine 10 MG TAB PO SCH (09:08)
[2019-10-29] MEDS: predniSONE 20 MG TAB PO SCH (09:08)
[2019-10-29] MEDS: cloNIDine HCL 0.1 MG TAB PO SCH ×2 (09:08→16:52)
[2019-10-29] MEDS: ALLOPURINOL 100 MG TAB PO SCH (09:09)
[2019-10-29] MEDS: CLOPIDOGREL 75 MG TAB PO SCH (09:09)
--- NOTE | 2019-10-29 09:30 | XR ---
EXAMINATION TYPE: XR chest 1V portable DATE OF EXAM: 10/29/2019 COMPARISON: 10/28/2019 HISTORY: Shortness of breath TECHNIQUE: Single frontal view of the chest is obtained. FINDINGS: Post CABG changes are seen of the heart. Mildly enlarged cardiomediastinal silhouette that is rotated. Diffuse interstitial prominence and pulmonary vascular congestion remain. No sizable pne umothorax or pleural effusion. Diffuse osseous demineralization is mild. IMPRESSION: Stable diffuse interstitial prominence that may be on the basis of congestive heart fail ure or atypical pneumonia.
[2019-10-29 11:07] VITALS: PULSE 66; RESP 20
[2019-10-29 11:33] LABS: Glucose,Whole Blood 126 mg/dL (75-99)
--- NOTE | 2019-10-29 13:53 | P.DS ---
Providers Date of admission: 10/12/19 08:40 Expected date of discharge: 10/29/19 Attending physician: Roly Dorman Consults: 10/12/19 08:48 Consult Physician Routine Consulting Provider: Evelio Burnett Consult Reason/Comments: A. fib with RVR, troponin elevation, pneumonia Do you want consulting provider notified?: Yes Consult Physician Urgent Consulting Provider: Stevie Galvan Consult Reason/Comments: Pneumonia, CHF, A. 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 Chronic stable medical conditions include congestive heart failure EF 55-60%, diabetes, hypertension, hyperlipidemia, CK disease stage 2, history of aortic valve replacement with TAVR, mild cognitive impairment.egally blind and decreased hearing.. February 2019 had acute non-Q-wave [place] with coronary intervention with angioplasty stent. Also admitted in May 2019 with paroxysmal atrial fibrillation. Started on eliquis. Patient now presents to the ER what is described as significant chest pain sharp shortness of breath. Patient is on a BiPAP currently in the ICU. Because of respiratory distress. COVID-19 was negative. Slight cough. Had a fever documented here for 100.6. Patient's history is limited because of shortness of breath. Unable to qualify the chest pain further. Found to be in atrial fibrillation with a rapid ventricular rate Admitted with-multilobar pneumonia, acute hypoxic respiratory failure, acute non-Q-wave myocardial infarction, atrial fibrillation uncontrolled. Admitted to ICU. Patient was on BiPAP.-Then switched over to high flow oxygen. Did okay with a modified barium swallow study. Today-tired. Tolerating a diet. On nasal cannula. Spoke to patient's nephew again today. Who helps take decisions for the patient. I also spoke at length with the patient. Did explain his guarded prognosis. Patient is of understanding of the same. Spoke to the professor of social work. Patient into inpatient rehab. As discussed with the patient and her nephew. If condition deteriorates appropriate for hospice down the road Discussion and discharge planning more than 35 minutes Consults: Dr. Purdy and colleagues from pulmonary Physical examination: VITAL SIGNS: 97.7, 66, 20, 155/53, 95% on 3 L GENERAL: Laying in bed, awake a bit tired EYES: Pupils equal. Conjunctiva normal. HEENT: External appearance of nose and ears normal, oral cavity grossly normal, decreased hearing. NECK: JVD unable to assess, masses not palpable. HEART: Irregular heart sounds, edema present. LUNGS: Respiratory rate increased, , decreased breath sounds. ABDOMEN: Soft, nontender, liver spleen not palpable, no masses palpable. PSYCH: Answering questions MUSCULOSKELETAL: Evidence of OA especially in the hands NEUROLOGICAL: Following commands INVESTIGATIONS, reviewed in the clinical context: Potassium 4.5 bun 66 creatinine 1.74 Previous testing White count 16.3 hemoglobin 13 platelets 176 percussion 3.6 bun 26 creatinine 1.34 Troponin I 0.071, 6.5, 11.7 Coronavirus PCR-not detected EKG tracing personally reviewed by me-atrial fibrillation rapid ventricular rate with some ST segment depression Chest x-ray film personally reviewed by me-this infiltrates on the right side Blood cultures-negative Assessment: -Multilobar pneumonia suspected gram-negative organism causing sepsis, POA, -Acute hypoxic respiratory failure requiring BiPAP,-now nasal cannula 4 L -Persistent atrial fibrillation with rapid ventricular response, likely precipitated by sepsis- controlled -Acute non-Q-wave myocardial infarction, POA -Coronary artery disease with history of bypass -Acute on Chronic congestive heart failure from diastolic dysfunction EF 55-60% from ischemic heart disease. 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 Creatinine has gone up from 0.98 up to 1.80. -No code Disposition: [facility] Patient Condition at Discharge: Undetermined Plan - Discharge Summary Discharge Rx Participant: No New Discharge Prescriptions: New Clopidogrel [Plavix] 75 mg PO DAILY #90 tab hydrALAZINE HCL [Apresoline] 100 mg PO TID tab Carvedilol [Coreg*] 12.5 mg PO BID-W/MEALS tab predniSONE [Deltasone] 20 mg PO DIRECTED tab Polyethylene Glycol 3350 [Miralax] 17 gm PO DAILY #1 packet Continue Nitroglycerin Sl Tabs [Nitrostat] 0.4 mg SL Q5M PRN PRN Reason: Chest Pain Allopurinol [Zyloprim] 100 mg PO BID Pantoprazole Sodium 40 mg PO DAILY cloNIDine HCL [Catapres] 0.2 mg PO TID amLODIPine [Norvasc] 10 mg PO DAILY Isosorbide Mononitrate ER [Imdur] 60 mg PO DAILY Furosemide [Lasix] 40 mg PO DAILY Apixaban [Eliquis] 2.5 mg PO BID #60 tablet Acetaminophen [Tylenol 8 Hour] 650 mg PO BID Potassium Chloride ER [K-Dur 10] 10 meq PO DAILY Lovastatin [Mevacor] 80 mg PO HS Zolpidem Tartrate [Ambien] 5 mg PO HS PRN #3 tab PRN Reason: Insomnia HYDROcodone/APAP 5-325MG [[place] 5-325] 1 tab PO Q6HR PRN #12 tab PRN Reason: Pain Discontinued Aspirin 81 mg PO DAILY Cholecalciferol (Vitamin D3) [Vitamin D3] 2,000 unit PO DAILY ALPRAZolam [Xanax] 0.25 mg PO TID PRN #9 tab PRN Reason: Anxiety hydrALAZINE HCL [Apresoline] 25 mg PO TID hydrALAZINE HCL [Apresoline] 50 mg PO TID Docusate Sodium [Dok] 100 mg PO BID PRN PRN Reason: Constipation Meclizine [Antivert] 25 mg PO BID PRN PRN Reason: vertigo Discharge Medication List Nitroglycerin Sl Tabs [Nitrostat] 0.4 mg SL Q5M PRN 01/08/14 [History] Allopurinol [Zyloprim] 100 mg PO BID 02/21/15 [History] Pantoprazole Sodium 40 mg PO DAILY 02/21/15 [History] amLODIPine [Norvasc] 10 mg PO DAILY 03/01/19 [History] cloNIDine HCL [Catapres] 0.2 mg PO TID 03/01/19 [History] Furosemide [Lasix] 40 mg PO DAILY 06/15/19 [History] Isosorbide Mononitrate ER [Imdur] 60 mg PO DAILY 06/15/19 [History] Apixaban [Eliquis] 2.5 mg PO BID #60 tablet 06/16/19 [Rx] Acetaminophen [Tylenol 8 Hour] 650 mg PO BID 10/12/19 [History] Clopidogrel [Plavix] 75 mg PO DAILY #90 tab 10/12/19 [Rx] Lovastatin [Mevacor] 80 mg PO HS 10/12/19 [History] Potassium Chloride ER [K-Dur 10] 10 meq PO DAILY 10/12/19 [History] Carvedilol [Coreg*] 12.5 mg PO BID-W/MEALS tab 10/29/19 [Rx] HYDROcodone/APAP 5-325MG [[place] 5-325] 1 tab PO Q6HR PRN #12 tab 10/29/19 [Rx] Polyethylene Glycol 3350 [Miralax] 17 gm PO DAILY #1 packet 10/29/19 [Rx] Zolpidem Tartrate [Ambien] 5 mg PO HS PRN #3 tab 10/29/19 [Rx] hydrALAZINE HCL [Apresoline] 100 mg PO TID tab 10/29/19 [Rx] predniSONE [Deltasone] 20 mg PO DIRECTED tab 10/29/19 [Rx] Follow up Appointment(s)/Referral(s): Kevyn Constantino DO [Primary Care Provider] - 1-2 days Ezio Malloy MD [STAFF PHYSICIAN] - 2 Weeks
--- NOTE | 2019-10-29 14:44 | P.PN ---
Subjective Progress Note Date: 10/29/19 Principal diagnosis: Multilobar pneumonia with extensive right lung consolidation, CoVID 19 screening negative This is a 84-year-old male patient with history of coronary artery disease with previous bypass surgery, chronic atrial fibrillation and valvular heart disease who initially presented to the ED on 10/12/2019 with worsening shortness of breath and chest pain. The patient was found to be in A. fib RVR and he was also found to have a dense consolidation of the right lower lobe consistent with pneumonia. He was placed on BiPAP at a pressure of 12/5 cm of water and FiO2 of 50%. He was given IV fluids. He was started on a combination of Rocephin and Zithromax. He was placed on Cardizem drip for rate control and following that he was brought into the intensive care units. The patient tested negative for cough with 19 infection. Over the past 24 hours his atrial fibrillation is under better control. He is known to have aortic stenosis with TaVR procedure d one. He is diabetic and has hyperlipidemia and hypertension and memory impairment and he is legally blind. His chest x-ray from yesterday showed improvement in the right lower lobe consolidation on the aeration of the right lung. There was some atelectatic changes in the left lung base. The patient was subsequently taken off the BiPAP. Currently is on 5 L of oxygen by nasal cannula with a pulse ox of 94%. Cultures have been negative thus far including the blood culture. The white cell count has been improving knowing that his initial white cell count is at 16. He remains on Eliquis for long-term anticoagulation. He is on metoprolol for rate control at a dose of 12.5 mg by mouth twice a day. He remains on IV Rocephin and Zithromax. On today's evaluation of 10/15/2019, the chest x-ray still showing extensive right lung consolidation. The patient has developed an acute non-ST segment elevation myocardial infarction. Troponin peaked at 11. History of any chest pain. He is complaining of diffuse body aches and the patient will be started back on his [place]. His blood pressure was noted to be elevated and appropriate changes will be done on the blood pressure medication. He is currently on metoprolol 25 mg by mouth twice a day. He is Norvasc was increased up to 10 mg an hour. He was started on clonidine 0.2 mg 3 times a day. He'll be kept on a combination of Eliquis and Plavix for now. IV fluids with normal state rate of 50 mL an hour and the patient is currently on oxygen at 5 L per minute nasal cannula. The dose being titrated to maintain a saturation above 90%. He remains on a combination of Rocephin and Zithromax for now. The echocardiogram showed a drop in the patient's ejection fraction which is down to 35-40%. There is segmental wall motion abnormalities. The patient has moderate concentric LVH. The patient also has a TAB are procedure done with moderate mitral annular calcification and a maximum gradient across the aortic valve of 11 mmHg without signs of any pulmonary hypertension. He has hypertensive heart disease with concentric LVH. The patient is seen today 10/29/2019 in follow-up on the regular medical floor. He is currently resting comfortably in bed. Awake and alert in no acute distress. He's been afebrile. Maintaining O2 saturations in the 90s on 3 L/m per nasal cannula. Sodium 133. Potassium 4.4. Bicarb 30. Creatinine 1.74. Glucose 127. Chest x-ray revealed stable diffuse interstitial prominence most likely in the form of congestive heart failure versus atypical pneumonia. Maintained on antibiotics and diuretics. He is continued on anticoagulants the form of Eliquis. Objective - Vital Signs Vital signs: Vital Signs Temp 97.7 F 10/29/19 08:00 Pulse 66 10/29/19 12:00 Resp 20 10/29/19 12:00 BP 155/53 10/29/19 08:00 Pulse Ox 95 10/29/19 08:00 Intake & Output 10/28/19 10/29/19 10/29/19 18:59 06:59 18:59 Output Total 700 300 Balance -700 -300 Weight 111.5 kg Output: Urine 700 300 Uretheral (Chaves) 300 300 Other: Voiding Method Indwelling Catheter Indwelling Catheter Indwelling Catheter - Exam GENERAL EXAM: Awake, alert, 84-year-old male, on 3 L/m per nasal cannula, calm and comfortable, comfortable in no apparent distress. HEAD: Normocephalic/atraumatic. EYES: Normal reaction of pupils, equal size. Conjunctiva pink, sclera white. NOSE: Clear with pink turbinates. THROAT: No erythema or exudates. NECK: No masses, no JVD, no thyroid enlargement, no adenopathy. CHEST: No chest wall deformity. Symmetrical expansion. LUNGS: Equal air entry with bilateral scattered rhonchi, crackles in the bilateral posterior bases CVS: Regular rate and rhythm, normal S1 and S2, no gallops, no murmurs, no rubs ABDOMEN: Soft, nontender. No hepatosplenomegaly, normal bowel sounds, no guarding or rigidity. EXTREMITIES: No clubbing, no edema, no cyanosis, 2+ pulses and upper and lower extremities. MUSCULOSKELETAL: Muscle strength and tone normal. SPINE: No scoliosis or deformity SKIN: No rashes CENTRAL NERVOUS SYSTEM: Awake, alert. No focal deficits, tone is normal in all 4 extremities. - Labs CBC & Chem 7: 10/27/19 05:30 10/29/19 06:39 Labs: Abnormal Lab Results - Last 24 Hours (Table) 10/28/19 10/28/19 10/29/19 Range/Units 17:32 20:39 06:14 Sodium (137-145) mmol/L BUN (9-20) mg/dL Creatinine (0.66-1.25) mg/dL Glucose (74-99) mg/dL POC Glucose (mg/dL) 185 H 178 H 137 H (75-99) mg/dL 10/29/19 10/29/19 Range/Units 06:39 11:30 Sodium 133 L (137-145) mmol/L BUN 66 H (9-20) mg/dL Creatinine 1.74 H (0.66-1.25) mg/dL Glucose 127 H (74-99) mg/dL POC Glucose (mg/dL) 126 H (75-99) mg/dL Assessment and Plan Assessment: 1 Multilobar pneumonia with extensive right lung consolidation, likely bacterial with secondary sepsis and hypoxic respiratory failure requiring BiPAP at a time of admission. Currently on vancomycin and cefepime Cultures are essentially negative thus far. COVID 19 infection was ruled out. Improved and the patient is on 3 L/m per nasal cannula 2 Acute hypoxic respiratory failure requiring BiPAP at a time of admission currently on 3 L of oxygen by nasal cannula 3 Persistent atrial fibrillation with rapid ventricular response, likely precipitated by sepsis, rate is controlled 4 Coronary artery disease with bypass, with an acute non-ST segment elevation myocardial infarction 5 Chronic congestive heart failure from diastolic dysfunction EF 55-60%, the patient suffered an acute non-STEMI and there has been further drop in a ejection fraction down to 35-40% along with segmental wall motion abnormalities involving the anterior septal apical goode. 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 Galvan Patient is currently on oral antibiotics in the form of Augmentin Transitioned to oral diuretics On oral prednisone Plan is to [facility] to [facility] [place] I, the cosigning physician, performed a history & physical examination of the patient. Lungs sounds bilateral scattered rhonchi, crackles in the posterior bases. Maintaining good O2 saturations in the 90s on 3 liters per minute per nasal cannula. I discussed the assessment and plan of care with my nurse practitioner, Nahomy Cabrales. I attest to the above note as dictated by her.
[2019-10-29 16:32] LABS: Glucose,Whole Blood 141 mg/dL (75-99)
[2019-10-29 16:35] VITALS: BP 182/77; TEMP 97.8
== END 2019-10-29 17:02 | DRG 871 ==
LOC: EC 07:06 → 3SCARD 08:40 → 2SICU 09:57 → 3SCARD 10-18 21:53
PROVIDERS: ADMIT Hospitalist; ATTEND Hospitalist
PROC: 5A09557 Assistance with Respiratory Ventilation, Greater than 96 Consecutive Hours, Continuous Positive Airway Pressure (ICD-10-PCS; principal; 2019-10-12)
PROC: 05HF33Z Insertion of Infusion Device into Left Cephalic Vein, Percutaneous Approach (ICD-10-PCS; 2019-10-22 10:10)
DX: A41.50 Gram-negative sepsis, unspecified (principal); J15.6 Pneumonia due to other Gram-negative bacteria; I21.4 Non-ST elevation (NSTEMI) myocardial infarction; J96.01 Acute respiratory failure with hypoxia; J96.02 Acute respiratory failure with hypercapnia; I50.33 Acute on chronic diastolic (congestive) heart failure; G93.41 Metabolic encephalopathy; E87.2 Acidosis; I13.0 Hypertensive heart and chronic kidney disease with heart failure and stage 1 through stage 4 chronic kidney disease, or unspecified chronic kidney disease; N17.9 Acute kidney failure, unspecified; I48.19 Other persistent atrial fibrillation; E11.22 Type 2 diabetes mellitus with diabetic chronic kidney disease; Z20.828 Contact with and (suspected) exposure to other viral communicable diseases; E78.5 Hyperlipidemia, unspecified; I25.10 Atherosclerotic heart disease of native coronary artery without angina pectoris; G89.29 Other chronic pain; I25.5 Ischemic cardiomyopathy; N18.2 Chronic kidney disease, stage 2 (mild); I25.2 Old myocardial infarction; F41.9 Anxiety disorder, unspecified; R53.81 Other malaise; G31.84 Mild cognitive impairment of uncertain or unknown etiology; M19.90 Unspecified osteoarthritis, unspecified site; H54.8 Legal blindness, as defined in USA; H91.90 Unspecified hearing loss, unspecified ear; Z79.01 Long term (current) use of anticoagulants; Z79.82 Long term (current) use of aspirin; Z79.899 Other long term (current) drug therapy; Z95.2 Presence of prosthetic heart valve; Z95.1 Presence of aortocoronary bypass graft; Z87.891 Personal history of nicotine dependence; Z90.49 Acquired absence of other specified parts of digestive tract; Z95.5 Presence of coronary angioplasty implant and graft; Z87.19 Personal history of other diseases of the digestive system; Z98.890 Other specified postprocedural states; Z83.3 Family history of diabetes mellitus; Z82.49 Family history of ischemic heart disease and other diseases of the circulatory system
CPT/HCPCS: 36410; 36415; 70450; 71045; 74230; 76937; 80048; 80053; 80202; 81001; 83605; 83735; 83880; 84132; 84145; 84484; 85025; 85027; 85610; 85730; 87040; 87070; 87635; 93005; 93306; 94660; 94760; 96365; 96366; 96368; 96375; 96376; 99291